=== PATIENT | male | born 1970 | race Caucasian/White ===

== ENCOUNTER 2019-08-15 16:26 | Inpatient (IN) | payer BC, SELFPAY ==
[2019-08-15] VITALS (22 sets, daily range): BP systolic 116–158; BP diastolic 74–114; PULSE 70–133; RESP 17–21; TEMP 36–36.6; O2SAT 89–99; BMI 38.9; BMI 39.2; BMI 38.1
--- NOTE | 2019-08-15 17:11 | EKG12_ITS ---
Test Reason : SOB Blood Pressure : / mmHG Vent. Rate : 108 BPM Atrial Rate : 108 BPM P-R Int : 148 ms QRS Dur : 086 ms QT Int : 338 ms P-R-T Axes : 062 251 069 degrees QTc Int : 452 ms Sinus tachycardia Confirmed by INDIRA CARMONA MD ([id number]), commissioning editor DORA NEFF ([id number] on 08/19/2019 11:43:16 AM Referred By: Zaida Harper Confirmed By:INDIRA CARMONA MD
--- NOTE | 2019-08-15 17:30 | RAD_ITS ---
STUDY: X-RAY CHEST REASON FOR EXAM: Male, 49 years old. Shortness of breath. TECHNIQUE: Frontal and lateral views of the chest. COMPARISON: None. FINDINGS: The lungs are hyperinflated. There is no focal consolidation. Normal size heart. Normal mediastinum and ирина. There is prominence of the pulmonary hilar arteries without peripheral pulmonary vascular congestion. Normal visualized aortic arch and descending thoracic aorta. Normal visualized thoracic spine. Normal visualized ribs, clavicles, and shoulders. There is no demonstrated abnormality of the visualized soft tissue structures of the upper abdomen. RAD/Chest PA and Lateral IMPRESSION: Hyperinflated lungs. Prominent pulmonary hilar arteries, may be secondary to pulmonary artery hypertension. Electronically Signed: Jenelle Rose MD at 18:40 EST Tel , Service support ,
[2019-08-15 17:32] LABS: Absolute Neutrophil Count 10.5 X10^3/uL (2.0-7.7); Basophil# 0.09 X10^3/uL; Basophil% 0.6 % (0-1); Eosinophil# 0.04 X10^3/uL; Eosinophils% 0.3 % (0-5); Hematocrit 49.1 % (40-54); Hemoglobin 16.7 g/dL (13.0-16.5); Lymphocyte % 18.2 % (19-41); Mean Corpuscular Hgb 29.4 pg (27.0-32.0); Mean Corpuscular Volume 86.4 fL (80-94); Monocyte# 1.01 X10^3/uL; Monocyte% 7.1 % (0-10); NRBC Flagged by Analyzer 0 % (0-5); Neutrophil # 10.46 X10^3/uL (2.7-7.7); Neutrophil % 73.2 % (47-70); Platelet Count 252 K/mm3 (150-450); RBC Distribution Width CV 12.6 % (11.6-14.6); RBC Distribution Width SD 39.7 fl (35.1-43.9); Red Blood Count 5.68 M/mm3 (4.6-6.2); White Blood Count 14.3 K/mm3 (4.4-11.0)
--- NOTE | 2019-08-15 17:35 | ED.DCSUM_ITS ---
History of Present Illness Chief Complaint: Shortness of Breath Detail of Chief Complaint: Dyspnea on exertion Informant: Patient Onset: Weeks Context: Onset with activity Timing: Continuous Quality: Shortness of breath and dyspnea on exertion Location: Not applicable Current Severity: Mild Maximum Severity: Severe Worsened by: Walking Relieved by: Nothing Associated Symptoms: Cough Narrative: Patient is a 49-year-old male who presents because of persistent shortness of breath and dyspnea on exertion for the past several days. He was seen earlier this week at an urgent care and prescribed albuterol MDI and a burst of steroids. He reports no improvement. He has no history of asthma. He denies fever, chills or night sweats. He denies rhinorrhea, congestion or postnasal drainage. He denies pleuritic pain. He denies nausea, vomiting diarrhea. He denies hematemesis, melena hematochezia. He denies leg pain, swelling discoloration. He has no symptoms of claudication. Prior similar symptoms: Yes Recent Illness/Hospitalization: Yes - Past Medical History (1) No significant past medical history Status: Acute Past Medical History - Allergies and Home Meds Allergies/Adverse Reactions: Allergies No Known Allergies Allergy (Verified 08/15/19 16:27) Primary Care Physician: Care Physician,No Primary [Primary Care Provider] - Past Medical History: None Surgical History: no surgical history Lives: Spouse/ Significant Other Smoking Status: Never smoker Alcohol: Rare Drugs: None Review of Systems General: Denies: Chills, Fever, Sweats Eyes: Denies: Visual changes - bilaterally, Diplopia ENT: Denies: Bilateral ear pain, Rhinorrhea, Sore throat Cardiovascular: Reports: Heart racing. Denies: Chest pain, Palpitations Respiratory: Reports: Dyspnea, Cough, Dyspnea on exertion. Denies: Sputum, Orthopnea, Paroxysmal nocturnal dyspnea Gastrointestinal: Denies: Abdominal pain, Nausea, Vomiting, Diarrhea, Melena, Hematochezia Genitourinary: Denies: Dysuria, Hematuria, Frequency Musculoskeletal: Denies: Myalgias, Arthralgias, Back pain, Swelling, Extremity Pain Skin: Denies: Rash, Wounds Neurological: Denies: Headache, Weakness, Numbness Allergy: Denies: Uticaria, Swelling of the mouth, Swelling of the tongue Physical Exam Vital Signs/Narrative: Vital Signs Temp Pulse Resp BP Pulse Ox 08/15/19 16:56 110 H 20 H 153/101 H 90 08/15/19 16:27 97.8 F 133 H 17 116/76 92 Inital Vital Signs reviewed: Yes General: Well nourished, Well developed, No Acute Distress Head: Normocephalic, Atraumatic Eyes: Perrl, EOMI ENT: Moist mucous membranes, No rhinorrhea Neck: Supple, Nontender Cardiovascular: Regular rhythm, No murmurs, Normal S1, Normal S2, Tachycardia Respiratory: CTA bilaterally, Chest nontender. Negative for: No distress Abdomen: Soft, Nontender, Nondistended, Normal bowel sounds Back: Nontender, Normal Inspection Extremities: Nontender, No edema, - - There is no asymmetry, swelling, discoloration, leg vein distention, palpable cords or tenderness along the distribution of the deep venous system. Skin: Normal color, No rash Neurological: Alert, Oriented x3, Cranial nerves II-XII grossly intact, Normal Strength, Normal Sensation Psychological: Normal affect, Normal Mood Diagnostic/Tx/Re-eval Chest X-Ray - ED: 2 View, Read by ED Physician, Normal, Heart, Lungs, Mediastinu m, Bony Structures, No Acute Disease, - - He was interpreted by me at 1803. 08/15/19 17:30 Chest PA and Lateral [RAD] Stat Laboratory Results 08/15/19 08/15/19 08/15/19 17:12 17:12 17:20 WBC 14.3 H RBC 5.68 Hgb 16.7 H Hct 49.1 MCV 86.4 MCH 29.4 MCHC 34.0 RDW Std Deviation 39.7 RDW Coeff of Yared 12.6 Plt Count 252 MPV 11.0 Immature Gran % (Auto) 0.600 Neut % (Auto) 73.2 H Lymph % (Auto) 18.2 L [place] % (Auto) 7.1 Eos % (Auto) 0.3 Baso % (Auto) 0.6 Absolute Neuts (auto) 10.5 H Absolute Lymphs (auto) 2.60 Nucleated RBC % 0 Sodium 134 L Potassium 4.3 Chloride 101 Carbon Dioxide 21.0 Anion Gap 12 BUN 23 H Creatinine 1.51 H Estim Creat Clear Calc 68.35 Est GFR (MDRD) Af Amer 64 Est GFR (MDRD) Non-Af 53 L BUN/Creatinine Ratio 15.2 Glucose 475 H* Lactic Acid 3.6 H Calcium 8.8 Total Bilirubin 0.70 AST 88 H ALT 223 H Alkaline Phosphatase 93 Troponin I 0.129 H Total Protein 6.7 Albumin 3.2 Globulin 3.5 Albumin/Globulin Ratio 0.9 - Rhythm Strip Rhythm Strip: Sinus Tach Rate: 117 Ectopy: None - EKG Initial EKG Interpretation: Sinus Tachycardia - Sinus tachycardia with a ventricular rate of 108. [place] interval 148 ms. QS duration 86 ms. QT duration 338 ms. [place] is normal. There is motion artifact. There are some a nonspecific ST-T wave changes noted. - Medical Decision Making Differential diagnosis includes bronchitis, pneumonia, pulmonary embolus, cardiomyopathy, cardiac ischemia. Will obtain EKG, chest x-ray appropriate blood work including d-dimer. Patient was placed on a monitor. Since he is hypoxic with a saturation 88% he was told he will require admission to the hospital. Number was markedly elevated. CTA of the chest was performed. Patient has submassive pulmonary embolus with high clot burden. Case was discussed with Dr. Donahue since he has a lactic acidosis and elevated troponin with right heart strain regarding from lytics. He recommended IV heparin and admission to ICU. - Critical Care Time Critical care time (excluding procedures): 30-74 minutes, Discussing w/Patient &/or Family/General Milling Superintendent, Discussing w/Consultants, Arranging Admission or Transfer - Critical care time 32 minutes ED Disposition - Plan for ED Patient: Disposition: Acute Care [facility] Diagnosis: Bilateral pulmonary embolism, Respiratory failure with hypoxia, Acute hyperglycemia, Lactic acidosis, Sinus tachycardia by electrocardiogram, Right heart strain Referrals: Care Physician,No Primary [Primary Care Provider] -
[2019-08-15 18:00] LABS: Lactic Acid 3.6 mmol/L (0.4-2.0)
--- NOTE | 2019-08-15 18:00 | ED.RN ---
glucose 475 lactic 3.6 called from the lab dr patel aware
[2019-08-15 18:01] LABS: ALB/GLOB Ratio 0.9 RATIO (0.9-2.4); AST(SGOT) 88 U/L (15-37); Alanine Aminotransfer ALT/SGPT 223 U/L (16-61); Albumin, Serum 3.2 g/dL (3.2-5.0); Alkaline Phosphatase 93 U/L (45-117); Anion Gap 12 (5-15); BUN 23 mg/dL (7-18); BUN/Creat Ratio 15.2 RATIO (10-20); Calcium,Total 8.8 mg/dL (8.5-10.1); Chloride 101 mmol/L (98-107); Creatinine, Serum 1.51 mg/dL (0.70-1.30); EST Glomerular Filtration Rate 53 mL/min (>60); Est Glom Filt Rate - Afr Amer 64 mL/min (>60); Estimated Creatinine Clearance 68.35 ml/min; Globulin 3.5 g/dL (2.2-4.2); Glucose 475 mg/dL (74-106); Potassium 4.3 mmol/L (3.5-5.1); Protein, Total 6.7 g/dL (6.4-8.2); Sodium Level 134 mmol/L (136-145)
[2019-08-15] MEDS: 0.9% Normal Saline 1,000 ML 1000 ML IV (18:12)
[2019-08-15 18:22] LABS: D-Dimer Quantitative (DVT/PE) 2.42 FEU/ug/m (0.27-0.49)
--- NOTE | 2019-08-15 18:27 | CT_ITS ---
STUDY: CTA CHEST REASON FOR EXAM: Male, 49 years old. Elevated d-dimer. RADIATION DOSAGE (If Supplied By Facility): CTDIvol = ( 32.93 ) mGy, DLP = ( 680.85 ) mGycm TECHNIQUE: The examination was performed with the intravenous administration of IV 100mL [id number] 100ML. Post-processing of the angiographic images was performed, with multiplanar reformation and 3D reconstruction. Individualized dose optimization techniques were used for this CT. COMPARISON: None. FINDINGS: There are filling defects within the pulmonary arteries consistent with underlying emboli. There are associated emboli extending into segmental and subsegmental pulmonary arteries throughout the lungs. Normal thoracic aorta and visualized great vessels. There is no demonstrated aortic dissection. Normal heart and pericardium. Normal mediastinum. Normal hilar regions. Normal visualized trachea and bronchi. There are few groundglass opacities within the left upper lobe and superior segment of the left lower lobe that likely reflect focal edema. Normal chest wall structures. There are degenerative changes of thoracic spine. The limited images of the upper abdomen demonstrate a diffusely low in attenuation liver consistent with fatty infiltration. CT/CTA Chest W/WO Contrast IMPRESSION: Bilateral pulmonary emboli. Fatty infiltration of the liver. N.B. : The above information has been verbally conveyed by Jenelle Rose MD to Dr. Deep Paniagua MD, on 08/15/2019 19:33:00 (ET). Electronically Signed: Jenelle Rose MD at 19:34 EST Tel , Service support ,
--- NOTE | 2019-08-15 18:27 | ED.RN ---
ddimer 2.42 called from the lab dr patel aware
[2019-08-15 19:07] LABS: Partial Thromboplast Time 25.4 Seconds (24.1-36.2)
--- NOTE | 2019-08-15 19:10 | ED.RN ---
PATIENT UP TO BATHROOM. WHEN PATIENT RETURNED TO BED BECAME VERY SHORT OF BREATH AND BECAME UNRESPONSIVE WITH SNORING RESPIRATIONS. PULSE PRESENT. PATIENT UNRESPONSIVE FOR APPROXIMATELY 30 SECONDS. PATIENT MAINTAINED AIRWAY. DR. PALOMINO AT BEDSIDE. NEW ORDERS PLACED.
[2019-08-15] MEDS: Insulin Lispro 100 UNIT/ML INSULN.PEN SC ×2 (19:46→21:30)
--- NOTE | 2019-08-15 19:54 | HP.PCM_ITS ---
Problem List (1) Bilateral pulmonary embolism Status: Acute (2) Respiratory failure with hypoxia Status: Acute Qualifiers: Chronicity: acute Qualified Code(s): J96.01 - Acute respiratory failure with hypoxia (3) ADEN (acute kidney injury) Status: Acute (4) Elevated liver enzymes Status: Acute (5) Acute hyperglycemia Status: Acute (6) Lactic acidosis Status: Acute (7) Cardiac enzymes elevated Status: Acute (8) Sinus tachycardia by electrocardiogram Status: Acute (9) Obesity (BMI 30-39.9) Status: Chronic History of Present Illness Date of Admission: 08/15/19 Chief Complaint: SOB, Cough The patient is a 49 y/o M w/ PMHx: Obesity otherwise with no other significant m edical history who presents to the [facility] ED on 08/15/19 with history of ongoing dyspnea, worse with exertion over the last 4 weeks, more severe with increased exertion with associated cough, worsening over the last several days with initial onset 1 to 2 days following [address] to [place] on July 28 and return on the , continued uninterrupted driving both ways with admitted left posterior calf discomfort and mild swelling which she only noticed this prior Friday. Patient initially stable appearing in the ED however he did go to stand up and became unresponsive, collapsed with no respirations or pulse, very flushed appearance, nurses began CPR and he slowly awoke with then repeated stable appearing vital signs however he was more hypoxic and more tachycardic requiring increased oxygen supplementation. Dr. Donahue the glass installer technician was contacted as initially discussed TPA and had been deferred but given this presentation now TPA has been ordered, Bell placed. Work-up in the ED included T 97.8, heart rate initially 133 with improvement 104 following intervention, BP 116/76, respiratory rate 20, 90% on room air, CBC with WC 14.3, heme globin 6.7, platelet 252 with left shift, d-dimer 2.42, CMP with sodium 134, BUN/creatinine 23/1.51, glucose of 475, lactic acid 3.6, AST/ALT 88/223, troponin 0.129, chest x-ray with hyperinflated lungs with prominent pulmonary hilar arteries possibly secondary to pulmonary artery hypertension, CTPA with BL submassive pulmonary embolism. In the ED patient administered normal saline, insulin 5 units subcu x1, heparin bolus and drip initiated but held with alteplase and ministration as noted and worsens status. Past Medical History Past Medical History (Chronic Problems): Chronic Problems Obesity (BMI 30-39.9) (Chronic) Allergies No Known Allergies Allergy (Verified 08/15/19 16:27) Surgical History: - - Tonsillectomy. Psychiatric History: No pertinent psych hx Lives: Spouse/ Significant Other - Patient lives with his girlfriend. Smoking Status: Never smoker Alcohol: Rare Drugs: None - *Family History Maternal History Items: Diabetes Paternal History Items: - - Patient denies any market paternal family history including heart disease, diabetes or cancer. Review of Systems Constitutional: Reports: Malaise, Weakness, Fatigue. Denies: Chills, Fever, Weight Change HEENT: Denies: Head Aches, Sinus Congestion, Sinus Drainage Cardiovascular: Reports: Light Headedness, Syncope. Denies: Chest Pain, Chest Pressure, Chest Tightness, Heaviness, Orthopnea, Palpitations Respiratory: Reports: Cough, Shortness of Breath, Shortness of breath at rest, Shortness of breath upon exertion. Denies: Sputum production, Wheezing Gastrointestinal: Denies: Abdominal Pain, Nausea, Vomiting Genitourinary: Denies: Dysuria Musculoskeletal: Reports: Leg Pain. Denies: Joint Pain, Joint Tenderness Skin: Denies: Rash, Wounds Neurological: Denies: Numbness, Tingling, Focal weakness Psychiatric: Denies: Anxiety, Depression, Homicidal Ideations, Suicidal Ideations Hematologic/ Lymphatic: Denies: Easy Bruising, Easy Bleeding VTE Information - Inpt Only VTE Present on Admission: No VTE Mechan Device Prophylaxis: SCD's VTE Pharm Prophylaxis ordered?: Yes Patient Problems: Active and Suspected Problems No significant past medical history (Acute) Bilateral pulmonary embolism (Acute) Respiratory failure with hypoxia (Acute) Acute hyperglycemia (Acute) Lactic acidosis (Acute) Sinus tachycardia by electrocardiogram (Acute) ADEN (acute kidney injury) (Acute) Elevated liver enzymes (Acute) Cardiac enzymes elevated (Acute) Subjective: Patient laying in the ED bed, recent concern for syncopal event with cardiopulmonary arrest, resume pulse and appropriate respiratory status, increased oxygenation needs however, flushed and diaphoretic, denies any chest pain. Objective: Physical Examination: General: awake, alert, oriented x 3 and cooperative, laying in the ED bed, flushed, diaphoretic, vital signs improved, recent syncopal event with possible cardiopulmonary arrest Skin: normal color, turgor, no icterus, cyanosis. HEENT: AT/NC, EOMI, PERRLA, dry MM, no carotid bruits or JVD noted; however thickened neck makes examination difficult. Lungs: Diminished breath sounds throughout, greater bases, moderate effort, no rales, ronchi or wheezing. Heart: Cardiac with regular rhythm; no gallop, rub audible. Abdomen: soft, obese, NTTP, ND, normal BS, no HSM. Extremities: no cyanosis, clubbing, or edema, some discomfort with palpation of the left posterior calf region, minimally swollen. Neurological: patient awake, alert, oriented x 3; cognitive function intact; pupils equally reactive to light and accomodation; cranial nerves II-XII grossly normal, moving all 4 extremities, no focal deficits, strength severely global decrease secondary to acute presentation. Psychiatric: affect appears fatigued, flushed, no acute evidence of depressive or anxiety feelings. - Physical Exam Vitals/I&O's: Vital Signs Temp Pulse Resp BP Pulse Ox 98 F 104 H 20 H 130/90 H 93 08/15/19 18:07 08/15/19 19:03 08/15/19 19:03 08/15/19 19:03 08/15/19 19:03 Oxygen Flow Rate (L/min) 2 Oxygen Delivery Method Nasal Cannula Weight: 294 lb 15.656 oz Body Mass Index (BMI) 38.9 Laboratory Results 08/15/19 17:12: WBC 14.3 H, RBC 5.68, Hgb 16.7 H, Hct 49.1, MCV 86.4, MCH 29.4, MCHC 34.0, RDW Std Deviation 39.7, RDW Coeff of Yared 12.6, Plt Count 252, MPV 11.0, Immature Gran % (Auto) 0.600, Neut % (Auto) 73.2 H, Lymph % (Auto) 18.2 L, [place] % (Auto) 7.1, Eos % (Auto) 0.3, Baso % (Auto) 0.6, Absolute Neuts (auto) 10.5 H, Absolute Lymphs (auto) 2.60, Nucleated RBC % 0 08/15/19 17:12: Sodium 134 L, Potassium 4.3, Chloride 101, Carbon Dioxide 21.0, Anion Gap 12, BUN 23 H, Creatinine 1.51 H, Estim Creat Clear Calc 68.35, Est GFR (MDRD) Af Amer 64, Est GFR (MDRD) Non-Af 53 L, BUN/Creatinine Ratio 15.2, Glucose 475 H*, Calcium 8.8, Total Bilirubin 0.70, AST 88 H, ALT 223 H, Alkaline Phosphatase 93, Troponin I 0.129 H, Total Protein 6.7, Albumin 3.2, Globulin 3.5, Albumin/Globulin Ratio 0.9 08/15/19 17:12: D-Dimer Quant (PE/DVT) 2.42 H* 08/15/19 17:17: APTT Pending 08/15/19 17:20: Lactic Acid 3.6 H Current Medications Heparin Sodium (Porcine) (Heparin Na) 0 unit IV UD PRN; Protocol Heparin Sodium/Dextrose () 25,000 units in 250 mls @ 17 mls/hr IV .[id number] [facility]; Protocol Assessment/Plan All Active Problems No significant past medical history (Acute) Bilateral pulmonary embolism (Acute) Respiratory failure with hypoxia (Acute) Acute hyperglycemia (Acute) Lactic acidosis (Acute) Sinus tachycardia by electrocardiogram (Acute) ADEN (acute kidney injury) (Acute) Elevated liver enzymes (Acute) Cardiac enzymes elevated (Acute) The patient is a 49 y/o M w/ PMHx: Obesity otherwise with no other significant medical history who presents to the [facility] ED on 08/15/19 with history of ongoing dyspnea, worse with exertion over the last 4 weeks, more severe with increased exertion with associated cough, worsening over the last several days with initial onset 1 to 2 days following [address] to [place] on July 28 and return on the , continued uninterrupted driving both ways with admitted left posterior calf discomfort and mild swelling which she only noticed this prior Friday. (1) Acute Hypoxic Respiratory Failure, Tachycardia, Indeterminate cardiac enzyme secondary to Acute BL Submassive Pulmonary Emboli w/ Syncopal Event, Possible Cardiopulmonary Arrest : EKG without acute findings w/ sinus tachycardia, CXR no acute process, D-dimer elevated, CTPA with BL submassive pulmonary embolism, trop x 0.129 likely secondary to strain. No family history of hypercoaguable state. Patient noted recent travel but following hypercoag panel being obtained. Will admit to ICU given severity of clot evident and strain, maintain on cardiac telemetry, will obtain ECHO, BNP for prognostic marker and BL LE DVT US. Hypercoaguable panel obtained in ED prior to administration anticoagulation w/ heparin bolus and drip although. Will continue therapeutic heparin drip regimen once PTT appropriate without bolus following ED initiated Alteplase administration with pending AM insurance oral regimen investigation. ICU physician consulted and will Cardiology consult per mandatory protocol per Alteplase order set. (2) New onset Diabetes mellitus type II: Will initiated low dose BID insulin regimen, obtained HgbA1c, allow ADA diet, accu checks w/ ISS, nutrition consulted for education and teaching, aggressive hydration given ADEN, LA. (3) Suspected Acute kidney injury: Secondary to acute presentation as noted #1, #2, #4. Admission BUN/Cr 23/1.51, unclear prior baseline but suspect acute, will hydrate, defer any nephrotoxic medications. If no improvement would plan FeNa renal ultrasound assessment. (4) Lactic acidosis: Lactic acid 3.6, likely secondary to acute presentation #1, #2, #3, continue to hydrate, trend lactic acid. (5) Indeterminate cardiac enzymes: Likely secondary to strain secondary to submassive bilateral pulmonary emboli. EKG in ED with sinus tachycardia with no acute evidence of ischemia, CXR w/ no acute cardiopulmonary findings but CTPA as noted with bilateral submassive pulmonary emboli, initial trop 0.129. Will place on a monitored bed to assure no acute myocardial infarction with serial cardiac enzymes and EKGs. ECHO requested. ASA, NG, morphine. (6) Elevated liver enzymes: Admission liver enzymes AST/ALT 88/2 2 3, unclear baseline, continue to hydrate, could be secondary to strain as noted with #1, hepatitis panel requested, urine drug screen requested. If remains elevated may need to have liver US obtained. (7) Obesity: Weight loss and lifestyle changes encouraged, nutrition consulted. (8) DVT prophylaxis: SCDs, Alteplase with transition back to heparin drip once PTT appropriate. (9) CODE status: Full Code. Critical Care Time: 46 minutes, time from 19:08-19:54, were spent addressing patients acute presentation including submassive pulmonary emboli, acute respiratory failure, syncopal event with possible cardiopulmonary arrest, new onset diabetes, suspect acute kidney injury, lactic acidosis, indeterminate cardiac enzymes, elevated liver enzymes, review of all data in collaboration with care team in addition to discussion with family. Code Visit Procedures: 28670 Critial Care 1st Hr
--- NOTE | 2019-08-15 20:38 | VDLE_ITS ---
Reason For Study: Pulmonary Embolism RIGHT LEFT GSV is normal. GSV is normal. CFV is compressible, spontaneous, phasic, CFV is compressible, spontaneous, phasic, competent and demonstrates normal competent, and demonstrates normal augmentation. augmentation. FV is compressible, spontaneous, phasic, FV is compressible, spontaneous, phasic, competent and demonstrates normal competent and demonstrates normal augmentation. augmentation. POP V is compressible, spontaneous, phasic, POP V is compressible, spontaneous, phasic, competent and demonstrates normal competent and demonstrates normal augmentation. augmentation. T/P Trunk is compressible. Lt T/P Trunk, Lt PTV, Lt PeroV, and Lt PTV is compressible. SoleusV are dilated and non compressible RT PerV is compressible. consistent with acute DVT. Procedure Exam performed portable in ICU/CCU. A preliminary report was called and/or faxed to Haritha STAPLETON. Interpretation Summary There is no evidence of right lower extremity deep vein thrombosis. Acute deep venous thrombosis left tibioperoneal trunk, left posterior tibial vein, left peroneal vein, and left soleus vein. Patent and compressible bilateral great saphenous veins Ordering Physician: Zaida Harper Referring Physician: Zaida Harper Performed By: Jesica Camarena RDCS, RVT
--- NOTE | 2019-08-15 20:38 | ECHOD_ITS ---
Reason For Study: EMBOLI Procedure This was a 2D Doppler, Color Flow transthoracic echocardiogram. Definity deferred due to increased PAP. The study was technically difficult. Exam performed portable in ICU/CCU. Left Ventricle Normal LV size. D shaped septum in systole and diastole. Left ventricular systolic function is lower limits of normal. The estimated ejection fraction is 50 %. Stage 1 diastolic dysfunction. No regional wall motion abnormalities noted. Right Ventricle Moderately dilated right ventricle. Moderately severe global right ventricular systolic dysfunction. Atria Normal left atrium. The right atrium is moderately enlarged. Mitral Valve Normal mitral valve. Tricuspid Valve Normal tricuspid valve. Moderate (2+) tricuspid valve insufficiency. Pulmonary artery systolic pressure is 55 mmHg. Moderate pulmonary hypertension. Aortic Valve Normal aortic valve. Trisinus/trileaflet aortic valve. Pulmonic Valve Normal pulmonic valve. Great Vessels Normal aortic root. The pulmonary artery is normal size. Normal inferior vena cava. Pericardium/Pleural No pericardial effusion. MMode/2D Measurements & Calculations LVIDd: 4.2 cm IVSd: 1.0 cm Ao root diam: 3.2 cm LVIDs: 2.9 cm LVPWd: 1.0 cm RVDd: 4.7 cm FS: 30.4 % LAV(MOD-bp): 38.7 ml LA A4 area: 15.5 cm2 LA dimension(2D): 3.6 cm LAV(MOD-bp) Indexed: 15.2 ml/m2 LAV(MOD-sp2): 36.2 ml LAV(MOD-sp4): 36.3 ml RA A4 area: 24.4 cm2 Time Measurements MV dec time: 0.20 sec Doppler Measurements & Calculations MV E max cade: 44.4 cm/sec Lat Peak E' Cade: 8.8 cm/sec Med Peak E' Cade: 6.5 cm/sec MV A max cade: 61.1 cm/sec E/E' lat: 5.0 E/E' med: 6.9 MV E/A: 0.73 Ao V2 max: 128.1 cm/sec LV V1 max: 79.8 cm/sec PA V2 max: 108.3 cm/sec Ao max P.6 mmHg LV V1 max P.6 mmHg TR max cade: 358.6 cm/sec TR max P.3 mmHg Interpretation Summary Normal LV size. Left ventricular systolic function is lower limits of normal. The estimated ejection fraction is 50 %. Stage 1 diastolic dysfunction. D shaped septum in systole and diastole. The right atrium is moderately enlarged. Pulmonary artery systolic pressure is 55 mmHg. Moderate pulmonary hypertension. Ordering Physician: Zaida Harper Referring Physician: Zaida Harper Performed By: Belle Saldana RDCS
[2019-08-15 21:18] LABS: International Normalized Ratio 1.3; Prothrombin Time (Protime)PT. 15.5 SECONDS (11.7-14.9)
[2019-08-15 21:20] LABS: Hemoglobin A1c 9.7 % (4.2-6.3)
[2019-08-15 21:24] LABS: Amphetamine Urine VISTA NEGATIVE (<1000 ng/mL); Barbiturate Urine VISTA NEGATIVE (< 200 ng/mL); Benzodiazepine Urine VISTA NEGATIVE (< 200 ng/mL); Cocaine Urine VISTA NEGATIVE (< 300 ng/mL); Ecstacy Urine VISTA NEGATIVE (< 500 ng/mL); Methadone Urine VISTA NEGATIVE (< 300 ng/mL); PCP Urine VISTA NEGATIVE (< 25 ng/mL); THC Urine VISTA NEGATIVE (< 50 ng/mL); Vista UDS pH Range 5
[2019-08-15] MEDS: 0.9% Normal Saline 1,000 ML 150 ML IV (21:27)
[2019-08-15 21:28] LABS: Reflex Lactate? Y
[2019-08-15] MEDS: Pantoprazole Sodium 20 MG Tablet PO (21:30)
[2019-08-15 22:15] LABS: Bedside Glucose 308 mg/dL (70-110)
[2019-08-15 22:24] LABS: BNP,B-Type NATRIURETIC PEPTIDE 517.8 pg/mL (0-100)
[2019-08-15 22:44] LABS: Lactic Acid 2.4 mmol/L (0.4-2.0)
[2019-08-16] VITALS (32 sets, daily range): BP systolic 118–154; BP diastolic 66–102; PULSE 55–92; RESP 14–22; TEMP 35.6–36.6; O2SAT 94–99
[2019-08-16 00:13] LABS: Absolute Lymphocyte Count 2.02 X10^3/uL (0.83-4.51); Absolute Neutrophil Count 11.3 X10^3/uL (2.0-7.7); Basophil# 0.07 X10^3/uL; Basophil% 0.5 % (0-1); Eosinophil# 0.01 X10^3/uL; Eosinophils% 0.1 % (0-5); Hematocrit 45.7 % (40-54); Hemoglobin 15.4 g/dL (13.0-16.5); Lymphocyte # 2.02 X10^3/ul (4.0); Lymphocyte % 13.8 % (19-41); Mean Corp Hgb Conc 33.7 g/dL (32-36); Mean Corpuscular Hgb 29.3 pg (27.0-32.0); Mean Corpuscular Volume 86.9 fL (80-94); Mean Platelet Vol. 10.9 fl (6.2-12.0); Monocyte# 1.11 X10^3/uL; Monocyte% 7.6 % (0-10); NRBC Flagged by Analyzer 0 % (0-5); Neutrophil # 11.32 X10^3/uL (2.7-7.7); Neutrophil % 77.5 % (47-70); Platelet Count 233 K/mm3 (150-450); RBC Distribution Width CV 12.6 % (11.6-14.6); RBC Distribution Width SD 39.8 fl (35.1-43.9); Red Blood Count 5.26 M/mm3 (4.6-6.2); White Blood Count 14.6 K/mm3 (4.4-11.0)
[2019-08-16 00:22] LABS: Partial Thromboplast Time 39.8 Seconds (24.1-36.2)
[2019-08-16] MEDS: HEPARIN/D5w 25,000 UNITS 25,000 UNITS/250 ML IV.SOLN. 16.2 UNITS IV ×2 (00:35→16:02)
--- NOTE | 2019-08-16 01:21 | NURSING ---
Noted EKG changes on telemetry. 12 lead ekg obtained and sent to Dr. Burciaga. pt not currently experiencing symptoms. No new orders.
[2019-08-16] MEDS: Acetaminophen 325 MG Tablet 650 MG PO (03:39)
[2019-08-16] MEDS: 0.9% Normal Saline 1,000 ML 150 ML IV (03:39)
--- NOTE | 2019-08-16 05:55 | RAD_ITS ---
STUDY: X-RAY CHEST REASON FOR EXAM: Male, 49 years old. Shortness of breath. TECHNIQUE: Frontal and lateral views of the chest. COMPARISON: August 15, 2019. FINDINGS: There is no new focal consolidation. The lungs remain hyperinflated. There is cardiomegaly. There is stable prominence of the pulmonary hilar arteries without peripheral pulmonary vascular congestion. Normal visualized aortic arch and descending thoracic aorta. Normal visualized thoracic spine. Normal visualized ribs, clavicles, and shoulders. There is no demonstrated abnormality of the visualized soft tissue structures of the upper abdomen. RAD/Chest PA and Lateral IMPRESSION: No new focal consolidation. Cardiomegaly. Stable prominent pulmonary hilar arteries. Stable hyperinflated lungs. Electronically Signed: Jenelle Rose MD at 17:16 EST Tel , Service support ,
--- NOTE | 2019-08-16 05:55 | EKG12_ITS ---
Test Reason : AM EKG Blood Pressure : / mmHG Vent. Rate : 059 BPM Atrial Rate : 059 BPM P-R Int : 136 ms QRS Dur : 098 ms QT Int : 494 ms P-R-T Axes : 014 -64 248 degrees QTc Int : 489 ms Sinus bradycardia Left anterior fascicular block ST & Marked T wave abnormality, consider anterolateral ischemia Abnormal ECG Confirmed by VICKIE FAGAN, YOLI ([id number]), editorial director MAXX GARCÍA ([id number]) on 08/25/2019 2:25:19 PM Referred By: Zaida Harper Confirmed By:YOLI JOHNSTON MD
[2019-08-16 06:18] LABS: Absolute Neutrophil Count 9.3 X10^3/uL (2.0-7.7); Basophil# 0.08 X10^3/uL; Basophil% 0.6 % (0-1); Eosinophil# 0.06 X10^3/uL; Eosinophils% 0.4 % (0-5); Hematocrit 45.3 % (40-54); Hemoglobin 15.4 g/dL (13.0-16.5); Lymphocyte % 22.5 % (19-41); Mean Corpuscular Hgb 29.6 pg (27.0-32.0); Mean Corpuscular Volume 87.1 fL (80-94); Mean Platelet Vol. 10.5 fl (6.2-12.0); Monocyte# 0.78 X10^3/uL; Monocyte% 5.8 % (0-10); NRBC Flagged by Analyzer 0 % (0-5); Neutrophil # 9.33 X10^3/uL (2.7-7.7); Platelet Count 229 K/mm3 (150-450); RBC Distribution Width CV 12.7 % (11.6-14.6); RBC Distribution Width SD 40.2 fl (35.1-43.9); White Blood Count 13.4 K/mm3 (4.4-11.0)
[2019-08-16 06:23] LABS: Partial Thromboplast Time 73.7 Seconds (24.1-36.2)
[2019-08-16 06:30] LABS: ALB/GLOB Ratio 0.9 RATIO (0.9-2.4); AST(SGOT) 46 U/L (15-37); Alanine Aminotransfer ALT/SGPT 178 U/L (16-61); Albumin, Serum 2.9 g/dL (3.2-5.0); Alkaline Phosphatase 86 U/L (45-117); Anion Gap 7 (5-15); BUN 22 mg/dL (7-18); BUN/Creat Ratio 22.7 RATIO (10-20); Calcium,Total 7.8 mg/dL (8.5-10.1); Chloride 106 mmol/L (98-107); Creatinine, Serum 0.97 mg/dL (0.70-1.30); EST Glomerular Filtration Rate 88 mL/min (>60); Est Glom Filt Rate - Afr Amer 106 mL/min (>60); Globulin 3.1 g/dL (2.2-4.2); Glucose 275 mg/dL (74-106); Potassium 4.4 mmol/L (3.5-5.1); Sodium Level 137 mmol/L (136-145)
--- NOTE | 2019-08-16 06:51 | PCM.CON.CC ---
Problem List (1) Bilateral pulmonary embolism Status: Acute (2) Respiratory failure with hypoxia Status: Acute Qualifiers: Chronicity: acute Qualified Code(s): J96.01 - Acute respiratory failure with hypoxia (3) Acute hyperglycemia Status: Acute (4) Sinus tachycardia by electrocardiogram Status: Acute (5) ADEN (acute kidney injury) Status: Acute (6) Elevated liver enzymes Status: Acute (7) Obesity (BMI 30-39.9) Status: Chronic Reason for Consult Date of Consultation: 08/16/19 Reason for Consultation: Acute PE History of Present Illness: The patient is a 49 year old M, with no significant past medical history reported, who presented to [facility] on 08/15/2019 secondary to shortness of breath for approximately 1 week. Patient reportedly had been progressive in nature and had been seen by an urgent care center previously in the week. Patient was placed on steroids and an MDI. Patient reportedly did not have any improvement, so came to the ER for evaluation. Patient had denied any rhinorrhea, chest pain, abdominal pain, nausea or vomiting. No fever or chills of been reported. Patient had not had any hematemesis, melena, hematochezia or epistaxis. Patient did report some discomfort in his left leg, but had attributed this to being in a combine for 8 hours. In the ER, patient was noted to be tachycardic and hypoxic at 88%. CTA of the chest did show a high clot burden. Dr. Donahue was contacted, but patient did reportedly receive lytics at 1943 secondary to reported right heart strain. Patient was placed on IV heparin and admitted to the intensive care unit. Patient has been on nasal cannula oxygen throughout. Overnight, patient has remained hemodynamically stable. Patient has been noted to have elevated glucose and inverted T waves on telemetry. Patient has been placed on 4 L nasal cannula and is receiving IV fluids. No fever or productive cough is been reported. Patient feels subjectively improved compared to previous. 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 Patient states that he drove to [place] about a week and a half ago. Patient recently had been in an a combine for over 8 hours for 2 days in a row. Patient denies any history of previous DVT or PE. Patient does not have any family history of blood clots. Patient does state that he has not established with a primary care physician, but diabetes does run in his family. Patient has noted some polyuria, but no dysuria is reported. Patient currently has a Bell catheter in place. Review of systems otherwise negative from a constitutional, HEENT, respiratory, cardiovascular, GI, genitourinary, musculoskeletal, skin, neurologic, psychiatric and hematologic system unless stated above. Past Medical History Past Medical History (Chronic Problems): Chronic Problems Obesity (BMI 30-39.9) (Chronic) Allergies No Known Allergies Allergy (Verified 08/15/19 16:27) Surgical History: - - Tonsillectomy. Psychiatric History: No pertinent psych hx Lives: Spouse/ Significant Other - Patient lives with his girlfriend. Smoking Status: Never smoker Alcohol: Rare Drugs: None - *Family History Maternal History Items: Diabetes Paternal History Items: - - Patient denies any market paternal family history including heart disease, diabetes or cancer. Review of Systems Comment: See HPI Patient Problems: Active and Suspected Problems No significant past medical history (Acute) Bilateral pulmonary embolism (Acute) Respiratory failure with hypoxia (Acute) Acute hyperglycemia (Acute) Lactic acidosis (Acute) Sinus tachycardia by electrocardiogram (Acute) ADEN (acute kidney injury) (Acute) Elevated liver enzymes (Acute) Cardiac enzymes elevated (Acute) Objective: All imaging was personally reviewed. CTA of the chest does show bilateral PE and a left lower lobe area of groundglass opacity. No significant emphysema is noted. Patient is never had an echocardiogram or pulmonary function test. - Physical Exam Vitals/I&O's: Vital Signs Temp Pulse Resp BP Pulse Ox 35.6 C L 56 L 14 150/89 H 96 08/16/19 04:00 08/16/19 06:00 08/16/19 06:00 08/16/19 06:00 08/16/19 06:44 Oxygen Flow Rate (L/min) 2 Oxygen Delivery Method Nasal Cannula Weight: 131.2 kg Body Mass Index (BMI) 38.1 Intake and Output for Last 24 Hours 08/14/19 08/15/19 08/16/19 23:59 23:59 23:59 Intake Total 1100 / 1700 2128.28 / 2128.28 Output Total 1450 / 1450 Balance 1100 / 750 678.28 / 678.28 General: Alert, Oriented x3, Cooperative, No apparent distress, Well developed, Well nourished, - - Obese. Speaking in full sentences. HEENT: Atraumatic, PERRLA, EOMI, Normocephalic, - - No scleral icterus or injection noted Oral: Moist Mucosa, No Gingival or Mucosal Lesions/ Ulcerations Neck: Supple, No JVD, No Nodes, Trachea Midline Lungs: No rhonchi, No wheeze, No rales, Diminished, - - Symmetric expansion. No dullness to percussion. Cardiovascular: Normal S1, Normal S2, No murmurs, Bradycardic, No rub noted, No Gallop Abdomen: Bowel Sounds Present, Soft, Non Tender, Non-Distended, Obese Extremities: No clubbing, No cyanosis, Edema - Left lower extremity Skin: No rashes, No breakdown Musculoskeletal: No Tenderness to Palpation of Joints or Extremities Lymphatic: No Cervical, Supraclavicular, or Inguinal Adenopathy Neurological: Cranial nerves II-XII grossly intact, Neuro grossly intact, Motor Exam 5/5 strength throughout Psych/Mental Status: Alert and oriented to time, place, person, mood and affect Laboratory Results 08/15/19 17:12: WBC 14.3 H, RBC 5.68, Hgb 16.7 H, Hct 49.1, MCV 86.4, MCH 29.4, MCHC 34.0, RDW Std Deviation 39.7, RDW Coeff of Yared 12.6, Plt Count 252, MPV 11.0, Immature Gran % (Auto) 0.600, Neut % (Auto) 73.2 H, Lymph % (Auto) 18.2 L, Orange % (Auto) 7.1, Eos % (Auto) 0.3, Baso % (Auto) 0.6, Absolute Neuts (auto) 10.5 H, Absolute Lymphs (auto) 2.60, Nucleated RBC % 0 08/15/19 17:12: Sodium 134 L, Potassium 4.3, Chloride 101, Carbon Dioxide 21.0, Anion Gap 12, BUN 23 H, Creatinine 1.51 H, Estim Creat Clear Calc 68.35, Est GFR (MDRD) Af Amer 64, Est GFR (MDRD) Non-Af 53 L, BUN/Creatinine Ratio 15.2, Glucose 475 H*, Calcium 8.8, Total Bilirubin 0.70, AST 88 H, ALT 223 H, Alkaline Phosphatase 93, Troponin I 0.129 H, Total Protein 6.7, Albumin 3.2, Globulin 3.5, Albumin/Globulin Ratio 0.9 08/15/19 17:12: D-Dimer Quant (PE/DVT) 2.42 H* 08/15/19 17:12: Magnesium 2.0 08/15/19 17:12: Hemoglobin A1c 9.7 H 08/15/19 17:12: B-Natriuretic Peptide 517.8 H 08/15/19 17:17: APTT 25.4 08/15/19 17:20: Lactic Acid 3.6 H 08/15/19 19:30: Urine Opiates Screen NEGATIVE, Urine Methadone Screen NEGATIVE, Ur Barbiturates Screen NEGATIVE, Ur Phencyclidine Scrn NEGATIVE, Ur Amphetamines Screen NEGATIVE, U Methamphetamin-MDMA NEGATIVE, U Benzodiazepines Scrn NEGATIVE, Urine Cocaine Screen NEGATIVE, U Cannabinoids Screen NEGATIVE, Ur Drug Screen Comment 08/15/19 19:30: Blood Type A POSITIVE, Antibody Screen NEGATIVE 08/15/19 19:33: Miscellaneous Test Cancelled 08/15/19 19:33: Protein C Antigen Pending, Functional Protein C Pending, Prot C Funct Activity Pending, Antithrombin III Ag Pending, Func Antithrombin III Pending, Factor V Leiden Mutat Pending, Beta-2-GPI IgG Ab Pending, Beta-2-GPI IgA Ab Pending, Beta-2-GPI IgM Ab Pending, Anti-Cardiolipin IgG Ab Pending, Anti-Cardiolipin IgM Ab Pending, Factor II DNA Analysis Pending 08/15/19 19:33: Miscellaneous Test Pending 08/15/19 20:45: PT 15.5 H, INR 1.3 08/15/19 21:16: POC Glucose 308 H 08/15/19 21:38: Hepatitis A IgM Ab Pending, Hepatitis A Ab Total Pending, Hep Bs Antigen Pending, Hep B Core Total Ab Pending, Hep B Core IgM Ab Pending 08/15/19 22:00: Lactic Acid 2.4 H 08/15/19 22:00: Troponin I 0.214 H 08/15/19 22:00: APTT 61.0 H 08/16/19 00:05: Troponin I 0.424 H 08/16/19 00:05: WBC 14.6 H, RBC 5.26, Hgb 15.4, Hct 45.7, MCV 86.9, MCH 29.3, MCHC 33.7, RDW Std Deviation 39.8, RDW Coeff of Yared 12.6, Plt Count 233, MPV 10.9, Immature Gran % (Auto) 0.500, Neut % (Auto) 77.5 H, Lymph % (Auto) 13.8 L, Orange % (Auto) 7.6, Eos % (Auto) 0.1, Baso % (Auto) 0.5, Absolute Neuts (auto) 11.3 H, Absolute Lymphs (auto) 2.02, Nucleated RBC % 0 08/16/19 00:05: APTT 39.8 H 08/16/19 03:30: Troponin I 0.543 H 08/16/19 06:05: WBC 13.4 H, RBC 5.20, Hgb 15.4, Hct 45.3, MCV 87.1, MCH 29.6, MCHC 34.0, RDW Std Deviation 40.2, RDW Coeff of Yared 12.7, Plt Count 229, MPV 10.5, Immature Gran % (Auto) 0.700, Neut % (Auto) 70.0, Lymph % (Auto) 22.5, Orange % (Auto) 5.8, Eos % (Auto) 0.4, Baso % (Auto) 0.6, Absolute Neuts (auto) 9.3 H, Absolute Lymphs (auto) 3.00, Nucleated RBC % 0 08/16/19 06:05: Sodium 137, Potassium 4.4, Chloride 106, Carbon Dioxide 24.0, Anion Gap 7, BUN 22 H, Creatinine 0.97, Estim Creat Clear Calc 106.40, Est GFR (MDRD) Af Amer 106, Est GFR (MDRD) Non-Af 88, BUN/Creatinine Ratio 22.7 H, Glucose 275 H, Calcium 7.8 L, Total Bilirubin 0.60, AST 46 H, ALT 178 H, Alkaline Phosphatase 86, Total Protein 6.0 L, Albumin 2.9 L, Globulin 3.1, Albumin/Globulin Ratio 0.9 08/16/19 06:05: APTT 73.7 H Clinical Impression(s) from Imaging Studies Chest X-Ray 08/15/19 17:30 IMPRESSION: Hyperinflated lungs. Prominent pulmonary hilar arteries, may be secondary to pulmonary artery hypertension. Electronically Signed: Jenelle Rose MD at 18:40 EST Tel , Service support , Chest CTA 08/15/19 18:27 IMPRESSION: Bilateral pulmonary emboli. Fatty infiltration of the liver. N.B. : The above information has been verbally conveyed by Jenelle Rose MD to Dr. Deep Paniagua MD, on 08/15/2019 19:33:00 (ET). Electronically Signed: Jenelle Rose MD at 19:34 EST Tel , Service support , ADDENDUM: 08/15/19 1941 IMPRESSION: Bilateral pulmonary emboli. Fatty infiltration of the liver. N.B. : The above information has been verbally conveyed by Jenelle Rose MD to Dr. Deep Paniagua MD, on 08/15/2019 19:33:00 (ET). Electronically Signed: Jenelle Rose MD at 19:34 EST Tel , Service support , Current Medications Acetaminophen (Tylenol) 650 mg PO Q6H PRN PRN PRN Reason: Non-cardiac pain (mod-severe) Last Admin: 08/16/19 03:39 Dose: 650 mg Documented by: Hydrocodone Bitart/Acetaminophen ([place] 5mg-325mg) 1 - 2 tablet PO Q4H PRN PRN PRN Reason: Pain Score 4-10/10 Al Hydroxide/Mg Hydroxide (Mylanta Ii) 15 - 30 ml PO Q4H PRN PRN PRN Reason: INDIGESTION Albuterol Sulfate (Ventolin Aerosols) 2.5 mg INHALATION Q2H PRN PRN PRN Reason: dyspnea, wheezing Dextrose (D50w Syringe) 0 gm IV X1 PRN; Protocol PRN Reason: Hypoglycemia Glucagon () 1 mg IM .X1 PRN PRN Reason: Hypoglycemia Heparin Sodium (Porcine) (Heparin Na) 0 unit IV UD PRN; Protocol Hydralazine HCl (Apresoline Iv) 10 mg IV Q4H PRN PRN PRN Reason: SBP > 160 Heparin Sodium/Dextrose () 25,000 units in 250 mls @ 16.212 mls/hr IV .[id number] [facility]; Protocol Last Titration: 08/16/19 06:39 Dose: 11.25 units/kg/hr, 15.2 mls/hr Documented by: Sodium Chloride () 250 mls @ 15 mls/hr IV .[id number] PRN PRN Reason: Saline Flush Influenza Virus Vaccine Quadrival (Flucelvax /Fluzone ) 0.5 ml IM .ONCE ONE Stop: 08/16/19 10:01 Insulin Glargine (Lantus ([facility])) 10 units SC BID [facility] Last Admin: 08/15/19 21:29 Dose: 10 units Documented by: Insulin Human Lispro (Humalog Kwikpen ([facility])) 0 unit SC [facility]; Protocol Last Admin: 08/15/19 21:30 Dose: 4 units Documented by: Magnesium Hydroxide (Milk Of Magnesia) 30 ml PO DAILY PRN PRN Reason: Constipation Melatonin (Melatonin) 3 mg PO QHS PRN PRN PRN Reason: INSOMNIA Morphine Sulfate () 1 - 2 mg IV Q4H PRN PRN PRN Reason: Pain Score 1-10/10 Nitroglycerin (Nitrostat) 0.4 mg SUBLINGUAL Q5M PRN PRN Reason: CARDIAC/CHEST PAIN Ondansetron HCl (Zofran) 4 mg IV Q8H PRN PRN PRN Reason: NAUSEA/VOMITING Pantoprazole Sodium (Protonix) 20 mg PO BID [facility] Last Admin: 08/15/19 21:30 Dose: 20 mg Documented by: Sodium Chloride () 10 - 40 ml IV UD PRN PRN Reason: SALINE FLUSH Assessment/Plan Active and Suspected Problems No significant past medical history (Acute) Bilateral pulmonary embolism (Acute) Respiratory failure with hypoxia (Acute) Acute hyperglycemia (Acute) Lactic acidosis (Acute) Sinus tachycardia by electrocardiogram (Acute) ADEN (acute kidney injury) (Acute) Elevated liver enzymes (Acute) Cardiac enzymes elevated (Acute) RECOMMENDATIONS: 1. Post TPA protocol 2. Discontinue IV fluids 3. Stop trending troponins 4. Wean oxygen as tolerated 5. Initiate metformin 6. Okay to leave the intensive care unit after TPA window IMPRESSIONS: 1. Acute hypoxic respiratory insufficiency secondary to saddle PE Patient did receive TPA yesterday with some improvement in oxygenation overnight. Patient continues to have supplemental oxygen requirements, but would expect this to resolve quickly given his TPA dose. We will continue to monitor closely. Patient should have a echocardiogram later today to evaluate for right heart strain. Multiple hypercoagulation studies are currently pending. Patient can likely leave the intensive care unit once TPA recovery is complete. 2. Acute cor pulmonale secondary to saddle PE Patient reportedly had significant issues while in the ER and received TPA. Patient's clot burden was significant on CTA of the chest. Patient has had some elevated troponins indicating probable supply versus demand mismatch. Continue to monitor telemetry. Patient may require a cardiac work-up as an outpatient given his hypertension, diabetes and obesity. Defer to hospitalist. 3. New diagnosis diabetes mellitus type 2 Patient does have an elevated hemoglobin A1c and significant blood sugars at this time. Patient was recently placed on steroids, so this could be leading to some of the hyperglycemia. Will initiate patient on metformin. Continue with insulin dosing. 4. Obesity/lack of primary care/hypertension Complicates care, management, recovery and prognosis. Patient reportedly does have a visit with Dr. Aguilar scheduled, but care is not been established. Code Visit Inpatient E&M: 00804 Init Hosp L3
[2019-08-16 07:02] LABS: Bedside Glucose 240 mg/dL (70-110)
[2019-08-16] MEDS: Insulin Lispro 100 UNIT/ML INSULN.PEN SC ×4 (08:10→21:29)
--- NOTE | 2019-08-16 08:14 | CON.PCM_ITS ---
Reason for Consult Date of Consultation: 08/16/19 Reason for Consultation: Shortness of breath History of Present Illness: The patient is a 49 year old M with no previous medical history who presented to the emergency room with a few days history of shortness of breath worse with exertion over the last 4 weeks. He had also had an associated cough. This started a few days after a 5 Hour Car Dr[place] to [place] on July 28. He had continued his drive uninterrupted with left posterior calf discomfort and mild swelling which he only noticed last week. He was seen in the urgent care and treated with nebulizers. He presented to the emergency room was initially evaluated was thought to be stable and when the patient got up in the emergency room he apparently collapsed with no respiration or pulse nurses began CPR he slowly awoke and became more tachycardic. He was hypoxic a CT scan was done which confirmed submassive pulmonary embolism and d-dimer was also noted to be elevated. He was treated after consultation with TPA for bilateral submassive pulmonary embolism. This was followed per protocol with intravenous heparin. This morning he is actually doing quite well denying any chest pain or shortness of breath. His initial EKG on presentation to the emergency room demonstrated sinus tachycardia with a rightward axis and a classic S1 Q3 [id number]. Past Medical History Allergies/Adverse Reactions: Allergies No Known Allergies Allergy (Verified 08/15/19 16:27) Past Medical History (Chronic Problems): Chronic Problems Obesity (BMI 30-39.9) (Chronic) Surgical History: - - Tonsillectomy. Psychiatric History: No pertinent psych hx - *Family History Maternal History Items: Diabetes Paternal History Items: - - Patient denies any market paternal family history including heart disease, diabetes or cancer. Lives: Spouse/ Significant Other - Patient lives with his girlfriend. Smoking Status: Never smoker Alcohol: Rare Drugs: None Review of Systems - Review of Systems General: Denies: Fever, Night Sweats, Fatigue HEENT: Denies: Vision Change Cardiovascular: Reports: Shortness of Breath, Shortness of Breath at Rest, Shortness of Breath with Exertion. Denies: Chest Discomfort, Orthopnea, PND, Peripheral Edema, Palpitations, Lightheadedness, Dizziness, Near Syncope, Syncope Respiratory: Denies: Cough, Sputum Production, Hemoptysis Gastrointestinal: Denies: Hematemesis, Hematochezia, Melena Genitourinary: Denies: Dysuria, Hematuria Muscoloskeletal: Reports: Leg Pain Skin: Denies: Rash Neurological: Denies: Dizziness Psychiatric: Denies: Anxiety Endocrine: Denies: Heat Intolerance Hematologic/ Lymphatic: Denies: Lymph Node Enlargement Subjectve: Pleasant gentleman in no distress Objective: Vital Signs Temp Pulse Resp BP Pulse Ox 96.0 F L 57 L 14 146/96 H 96 08/16/19 04:00 08/16/19 07:39 08/16/19 07:00 08/16/19 07:00 08/16/19 07:00 Oxygen Flow Rate (L/min) 2 Oxygen Delivery Method Nasal Cannula Weight: 289 lb 3.944 oz Body Mass Index (BMI) 38.1 Intake and Output for Last 24 Hours 08/14/19 08/15/19 08/16/19 23:59 23:59 23:59 Intake Total 1100 / 1700 2555.78 / 2555.78 Output Total 1450 / 1450 Balance 1100 / 750 1105.78 / 1105.78 General: Awake, Alert, Oriented x 3 HEENT: PERRL, EOMI, Sclera Non Icteric Neck: Supple, Good ROM, No Lymph Node Enlargement Lungs: Clear to auscultation Cardiovascular: Regular Rhythm, Normal S1, Normal S2, No Murmurs, No Rubs, No Gallops Vascular: No Carotid Bruits, Normal Femoral Pulses, Normal Radial Pulses, Normal Dorsalis Pedal Pulse, Normal Posterior Tibial Pulses Abdomen: Bowel Sounds Present, Soft, Non Tender, No HSM, No Organomegaly Extremities: No Cyanosis, No Clubbing, No edema Musculoskeletal: No Erythema Skin: No Rashes Lymphatic: No Lymph Node Enlargement Neurological: No Focal Motor or Sensory Deficit Psych/Mental Status: Appropriate 08/15/19 17:12: WBC 14.3 H, RBC 5.68, Hgb 16.7 H, Hct 49.1, MCV 86.4, MCH 29.4, MCHC 34.0, Plt Count 252, MPV 11.0, Immature Gran % (Auto) 0.600, Neut % (Auto) 73.2 H, Lymph % (Auto) 18.2 L, [place] % (Auto) 7.1, Eos % (Auto) 0.3, Baso % (Auto) 0.6, Absolute Neuts (auto) 10.5 H, Nucleated RBC % 0 08/15/19 17:12: Sodium 134 L, Potassium 4.3, Chloride 101, Carbon Dioxide 21.0, Anion Gap 12, BUN 23 H, Creatinine 1.51 H, Est GFR (MDRD) Af Amer 64, Est GFR (MDRD) Non-Af 53 L, BUN/Creatinine Ratio 15.2, Glucose 475 H*, Calcium 8.8, Total Bilirubin 0.70, Troponin I 0.129 H 08/15/19 17:12: D-Dimer Quant (PE/DVT) 2.42 H* 08/15/19 17:12: Magnesium 2.0 08/15/19 17:12: Hemoglobin A1c 9.7 H 08/15/19 17:12: B-Natriuretic Peptide 517.8 H 08/15/19 17:17: APTT 25.4 08/15/19 17:20: Lactic Acid 3.6 H 08/15/19 20:45: PT 15.5 H, INR 1.3 08/15/19 22:00: Lactic Acid 2.4 H 08/15/19 22:00: Troponin I 0.214 H 08/15/19 22:00: APTT 61.0 H 08/16/19 00:05: Troponin I 0.424 H 08/16/19 00:05: WBC 14.6 H, RBC 5.26, Hgb 15.4, Hct 45.7, MCV 86.9, MCH 29.3, MCHC 33.7, Plt Count 233, MPV 10.9, Immature Gran % (Auto) 0.500, Neut % (Auto) 77.5 H, Lymph % (Auto) 13.8 L, [place] % (Auto) 7.6, Eos % (Auto) 0.1, Baso % (Auto) 0.5, Absolute Neuts (auto) 11.3 H, Nucleated RBC % 0 08/16/19 00:05: APTT 39.8 H 08/16/19 03:30: Troponin I 0.543 H 08/16/19 06:05: WBC 13.4 H, RBC 5.20, Hgb 15.4, Hct 45.3, MCV 87.1, MCH 29.6, MCHC 34.0, Plt Count 229, MPV 10.5, Immature Gran % (Auto) 0.700, Neut % (Auto) 70.0, Lymph % (Auto) 22.5, [place] % (Auto) 5.8, Eos % (Auto) 0.4, Baso % (Auto) 0.6, Absolute Neuts (auto) 9.3 H, Nucleated RBC % 0 08/16/19 06:05: Sodium 137, Potassium 4.4, Chloride 106, Carbon Dioxide 24.0, Anion Gap 7, BUN 22 H, Creatinine 0.97, Est GFR (MDRD) Af Amer 106, Est GFR (MDRD) Non-Af 88, BUN/Creatinine Ratio 22.7 H, Glucose 275 H, Calcium 7.8 L, Total Bilirubin 0.60 08/16/19 06:05: APTT 73.7 H Rhythm: EKG: Initial EKG-demonstrates sinus tachycardia with rightward axis and deep S wave noted in lead I, Q wave in lead III and T wave inversions in lead III. Rate of 108 bpm. Follow-up EKG this morning demonstrates sinus bradycardia with T wave inversions noted in V1 through V4 with deep S waves ECHO: Pending Assessment/Plan 1. Acute submassive pulmonary embolism * Patient presented with submassive pulmonary embolism and had a syncopal episode. He received tissue plasminogen activator successfully. He appears to be doing quite well. * An echocardiogram performed this morning to assess his left ventricular function. * It appears the above was provoked with the long distance travel. * Further recommendations be made based on the results of the above. His EKG changes and troponin elevation is likely secondary to right ventricular strain. I do not think there is any acute cardiac issue at this particular time. * * Thank you for allowing me to participate in the care of your patient. Please don't hesitate to call if any issues arise
[2019-08-16] MEDS: metFORMIN HCl 1,000 MG Tablet 1000 MG PO (10:23)
[2019-08-16] MEDS: Pantoprazole Sodium 20 MG Tablet PO (10:25)
--- NOTE | 2019-08-16 10:45 | CASEMGMT ---
RN CM GATE CUTTER CM to room to meet with patient for initial transition planning/care coordination assessment. RN CM introduced self and role at [facility]. Pt voices understanding and consents to assessment at this time. Pt resting in bed in no distress at this time. Pt is A/O at this time and answers all questions appropriately. Care providers, pharmacy, and demographics verified/updated at this time. PCP: has an appt @ [facility] on 08/23 as new patient but does not remember name of MD. Call placed to [facility]. Pt has an appt with JOHNATHAN Nash 08/23/19 @ 0900 and will then be established with Dr Ashton. Information documented in DC Follow-up appt intervention, printed off, and given to pt. Pt voiced appreciation. Preferred [facility]acy: [facility] Insurance: [place] Prescription Benefit: Yes Living Will/HPOA: does not have LW or HCPOA . Interested in more information but states does not want to talk with SW at this time to complete paperwork. Provided information on advanced directives and given Social Service rac card with number to call if chooses in the future to utilize [facility] social work for advanced directive completion. LNOK: Mother, Kojo. Has daughter (under 18 yrs old) Living Arrangements: Lives with his GF, Catarino, Catarino's son, and pt's daughter. Pt is independent with all ADL's. Works full-time. Transportation: Pt states drives self and states no transportation concerns at this time. DME: Denies using any DME and denies needs. HHC/SNF: No history of either. Pt wishes to return home and states has no concerns with going home at time of discharge. CM to follow for any discharge planning/needs. Pt voices no further concerns/needs at this time. Advised pt to ask for CM if any further questions/concerns/needs arise. Voices understanding. Pt with new diagnosis of Diabetes. Made aware of Diabetic Clinic @[facility] and given Diabetic Clinic Rac Card PT Goal: Home PLAN: Home Mattie HERNANDES RN, CM
[2019-08-16 12:15] LABS: Bedside Glucose 253 mg/dL (70-110)
[2019-08-16 12:27] LABS: Partial Thromboplast Time 50.7 Seconds (24.1-36.2)
--- NOTE | 2019-08-16 16:33 | PN_ITS ---
Patient Problems: Active and Suspected Problems No significant past medical history (Acute) Bilateral pulmonary embolism (Acute) Respiratory failure with hypoxia (Acute) Acute hyperglycemia (Acute) Lactic acidosis (Acute) Sinus tachycardia by electrocardiogram (Acute) ADEN (acute kidney injury) (Acute) Elevated liver enzymes (Acute) Cardiac enzymes elevated (Acute) Subjective: Patient was seen and examined today in the ICU, he is currently on no oxygen and his pulse ox is 96%. Patient does not complain of any shortness of breath or chest discomfort. I talked at length with his family including his who were present at the time of my examination. I also talked with pulmonary medicine about his care, pulmonary medicine states that this evening patient can be moved to PCU status. - Physical Exam Vitals/I&O's: Vital Signs Temp Pulse Resp BP Pulse Ox 97.8 F 92 22 H 135/97 H 95 08/16/19 12:00 08/16/19 15:00 08/16/19 15:00 08/16/19 15:00 08/16/19 15:00 Oxygen Flow Rate (L/min) 2 Oxygen Delivery Method Room Air Weight: 131.2 kg Body Mass Index (BMI) 38.1 Intake and Output for Last 24 Hours 08/14/19 08/15/19 08/16/19 23:59 23:59 23:59 Intake Total 1100 / 1700 2701.88 / 2701.88 Output Total 2100 / 2100 Balance 1100 / 750 601.88 / 601.88 General: Alert, Oriented x3, Cooperative, No apparent distress, Well developed, Well nourished HEENT: Atraumatic, PERRLA, EOMI, Normocephalic Oral: Moist Mucosa Neck: Supple, Trachea Midline, Thyroid Normal Size and Texture Lungs: Clear to auscultation, Normal air movement, No rhonchi, No wheeze, No rales Cardiovascular: Regular rate, Regular Rhythm, Normal S1, Normal S2, No murmurs, PMI Normal, No rub noted, No Gallop Abdomen: Bowel Sounds Present, Soft, Non Tender, Non-Distended, No hernias noted Extremities: No clubbing, No cyanosis, No edema, Capillary Refill Less than 3 Seconds Skin: No rashes, No breakdown Musculoskeletal: No Tenderness to Palpation of Joints or Extremities Neurological: Cranial nerves II-XII grossly intact, Neuro grossly intact, Sensory exam intact to light touch and pain, Coordination normal Psych/Mental Status: Normal Affect, Appropriate, Alert and oriented to time, place, person, mood and affect Laboratory Results 08/15/19 17:12: WBC 14.3 H, RBC 5.68, Hgb 16.7 H, Hct 49.1, MCV 86.4, MCH 29.4, MCHC 34.0, RDW Std Deviation 39.7, RDW Coeff of Yared 12.6, Plt Count 252, MPV 11.0, Immature Gran % (Auto) 0.600, Neut % (Auto) 73.2 H, Lymph % (Auto) 18.2 L, Nuckolls % (Auto) 7.1, Eos % (Auto) 0.3, Baso % (Auto) 0.6, Absolute Neuts (auto) 10.5 H, Absolute Lymphs (auto) 2.60, Nucleated RBC % 0 08/15/19 17:12: Sodium 134 L, Potassium 4.3, Chloride 101, Carbon Dioxide 21.0, Anion Gap 12, BUN 23 H, Creatinine 1.51 H, Estim Creat Clear Calc 68.35, Est GFR (MDRD) Af Amer 64, Est GFR (MDRD) Non-Af 53 L, BUN/Creatinine Ratio 15.2, Glucose 475 H*, Calcium 8.8, Total Bilirubin 0.70, AST 88 H, ALT 223 H, Alkaline Phosphatase 93, Troponin I 0.129 H, Total Protein 6.7, Albumin 3.2, Globulin 3.5, Albumin/Globulin Ratio 0.9 08/15/19 17:12: D-Dimer Quant (PE/DVT) 2.42 H* 08/15/19 17:12: Magnesium 2.0 08/15/19 17:12: Hemoglobin A1c 9.7 H 08/15/19 17:12: B-Natriuretic Peptide 517.8 H 08/15/19 17:17: APTT 25.4 08/15/19 17:20: Lactic Acid 3.6 H 08/15/19 19:30: Urine Opiates Screen NEGATIVE, Urine Methadone Screen NEGATIVE, Ur Barbiturates Screen NEGATIVE, Ur Phencyclidine Scrn NEGATIVE, Ur Amphetamines Screen NEGATIVE, U Methamphetamin-MDMA NEGATIVE, U Benzodiazepines Scrn NEGATIVE, Urine Cocaine Screen NEGATIVE, U Cannabinoids Screen NEGATIVE, Ur Drug Screen Comment 08/15/19 19:30: Blood Type A POSITIVE, Antibody Screen NEGATIVE 08/15/19 19:33: Miscellaneous Test Cancelled 08/15/19 19:33: Protein C Antigen Pending, Functional Protein C Pending, Prot C Funct Activity Pending, Antithrombin III Ag Pending, Func Antithrombin III Pending, Factor V Leiden Mutat Pending, Beta-2-GPI IgG Ab Pending, Beta-2-GPI IgA Ab Pending, Beta-2-GPI IgM Ab Pending, Anti-Cardiolipin IgG Ab Pending, Anti-Cardiolipin IgM Ab Pending, Factor II DNA Analysis Pending 08/15/19 19:33: Miscellaneous Test Pending 08/15/19 20:45: PT 15.5 H, INR 1.3 08/15/19 21:16: POC Glucose 308 H 08/15/19 21:38: Hepatitis A IgM Ab Pending, Hepatitis A Ab Total Pending, Hep Bs Antigen Pending, Hep B Core Total Ab Pending, Hep B Core IgM Ab Pending 08/15/19 22:00: Lactic Acid 2.4 H 08/15/19 22:00: Troponin I 0.214 H 08/15/19 22:00: APTT 61.0 H 08/16/19 00:05: Troponin I 0.424 H 08/16/19 00:05: WBC 14.6 H, RBC 5.26, Hgb 15.4, Hct 45.7, MCV 86.9, MCH 29.3, MCHC 33.7, RDW Std Deviation 39.8, RDW Coeff of Yared 12.6, Plt Count 233, MPV 10.9, Immature Gran % (Auto) 0.500, Neut % (Auto) 77.5 H, Lymph % (Auto) 13.8 L, Nuckolls % (Auto) 7.6, Eos % (Auto) 0.1, Baso % (Auto) 0.5, Absolute Neuts (auto) 11.3 H, Absolute Lymphs (auto) 2.02, Nucleated RBC % 0 08/16/19 00:05: APTT 39.8 H 08/16/19 03:30: Troponin I 0.543 H 08/16/19 06:05: WBC 13.4 H, RBC 5.20, Hgb 15.4, Hct 45.3, MCV 87.1, MCH 29.6, MCHC 34.0, RDW Std Deviation 40.2, RDW Coeff of Yared 12.7, Plt Count 229, MPV 10.5, Immature Gran % (Auto) 0.700, Neut % (Auto) 70.0, Lymph % (Auto) 22.5, Nuckolls % (Auto) 5.8, Eos % (Auto) 0.4, Baso % (Auto) 0.6, Absolute Neuts (auto) 9.3 H, Absolute Lymphs (auto) 3.00, Nucleated RBC % 0 08/16/19 06:05: Sodium 137, Potassium 4.4, Chloride 106, Carbon Dioxide 24.0, Anion Gap 7, BUN 22 H, Creatinine 0.97, Estim Creat Clear Calc 106.40, Est GFR (MDRD) Af Amer 106, Est GFR (MDRD) Non-Af 88, BUN/Creatinine Ratio 22.7 H, Glucose 275 H, Calcium 7.8 L, Total Bilirubin 0.60, AST 46 H, ALT 178 H, Alkaline Phosphatase 86, Total Protein 6.0 L, Albumin 2.9 L, Globulin 3.1, Albumin/Globulin Ratio 0.9 08/16/19 06:05: APTT 73.7 H 08/16/19 06:58: POC Glucose 240 H 08/16/19 12:00: APTT 50.7 H 08/16/19 12:06: POC Glucose 253 H Current Medications Acetaminophen (Tylenol) 650 mg PO Q6H PRN PRN PRN Reason: Non-cardiac pain (mod-severe) Last Admin: 08/16/19 03:39 Dose: 650 mg Documented by: Hydrocodone Bitart/Acetaminophen ([place] 5mg-325mg) 1 - 2 tablet PO Q4H PRN PRN PRN Reason: Pain Score 4-10/10 Al Hydroxide/Mg Hydroxide (Mylanta Ii) 15 - 30 ml PO Q4H PRN PRN PRN Reason: INDIGESTION Albuterol Sulfate (Ventolin Aerosols) 2.5 mg INHALATION Q2H PRN PRN PRN Reason: dyspnea, wheezing Dextrose (D50w Syringe) 0 gm IV X1 PRN; Protocol PRN Reason: Hypoglycemia Glucagon () 1 mg IM .X1 PRN PRN Reason: Hypoglycemia Heparin Sodium (Porcine) (Heparin Na) 0 unit IV UD PRN; Protocol Hydralazine HCl (Apresoline Iv) 10 mg IV Q4H PRN PRN PRN Reason: SBP > 160 Heparin Sodium/Dextrose () 25,000 units in 250 mls @ 16.212 mls/hr IV .[id number] [facility]; Protocol Last Admin: 08/16/19 16:02 Dose: 11.99 units/kg/hr, 16.2 mls/hr Documented by: Sodium Chloride () 250 mls @ 15 mls/hr IV .[id number] PRN PRN Reason: Saline Flush Insulin Glargine (Lantus (Bkc)) 10 units SC BID [facility] Last Admin: 08/16/19 10:24 Dose: 10 units Documented by: Insulin Human Lispro (Humalog Kwikpen (Bkc)) 0 unit SC ACHS [facility]; Protocol Last Admin: 08/16/19 12:08 Dose: 3 units Documented by: Magnesium Hydroxide (Milk Of Magnesia) 30 ml PO DAILY PRN PRN Reason: Constipation Melatonin (Melatonin) 3 mg PO QHS PRN PRN PRN Reason: INSOMNIA Metformin HCl (Glucophage) 1,000 mg PO DAILY@0800 [facility] Last Admin: 08/16/19 10:23 Dose: 1,000 mg Documented by: Morphine Sulfate () 1 - 2 mg IV Q4H PRN PRN PRN Reason: Pain Score 1-10/10 Nitroglycerin (Nitrostat) 0.4 mg SUBLINGUAL Q5M PRN PRN Reason: CARDIAC/CHEST PAIN Ondansetron HCl (Zofran) 4 mg IV Q8H PRN PRN PRN Reason: NAUSEA/VOMITING Pantoprazole Sodium (Protonix) 20 mg PO BID [facility] Last Admin: 08/16/19 10:25 Dose: 20 mg Documented by: Sodium Chloride () 10 - 40 ml IV UD PRN PRN Reason: SALINE FLUSH Medical Necessity - Tobacco Use Smoking Status: Never smoker Assessment/Plan All Active Problems No significant past medical history (Acute) Bilateral pulmonary embolism (Acute) Respiratory failure with hypoxia (Acute) Acute hyperglycemia (Acute) Lactic acidosis (Acute) Sinus tachycardia by electrocardiogram (Acute) ADEN (acute kidney injury) (Acute) Elevated liver enzymes (Acute) Cardiac enzymes elevated (Acute) #1 bilateral pulmonary emboli-patient is currently on a heparin drip after receiving thrombolytic therapy, tomorrow he will be transitioned to oral anticoagulation. Patient's status will be changed to PCU starting at 7 PM tonight. #2 new onset type 2 diabetes-continue present treatment, I will place the patient on low-dose lisinopril due to his type 2 diabetes, I will order a lipid profile for tomorrow morning-he will probably need discharged on a statin #3 obesity #4 elevated troponin secondary to bilateral pulmonary emboli-it does not appear this patient has had a non-STEMI #5 elevated lactic acid secondary to pulmonary emboli #6 elevated creatinine-resolved at this time #7 hypoxia secondary to bilateral pulmonary emboli-patient is now on room air Code Visit Inpatient E&M: 00326 Subs Hosp L2
--- NOTE | 2019-08-16 16:39 | CHAPLAIN ---
Type of Pastoral Visit _x__ Initial Visit ___ Follow-up Visit ___ On-call Visit ___ General Patient Visit ___ Spiritual Assessment ___ Family Conference ___ Bereavement ___ Rapid Response ___ Code Blue ___ Other (describe below) Pastoral Care Referral From _x__ Patient ___ Family ___ Nurse ___ Physician ___ Collection Clerk ___ Shower Enclosure Installer ___ Other (describe below) Sacrament/Intervention _x__ Active listening ___ Anointing ___ Orthodoxy ___ Bereavement ___ Communion ___ Katie exploration ___ ___ Life review ___ Prayer ___ Reconciliation ___ Sacrament of Sick _x__ Supportive presence ___ Wedding ___ Other (describe below) Pastoral Comments
[2019-08-16 16:56] LABS: Bedside Glucose 225 mg/dL (70-110)
[2019-08-16 18:21] LABS: Partial Thromboplast Time 51.2 Seconds (24.1-36.2)
[2019-08-16 21:41] LABS: Bedside Glucose 240 mg/dL (70-110)
[2019-08-17] VITALS (9 sets, daily range): BP systolic 131–141; BP diastolic 84–93; PULSE 50–70; RESP 14–19; TEMP 36.3–36.6; O2SAT 93–95
[2019-08-17 00:26] LABS: Partial Thromboplast Time 76.9 Seconds (24.1-36.2)
[2019-08-17] MEDS: HEPARIN/D5w 25,000 UNITS 25,000 UNITS/250 ML IV.SOLN. 16.2 UNITS IV (05:34)
[2019-08-17] MEDS: 0.9% Saline Lock 10 ML Syringe IV (05:35)
[2019-08-17 05:51] LABS: Partial Thromboplast Time 26.6 Seconds (24.1-36.2)
[2019-08-17 06:37] LABS: Cholesterol 203 mg/dL (200); High Density Lipoprotein 34 mg/dL; Triglycerides 369 mg/dL; Very Low Density Lipoprotein 74 mg/dL (5-40)
--- NOTE | 2019-08-17 07:30 | PCM.PN.HOSP ---
Patient Problems: Active and Suspected Problems No significant past medical history (Acute) Bilateral pulmonary embolism (Acute) Respiratory failure with hypoxia (Acute) Acute hyperglycemia (Acute) Lactic acidosis (Acute) Sinus tachycardia by electrocardiogram (Acute) ADEN (acute kidney injury) (Acute) Elevated liver enzymes (Acute) Cardiac enzymes elevated (Acute) Vitals/I&O's: Vital Signs Temp Pulse Resp BP Pulse Ox 98 F 50 L 14 131/84 H 94 08/17/19 03:00 08/17/19 04:05 08/17/19 03:00 08/17/19 03:00 08/17/19 03:00 Oxygen Flow Rate (L/min) 2 Oxygen Delivery Method Room Air Weight: 131.2 kg Body Mass Index (BMI) 38.1 Intake and Output for Last 24 Hours 08/15/19 08/16/19 08/17/19 23:59 23:59 23:59 Intake Total 1100 / 1700 2827.84 / 2827.84 99.70 / 99.70 Output Total 2100 / 2400 1350 / 1350 Balance 1100 / 750 727.84 / 427.84 -1250.30 / -1250.30 Laboratory Results 08/16/19 12:00: APTT 50.7 H 08/16/19 12:06: POC Glucose 253 H 08/16/19 16:44: POC Glucose 225 H 08/16/19 18:00: APTT 51.2 H 08/16/19 21:24: POC Glucose 240 H 08/16/19 23:58: APTT 76.9 H 08/17/19 05:30: Triglycerides 369 H, Cholesterol 203 H, LDL Cholesterol 95, VLDL Cholesterol 74 H, HDL Cholesterol 34 L 08/17/19 05:30: APTT 26.6 Current Medications Acetaminophen (Tylenol) 650 mg PO Q6H PRN PRN PRN Reason: Non-cardiac pain (mod-severe) Last Admin: 08/16/19 03:39 Dose: 650 mg Documented by: Hydrocodone Bitart/Acetaminophen ([place] 5mg-325mg) 1 - 2 tablet PO Q4H PRN PRN PRN Reason: Pain Score 4-10/10 Al Hydroxide/Mg Hydroxide (Mylanta Ii) 15 - 30 ml PO Q4H PRN PRN PRN Reason: INDIGESTION Atorvastatin Calcium (Lipitor) 80 mg PO QHS VIVI Dextrose (D50w Syringe) 0 gm IV X1 PRN; Protocol PRN Reason: Hypoglycemia Glucagon () 1 mg IM .X1 PRN PRN Reason: Hypoglycemia Heparin Sodium (Porcine) (Heparin Na) 0 unit IV UD PRN; Protocol Heparin Sodium/Dextrose () 25,000 units in 250 mls @ 16.212 mls/hr IV .[id number] [facility]; Protocol Last Admin: 08/17/19 05:34 Dose: 11.99 units/kg/hr, 16.2 mls/hr Documented by: Sodium Chloride () 250 mls @ 15 mls/hr IV .[id number] PRN PRN Reason: Saline Flush Insulin Glargine (Lantus (Bkc)) 10 units SC BID [facility] Last Admin: 08/16/19 21:30 Dose: 10 units Documented by: Insulin Human Lispro (Humalog Kwikpen (Bkc)) 0 unit SC ACHS [facility]; Protocol Last Admin: 08/16/19 21:29 Dose: 3 units Documented by: Lisinopril (Zestril) 10 mg PO DAILY [facility] Magnesium Hydroxide (Milk Of Magnesia) 30 ml PO DAILY PRN PRN Reason: Constipation Melatonin (Melatonin) 3 mg PO QHS PRN PRN PRN Reason: INSOMNIA Metformin HCl (Glucophage) 1,000 mg PO DAILY@0800 [facility] Last Admin: 08/16/19 10:23 Dose: 1,000 mg Documented by: Morphine Sulfate () 1 - 2 mg IV Q4H PRN PRN PRN Reason: Pain Score 1-10/10 Ondansetron HCl (Zofran) 4 mg IV Q8H PRN PRN PRN Reason: NAUSEA/VOMITING Sodium Chloride () 10 - 40 ml IV UD PRN PRN Reason: SALINE FLUSH Last Admin: 08/17/19 05:35 Dose: 30 ml Documented by: STROKE Vital Signs/Narrative: Vital Signs Pulse 08/17/19 04:05 50 L Medical Necessity - Tobacco Use Smoking Status: Never smoker Assessment/Plan All Active Problems No significant past medical history (Acute) Bilateral pulmonary embolism (Acute) Respiratory failure with hypoxia (Acute) Acute hyperglycemia (Acute) Lactic acidosis (Acute) Sinus tachycardia by electrocardiogram (Acute) ADEN (acute kidney injury) (Acute) Elevated liver enzymes (Acute) Cardiac enzymes elevated (Acute)
--- NOTE | 2019-08-17 07:34 | PN_ITS ---
Subjective: Patient did well overnight. No bleeding complications were reported. Patient has been able to get up and walk to the bathroom with limited difficulties. Patient did have an issue where his heparin became unhooked overnight. Unclear how long patient was not receiving heparin, but patient did have a normal PTT. Heparin was reinitiated. Patient has been reporting some left calf pain with ambulation. General: Alert, Oriented x3, Cooperative, No apparent distress, Well developed, Well nourished, - - Speaking in full sentences. HEENT: Atraumatic, PERRLA, EOMI, Normocephalic, - - No scleral icterus or injection noted Oral: Moist Mucosa, No Gingival or Mucosal Lesions/ Ulcerations Neck: Supple, No JVD, No Nodes, Trachea Midline Lungs: Clear to auscultation, Normal air movement, No rhonchi, No wheeze, No rales Cardiovascular: Regular Rhythm, Normal S1, Normal S2, No murmurs, Bradycardic, No rub noted, No Gallop Abdomen: Bowel Sounds Present, Soft, Non Tender, Non-Distended, Obese Extremities: No clubbing, No cyanosis, Edema - Left lower extremity Skin: No rashes, No breakdown Musculoskeletal: Tenderness - Palpation of left calf Lymphatic: No Cervical, Supraclavicular, or Inguinal Adenopathy Neurological: Cranial nerves II-XII grossly intact, Neuro grossly intact, Motor Exam 5/5 strength throughout Psych/Mental Status: Alert and oriented to time, place, person, mood and affect Vital Signs Temp Pulse Resp BP Pulse Ox 36.6 C 50 L 14 131/84 H 94 08/17/19 03:00 08/17/19 04:05 08/17/19 03:00 08/17/19 03:00 08/17/19 03:00 Oxygen Flow Rate (L/min) 2 Oxygen Delivery Method Room Air Weight: 131.2 kg Body Mass Index (BMI) 38.1 Intake and Output for Last 24 Hours 08/15/19 08/16/19 08/17/19 23:59 23:59 23:59 Intake Total 1100 / 1700 2827.84 / 2827.84 99.70 / 99.70 Output Total 2100 / 2400 1350 / 1350 Balance 1100 / 750 727.84 / 427.84 -1250.30 / -1250.30 Labs (Last 48 Hours) 08/15/19 08/15/19 08/15/19 17:12 17:12 17:12 WBC 14.3 H RBC 5.68 Hgb 16.7 H Hct 49.1 MCV 86.4 MCH 29.4 MCHC 34.0 RDW Std Deviation 39.7 RDW Coeff of Yared 12.6 Plt Count 252 MPV 11.0 Immature Gran % (Auto) 0.600 Neut % (Auto) 73.2 H Lymph % (Auto) 18.2 L [place] % (Auto) 7.1 Eos % (Auto) 0.3 Baso % (Auto) 0.6 Absolute Neuts (auto) 10.5 H Absolute Lymphs (auto) 2.60 Nucleated RBC % 0 PT INR APTT D-Dimer Quant (PE/DVT) 2.42 H* Protein C Antigen Functional Protein C Prot C Funct Activity Antithrombin III Ag Func Antithrombin III Factor V Leiden Mutat Sodium 134 L Potassium 4.3 Chloride 101 Carbon Dioxide 21.0 Anion Gap 12 BUN 23 H Creatinine 1.51 H Estim Creat Clear Calc 68.35 Est GFR (MDRD) Af Amer 64 Est GFR (MDRD) Non-Af 53 L BUN/Creatinine Ratio 15.2 Glucose 475 H* Hemoglobin A1c Lactic Acid Calcium 8.8 Magnesium Total Bilirubin 0.70 AST 88 H ALT 223 H Alkaline Phosphatase 93 Troponin I 0.129 H B-Natriuretic Peptide Total Protein 6.7 Albumin 3.2 Globulin 3.5 Albumin/Globulin Ratio 0.9 Triglycerides Cholesterol LDL Cholesterol VLDL Cholesterol HDL Cholesterol Urine Opiates Screen Urine Methadone Screen Ur Barbiturates Screen Ur Phencyclidine Scrn Ur Amphetamines Screen U Methamphetamin-MDMA U Benzodiazepines Scrn Urine Cocaine Screen U Cannabinoids Screen Ur Drug Screen Comment Beta-2-GPI IgG Ab Beta-2-GPI IgA Ab Beta-2-GPI IgM Ab Anti-Cardiolipin IgG Ab Anti-Cardiolipin IgM Ab Hepatitis A IgM Ab Hepatitis A Ab Total Hep Bs Antigen Hep B Core Total Ab Hep B Core IgM Ab Factor II DNA Analysis Miscellaneous Test POC Glucose Blood Type Antibody Screen 08/15/19 08/15/19 08/15/19 17:12 17:12 17:12 WBC RBC Hgb Hct MCV MCH MCHC RDW Std Deviation RDW Coeff of Yared Plt Count MPV Immature Gran % (Auto) Neut % (Auto) Lymph % (Auto) [place] % (Auto) Eos % (Auto) Baso % (Auto) Absolute Neuts (auto) Absolute Lymphs (auto) Nucleated RBC % PT INR APTT D-Dimer Quant (PE/DVT) Protein C Antigen Functional Protein C Prot C Funct Activity Antithrombin III Ag Func Antithrombin III Factor V Leiden Mutat Sodium Potassium Chloride Carbon Dioxide Anion Gap BUN Creatinine Estim Creat Clear Calc Est GFR (MDRD) Af Amer Est GFR (MDRD) Non-Af BUN/Creatinine Ratio Glucose Hemoglobin A1c 9.7 H Lactic Acid Calcium Magnesium 2.0 Total Bilirubin AST ALT Alkaline Phosphatase Troponin I B-Natriuretic Peptide 517.8 H Total Protein Albumin Globulin Albumin/Globulin Ratio Triglycerides Cholesterol LDL Cholesterol VLDL Cholesterol HDL Cholesterol Urine Opiates Screen Urine Methadone Screen Ur Barbiturates Screen Ur Phencyclidine Scrn Ur Amphetamines Screen U Methamphetamin-MDMA U Benzodiazepines Scrn Urine Cocaine Screen U Cannabinoids Screen Ur Drug Screen Comment Beta-2-GPI IgG Ab Beta-2-GPI IgA Ab Beta-2-GPI IgM Ab Anti-Cardiolipin IgG Ab Anti-Cardiolipin IgM Ab Hepatitis A IgM Ab Hepatitis A Ab Total Hep Bs Antigen Hep B Core Total Ab Hep B Core IgM Ab Factor II DNA Analysis Miscellaneous Test POC Glucose Blood Type Antibody Screen 08/15/19 08/15/19 08/15/19 17:17 17:20 19:30 WBC RBC Hgb Hct MCV MCH MCHC RDW Std Deviation RDW Coeff of Yared Plt Count MPV Immature Gran % (Auto) Neut % (Auto) Lymph % (Auto) [place] % (Auto) Eos % (Auto) Baso % (Auto) Absolute Neuts (auto) Absolute Lymphs (auto) Nucleated RBC % PT INR APTT 25.4 D-Dimer Quant (PE/DVT) Protein C Antigen Functional Protein C Prot C Funct Activity Antithrombin III Ag Func Antithrombin III Factor V Leiden Mutat Sodium Potassium Chloride Carbon Dioxide Anion Gap BUN Creatinine Estim Creat Clear Calc Est GFR (MDRD) Af Amer Est GFR (MDRD) Non-Af BUN/Creatinine Ratio Glucose Hemoglobin A1c Lactic Acid 3.6 H Calcium Magnesium Total Bilirubin AST ALT Alkaline Phosphatase Troponin I B-Natriuretic Peptide Total Protein Albumin Globulin Albumin/Globulin Ratio Triglycerides Cholesterol LDL Cholesterol VLDL Cholesterol HDL Cholesterol Urine Opiates Screen NEGATIVE Urine Methadone Screen NEGATIVE Ur Barbiturates Screen NEGATIVE Ur Phencyclidine Scrn NEGATIVE Ur Amphetamines Screen NEGATIVE U Methamphetamin-MDMA NEGATIVE U Benzodiazepines Scrn NEGATIVE Urine Cocaine Screen NEGATIVE U Cannabinoids Screen NEGATIVE Ur Drug Screen Comment Beta-2-GPI IgG Ab Beta-2-GPI IgA Ab Beta-2-GPI IgM Ab Anti-Cardiolipin IgG Ab Anti-Cardiolipin IgM Ab Hepatitis A IgM Ab Hepatitis A Ab Total Hep Bs Antigen Hep B Core Total Ab Hep B Core IgM Ab Factor II DNA Analysis Miscellaneous Test POC Glucose Blood Type Antibody Screen 08/15/19 08/15/19 08/15/19 19:30 19:33 19:33 WBC RBC Hgb Hct MCV MCH MCHC RDW Std Deviation RDW Coeff of Yared Plt Count MPV Immature Gran % (Auto) Neut % (Auto) Lymph % (Auto) [place] % (Auto) Eos % (Auto) Baso % (Auto) Absolute Neuts (auto) Absolute Lymphs (auto) Nucleated RBC % PT INR APTT D-Dimer Quant (PE/DVT) Protein C Antigen Pending Functional Protein C Pending Prot C Funct Activity Pending Antithrombin III Ag Pending Func Antithrombin III Pending Factor V Leiden Mutat Pending Sodium Potassium Chloride Carbon Dioxide Anion Gap BUN Creatinine Estim Creat Clear Calc Est GFR (MDRD) Af Amer Est GFR (MDRD) Non-Af BUN/Creatinine Ratio Glucose Hemoglobin A1c Lactic Acid Calcium Magnesium Total Bilirubin AST ALT Alkaline Phosphatase Troponin I B-Natriuretic Peptide Total Protein Albumin Globulin Albumin/Globulin Ratio Triglycerides Cholesterol LDL Cholesterol VLDL Cholesterol HDL Cholesterol Urine Opiates Screen Urine Methadone Screen Ur Barbiturates Screen Ur Phencyclidine Scrn Ur Amphetamines Screen U Methamphetamin-MDMA U Benzodiazepines Scrn Urine Cocaine Screen U Cannabinoids Screen Ur Drug Screen Comment Beta-2-GPI IgG Ab Pending Beta-2-GPI IgA Ab Pending Beta-2-GPI IgM Ab Pending Anti-Cardiolipin IgG Ab Pending Anti-Cardiolipin IgM Ab Pending Hepatitis A IgM Ab Hepatitis A Ab Total Hep Bs Antigen Hep B Core Total Ab Hep B Core IgM Ab Factor II DNA Analysis Pending Miscellaneous Test Cancelled POC Glucose Blood Type A POSITIVE Antibody Screen NEGATIVE 08/15/19 08/15/19 08/15/19 19:33 20:45 21:16 WBC RBC Hgb Hct MCV MCH MCHC RDW Std Deviation RDW Coeff of Yared Plt Count MPV Immature Gran % (Auto) Neut % (Auto) Lymph % (Auto) [place] % (Auto) Eos % (Auto) Baso % (Auto) Absolute Neuts (auto) Absolute Lymphs (auto) Nucleated RBC % PT 15.5 H INR 1.3 APTT D-Dimer Quant (PE/DVT) Protein C Antigen Functional Protein C Prot C Funct Activity Antithrombin III Ag Func Antithrombin III Factor V Leiden Mutat Sodium Potassium Chloride Carbon Dioxide Anion Gap BUN Creatinine Estim Creat Clear Calc Est GFR (MDRD) Af Amer Est GFR (MDRD) Non-Af BUN/Creatinine Ratio Glucose Hemoglobin A1c Lactic Acid Calcium Magnesium Total Bilirubin AST ALT Alkaline Phosphatase Troponin I B-Natriuretic Peptide Total Protein Albumin Globulin Albumin/Globulin Ratio Triglycerides Cholesterol LDL Cholesterol VLDL Cholesterol HDL Cholesterol Urine Opiates Screen Urine Methadone Screen Ur Barbiturates Screen Ur Phencyclidine Scrn Ur Amphetamines Screen U Methamphetamin-MDMA U Benzodiazepines Scrn Urine Cocaine Screen U Cannabinoids Screen Ur Drug Screen Comment Beta-2-GPI IgG Ab Beta-2-GPI IgA Ab Beta-2-GPI IgM Ab Anti-Cardiolipin IgG Ab Anti-Cardiolipin IgM Ab Hepatitis A IgM Ab Hepatitis A Ab Total Hep Bs Antigen Hep B Core Total Ab Hep B Core IgM Ab Factor II DNA Analysis Miscellaneous Test Pending POC Glucose 308 H Blood Type Antibody Screen 08/15/19 08/15/19 08/15/19 21:38 22:00 22:00 WBC RBC Hgb Hct MCV MCH MCHC RDW Std Deviation RDW Coeff of Yared Plt Count MPV Immature Gran % (Auto) Neut % (Auto) Lymph % (Auto) [place] % (Auto) Eos % (Auto) Baso % (Auto) Absolute Neuts (auto) Absolute Lymphs (auto) Nucleated RBC % PT INR APTT D-Dimer Quant (PE/DVT) Protein C Antigen Functional Protein C Prot C Funct Activity Antithrombin III Ag Func Antithrombin III Factor V Leiden Mutat Sodium Potassium Chloride Carbon Dioxide Anion Gap BUN Creatinine Estim Creat Clear Calc Est GFR (MDRD) Af Amer Est GFR (MDRD) Non-Af BUN/Creatinine Ratio Glucose Hemoglobin A1c Lactic Acid 2.4 H Calcium Magnesium Total Bilirubin AST ALT Alkaline Phosphatase Troponin I 0.214 H B-Natriuretic Peptide Total Protein Albumin Globulin Albumin/Globulin Ratio Triglycerides Cholesterol LDL Cholesterol VLDL Cholesterol HDL Cholesterol Urine Opiates Screen Urine Methadone Screen Ur Barbiturates Screen Ur Phencyclidine Scrn Ur Amphetamines Screen U Methamphetamin-MDMA U Benzodiazepines Scrn Urine Cocaine Screen U Cannabinoids Screen Ur Drug Screen Comment Beta-2-GPI IgG Ab Beta-2-GPI IgA Ab Beta-2-GPI IgM Ab Anti-Cardiolipin IgG Ab Anti-Cardiolipin IgM Ab Hepatitis A IgM Ab Pending Hepatitis A Ab Total Pending Hep Bs Antigen Pending Hep B Core Total Ab Pending Hep B Core IgM Ab Pending Factor II DNA Analysis Miscellaneous Test POC Glucose Blood Type Antibody Screen 08/15/19 08/16/19 08/16/19 22:00 00:05 00:05 WBC 14.6 H RBC 5.26 Hgb 15.4 Hct 45.7 MCV 86.9 MCH 29.3 MCHC 33.7 RDW Std Deviation 39.8 RDW Coeff of Yared 12.6 Plt Count 233 MPV 10.9 Immature Gran % (Auto) 0.500 Neut % (Auto) 77.5 H Lymph % (Auto) 13.8 L [place] % (Auto) 7.6 Eos % (Auto) 0.1 Baso % (Auto) 0.5 Absolute Neuts (auto) 11.3 H Absolute Lymphs (auto) 2.02 Nucleated RBC % 0 PT INR APTT 61.0 H D-Dimer Quant (PE/DVT) Protein C Antigen Functional Protein C Prot C Funct Activity Antithrombin III Ag Func Antithrombin III Factor V Leiden Mutat Sodium Potassium Chloride Carbon Dioxide Anion Gap BUN Creatinine Estim Creat Clear Calc Est GFR (MDRD) Af Amer Est GFR (MDRD) Non-Af BUN/Creatinine Ratio Glucose Hemoglobin A1c Lactic Acid Calcium Magnesium Total Bilirubin AST ALT Alkaline Phosphatase Troponin I 0.424 H B-Natriuretic Peptide Total Protein Albumin Globulin Albumin/Globulin Ratio Triglycerides Cholesterol LDL Cholesterol VLDL Cholesterol HDL Cholesterol Urine Opiates Screen Urine Methadone Screen Ur Barbiturates Screen Ur Phencyclidine Scrn Ur Amphetamines Screen U Methamphetamin-MDMA U Benzodiazepines Scrn Urine Cocaine Screen U Cannabinoids Screen Ur Drug Screen Comment Beta-2-GPI IgG Ab Beta-2-GPI IgA Ab Beta-2-GPI IgM Ab Anti-Cardiolipin IgG Ab Anti-Cardiolipin IgM Ab Hepatitis A IgM Ab Hepatitis A Ab Total Hep Bs Antigen Hep B Core Total Ab Hep B Core IgM Ab Factor II DNA Analysis Miscellaneous Test POC Glucose Blood Type Antibody Screen 08/16/19 08/16/19 08/16/19 00:05 03:30 06:05 WBC 13.4 H RBC 5.20 Hgb 15.4 Hct 45.3 MCV 87.1 MCH 29.6 MCHC 34.0 RDW Std Deviation 40.2 RDW Coeff of Yared 12.7 Plt Count 229 MPV 10.5 Immature Gran % (Auto) 0.700 Neut % (Auto) 70.0 Lymph % (Auto) 22.5 [place] % (Auto) 5.8 Eos % (Auto) 0.4 Baso % (Auto) 0.6 Absolute Neuts (auto) 9.3 H Absolute Lymphs (auto) 3.00 Nucleated RBC % 0 PT INR APTT 39.8 H D-Dimer Quant (PE/DVT) Protein C Antigen Functional Protein C Prot C Funct Activity Antithrombin III Ag Func Antithrombin III Factor V Leiden Mutat Sodium Potassium Chloride Carbon Dioxide Anion Gap BUN Creatinine Estim Creat Clear Calc Est GFR (MDRD) Af Amer Est GFR (MDRD) Non-Af BUN/Creatinine Ratio Glucose Hemoglobin A1c Lactic Acid Calcium Magnesium Total Bilirubin AST ALT Alkaline Phosphatase Troponin I 0.543 H B-Natriuretic Peptide Total Protein Albumin Globulin Albumin/Globulin Ratio Triglycerides Cholesterol LDL Cholesterol VLDL Cholesterol HDL Cholesterol Urine Opiates Screen Urine Methadone Screen Ur Barbiturates Screen Ur Phencyclidine Scrn Ur Amphetamines Screen U Methamphetamin-MDMA U Benzodiazepines Scrn Urine Cocaine Screen U Cannabinoids Screen Ur Drug Screen Comment Beta-2-GPI IgG Ab Beta-2-GPI IgA Ab Beta-2-GPI IgM Ab Anti-Cardiolipin IgG Ab Anti-Cardiolipin IgM Ab Hepatitis A IgM Ab Hepatitis A Ab Total Hep Bs Antigen Hep B Core Total Ab Hep B Core IgM Ab Factor II DNA Analysis Miscellaneous Test POC Glucose Blood Type Antibody Screen 08/16/19 08/16/19 08/16/19 06:05 06:05 06:58 WBC RBC Hgb Hct MCV MCH MCHC RDW Std Deviation RDW Coeff of Yared Plt Count MPV Immature Gran % (Auto) Neut % (Auto) Lymph % (Auto) [place] % (Auto) Eos % (Auto) Baso % (Auto) Absolute Neuts (auto) Absolute Lymphs (auto) Nucleated RBC % PT INR APTT 73.7 H D-Dimer Quant (PE/DVT) Protein C Antigen Functional Protein C Prot C Funct Activity Antithrombin III Ag Func Antithrombin III Factor V Leiden Mutat Sodium 137 Potassium 4.4 Chloride 106 Carbon Dioxide 24.0 Anion Gap 7 BUN 22 H Creatinine 0.97 Estim Creat Clear Calc 106.40 Est GFR (MDRD) Af Amer 106 Est GFR (MDRD) Non-Af 88 BUN/Creatinine Ratio 22.7 H Glucose 275 H Hemoglobin A1c Lactic Acid Calcium 7.8 L Magnesium Total Bilirubin 0.60 AST 46 H ALT 178 H Alkaline Phosphatase 86 Troponin I B-Natriuretic Peptide Total Protein 6.0 L Albumin 2.9 L Globulin 3.1 Albumin/Globulin Ratio 0.9 Triglycerides Cholesterol LDL Cholesterol VLDL Cholesterol HDL Cholesterol Urine Opiates Screen Urine Methadone Screen Ur Barbiturates Screen Ur Phencyclidine Scrn Ur Amphetamines Screen U Methamphetamin-MDMA U Benzodiazepines Scrn Urine Cocaine Screen U Cannabinoids Screen Ur Drug Screen Comment Beta-2-GPI IgG Ab Beta-2-GPI IgA Ab Beta-2-GPI IgM Ab Anti-Cardiolipin IgG Ab Anti-Cardiolipin IgM Ab Hepatitis A IgM Ab Hepatitis A Ab Total Hep Bs Antigen Hep B Core Total Ab Hep B Core IgM Ab Factor II DNA Analysis Miscellaneous Test POC Glucose 240 H Blood Type Antibody Screen 08/16/19 08/16/19 08/16/19 12:00 12:06 16:44 WBC RBC Hgb Hct MCV MCH MCHC RDW Std Deviation RDW Coeff of Yared Plt Count MPV Immature Gran % (Auto) Neut % (Auto) Lymph % (Auto) [place] % (Auto) Eos % (Auto) Baso % (Auto) Absolute Neuts (auto) Absolute Lymphs (auto) Nucleated RBC % PT INR APTT 50.7 H D-Dimer Quant (PE/DVT) Protein C Antigen Functional Protein C Prot C Funct Activity Antithrombin III Ag Func Antithrombin III Factor V Leiden Mutat Sodium Potassium Chloride Carbon Dioxide Anion Gap BUN Creatinine Estim Creat Clear Calc Est GFR (MDRD) Af Amer Est GFR (MDRD) Non-Af BUN/Creatinine Ratio Glucose Hemoglobin A1c Lactic Acid Calcium Magnesium Total Bilirubin AST ALT Alkaline Phosphatase Troponin I B-Natriuretic Peptide Total Protein Albumin Globulin Albumin/Globulin Ratio Triglycerides Cholesterol LDL Cholesterol VLDL Cholesterol HDL Cholesterol Urine Opiates Screen Urine Methadone Screen Ur Barbiturates Screen Ur Phencyclidine Scrn Ur Amphetamines Screen U Methamphetamin-MDMA U Benzodiazepines Scrn Urine Cocaine Screen U Cannabinoids Screen Ur Drug Screen Comment Beta-2-GPI IgG Ab Beta-2-GPI IgA Ab Beta-2-GPI IgM Ab Anti-Cardiolipin IgG Ab Anti-Cardiolipin IgM Ab Hepatitis A IgM Ab Hepatitis A Ab Total Hep Bs Antigen Hep B Core Total Ab Hep B Core IgM Ab Factor II DNA Analysis Miscellaneous Test POC Glucose 253 H 225 H Blood Type Antibody Screen 08/16/19 08/16/19 08/16/19 18:00 21:24 23:58 WBC RBC Hgb Hct MCV MCH MCHC RDW Std Deviation RDW Coeff of Yared Plt Count MPV Immature Gran % (Auto) Neut % (Auto) Lymph % (Auto) [place] % (Auto) Eos % (Auto) Baso % (Auto) Absolute Neuts (auto) Absolute Lymphs (auto) Nucleated RBC % PT INR APTT 51.2 H 76.9 H D-Dimer Quant (PE/DVT) Protein C Antigen Functional Protein C Prot C Funct Activity Antithrombin III Ag Func Antithrombin III Factor V Leiden Mutat Sodium Potassium Chloride Carbon Dioxide Anion Gap BUN Creatinine Estim Creat Clear Calc Est GFR (MDRD) Af Amer Est GFR (MDRD) Non-Af BUN/Creatinine Ratio Glucose Hemoglobin A1c Lactic Acid Calcium Magnesium Total Bilirubin AST ALT Alkaline Phosphatase Troponin I B-Natriuretic Peptide Total Protein Albumin Globulin Albumin/Globulin Ratio Triglycerides Cholesterol LDL Cholesterol VLDL Cholesterol HDL Cholesterol Urine Opiates Screen Urine Methadone Screen Ur Barbiturates Screen Ur Phencyclidine Scrn Ur Amphetamines Screen U Methamphetamin-MDMA U Benzodiazepines Scrn Urine Cocaine Screen U Cannabinoids Screen Ur Drug Screen Comment Beta-2-GPI IgG Ab Beta-2-GPI IgA Ab Beta-2-GPI IgM Ab Anti-Cardiolipin IgG Ab Anti-Cardiolipin IgM Ab Hepatitis A IgM Ab Hepatitis A Ab Total Hep Bs Antigen Hep B Core Total Ab Hep B Core IgM Ab Factor II DNA Analysis Miscellaneous Test POC Glucose 240 H Blood Type Antibody Screen 08/17/19 08/17/19 05:30 05:30 WBC RBC Hgb Hct MCV MCH MCHC RDW Std Deviation RDW Coeff of Yared Plt Count MPV Immature Gran % (Auto) Neut % (Auto) Lymph % (Auto) [place] % (Auto) Eos % (Auto) Baso % (Auto) Absolute Neuts (auto) Absolute Lymphs (auto) Nucleated RBC % PT INR APTT 26.6 D-Dimer Quant (PE/DVT) Protein C Antigen Functional Protein C Prot C Funct Activity Antithrombin III Ag Func Antithrombin III Factor V Leiden Mutat Sodium Potassium Chloride Carbon Dioxide Anion Gap BUN Creatinine Estim Creat Clear Calc Est GFR (MDRD) Af Amer Est GFR (MDRD) Non-Af BUN/Creatinine Ratio Glucose Hemoglobin A1c Lactic Acid Calcium Magnesium Total Bilirubin AST ALT Alkaline Phosphatase Troponin I B-Natriuretic Peptide Total Protein Albumin Globulin Albumin/Globulin Ratio Triglycerides 369 H Cholesterol 203 H LDL Cholesterol 95 VLDL Cholesterol 74 H HDL Cholesterol 34 L Urine Opiates Screen Urine Methadone Screen Ur Barbiturates Screen Ur Phencyclidine Scrn Ur Amphetamines Screen U Methamphetamin-MDMA U Benzodiazepines Scrn Urine Cocaine Screen U Cannabinoids Screen Ur Drug Screen Comment Beta-2-GPI IgG Ab Beta-2-GPI IgA Ab Beta-2-GPI IgM Ab Anti-Cardiolipin IgG Ab Anti-Cardiolipin IgM Ab Hepatitis A IgM Ab Hepatitis A Ab Total Hep Bs Antigen Hep B Core Total Ab Hep B Core IgM Ab Factor II DNA Analysis Miscellaneous Test POC Glucose Blood Type Antibody Screen Clinical Impression(s) from Imaging Studies Chest X-Ray 08/16/19 05:55 IMPRESSION: No new focal consolidation. Cardiomegaly. Stable prominent pulmonary hilar arteries. Stable hyperinflated lungs. Electronically Signed: Jenelle Rose MD at 17:16 EST Tel , Service support , Medical Necessity - Tobacco Use Smoking Status: Never smoker Assessment/Plan All Active Problems No significant past medical history (Acute) Bilateral pulmonary embolism (Acute) Respiratory failure with hypoxia (Acute) Acute hyperglycemia (Acute) Lactic acidosis (Acute) Sinus tachycardia by electrocardiogram (Acute) ADEN (acute kidney injury) (Acute) Elevated liver enzymes (Acute) Cardiac enzymes elevated (Acute) RECOMMENDATIONS: 1. Walking oximetry on room air 2. Outpatient follow-up with endocrinology 3. Initiate Eliquis or Xarelto per patient's insurance 4. Repeat echocardiogram in 2 to 3 months 5. Possibly okay to discharge if able to ambulate on room air without significant desaturation 6. Okay to leave the intensive care unit regardless of walking oximetry IMPRESSIONS: 1. Acute hypoxic respiratory insufficiency secondary to saddle PE Patient with rapid response to TPA and is currently doing well on room air. Will check a walking oximetry. Patient did have significant right ventricular dysfunction noted on echocardiogram 12 hours after TPA. Patient can be initiated on Eliquis or Xarelto. Can check with case management for coverage issues. If able to tolerate ambulation on room air, potential discharge later today 2. Acute cor pulmonale secondary to saddle PE Patient reportedly had significant issues while in the ER and received TPA. Patient's clot burden was significant on CTA of the chest and echocardiogram showed significant RV dysfunction with depressed EF. Patient has been seen by cardiology. Dr. Delaney states patient can be discharged from his perspective with outpatient follow-up and repeat echocardiogram. 3. New diagnosis diabetes mellitus type 2 Patient does have an elevated hemoglobin A1c and significant blood sugars at this time. Patient was recently placed on steroids, so this could be leading to some of the hyperglycemia. Patient is tolerating metformin. Patient would likely benefit from outpatient endocrinology follow-up 4. Obesity/lack of primary care/hypertension Complicates care, management, recovery and prognosis. Patient reportedly does have a visit with Dr. Aguilar scheduled, but care is not been established. Code Visit Inpatient E&M: 17145 Subs Hosp L2
--- NOTE | 2019-08-17 07:39 | PN.CARD_ITS ---
Subjectve: Patient seen and evaluated. Appears to be doing quite well. Objective: Vital Signs Temp Pulse Resp BP Pulse Ox 98 F 50 L 14 131/84 H 94 08/17/19 03:00 08/17/19 04:05 08/17/19 03:00 08/17/19 03:00 08/17/19 03:00 Oxygen Flow Rate (L/min) 2 Oxygen Delivery Method Room Air Weight: 289 lb 3.944 oz Body Mass Index (BMI) 38.1 Intake and Output for Last 24 Hours 08/15/19 08/16/19 08/17/19 23:59 23:59 23:59 Intake Total 1100 / 1700 2827.84 / 2827.84 99.70 / 99.70 Output Total 2100 / 2400 1350 / 1350 Balance 1100 / 750 727.84 / 427.84 -1250.30 / -1250.30 General: Awake, Alert, Oriented x 3 HEENT: PERRL, EOMI, Sclera Non Icteric Neck: Supple, Good ROM, No Lymph Node Enlargement Lungs: Clear to auscultation Cardiovascular: Regular Rhythm, Normal S1, Normal S2, No Murmurs, No Rubs, No Gallops Vascular: No Carotid Bruits, Normal Femoral Pulses, Normal Radial Pulses, Normal Dorsalis Pedal Pulse, Normal Posterior Tibial Pulses Abdomen: Bowel Sounds Present, Soft, Non Tender, No HSM, No Organomegaly Extremities: No Cyanosis, No Clubbing, No edema Musculoskeletal: No Erythema Skin: No Rashes Lymphatic: No Lymph Node Enlargement Neurological: No Focal Motor or Sensory Deficit Psych/Mental Status: Appropriate 08/16/19 12:00: APTT 50.7 H 08/16/19 18:00: APTT 51.2 H 08/16/19 23:58: APTT 76.9 H 08/17/19 05:30: Triglycerides 369 H, Cholesterol 203 H, LDL Cholesterol 95, VLDL Cholesterol 74 H, HDL Cholesterol 34 L 08/17/19 05:30: APTT 26.6 Rhythm: EKG: ECHO: Stress Test: Cardiac Cath: PCI: CT Surgery: Holter monitor: EPS: PPM: CXR: Chest CT Scan: Medical Necessity - Tobacco Use Smoking Status: Never smoker Assessment/Plan 1. Acute submassive pulmonary embolism * Patient presented with submassive pulmonary embolism and had a syncopal episode. He received tissue plasminogen activator successfully. He appears to be doing quite well. * An echocardiogram performed demonstrated preserved left ventricular systolic function with hypokinetic right ventricle. From the artery systolic pressures estimated to be in the low 50s. Will recommend repeat echo in approximately 3 months * From a cardiac standpoint if his oxygen saturation is stable he will be discharged on oral anticoagulation. * Will arrange follow-up in my office * Thank you for allowing me to participate in the care of your patient. Please don't hesitate to call if any issues arise
[2019-08-17] MEDS: Insulin Lispro 100 UNIT/ML INSULN.PEN SC ×2 (07:49→11:32)
[2019-08-17] MEDS: metFORMIN HCl 1,000 MG Tablet 1000 MG PO (07:49)
[2019-08-17 08:06] LABS: Bedside Glucose 237 mg/dL (70-110)
--- NOTE | 2019-08-17 08:41 | PCM.DC ---
- Discharge Diagnoses Current Active Problems: Current Active and Chronic Problems No significant past medical history (Acute) Bilateral pulmonary embolism (Acute) Respiratory failure with hypoxia (Acute) Acute hyperglycemia (Acute) Lactic acidosis (Acute) Sinus tachycardia by electrocardiogram (Acute) ADEN (acute kidney injury) (Acute) Elevated liver enzymes (Acute) Obesity (BMI 30-39.9) (Chronic) Cardiac enzymes elevated (Acute) Reason(s) for Visit for Discharge Instructions: Shortness of breath, pulmonary embolism You will use the following diet at home:: Calorie/Carbohydrate Controlled (specify 1200, 1400, etc) - 1800, Cardiac Your food should be the consistency of: Regular Your liquids should be the consistency of: Regular/Thin Discharge Activity: Return to Normal Activity Additional Instructions: Follow a low salt, low fat, 1800 calorie diet. Continue to take all your medications as prescribed. Continue to check your blod glucose three(3) times a day. Follow-up with Dr. Kunz, the steamboat pilot within 1-2 weeks. Folw-up with Ayaka Abdullahi and Dr Delaney as scheduled Allergies/Adverse Reactions: Allergies No Known Allergies Allergy (Verified 08/15/19 16:27) Medications to take at Discharge Apixaban [Eliquis] 5 mg PO BID #60 tab 08/17/19 Apixaban [Eliquis] 10 mg PO BID #14 tab 08/17/19 Atorvastatin Calcium [Lipitor] 80 mg PO QHS #30 tab 08/17/19 Insulin Glargine [Lantus SoloStar Pen] 10 units SUBCUT BID #1 pen 08/17/19 Insulin Lispro [Humalog KwikPen] See Protocol SUBCUT ACHS #1 insuln.pen 08/17/19 Lisinopril [Zestril] 10 mg PO DAILY #30 tab 08/17/19 metFORMIN HCl [Glucophage] 1,000 mg PO DAILY@0800 #30 tab 08/17/19 The following prescriptions were given: Apixaban [Eliquis] 10 mg PO BID #14 tab Transmission Status: Pending to [facility] Apixaban [Eliquis] 5 mg PO BID #60 tab Transmission Status: Pending to [facility]24 metFORMIN HCl [Glucophage] 1,000 mg PO DAILY@0800 #30 tab Transmission Status: Received by [facility] Insulin Lispro [Humalog KwikPen] See Protocol SUBCUT ACHS #1 insuln.pen Transmission Status: Received by [facility] Insulin Glargine [Lantus SoloStar Pen] 10 units SUBCUT BID #1 pen Transmission Status: Received by [facility] Atorvastatin Calcium [Lipitor] 80 mg PO QHS #30 tab Transmission Status: Received by [facility] Lisinopril [Zestril] 10 mg PO DAILY #30 tab Transmission Status: [facility] Orders to be completed after discharge: Glucometer Location: None Selected Primary Care Physician: Care Physician,No Primary [NON-STAFF] - Please follow up with your Primary Care Physician in: within 1-2 weeks Test Results: Test results from this visit will be discussed in further detail at your follow-up appointment, if applicable. Please Follow Up With: Laura Nash PA Please Follow Up With: Benja Delaney MD When: in 2-3 months with repeat ECHO Please Follow Up With: Reena Abdullahi, JEFF-C When: in 4 weeks Please Follow Up With: Marco A Kunz MD When: within 1-2 weeks Proposed Discharge Date: 08/17/19
[2019-08-17 09:07] LABS: HEPATITIS B SURFACE AG Negative (Negative); Hepatitis A AB, Total Negative (Negative); Hepatitis A IgM Antibody Negative (Negative); Hepatitis B Core AB IgM Negative (Negative); Hepatitis B Core Ab Total Negative (Negative); Hepatitis C Ab <0.1 s/co ratio (0.0-0.9)
--- NOTE | 2019-08-17 09:54 | DS.PCM_ITS ---
Discharge Date and Diagnosis Date of Admission: 08/15/19 Date of Discharge: 08/17/19 - Primary Discharge Diagnosis Active and Suspected Problems Acute hypoxic respiratory failure Acute submassive pulmonary embolism New onset type II DM Acute kidney injury Lactic acidosis Obesity Elevated troponins - Secondary Discharge Diagnosis Chronic Problems Obesity (BMI 30-39.9) (Chronic) Hospital Course and Treatment Imaging Results: Clinical Impression(s) from Imaging Studies Chest X-Ray 08/15/19 17:30 IMPRESSION: Hyperinflated lungs. Prominent pulmonary hilar arteries, may be secondary to pulmonary artery hypertension. Electronically Signed: Jenelle Rose MD at 18:40 EST Tel , Service support , Chest CTA 08/15/19 18:27 IMPRESSION: Bilateral pulmonary emboli. Fatty infiltration of the liver. N.B. : The above information has been verbally conveyed by Jenelle Rose MD to Dr. Deep Paniagua MD, on 08/15/2019 19:33:00 (ET). Electronically Signed: Jenelle Rose MD at 19:34 EST Tel , Service support , ADDENDUM: 08/15/19 194 IMPRESSION: Bilateral pulmonary emboli. Fatty infiltration of the liver. N.B. : The above information has been verbally conveyed by Jenelle Rose MD to Dr. Deep Paniagua MD, on 08/15/2019 19:33:00 (ET). Electronically Signed: Jenelle Rose MD at 19:34 EST Tel , Service support , Chest X-Ray 08/16/19 05:55 IMPRESSION: No new focal consolidation. Cardiomegaly. Stable prominent pulmonary hilar arteries. Stable hyperinflated lungs. Electronically Signed: Jenelle Rose MD at 17:16 EST Tel , Service support , Cardiology Critical care Operations: None Procedures: 2-D Echocardiogram Summary of Care Provided: The patient is a 49 year old M no significant past medical history who presented with progressive shortness of breath going for 4 weeks. This was associated with cough. He denied any fever or chills. Patient had had multiple cauterized. He had a recent 5-hour car ride to [place] [address] but oriented and returned on July 31, driving on [address]. He had admitted to posterior cuff discomforts and swelling a few days prior to admission. Patient on presented to the ED was initially stable and vitals but when he tried to stand up, he collapsed and was unresponsive with no respiration or pulse. CPR was started and patient awoke with stable vitals. He however remained hypoxic and tachycardic. His initial CT of the chest that showed bilateral submassive pulmonary embolism. Patient received TPA in the emergency department. Subsequently managed in the intensive care unit without any issues. The heart care and cardiology were consulted. 2D echo showed left ventricular systolic function with hypokinetic right ventricle.Patient continued to improve and was eventually off oxygen. He was on IV heparin after being given TPA. He was transitioned to Eliquis on the day of discharge. Patient was also found to be a newly diagnosed diabetic with HbA1c of 9.7. He was managed on insulin and metformin. He will follow-up with his primary care doctor within 1 to 2 weeks. He will follow-up with the material requirements worker within 1 to 2 weeks. He will follow-up with cardiology in 2 to 3 months. He will fol low-up with pulmonology in 4 weeks for repeat 2D echo. Subjective: See progress note Objective: See progress note of the day - Physical Exam Vitals/I&O's: Vital Signs Temp Pulse Resp BP Pulse Ox 97.4 F L 61 15 131/93 H 94 08/17/19 07:54 08/17/19 07:54 08/17/19 07:54 08/17/19 07:54 08/17/19 07:54 Oxygen Flow Rate (L/min) 2 Oxygen Delivery Method Room Air Weight: 131.2 kg Body Mass Index (BMI) 38.1 Intake and Output for Last 24 Hours 08/15/19 08/16/19 08/17/19 23:59 23:59 23:59 Intake Total 1100 / 1700 2827.84 / 2827.84 99.70 / 99.70 Output Total 2100 / 2400 1350 / 1350 Balance 1100 / 750 727.84 / 427.84 -1250.30 / -1250.30 Laboratory Results 08/16/19 12:00: APTT 50.7 H 08/16/19 12:06: POC Glucose 253 H 08/16/19 16:44: POC Glucose 225 H 08/16/19 18:00: APTT 51.2 H 08/16/19 21:24: POC Glucose 240 H 08/16/19 23:58: APTT 76.9 H 08/17/19 05:30: Triglycerides 369 H, Cholesterol 203 H, LDL Cholesterol 95, VLDL Cholesterol 74 H, HDL Cholesterol 34 L 08/17/19 05:30: APTT 26.6 08/17/19 07:46: POC Glucose 237 H Current Medications Acetaminophen (Tylenol) 650 mg PO Q6H PRN PRN PRN Reason: Non-cardiac pain (mod-severe) Last Admin: 08/16/19 03:39 Dose: 650 mg Documented by: Hydrocodone Bitart/Acetaminophen ([place] 5mg-325mg) 1 - 2 tablet PO Q4H PRN PRN PRN Reason: Pain Score 4-10/10 Al Hydroxide/Mg Hydroxide (Mylanta Ii) 15 - 30 ml PO Q4H PRN PRN PRN Reason: INDIGESTION Apixaban (Eliquis) 10 mg PO BID [facility] Stop: 08/23/19 22:01 Apixaban (Eliquis) 5 mg PO BID [facility] Atorvastatin Calcium (Lipitor) 80 mg PO QHS [facility] Dextrose (D50w Syringe) 0 gm IV X1 PRN; Protocol PRN Reason: Hypoglycemia Glucagon () 1 mg IM .X1 PRN PRN Reason: Hypoglycemia Sodium Chloride () 250 mls @ 15 mls/hr IV .[id number] PRN PRN Reason: Saline Flush Insulin Glargine (Lantus (Bk)) 10 units SC BID [facility] Last Admin: 08/16/19 21:30 Dose: 10 units Documented by: Insulin Human Lispro (Humalog Kwikpen ([facility])) 0 unit SC ACHS [facility]; Protocol Last Admin: 08/17/19 07:49 Dose: 3 units Documented by: Lisinopril (Zestril) 10 mg PO DAILY [facility] Magnesium Hydroxide (Milk Of Magnesia) 30 ml PO DAILY PRN PRN Reason: Constipation Melatonin (Melatonin) 3 mg PO QHS PRN PRN PRN Reason: INSOMNIA Metformin HCl (Glucophage) 1,000 mg PO DAILY@0800 [facility] Last Admin: 08/17/19 07:49 Dose: 1,000 mg Documented by: Morphine Sulfate () 1 - 2 mg IV Q4H PRN PRN PRN Reason: Pain Score 1-10/10 Ondansetron HCl (Zofran) 4 mg IV Q8H PRN PRN PRN Reason: NAUSEA/VOMITING Sodium Chloride () 10 - 40 ml IV UD PRN PRN Reason: SALINE FLUSH Last Admin: 08/17/19 05:35 Dose: 30 ml Documented by: Discharge Diet: Low fat/ Low Cholesterol, 1800 Calorie Control Diet, 2000 mg Sodium Diet Discharge Activity: Return to Normal Activity Home Medications: Medications to take at Discharge Apixaban [Eliquis] 5 mg PO BID #60 tab 08/17/19 Apixaban [Eliquis] 10 mg PO BID #14 tab 08/17/19 Atorvastatin Calcium [Lipitor] 80 mg PO QHS #30 tab 08/17/19 Insulin Glargine [Lantus SoloStar Pen] 10 units SUBCUT BID #1 pen 08/17/19 Insulin Lispro [Humalog KwikPen] See Protocol SUBCUT ACHS #1 insuln.pen 08/17/19 Lisinopril [Zestril] 10 mg PO DAILY #30 tab 08/17/19 metFORMIN HCl [Glucophage] 1,000 mg PO DAILY@0800 #30 tab 08/17/19 Following Prescrptions Were Given to Patient: Apixaban [Eliquis] 10 mg PO BID #14 tab Transmission Status: Received by [facility] Apixaban [Eliquis] 5 mg PO BID #60 tab Transmission Status: Received by [facility]24 metFORMIN HCl [Glucophage] 1,000 mg PO DAILY@0800 #30 tab Transmission Status: Received by [facility]24 Insulin Lispro [Humalog KwikPen] See Protocol SUBCUT ACHS #1 insuln.pen Transmission Status: Received by [facility]24 Insulin Glargine [Lantus SoloStar Pen] 10 units SUBCUT BID #1 pen Transmission Status: Received by [facility] Atorvastatin Calcium [Lipitor] 80 mg PO QHS #30 tab Transmission Status: Received by [facility]24 Lisinopril [Zestril] 10 mg PO DAILY #30 tab Transmission Status: Received by [facility] Other Amb Orders: Glucometer Location: None Selected Primary Care Physician: Care Physician,No Primary [NON-STAFF] - Please follow up with your Primary Care Physician in: within 1-2 weeks Please Follow Up With: Laura Nash PA Please Follow Up With: Benja Delaney MD When: in 2-3 months with repeat ECHO Please Follow Up With: Reena Abdullahi NP-C When: in 4 weeks Please Follow Up With: Marco A Kunz MD When: within 1-2 weeks Disposition: Home Minutes spent on discharge:: 40 Patient Condition:: Stable Medical Necessity - Tobacco Use Smoking Status: Never smoker Tobacco Use: Non-smoker Meaningful Use Info Meaningful Use Diagnoses (Choose all that apply): VTE - VTE Anticoag overlap given w/in hospital stay or rx'd at hi?: Yes Pt receive overlap for 5 days?: No Reason overlap not ordered, prescribed, or given for 5 days: Treatment Not Indicated Code Visit Inpatient E&M: 54540 Disch Hosp
[2019-08-17] MEDS: Lisinopril 10 MG Tablet PO (10:11)
--- NOTE | 2019-08-17 10:16 | NURSING ---
EXTENSIVE DIABETES AND ELIQUIS EDUCATION PROVIDED. PT PROPERLY DEMONSTRATES HOW TO OBTAIN BLOOD SUGAR USING PROPER TECHNIQUE AND DEMONSTRATES HOW TO GIVE INSULIN USING PROPER TECHNIQUE.
[2019-08-17] MEDS: APIXABAN 5 MG TABLET 10 MG PO (10:27)
[2019-08-17 11:41] LABS: Bedside Glucose 310 mg/dL (70-110)
[2019-08-18 12:23] LABS: Hep B Surface Antibodies Non Reactive (.)
[2019-08-23 16:07] LABS: Protein C Antigen 102 % (60-150); Protein C, Functional 113 % (73-180)
[2019-08-23 20:14] LABS: Anti-Cardiolipin Ab, IgG, Qn < 9 GPL U/mL (0-14); Anti-Cardiolipin Ab, IgM, Qn < 9 MPL U/mL (0-12); Anti-Thrombin 3 AG, Immunol 87 % (72-124); Antithrombin 3 Function 105 % (75-135); Beta-2-Glycoprotein I IgA <9 (0-25); Beta-2-Glycoprotein I IgG <9 (0-20); Beta-2-Glycoprotein I IgM <9 (0-32)
== END 2019-08-17 14:45 | disposition home or self-care (01) | DRG 175 ==
LOC: ED 19:04 → ICU 19:47
PROVIDERS: Internal Medicine; Internal Medicine Critical Care Medicine; Admitting Provider Family Medicine; Emergency Provider Emergency Medicine; Family Provider Family Medicine; PCP Family Medicine; Referring Provider Family Medicine; Visit Provider Internal Medicine
DX: I26.92 Saddle embolus of pulmonary artery without acute cor pulmonale (principal); J96.01 Acute respiratory failure with hypoxia; N17.9 Acute kidney failure, unspecified; E87.2 Acidosis; E11.9 Type 2 diabetes mellitus without complications; E66.9 Obesity, unspecified; R79.89 Other specified abnormal findings of blood chemistry; Z68.38 Body mass index [BMI] 38.0-38.9, adult
CPT/HCPCS: 71046; 71275; 80053; 80061; 80307; 81240; 81241; 82962; 83036; 83605; 83735; 83880; 84484; 85025; 85300; 85301; 85302; 85303; 85379; 85610; 85730; 86146; 86147; 86704; 86705; 86706; 86708; 86709; 86803; 86850; 86900; 86901; 87340; 93005; 93306; 93970; 97802; 97803; 99285; J2997; J7030; Q9957; Q9967; 90686; A4216

== ENCOUNTER → 2020-02-02 13:56 | Outpatient (CLI) | payer BC, SELFPAY ==
[2020-02-01 09:08] VITALS: BMI 38.2
--- NOTE | 2020-02-02 13:58 | ECHOCS_ITS ---
Reason For Study: DYSPNEA./SOB Procedure This was a 2D Doppler, Color Flow transthoracic echocardiogram. The study was technically difficult. Due to body habitus. Contrast injection was performed. Exam performed in department. Left Ventricle Normal LV size. The estimated ejection fraction is 47 %. Septal motion consistent with IVCD. Stage 1 diastolic dysfunction. There is borderline global hypokinesis of the left ventricle. Right Ventricle Normal RV size. Normal systolic function. Atria The left atrium is mildly enlarged. The right atrium is not well visualized. Mitral Valve Mitral valve not well visualized. Tricuspid Valve The tricuspid valve is not well visualized. Unable to estimate RV systolic pressure due to insufficient tricuspid regurgitant envelope. Unable to estimate RV systolic pressure/pulmonary artery pressure due to technically difficult study. Aortic Valve The aortic valve is not well visualized. Pulmonic Valve The pulmonic valve is not well visualized. Great Vessels Normal aortic root. Pericardium/Pleural No pericardial effusion. Medication 22 gauge I.V. with prn adaptor inserted into left arm. Diluted definity 3.0ml given slow IV push to enhance endocardial definition. MMode/2D Measurements & Calculations LVIDd: 5.2 cm IVSd: 1.0 cm Ao root diam: 2.9 cm LVIDs: 3.1 cm LVPWd: 1.1 cm FS: 40.2 % LAV(MOD-bp): 65.5 ml LA A4 area: 21.3 cm2 LA dimension(2D): 3.9 cm LAV(MOD-bp) Indexed: 26.1 ml/m2 LAV(MOD-sp2): 62.7 ml LAV(MOD-sp4): 65.3 ml Time Measurements MV dec time: 0.22 sec Doppler Measurements & Calculations MV E max cade: 63.8 cm/sec Lat Peak E' Cade: 12.7 cm/sec Med Peak E' Cade: 9.8 cm/sec MV A max cade: 70.4 cm/sec E/E' lat: 5.0 E/E' med: 6.5 MV E/A: 0.91 Ao V2 max: 137.7 cm/sec LV V1 max: 83.4 cm/sec PA V2 max: 143.3 cm/sec Ao max P.6 mmHg LV V1 max P.8 mmHg Interpretation Summary Normal LV size. The estimated ejection fraction is 47 %. Septal motion consistent with IVCD. Stage 1 diastolic dysfunction. The left atrium is mildly enlarged. Contrast injection was performed. Compared to prior study, there is no significant change. Ordering Physician: Benja Delaney Referring Physician: ELIZABETH PCP Performed By: Rachel Taylor, JUIL, RVT
== END ==
PROVIDERS: Visit Provider Internal Medicine Cardiovascular Disease
DX: R06.00 Dyspnea, unspecified (principal); I11.9 Hypertensive heart disease without heart failure; I27.21 Secondary pulmonary arterial hypertension; I26.99 Other pulmonary embolism without acute cor pulmonale; I25.2 Old myocardial infarction
CPT/HCPCS: 93306; Q9957; A4216; C8929

== ENCOUNTER 2025-03-10 10:45 | Inpatient (IN) | payer OTHER, SELFPAY ==
[2025-03-10] VITALS (13 sets, daily range): BP systolic 102–129; BP diastolic 73–85; PULSE 84–101; RESP 10–23; TEMP 36.2–37.2; O2SAT 90–95; BMI 34.4; BMI 34.6
--- NOTE | 2025-03-10 11:03 | EKG12_ITS ---
Test Reason : SOB Blood Pressure : */* mmHG Vent. Rate : 89 BPM Atrial Rate : 89 BPM P-R Int : 162 ms QRS Dur : 92 ms QT Int : 426 ms P-R-T Axes : 74 217 66 degrees QTcB Int : 518 ms Normal sinus rhythm Right atrial enlargement Right superior axis deviation Pulmonary disease pattern Incomplete right bundle branch block Right ventricular hypertrophy Nonspecific ST abnormality Prolonged QT Abnormal ECG Confirmed by BNIG FAGAN, WOLFGANG ([id number]), international editorial producer KASI BUSBY ([id number]) on 03/14/2025 6:26:03 AM Referred By: Confirmed By: WOLFGANG SMART MD
--- NOTE | 2025-03-10 11:03 | CT_ITS ---
EXAM: CT Angiography Chest Without and With Intravenous Contrast CLINICAL INDICATION: DYSPNEA, RULE OUT PE TECHNIQUE: Axial computed tomographic angiography images of the chest without and with intravenous contrast. This CT exam was performed using one or more of the following dose reduction techniques: automated exposure control, adjustment of the mA and/or kV according to patient size, and/or use of iterative reconstruction technique. MIP reconstructed images were created and reviewed. COMPARISON: No relevant prior studies available. FINDINGS: PULMONARY ARTERIES: Multiple bilateral pulmonary emboli. AORTA: No acute findings. No thoracic aortic aneurysm. LUNGS AND PLEURAL SPACES: Scattered areas of ground-glass attenuation and partial consolidation of the right upper lobe. Superimposed pneumonia can not be excluded. No significant effusion. HEART: Unremarkable. No cardiomegaly. No significant pericardial effusion. No evidence of RV dysfunction. BONES/JOINTS: No acute fracture. No dislocation. SOFT TISSUES: Unremarkable. LYMPH NODES: Unremarkable. No enlarged lymph nodes. CT/CTA Chest W/WO Contrast IMPRESSION: 1. Multiple bilateral pulmonary emboli. 2. Scattered areas of ground-glass attenuation and partial consolidation of th e right upper lobe. Superimposed pneumonia can not be excluded. Red Alert: Multiple bilateral pulmonary emboli The critical information above was relayed directly by me by telephone to Jamia Lira on 03/10/2025 at 1:22 pm with readback verification. Reading Location: REPLACED BY [facility]
--- NOTE | 2025-03-10 11:04 | ED.VIS.DYS ---
HPI <JOHNATHAN Akhtar - Last Filed: 03/10/25 15:44> History of Present Illness Chief Complaint: Shortness of Breath Narrative Narrative: 55-year-old male with PMH of HTN, HLD, DM2, PE presents with 8 days of cough and progressive shortness of breath on exertion. He states his cough is actually getting better but he still feels winded with walking around or doing activity. No shortness of breath at rest. No chest pain. No fever or chills. No nausea vomiting abdominal pain or diarrhea. No leg pain or swelling. He states he had an unprovoked pulmonary embolism about 6 years ago and was on Eliquis for the prescribed duration. PFSH <JOHNATHAN Akhtar - Last Filed: 03/10/25 15:44> [facility]LY [facility] Medical History Essential (primary) hypertension Right ventricular systolic dysfunction Secondary pulmonary arterial hypertension Type 2 diabetes mellitus Deep vein thrombosis, lower left extremity (08/15/19) History of non-ST elevation myocardial infarction (NSTEMI) (08/15/19) Hyperlipidemia Cardiac enzymes elevated Obesity (BMI 30-39.9) Elevated liver enzymes ADEN (acute kidney injury) Lactic acidosis Respiratory failure with hypoxia Bilateral pulmonary embolism (08/15/19) Home Medications ?Medication ?Instructions ?Recorded ?Last Taken ?Type atorvastatin 80 mg tablet 80 mg PO QHS #30 tabs 08/17/19 Unknown Rx hydrochlorothiazide 25 mg tablet 25 mg PO DAILY #90 tabs 07/17/21 Unknown Rx metformin 1,000 mg tablet 1,000 mg PO BID 07/17/21 Unknown History losartan 100 mg tablet 100 mg PO DAILY #90 tabs 12/25/23 Unknown Rx empagliflozin 25 mg tablet 25 mg PO QDAY 09/23/24 Unknown History (Jardiance) semaglutide 0.25 mg or 0.5 mg (2 1 mg subcut QWEEK 09/23/24 Unknown History mg/3 mL) subcutaneous pen injector (Ozempic) Allergy/AdvReac Type Severity Reaction Status Date / Time lisinopril AdvReac cough Verified 03/10/25 10:45 Family History Mother Diabetes Surgical History History of tonsillectomy Social History Smoking Status: Never smoker alcohol intake: current alcohol intake frequency: holidays/special occasions only substance use type: does not use caffeine: Yes Type: carbonated beverages Number of servings: 2 ROS <JOHNATHAN Akhtar - Last Filed: 03/10/25 15:44> ROS ED ROS Narrative Constitutional: Negative for fever, chills, malaise. CVS: Negative for palpitations, chest pain, syncope. Respiratory: Positive for shortness of breath, cough. GI: Negative for abdominal pain, nausea, vomiting. EXAM <JOHNATHAN Akhtar Last Filed: 03/10/25 15:44> Physical Exam Narrative Exam Narrative: CONST: Patient sitting in no acute distress. EYES: Normal inspection. NECK: Normal inspection. RESP: No respiratory distress, CTAB. CVS: Regular rate and rhythm, no murmur, no gallop. SKIN: Color normal, no rash, warm, dry, intact. EXTREMITIES: Normal appearance, no pedal edema. No calf tenderness. NEURO: Alert and answering questions appropriately. PSYCH: Normal affect. Const Vital Signs: 03/10/25 10:45 03/10/25 10:58 03/10/25 11:49 Temperature 97.1 F L Temperature Source Temporal Pulse Rate 95 87 Respiratory Rate 20 H 20 H Respiratory Effort Short of Breath Respiratory Depth Normal Respiratory Pattern Normal Blood Pressure 129/85 H 111/73 Blood Pressure Mean 99 85 Pulse Ox 91 90 Oxygen Delivery Method Room Air Room Air Oxygen Flow Rate (L/min) 03/10/25 11:52 03/10/25 12:33 03/10/25 13:02 Temperature Temperature Source Pulse Rate 84 87 Respiratory Rate 16 10 L Respiratory Effort Respiratory Depth Respiratory Pattern Blood Pressure 114/81 H 120/80 Blood Pressure Mean 92 93 Pulse Ox 93 95 92 Oxygen Delivery Method Nasal Cannula Room Air Room Air Oxygen Flow Rate (L/min) 2 <Dr. Cesar Brower DO - Last Filed: 03/10/25 16:12> Physical Exam Const Vital Signs: 03/10/25 10:45 03/10/25 10:58 03/10/25 11:49 Temperature 97.1 F L Temperature Source Temporal Pulse Rate 95 87 Respiratory Rate 20 H 20 H Respiratory Effort Short of Breath Respiratory Depth Normal Respiratory Pattern Normal Blood Pressure 129/85 H 111/73 Blood Pressure Mean 99 85 Pulse Ox 91 90 Oxygen Delivery Method Room Air Room Air Oxygen Flow Rate (L/min) 03/10/25 11:52 03/10/25 12:33 03/10/25 13:02 Temperature Temperature Source Pulse Rate 84 87 Respiratory Rate 16 10 L Respiratory Effort Respiratory Depth Respiratory Pattern Blood Pressure 114/81 H 120/80 Blood Pressure Mean 92 93 Pulse Ox 93 95 92 Oxygen Delivery Method Nasal Cannula Room Air Room Air Oxygen Flow Rate (L/min) 2 MDM <JOHNATHAN Akhtar - Last Filed: 03/10/25 15:44> [facility] MDM Narrative Medical decision making narrative: History gathered from: Patient's spouse Differential includes but not limited to URI, pneumonia, ACS, pulmonary embolism 55-year-old male presents with 1 week of cough and dyspnea on exertion. Upper respiratory symptoms are improving but the dyspnea remains. He has a remote history of pulmonary embolism and is no longer on blood thinners. He appears well and nontoxic. Vital stable. He is 91% on room air and speaking full sentences without distress. Heart regular without murmur. Lungs clear. No lower extremity edema or calf tenderness present. Neurovascularly intact. CBC shows white count of 13.0, otherwise normal. EKG is normal sinus rhythm without acute ischemic changes. He has nonspecific ST changes. There is a prolonged QTc at 518 ms which has been present in the past will need outpatient follow-up. BMP shows glucose of 128, CO2 19.7, gap of 17; follow-up ketones are elevated which I suspect is from dehydration and his VBG shows normal pH of 7.417 so he is not in DKA. BUN is 20, creatinine 1.32 which looks consistent with prior levels. BNP is elevated at 5176. Troponin 30, delta pending. CTA shows multiple bilateral PEs and scattered areas of groundglass and partial consolidation in the right upper lobe. This could be a superimposed pneumonia or pulmonary infarct. Since he has had a cough and has a leukocytosis I will cover for pneumonia with IV Rocephin and Zithromax. He was 90% on room air so nursing staff placed him on 2 L. He did not drop below this, however, since he has a significantly elevated BNP I am concerned for right heart strain from pulmonary emboli and started him on IV heparin. I will discuss the case with the hospitalist for admission. The hospitalist Dr. Belinda Parker spoke with on-call vascular surgeon, Dr. Mendez. Since he is not available for the next few days he recommended having the [facility] team review his case and imaging to see if he would be a candidate for thrombectomy or not. I spoke with the nurse practitioner Brittanie on the on-call PE team who had the team review his imaging and lab work. She said he is not a candidate for thrombectomy since he is minimally symptomatic and hemodynamically stable and his heart enzymes are not extremely elevated. She said if any symptoms worsen our hospitalist can feel free to consult them again but at this time the plan will be for admission to [facility]. Lab Data Attestation: I reviewed the patient's lab results. Labs: Laboratory Results - last 24 hr 03/10/25 03/10/25 03/10/25 11:10 13:20 13:45 WBC 13.0 H RBC 5.96 Hgb 17.4 H Hct 50.5 MCV 84.7 MCH 29.2 MCHC 34.5 RDW Std Deviation 42.5 RDW Coeff of Ayred 14.1 Plt Count 304 MPV 9.9 Immature Gran % (Auto) 0.500 Neut % (Auto) 83.3 H Lymph % (Auto) 8.2 L [place] % (Auto) 7.4 Eos % (Auto) 0.1 Baso % (Auto) 0.5 Absolute Neuts (auto) 10.8 H Absolute Lymphs (auto) 1.07 Nucleated RBC % 0 PT 15.4 H INR 1.2 APTT 28.2 Sodium 134 Potassium 3.6 Chloride 96 L Carbon Dioxide 19.7 L Anion Gap 19 H BUN 20 H Creatinine 1.32 H Estim Creat Clear Calc 87.31 Est GFR (MDRD) Non-Af 64 BUN/Creatinine Ratio 15.0 Glucose 120 H Calcium 8.7 Troponin T High Sens 30 H 31 H NT pro BNP II 5176 H b-Hydroxybutyric mmol/L 1.7 H Urine Color Yellow Urine Clarity Clear Urine pH 5.0 Ur Specific [place] 1.020 Urine Protein 30 H Urine Glucose (UA) 1000 H Urine Ketones 15 H Urine Occult Blood 10 H Urine Nitrite Negative Urine Bilirubin Negative Urine Urobilinogen Normal Ur Leukocyte Esterase Negative Urine RBC 0 SEEN Urine WBC 0 SEEN Ur Squamous Epith Cells 0 SEEN Urine Bacteria 0 SEEN Hyaline Casts 0-5 SEEN WBC Casts 0-5 SEEN Urine Mucus 0 SEEN ABG Data ABG results: ABG 03/10/25 13:02 Specimen Type ANDREW Sample Site Not entered VBG pH 7.42 VBG pO2 40 VBG HCO3 24 VBG Total CO2 25 VBG O2 Sat (Calc) 76 H VBG Base Excess -1 POC Mix VBG pCO2 Pt Tmp 36.8 L O2 Delivery Device Not entered Radiography Diagnostic Testing: Clinical Impression(s) from Imaging Studies Chest CTA 03/10/25 11:03 IMPRESSION: 1. Multiple bilateral pulmonary emboli. 2. Scattered areas of ground-glass attenuation and partial consolidation of the right upper lobe. Superimposed pneumonia can not be excluded. Red Alert: Multiple bilateral pulmonary emboli The critical information above was relayed directly by me by telephone to Jamia Veronica on 03/10/2025 at 1:22 pm with readback verification. Reading Location: [facility] <Dr. Cesar Brower, DO - Last Filed: 03/10/25 16:12> MDM MDM Narrative Medical decision making narrative: History gathered from: Patient's spouse Differential includes but not limited to URI, pneumonia, ACS, pulmonary embolism 55-year-old male presents with 1 week of cough and dyspnea on exertion. Upper respiratory symptoms are improving but the dyspnea remains. He has a remote history of pulmonary embolism and is no longer on blood thinners. He appears well and nontoxic. Vital stable. He is 91% on room air and speaking full sentences without distress. Heart regular without murmur. Lungs clear. No lower extremity edema or calf tenderness present. Neurovascularly intact. CBC shows white count of 13.0, otherwise normal. EKG is normal sinus rhythm without acute ischemic changes. He has nonspecific ST changes. There is a prolonged QTc at 518 ms which has been present in the past will need outpatient follow-up. BMP shows glucose of 128, CO2 19.7, gap of 17; follow-up ketones are elevated which I suspect is from dehydration and his VBG shows normal pH of 7.417 so he is not in DKA. BUN is 20, creatinine 1.32 which looks consistent with prior levels. BNP is elevated at 5176. Troponin 30, delta pending. CTA shows multiple bilateral PEs and scattered areas of groundglass and partial consolidation in the right upper lobe. This could be a superimposed pneumonia or pulmonary infarct. Since he has had a cough and has a leukocytosis I will cover for pneumonia with IV Rocephin and Zithromax. He was 90% on room air so nursing staff placed him on 2 L. He did not drop below this, however, since he has a significantly elevated BNP I am concerned for right heart strain from pulmonary emboli and started him on IV heparin. I will discuss the case with the hospitalist for admission. The hospitalist Dr. Belinda Parker spoke with on-call vascular surgeon, Dr. Mendez. Since he is not available for the next few days he recommended having the [facility] team review his case and imaging to see if he would be a candidate for thrombectomy or not. I spoke with the nurse practitioner Brittanie on the on-call PE team who had the team review his imaging and lab work. She said he is not a candidate for thrombectomy since he is minimally symptomatic and hemodynamically stable and his heart enzymes are not extremely elevated. She said if any symptoms worsen our hospitalist can feel free to consult them again but at this time the plan will be for admission to [facility]. Supervisory Physician Note Patient was seen and examined with the Advanced Practice Provider. Nursing notes and vital signs have been reviewed. Pertinent old records have been reviewed. I agree with the essential elements of the HARIS's history, physical exam, assessment, and plan. The differential diagnosis and management options were discussed with the HARIS. I participated in determining and agree with the management, procedures, final impression and disposition as documented. See changes noted by me. Please see addendum or separate note for any additional details. 55-year-old male with past medical history of DM2, HLD, HTN, PE not on anticoagulation presents for evaluation of shortness of breath on exertion and cough. Patient has a remote history of an unprovoked PE in which she used to be on a blood thinner. States that he was taken off. Denies any fever, chills, abdominal pain, nausea, vomiting. Denies any bilateral lower extremity swelling or pain. Gen: A&O x3, NAD Head: Normocephalic, atraumatic Eyes: No sclera icterus, conjunctiva clear ENT: Moist mucous membranes Neck: Trachea midline, No JVD CV: RRR, no murmurs, no peripheral edema Resp: Lungs CTA BL, no w/r/c GI: Abd soft, non-distended, non-tender, no r/r/g Musc: Full ROM, no deformity Skin: Warm, dry Neuro: Alert, oriented, grossly intact, sensation intact Psych: Cooperative, appropriate mood and affect Differential diagnosis includes but is not limited to PE, pneumonia, URI, ACS, CHF. Respiratory/cardiac workup ordered including CTA chest given his history of PE. EKG was personally reviewed and interpreted by me, ED physician. Patient has normal sinus rhythm. Patient has a prolonged QTc 518. Patient has a history of prolonged QTc previously 489. CBC with leukocytosis of 13 and hemoconcentration with a hemoglobin of 17.4. You can see this in dehydration. Coagulation panel unremarkable. BMP is consistent with dehydration although given his known diabetes with a hyperglycemia of 120, cannot rule out DKA. Patient has an anion gap of 19 with renal insufficiency at 1.32. Patient receiving fluids. Will add on UA and VBG. VBG without acidosis. Patient not in DKA. UA is negative for UTI but is positive for ketones, suspect secondary to dehydration. Troponin elevated at 30. Patient not complaining of chest pain. 2-hour troponin ordered. BNP elevated at 5176. Patient does not appear overtly fluid overloaded on physical exam. No history of CHF. CTA positive for multiple bilateral pulmonary emboli. I did personally speak to radiology about the findings. Scattered areas of groundglass attenuation and partial consolidation of the right upper lobe. Superimposed pneumonia cannot be excluded. Given patient's leukocytosis with cough, will treat for community-acquired pneumonia with Rocephin and azithromycin however this may be contributory to the patient's PE. Patient started on IV heparin. Will warrant admission. We spoke to the hospitalist who spoke to Dr. Mendez about findings. Recommended [facility] team contacted for possible thrombectomy. Jamia spoke to the team and patient is not a candidate. Patient will be admitted to our hospital. Patient updated all results and confirmed understand the plan. Impression: 1. Submassive multiple bilateral PE with history of PE not on anticoagulation 2. Elevated BNP secondary to #1, concerning for right heart strain 3. Elevated troponin secondary to #1 4. Dehydration with renal insufficiency Lab Data Labs: Laboratory Results - last 24 hr 03/10/25 03/10/25 03/10/25 11:10 13:20 13:45 WBC 13.0 H RBC 5.96 Hgb 17.4 H Hct 50.5 MCV 84.7 MCH 29.2 MCHC 34.5 RDW Std Deviation 42.5 RDW Coeff of Y[place] 14.1 Plt Count 304 MPV 9.9 Immature Gran % (Auto) 0.500 Neut % (Auto) 83.3 H Lymph % (Auto) 8.2 L [place] % (Auto) 7.4 Eos % (Auto) 0.1 Baso % (Auto) 0.5 Absolute Neuts (auto) 10.8 H Absolute Lymphs (auto) 1.07 Nucleated RBC % 0 PT 15.4 H INR 1.2 APTT 28.2 Sodium 134 Potassium 3.6 Chloride 96 L Carbon Dioxide 19.7 L Anion Gap 19 H BUN 20 H Creatinine 1.32 H Estim Creat Clear Calc 87.31 Est GFR (MDRD) Non-Af 64 BUN/Creatinine Ratio 15.0 Glucose 120 H Calcium 8.7 Troponin T High Sens 30 H 31 H NT pro BNP II 5176 H b-Hydroxybutyric mmol/L 1.7 H Urine Color Yellow Urine Clarity Clear Urine pH 5.0 Ur Specific [place] 1.020 Urine Protein 30 H Urine Glucose (UA) 1000 H Urine Ketones 15 H Urine Occult Blood 10 H Urine Nitrite Negative Urine Bilirubin Negative Urine Urobilinogen Normal Ur Leukocyte Esterase Negative Urine RBC 0 SEEN Urine WBC 0 SEEN Ur Squamous Epith Cells 0 SEEN Urine Bacteria 0 SEEN Hyaline Casts 0-5 SEEN WBC Casts 0-5 SEEN Urine Mucus 0 SEEN ABG Data ABG results: ABG 03/10/25 13:02 Specimen Type ANDREW Sample Site Not entered VBG pH 7.42 VBG pO2 40 VBG HCO3 24 VBG Total CO2 25 VBG O2 Sat (Calc) 76 H VBG Base Excess -1 POC Mix VBG pCO2 Pt Tmp 36.8 L O2 Delivery Device Not entered Radiography Diagnostic Testing: Clinical Impression(s) from Imaging Studies Chest CTA 03/10/25 11:03 IMPRESSION: 1. Multiple bilateral pulmonary emboli. 2. Scattered areas of ground-glass attenuation and partial consolidation of the right upper lobe. Superimposed pneumonia can not be excluded. Red Alert: Multiple bilateral pulmonary emboli The critical information above was relayed directly by me by telephone to Jamia Veronica on 03/10/2025 at 1:22 pm with readback verification. Reading Location: [facility] Discharge Plan Triage Chief Complaint: Shortness of Breath ED Midlevel Provider: Jamia Veronica ED Provider: Cesar Brower Dx/Rx/DC Orders Clinical Impression: Bilateral pulmonary embolism, Dyspnea Primary Care Provider: Palmer Ashton
[2025-03-10] MEDS: 0.9% Normal Saline (1000mL) 1,000 ML 999 ML IV (11:13)
[2025-03-10 11:24] LABS: Absolute Lymphocyte Count 1.07 X10^3/uL (0.83-4.51); Absolute Neutrophil Count 10.8 X10^3/uL (2.0-7.7); Basophil# 0.06 X10^3/uL; Basophil% 0.5 % (0-1); Eosinophil# 0.01 X10^3/uL; Eosinophils% 0.1 % (0-5); Hematocrit 50.5 % (40-54); Hemoglobin 17.4 g/dL (13.0-16.5); Lymphocyte # 1.07 X10^3/ul (0.83-4.51); Lymphocyte % 8.2 % (19-41); Mean Corp Hgb Conc 34.5 g/dL (32-36); Mean Corpuscular Hgb 29.2 pg (27.0-32.0); Mean Corpuscular Volume 84.7 fL (80-94); Mean Platelet Vol. 9.9 fl (6.2-12.0); Monocyte# 0.96 X10^3/uL; Monocyte% 7.4 % (0-10); NRBC Flagged by Analyzer 0 % (0-5); Neutrophil % 83.3 % (47-70); Platelet Count 304 K/mm3 (150-450); RBC Distribution Width CV 14.1 % (11.6-14.6); RBC Distribution Width SD 42.5 fl (35.1-43.9); Red Blood Count 5.96 M/mm3 (4.6-6.2)
[2025-03-10 12:19] LABS: Anion Gap 19 (5-15); BUN 20 mg/dL (4-19); Calcium,Total 8.7 mg/dL (7.6-11.0); Carbon Dioxide 19.7 mmol/L (21.0-32.0); Chloride 96 mmol/L (98-108); Creatinine, Serum 1.32 mg/dL (0.70-1.20); EST Glomerular Filtration Rate 64 (>60); Estimated Creatinine Clearance 87.31 ml/min (50-250); Glucose 120 mg/dL (70-99); Potassium 3.6 mmol/L (3.3-5.1); Sodium Level 134 mmol/L (133-145); Troponin T High Sensitivity 30 ng/L (<=22)
[2025-03-10 12:52] LABS: Pro- Brain NATRIURETIC PEPTIDE 5176 pg/mL (<=900)
[2025-03-10 13:06] LABS: Blood Gas Specimen Type VEN; O2 Delivery Device Not entered; SITE Not entered; VBG BASE EXCESS -1 mmol/L (-1.0-3.5); VBG Bicarbonate 24 mmol/L (22-26); VBG PO2 40 mmHg (25-40); VBG SO2 76 % (50-70); VBG TCO2 25 mmol/L (23-33); VBG pCO2 36.8 mmHg (41-51); VBG pH 7.42 (7.32-7.42)
[2025-03-10 13:38] LABS: BETA-HYDROXYBUTYRATE 1.7 mmol/L (0.0-0.3)
[2025-03-10 13:56] LABS: Bacteria 0 SEEN /hpf (None Seen); Mucous, Urine 0 SEEN /hpf (<or=2+); Red Blood Cells-Urine 0 SEEN /hpf (0-5); Squamous Epithelial Cells - UA 0 SEEN /hpf (0-5); White Blood Cells 0 SEEN /hpf (0-5)
[2025-03-10] MEDS: Heparin Injection (Vial) 5,000 UNIT/ML VIAL 4000 UNIT IV (14:02)
[2025-03-10 14:04] LABS: Color, Urine Yellow (Yellow); Glucose, Dipstick 1000 mg/dl (Normal); Ketone-Dipstick 15 mg/dl (Negative); Leukocyte Esterase-Dipstick Negative /ul (Negative); Nitrite-Dipstick Negative (Negative); Occult Blood-Urine 10 /ul (Negative); Protein-Dipstick 30 mg/dl (Negative); Urine Bilirubin Dipstick Negative (Negative); Urine Clarity Clear (Clear); Urine Urobilinogen Normal (Normal)
[2025-03-10] MEDS: HEPARIN/D5w 25,000 UNITS 25,000 UNITS/250 ML IV.SOLN. 10 UNITS CONT INF (14:05)
[2025-03-10 14:13] LABS: Hyaline Cast 0-5 SEEN /lpf (0-5); White Cell Cast 0-5 SEEN /lpf (None Seen)
[2025-03-10 14:17] LABS: Troponin T High Sensitivity 31 ng/L (<=22)
[2025-03-10 14:21] LABS: International Normalized Ratio 1.2; Partial Thromboplast Time 28.2 Seconds (24.1-36.2); Prothrombin Time (Protime)PT. 15.4 SECONDS (11.7-14.9)
[2025-03-10] MEDS: 0.9% Normal Saline (250mL Bag) 250 ML 15 ML IV (14:28)
[2025-03-10] MEDS: Ceftriaxone 1 GM/50 ML BAG IV (14:28)
--- NOTE | 2025-03-10 14:48 | CASEMGMT ---
Care Management Face to Face with patient for initial transition planning/care coordination assessment in the ED.? This expert medical writer introduced self and role at [facility]. Patient alert and oriented. Patient willing to participate in assessment and is able to answer all questions appropriately.? Care providers, pharmacy, and demographics verified. Admitting Diagnosis: ?Shortness of breath Other diagnosis history: ?Type 2 diabetes, PMH, HTN, HLD, PE PCP: ?[facility] Specialists: ?[facility] 1 x per year Preferred Pharmacy: [facility] Insurance: ?[facility] Prescription Benefit: ?Yes Living Will/HPOA: ?does not have LW or HPOA , may want to complete while here LNOK: ?daughter Living Arrangements: Patient lives in a two story home, independent with all ADLS and IADLs Transportation: patient drives DME: ?none HHC: ?none SNF/Rehab: ?none Community Resources: ?none Behavioral Health History: none Patient goals: Patient wishes to discharge home, denies need for home health care at this time. Patient denies any further needs or concerns at this time. Disposition Plan: admission to acute; RN CM/SW to follow for discharge planning needs that may arise. Nataliya Patterson, CUSTOMER PRICING MANAGER, FLOATMAN
[2025-03-10] MEDS: Azithromycin 500 MG in 0.9% Normal Saline (250mL Bag) 250 ML 255 MG IV (15:30)
--- NOTE | 2025-03-10 16:00 | HP.PCM.HOS_ITS ---
HPI - General General Date of Admission: 03/10/25 Date of Service: 03/10/25 Chief Complaint: Shortness of breath HPI Narrative POPPY NEFF, is a 55 M who presented to the emergency department at [facility] on 03/10/2025 with chief complaint of shortness of breath. Per discussion with the patient and family this has been ongoing for a week or so. He has had considerable fatigue especially with exertion and considerable exertional dyspnea. He has a known history of pulmonary embolism which was diagnosed in 2019. He was on anticoagulation for what he thinks was a year to 18 months and then it was discontinued. He did follow-up with hematology and they were unable to identify any reason for him to develop a PE. He has had no lower extremity swelling. He has been active without any recent travel or surgery. 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 He states he tolerated Eliquis well previously when he had PE identified in 2019. He has had a mild cough with some postnasal drip but denies any fever or chills and states his cough has been nonproductive. He also indicated his cough seems to be improving. Vital signs on presentation showed a temperature of 97.1, heart rate 95, respiratory rate was 20, blood pressure was 129/85 and pulse ox was initially 91% on room air however he did desat into the upper 80s and was placed on 2 L nasal cannula. CBC shows a mild leukocytosis with a white count of 13 with an 83.3% neutrophilia. Coags were unremarkable. A venous blood gas was obtained and showed a pH of 7.42. This was done due to an elevated anion gap and slightly low serum bicarb with an elevated beta hydroxybutyrate. This chemistry panel showed normal electrolytes other than his serum bicarb and chloride which was mildly low as well. BUN was 20 and serum creatinine is 1.32. Baseline is unknown but this seems to be slightly elevated from previous. His initial troponin was 30 with a delta of 31. His BNP was 5176. UA was unremarkable. CTA of the chest shows multiple bilateral pulmonary emboli with scattered areas of granulomatous attenuation and partial consolidation in the right upper lobe. Given elevated troponin and BNP, the case was discussed with Dr. Mendez. He indicated he was out of town but did note that there is RV strain which was not called initially by radiology on the CTA of his chest. He recommended that we discussed the case with [facility]. The emergency department did consult with [facility] and the images were pushed. This was reviewed and felt that he was stable for admission here with anticoagulation but if he decompensated at all to please call back and they would get him transferred. [facility] Medical History Essential (primary) hypertension Right ventricular systolic dysfunction Secondary pulmonary arterial hypertension Type 2 diabetes mellitus Deep vein thrombosis, lower left extremity (08/15/19) History of non-ST elevation myocardial infarction (NSTEMI) (08/15/19) Hyperlipidemia Cardiac enzymes elevated Obesity (BMI 30-39.9) Elevated liver enzymes ADEN (acute kidney injury) Lactic acidosis Respiratory failure with hypoxia Bilateral pulmonary embolism (08/15/19) Home Medications ?Medication ?Instructions ?Recorded ?Last Taken ?Type atorvastatin 80 mg tablet 80 mg PO QHS #30 tabs Unknown Rx hydrochlorothiazide 25 mg tablet 25 mg PO DAILY #90 ta bs 07/17/21 Unknown Rx metformin 1,000 mg tablet 1,000 mg PO BID 07/17/21 Unk nown History losartan 100 mg tablet 100 mg PO DAILY #90 tabs Unknown Rx empagliflozin 25 mg tablet 25 mg PO QDAY 09/23/24 Unkn own History (Jardiance) semaglutide 0.25 mg or 0.5 mg (2 1 mg subcut QWEEK Unknown History mg/3 mL) subcutaneous pen injector (Ozempic) Allergy/AdvReac Type Severity Reaction Status Date / Time lisinopril AdvReac cough Verified 03/10/25 10:45 Family History Mother Diabetes Surgical History History of tonsillectomy Social History Smoking Status: Never smoker alcohol intake: current alcohol intake frequency: holidays/special occasions only substance use type: does not use caffeine: Yes Type: carbonated beverages Number of servings: 2 ROS Constitutional Constitutional: Reports fatigue; Denies anorexia, change in weight, chills, fever(s), malaise, night sweats, weakness or other Eyes Eyes: Denies blurry vision, change in eye color, change in vision, discharge from eye(s), double vision, erythema, eye pain, loss of vision or other ENT HEENT: Denies abnormal hearing, dysphagia, ear pain, epistaxis, headache(s), hearing loss, nasal congestion, nasal discharge, post nasal drip, sinus pressure, sore throat or other Cardiovascular Cardiovascular: Reports dyspnea on exertion; Denies chest pain, claudication, edema, lightheadedness, orthopnea, palpitations, paroxysmal nocturnal dyspnea, rapid heart rate, syncope or other Respiratory/Chest Respiratory/Chest: Reports cough, dyspnea and shortness of breath with exertion; Denies excessive phlegm production, hemoptysis, productive cough, shortness of breath at rest, wheezing or other Gastrointestinal Gastrointestinal: Denies abdominal pain, coffee ground emesis, constipation, diarrhea, dyspepsia, hematemesis, hematochezia, loose stools, melena, nausea, vomiting or other Genitourinary Genitourinary: Denies burning urination, difficulty urinating, dysuria, hematuria, nocturia, urinary frequency, urinary hesitancy, urinary incontinence, urinary urgency or other Musculoskeletal Musculoskeletal: Denies arthralgias, back pain, joint pain, joint stiffness, joint swelling, myalgias, neck pain or other Neurologic Neurologic: Denies abnormal gait, abnormal speech, confusion, disequilibrium, dizziness, focal weakness, headache(s), numbness, paresthesias, seizure-like activity, seizures, syncope, tingling, tremor(s) or other Psychiatric Psychiatric: Denies anxiety, depression, homicidal ideation, suicidal ideation or other Endocrine Endocrinology: Denies change in body appearance, cold intolerance, excessive sweating, heat intolerance, polydipsia, polyuria or other Hematologic/Lymphatic Hematologic/Lymphatic: Denies anemia, easy bleeding, easy bruising, lymphadenopathy or other Allergic/Immunologic Allergic/Immunologic: Denies rhinitis, hives, eczemia, asthma or other Vital Signs Vital Signs Vital Signs: 03/10/25 10:45 03/10/25 10:58 03/10/25 11:49 Temperature 97.1 F L Temperature Source Temporal Pulse Rate 95 87 Respiratory Rate 20 H 20 H Respiratory Effort Short of Breath Respiratory Depth Normal Respiratory Pattern Normal Blood Pressure 129/85 H 111/73 Blood Pressure Mean 99 85 Pulse Ox 91 90 Oxygen Delivery Method Room Air Room Air Oxygen Flow Rate (L/min) 03/10/25 11:52 03/10/25 12:33 03/10/25 13:02 Temperature Temperature Source Pulse Rate 84 87 Respiratory Rate 16 10 L Respiratory Effort Respiratory Depth Respiratory Pattern Blood Pressure 114/81 H 120/80 Blood Pressure Mean 92 93 Pulse Ox 93 95 92 Oxygen Delivery Method Nasal Cannula Room Air Room Air Oxygen Flow Rate (L/min) 2 03/10/25 14:30 03/10/25 14:31 03/10/25 15:00 Temperature 97.7 F L 97.7 F L Temperature Source Oral Pulse Rate 87 87 88 Respiratory Rate 20 H 23 H Respiratory Effort Respiratory Depth Respiratory Pattern Blood Pressure 119/84 H 119/84 H 112/84 H Blood Pressure Mean 95 95 93 Pulse Ox 95 94 Oxygen Delivery Method Room Air Oxygen Flow Rate (L/min) Weight Weight: 118.6 kg Body Mass Index (BMI) 34.4 Physical Exam Const alert, oriented x3, no apparent distress and well nourished; Negative for average body habitus Constitutional Narrative: Obese, middle-aged, white male, sitting up in bed, significant other at bedside, appears comfortable, slightly tachypneic but stable on 2 L nasal cannula, appears nontoxic General Appearance: cooperative HEENT normocephalic, head/scalp atraumatic, hearing grossly normal bilaterally and moist oral mucous membranes HEENT Narrative: Mallampati 3, dentition is good, no thrush Eyes EOMs intact bilaterally and conjunctivae normal Eyes Narrative: No scleral icterus Neck supple Neck Narrative: Trachea midline, neck is short and thick Resp normal respiratory effort, no retractions, no use of accessory muscles and clear to auscultation bilaterally Auscultation: Negative for rales, rhonchi or wheezes Cardio regular rate, regular rhythm, S1 normal heart sound, S2 normal heart sound, no murmurs, no rub, no gallops and no clicks GI normal to inspection, nondistended, normoactive bowel sounds, soft to palpation and non-tender Extremity no clubbing, cyanosis or edema Extremity Narrative: No calf pain with a negative Homans' sign and no lower extremity edema Skin no jaundice, no petechiae and no mottling Neuro oriented x3 and moves all extremities Speech: speech normal Psych affect normal Psych Narrative: Extremely pleasant, eye contact is good and patient interacts appropriately Results Lab / Micro Data 03/10/25 11:10 03/10/25 11:10 Labs: Laboratory Results - last 24 hr 03/10/25 11:10: WBC 13.0 H, RBC 5.96, Hgb 17.4 H, Hct 50.5, MCV 84.7, MCH 29.2, MCHC 34.5, RDW Std Deviation 42.5, RDW Coeff of Yared 14.1, Plt Count 304, MPV 9.9, Immature Gran % (Auto) 0.500, Neut % (Auto) 83.3 H, Lymph % (Auto) 8.2 L, [place] % (Auto) 7.4, Eos % (Auto) 0.1, Baso % (Auto) 0.5, Absolute Neuts (auto) 10.8 H, Absolute Lymphs (auto) 1.07, Nucleated RBC % 0, PT 15.4 H, INR 1.2, APTT 28.2, Sodium 134, Potassium 3.6, Chloride 96 L, Carbon Dioxide 19.7 L, Anion Gap 19 H, BUN 20 H, Creatinine 1.32 H, Estim Creat Clear Calc 87.31, Est GFR (MDRD) Non-Af 64, BUN/Creatinine Ratio 15.0, Glucose 120 H, Calcium 8.7, Troponin T High Sens 30 H, NT pro BNP II 5176 H, b-Hydroxybutyric mmol/L 1.7 H 03/10/25 13:20: Troponin T High Sens 31 H 03/10/25 13:45: Urine Color Yellow, Urine Clarity Clear, Urine pH 5.0, Ur Specific [place] 1.020, Urine Protein 30 H, Urine Glucose (UA) 1000 H, Urine Ketones 15 H, Urine Occult Blood 10 H, Urine Nitrite Negative, Urine Bilirubin Negative, Urine Urobilinogen Normal, Ur Leukocyte Esterase Negative, Urine RBC 0 SEEN, Urine WBC 0 SEEN, Ur Squamous Epith Cells 0 SEEN, Urine Bacteria 0 SEEN, Hyaline Casts 0-5 SEEN, WBC Casts 0-5 SEEN, Urine Mucus 0 SEEN ABG Data ABG results: ABG 03/10/25 13:02 Specimen Type ANDREW Sample Site Not entered VBG pH 7.42 VBG pO2 40 VBG HCO3 24 VBG Total CO2 25 VBG O2 Sat (Calc) 76 H VBG Base Excess -1 POC Mix VBG pCO2 Pt Tmp 36.8 L O2 Delivery Device Not entered Imaging Radiology Impression Chest CTA 03/10/25 11:03 IMPRESSION: 1. Multiple bilateral pulmonary emboli. 2. Scattered areas of ground-glass attenuation and partial consolidation of the right upper lobe. Superimposed pneumonia can not be excluded. Red Alert: Multiple bilateral pulmonary emboli The critical information above was relayed directly by me by telephone to Jamia Veronica on 03/10/2025 at 1:22 pm with readback verification. Reading Location: [facility] Assessment & Plan Assessment/Plan (1) Bilateral pulmonary embolism: (2) Dyspnea: (3) Elevated troponin: (4) Elevated serum creatinine: (5) Elevated beta-hydroxybutyrate: (6) Elevated brain natriuretic peptide (BNP) level: PLAN: Plan Bilateral unprovoked pulmonary emboli - Patient with elevated troponin and BNP with some RV strain noted per discussion with Dr. Mendez -Patient was evaluated by Yudy for thrombectomy from the emergency department and at this time they feel he is stable for heparinization with transition to oral anticoagulation but if he decompensates we are to call back - currently requiring 2 L nasal cannula - Continue heparin drip - Anticipate transition to Eliquis in the next 24 to 48 hours - Given that this is a second occurrence would recommend outpatient referral to hematology--> he did see them last time without any explainable finding however given this is recurrent he may benefit from evaluation--> saw [facility] hematology last time (Dr. Patten) - Check echocardiogram with BNP and troponin elevation - Dr. Mendez is out of town over the weekend starting tomorrow so any decompensation would require transfer Hypoxia/dyspnea with exertion - Secondary to the above - Currently needing 2 L nasal cannula - Wean oxygen as able - Will need ambulatory pulse ox prior to discharge Leukocytosis - Mild and suspect reactive - CT does show possible infiltrate however this seems more consistent with pulmonary infarct next-patient with no significant infectious signs however low threshold to start antibiotics if he develops any symptoms consistent with a pneumonia - Repeat CBC in a.m. Elevated BNP/troponin - Suspect related to pulmonary emboli - Echocardiogram is pending - Trend troponin per protocol - Will give Lasix 40 mg IV push twice daily for now with elevated BNP as I do suspect he has RV strain Anion gap metabolic acidosis - Patient with mildly elevated beta hydroxybutyrate and he is on Jardiance - Will check ABG however patient does not appear to be in DKA but cannot rule out euglycemic DKA with SLGT 2 inhibitor - Hold Jardiance and metformin Nonischemic cardiomyopathy - Last echo showed EF of 47% - Repeat echocardiogram - Hold Jardiance due to elevated beta hydroxybutyrate - Continue losartan Essential hypertension/hyperlipidemia - continue home atorvastatin - Continue home HCTZ - Continue home losartan - Patient will receive some Lasix initially with his elevated BNP and likely RV dysfunction related to his PE DM-2 - Hold metformin and Jardiance - SSI as ordered - Patient is on Ozempic as well as an outpatient Obesity - BMI 34.5 - recommend wgt loss - complicates treatment, prognosis, outcomes DVT prophylaxis - Patient is fully anticoagulated with a heparin drip CODE STATUS - Full code is verified on admission Charges/Coding Visit Charges Inpatient E&M: 74169 Init Hosp L3
[2025-03-10 17:45] LABS: Allen Test Positive; Base Excess -2 mmol/L (-2 to +2); Bicarbonate 20.9 mmol/L (22-26); Blood Gas Specimen Type ART; Mode Not entered; O2 Delivery Device Cannula; PO2 65 mmHG (75-100); SITE L Radial; SO2 94 % (95-99); Total Carbon Dioxide 22 mmol/L; pCO2 27.1 mmHg (35-45)
[2025-03-10] MEDS: Furosemide 40 MG/4 ML Vial IV (18:23)
[2025-03-10] MEDS: 0.9% Saline Lock 10 ML Syringe IV (18:23)
--- OUTSIDE RECORDS SUMMARY | 2025-03-10 20:55 | XMS RPT_ITS | CCD ---
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 Creosoting Engineer Name Role Phone DEBORAH ZURITA Attending Unavailable DEBORAH ZURITA Referring Unavailable Palmer Casillas MD Primary Care Provider [facility], [place] Unavailable Palmer Casillas MD Primary Care Provider [facility], [place] Unavailable JG VELA DO Admitting Unavailable ALTON WATERS DO Referring Unavailable ALTON WATERS DO Consulting Unavailable JG VELA DO Attending Unavailable JG VELA DO Primary Care Unavailable PROVIDER, UNKNOWN Consulting Unavailable Palmer Casillas MD Primary Care Provider Palmer Casillas MD Primary Care Provider [phone] Vilma Nguyen APRN.CNP Unavailable Laura Nash PA-C Unavailable Palmer Casillas Primary Care Unavailable Karen Casillas NP Attending Unavailable Palmer Casillas Referring Unavailable Palmer Casillas Primary Care Unavailable Clint Camarena NP Attending Unavailable Palmer Casillas Referring Unavailable Palmer Casillas Primary Care Unavailable Karen Casillas NP Attending Unavailable Palmer Casillas Referring Unavailable LAURA NASH Attending Unavailable PALMER CASILLAS Primary Care Unavailable PALMER CASILLAS A Primary Care Unavailable TAMMY PAZ Attending Unavailable LAURA NASH Referring Unavailable PALMER CASILLAS Primary Care Unavailable LAURA NASH Attending Unavailable PALMER CASILLAS A Primary Care Unavailable MEDINA TSANG Attending Unavailable LAURA NASH Referring Unavailable PALMER CASILLAS A Primary Care Unavailable Allergies Allergy Classification Reported Allergen(s) Allergy Type Date of Onset Reaction(s) Facility (2 sources) Angiotensin-conv erting enzyme inhibitor agent; Translations: [LINDY INHIBITORS] Drug Intolerance [address] [facility] Work Phone: (20 sources) Angiotensin-conv erting enzyme inhibitor agent Drug Intolerance [address] [facility] Work Phone: (1 source) Lisinopril Drug Allergy 4 [facility] Medications Current Medications Medication Drug Class(es) Dates Sig (Normalized) Sig (Original) atorvastatin 80 mg oral tablet (20 sources) HMG-CoA Reductase Inhibitor Start: 02-25-2025 take 1 tablet by mouth once daily atorvastatin (LIPITOR) 80 mg tablet Indications: Hyperlipidemia, mixed Take 1 tablet by mouth once daily. 30 tablet 5 02/25/2025 Active Start: 08-23-2022 End: 07-30-2024 take 1 tablet by mouth once daily atorvastatin (LIPITOR) 80 mg tablet Indications: Hyperlipidemia, mixed Take 1 tablet by mouth once daily. 30 tablet 5 07/30/2024 Active Start: 12-24-2021 take 1 tablet by meir th once daily atorvastatin (LIPITOR) 80 mg tablet Take 1 tablet by mouth once daily. 90 tablet 1 12/24/2021 Active Comment on above: Take 1 tablet by meir th once daily. benoxinate hydrochloride 4 mg/ml / fluorescein sodium 3 mg/ml ophthalmic solution (1 source) Diagnostic Dye Start: 01-23-20 End: 01-23-20 fluorescein-benoxina te 0.3-0.4 % 1 Drop (FLURESS) benzonatate 100 mg oral capsule (1 source) Non-narcotic Antitussive Start: 03-03-20 End: 03-13-20 take 2 capsules by mouth three times daily as needed benzonatate (TESSALON PERLE) 100 mg capsule Indications: Viral URI with cough Take 2 capsules by mouth three times a day as needed for up to 10 days. 60 capsule 03/03/2025 03/13/2025 Active empagliflozin 25 mg oral tablet (9 sources) Sodium-Glucose Cotransporter 2 Inhibitor Start: 02-26-20 take 1 tablet by mouth once daily, then take 1 tablet by mouth once daily in the morning empagliflozin (JARDIANCE) 25 mg tablet Take 1 tablet by mouth once daily. Take 1 tablet once daily in the morning 90 tablet 1 02/25/2025 Active Start: 07-22-2024 take 1 tablet by meir th once daily, then take 1 tablet by mouth once daily in the morning empagliflozin (JARDIANCE) 25 mg tablet Take 1 tablet by mouth once daily. Take 1 tablet once daily in the morning 90 tablet 1 07/22/2024 Active 12 hr guaiFENesin 600 mg extended release oral tablet (2 sources) Start: 03-03-2025 End: 03-13-2025 take 2 tablets by mouth twice daily as needed guaiFENesin (MUCINEX) 600 mg 12 hr tablet Indications: Viral URI with cough , Post-nasal drainage Take 2 tablets by mouth two times a day as needed for cold/allergy symptoms for up to 10 days. 40 tablet 03/03/2025 03/13/2025 Active hydroCHLOROthiazide 25 mg oral tablet (20 sources) Thiazide Diuretic Start: 02-25-2025 take 1 tablet by mouth once daily hydroCHLOROthiazide 25 mg tablet Indications: Hypertension, essential Take 1 tablet by mouth once daily. 30 tablet 5 02/25/2025 Active Start: 08-23-2022 End: 07-30-2024 take 1 tablet by mouth once daily hydroCHLOROthiazide 25 mg tablet Indications: Hypertension, essential Take 1 tablet by mouth once daily. 30 tablet 5 07/30/2024 Active Start: 07-17-2021 take 1 tablet by mouth once hy droCHLOROthiazide (HYDRODIURIL, ESIDRIX) 25 mg tablet Take 1 tablet by mouth once daily. Per cardioDr. Delaney 0 07/17/2021 Active Comment on above: Take 1 tablet by meir once daily. Per cardioDr. Delaney Take 1 tablet by meir once daily. losartan potassium 100 mg oral tablet (20 sources) Angiotensin 2 Receptor Fernandez Start: 02-25-2025 take 1 tablet by mouth once daily losartan (COZAAR) 100 mg tablet Indications: Hypertension, essential Take 1 tablet by mouth once daily. 30 tablet 5 02/25/2025 Active Start: 08-23-2022 End: 07-30-2024 take 1 tablet by mouth once daily losartan (COZAAR) 100 mg tablet Indications: Hypertension, essential Take 1 tablet by mouth once daily. 30 tablet 5 07/30/2024 Active Start: 12-24-2021 take 1 tablet by meir th once daily losartan (COZAAR) 100 mg tablet Take 1 tablet by mouth once daily. 90 tablet 1 12/24/2021 Active Comment on above: Take 1 tablet by meir th once daily. metFORMIN hydrochloride 1000 mg oral tablet (20 sources) Biguanide Start: take 1 tablet by mouth twice daily at mealtime metFORMIN (GLUCOPHAGE) 1,000 mg tablet Indications: Type 2 diabetes mellitus without complication, unspecified whether retirement insulin use (HCC) Take 1 tablet by mouth two times a day with meals. 60 tablet 5 02/25/2025 Active Start: 08-23-2022 End: 07-30-2024 take 1 tablet by mouth twice daily at mealtime metFORMIN (GLUCOPHAGE) 1,000 mg tablet Indications: Type 2 diabetes mellitus without complication, unspecified whether long term care social worker insulin use (HCC) Take 1 tablet by mouth two times a day with meals. 60 tablet 5 07/30/2024 Active Start: 12-24-2021 take 1 tablet by meir twice daily at mealtime metFORMIN (GLUCOPHAGE) 1,000 mg tablet Take 1 tablet by mouth twice daily with meals. 180 tablet 1 12/24/2021 Active Comment on above: Take 1 tablet by meir twice daily with meals. Take 1 tablet by meir two times a day with meals. phenylephrine hydrochloride 25 mg/ml ophthalmic solution (1 source) alpha-1 Adrenergic Agonist Start: 01-23-2024 End: 01-23-2024 PHENYLephrine 2.5 % 1 Drop (AK-DILATE, IRIS-SYNEPHRINE) polyethylene glycol 3350 524675 mg / potassium chloride 2970 mg / sodium bicarbonate 6740 mg / sodium chloride 5860 mg / sodium sulfate 28710 mg powder for oral solution (2 sources) Osmotic Laxative Start: 10-18-2024 End: 10-18-2024 peg 3350-Electrolytes (GOLYTELY) 236-22.74-6.74 -5.86 gram suspension Indications: Screening for colon cancer Take 4,000 mL by mouth one time only for 1 dose. Refer to printed prep instructions from your provider. 4000 mL 10/18/2024 10/18/2024 Active Start: 11-06-2022 End: 11-06-2022 peg 3350-Electrolytes (GOLYT JOHN) 236-22.74-6.74 -5.86 gram suspension Take 4,000 mL by mouth one time only for 1 dose. 1 Each 0 11/06/2022 11/06/2022 Comment on above: Take 4,000 mL by meir th one time only for 1 dose. proparacaine hydrochloride 5 mg/ml ophthalmic solution (1 source) Local Anesthetic Start: 2023 End: 2023 proparacaine 0.5 % 1 Drop (ALCAINE) semaglutide (OZEMPIC) 0.25 mg or 0.5 mg (2 mg/3 mL) pen (7 sources) Start: 2023 inject 0.5 mg by subcutaneous injection every week semaglutide (OZEMPIC) 0.25 mg or 0.5 mg (2 mg/3 mL) pen Inject 0.5 mg subcutaneously one time a week. 1 Each 5 07/22/2024 Active semaglutide (OZEMPIC) 1 mg/dose (4 mg/3 mL) pen (2 sources) Start: 2024 inject 1 mg by subcutaneous injection every week semaglutide (OZEMPIC) 1 mg/dose (4 mg/3 mL) pen Indications: Type 2 diabetes mellitus without complication, unspecified whether long term care social worker insulin use (HCC) Inject 1 mg subcutaneously one time a week. 9 mL 1 02/25/2025 Active tropicamide 10 mg/ml ophthalmic solution (1 source) Anticholinergic Start: 2023 End: 2023 tropicamide 1 % 1 Drop (MYDRIACYL) Completed/Discontinued Medications Medication Drug Class(es) Dates Sig (Normalized) Sig (Original) apixaban 5 mg oral tablet (2 sources) Factor Xa Inhibitor Start: 12-24-2021 End: 09-23-2022 take 1 tablet by mouth twice daily apixaban (ELIQUIS) 5 mg tab(s) Take 1 tablet by mouth twice daily. 180 tablet 1 12/24/2021 09/23/2022 Discontinued (Discontinued by another Health Care Provider) Comment on above: Take 1 tablet by meir th twice daily. dapagliflozin 10 mg oral tablet (19 sources) Sodium-Glucose Cotransporter 2 Inhibitor Start: 10-14-2023 End: 07-22-2024 take 1 tablet by mouth once daily, then take 1 tablet by mouth once daily in the morning dapagliflozin propanediol (FARXIGA) 10 mg tablet Take 1 tablet by mouth once daily. Take one daily in the morning 90 tablet 1 07/16/2024 07/22/2024 Discontinued (Changing Therapy/Dosage Form) Start: 08-23-2022 End: 09-23-2022 take 1 tablet by mouth once daily, then take 1 tablet by mouth once daily in the morning dapagliflozin (FARXIGA) 10 mg tablet Take 1 tablet by mouth once daily. Take one daily in the morning 90 tablet 1 09/23/2022 Active Start: 12-24-2021 take 1 tablet by meir th once daily, then take 1 tablet by mouth once daily in the morning dapagliflozin (FARXIGA) 10 mg tablet Take 1 tablet by mouth once daily. Take one daily in the morning 90 tablet 1 12/24/2021 Active Comment on above: Take 1 tablet by meir th once daily. Take one daily in the morning doxycycline hyclate 100 mg oral capsule (6 sources) Tetracycline-cla ss Drug Start: 03-23-20 End: 01-16-20 take 1 capsule by mouth twice daily doxycycline hyclate (VIBRAMYCIN) 100 mg capsule Take 100 mg by mouth twice daily. 0 03/23/2023 01/16/2024 Discontinued Comment on above: Take 100 mg by mouth twice daily. 3 ml liraglutide 6 mg/ml pen injector (18 sources) GLP-1 Receptor Agonist Start: 01-19-20 End: 07-22-20 inject 1.8 mg by subcutaneous injection once daily liraglutide (VICTOZA) 0.6 mg/ 0.1 ml subcutaneous pen injector Indications: type 2 diabetes mellitus Inject 1.8 mg subcutaneously once daily. 3 Each 5 01/19/2024 07/22/2024 Discontinued (Changing Therapy/Dosage Form) Start: 09-24-2022 End: 01-19-2024 liraglutide (VICTOZA) 0.6 mg / 0.1 ml subcutaneous pen injector Indications: type 2 diabetes mellitus Inject 0.6 mg daily via pen once a day for a week then go to 1.2 mg a day. 2 Each 5 01/16/2024 01/19/2024 Discontinued Comment on above: Inject 0.6 mg daily via pen once a day for a week then go to 1.2 mg a day. Inject 1.8 mg subcut aneously once daily. Problems Active Problems Problem Classification Problem Date Documented Da te Episodic/Chronic Coronary atherosclerosis and other heart disease (20 sources) History of non-ST segment elevation myocardial infarction; Translations: [Old myocardial infarction] Onset: 08-15-2019 12-12-2021 Chronic Crushing injury or internal injury (1 source) Injury of kidney; Translations: [Unspecified injury of unspecified kidney, initial encounter] Onset: 12-12-2021 12-12-2021 Episodic Diabetes mellitus without complication (20 sources) Type 2 diabetes mellitus without complication; Translations: [Type 2 diabetes mellitus without complications] Onset: 08-23-2019 08-23-2019 Chronic Diabetes mellitus without complication (1 source) Acute hyperglycemia; Translations: [Hyperglycemia, unspecified] Onset: 12-12-2021 12-12-2021 Episodic Disorders of lipid metabolism (20 sources) Mixed hyperlipidemia; Translations: [Mixed hyperlipidemia] Onset: 01-11-2021 01-11-2021 Chronic Essential hypertension (20 sources) Essential hypertension; Translations: [Essential (primary) hypertension] Onset: 01-13-2020 01-13-2020 Chronic Fluid and electrolyte disorders (1 source) Lactic acidosis; Translations: [Acidosis] Onset: 12-12-2021 12-12-2021 Episodic Genitourinary symptoms and ill-defined conditions (3 sources) Microalbuminuria; Translations: [Proteinuria, unspecified] Onset: 03-01-2025 03-01-2025 Episodic Immunizations and screening for infectious disease (2 sources) Vaccination needed; Translations: [Encounter for immunization] Episodic Other aftercare (1 source) Long-term current use of anticoagulant; Translations: [skilled nursing (current) use of anticoagulants] Episodic Other and ill-defined heart disease (20 sources) Right ventricular systolic dysfunction; Translations: [Other ill-defined heart diseases] Onset: 12-12-2021 12-12-2021 Chronic Other hematologic conditions (1 source) Erythrocytosis; Translations: [Secondary polycythemia] 03-01-2025 Episodic Other infections; including parasitic (1 source) Lyme disease; Translations: [Lyme disease, unspecified] Episodic Other lower respiratory disease (1 source) Dyspnea on exertion; Translations: [Other forms of dyspnea] Episodic Other non-traumatic joint disorders (1 source) Joint pain; Translations: [Pain in unspecified joint] Episodic Other nutritional; endocrine; and metabolic disorders (1 source) Body mass index 30+ - obesity; Translations: [Obesity, unspecified] Onset: 12-12-2021 12-12-2021 Chronic Other nutritional; endocrine; and metabolic disorders (20 sources) Body mass index 40+ - severely obese; Translations: [Morbid (severe) obesity due to excess calories] Onset: 12-12-2021 09-23-2022 Chronic Other nutritional; endocrine; and metabolic disorders (2 sources) Obesity; Translations: [Class 2 obesity with body mass index (BMI) of 36.0 to 36.9 in adult] Onset: 12-12-2021 02-25-2025 Chronic Other skin disorders (1 source) Eruption; Translations: [Rash and other nonspecific skin eruption] Episodic Other upper respiratory infections (4 sources) Acute upper respiratory infection, unspecified; Translations: [Postnasal drip] Onset: 03-03-2025 03-03-2025 Episodic Lesli-; endo-; and myocarditis; cardiomyopathy (except that caused by tuberculosis or sexually transmitted disease) (18 sources) Cardiomyopathy; Translations: [Cardiomyopathy, unspecified] Onset: 12-25-2023 01-16-2024 Chronic Respiratory failure; insufficiency; arrest (adult) (1 source) Hypoxemic respiratory failure; Translations: [Respiratory failure, unspecified with hypoxia] Onset: 12-12-2021 12-12-2021 Episodic Screening and history of mental health and substance abuse codes (2 sources) Encounter for screening for depression; Translations: [Encounter for screening examination for other mental health and behavioral disorders] Onset: 02-25-2025 Episodic Past or Other Problems Problem Classification Problem Date Documented Da te Episodic/Chronic Cardiac dysrhythmias (20 sources) ECG: sinus tachycardia; Translations: [Tachycardia, unspecified] Onset: 12-12-2021 12-12-2021 Episodic Other and ill-defined heart disease (11 sources) Disorder of right cardiac ventricle ; Translations: [Cardiomegaly] Onset: 08-23-2019 Resolved: 08-29-2020 08-29-2020 Chronic Other eye disorders (20 sources) Tear film insufficiency; Translations: [Dry eye syndrome of unspecified lacrimal gland] Onset: 12-12-2021 12-12-2021 Episodic Other liver diseases (20 sources) Elevated liver enzymes level; Translations: [Abnormal levels of other serum enzymes] Onset: 12-12-2021 12-12-2021 Episodic Other screening for suspected conditions (not mental disorders or infectious disease) (20 sources) Patient encounter status; Translations: [Encounter for screening for malignant neoplasm of colon] Onset: 09-23-2022 Episodic Pulmonary heart disease (20 sources) Acute pulmonary embolism; Translations: [Other pulmonary embolism with acute cor pulmonale] Onset: 08-15-2019 Resolved: 09-23-2022 Chronic Pulmonary heart disease (20 sources) Pulmonary embolism; Translations: [Other pulmonary embolism without acute cor pulmonale] Onset: 08-23-2019 Resolved: 01-16-2024 01-11-2021 Episodic Results Test Name Value Interpretation Reference Range Facility [facility] 03-03-2025 CNOV Office Visit ([facility] ) POPPY NEFF ([id number]) 1970 M Date Time Provider Department 03/03/25 10:00 AM TAMMY PAZ [facility] During your visit today, we recorded the following information about you: Temperature Pulse Respiration Blood pressure 97 degrees 97/minute 20/minute 106/75 Weight 121 kg Tammy Paz APRN.[facility] 03/03/2025 10:38 AM Signed [facility] Subjective Poppy Neff is a 55 year old male. Patient presents with: Cough: Chest congestion, runny nose, headache, sinus pressure and pain, SOB, x 2 days Cough URI Symptoms: - Onset yesterday morning. - Persistent cough, non-productive, causing difficulty sleeping. - Rhinorrhea with clear discharge. - Congestion and headache. - Mild dyspnea associated with severe coughing episodes. - Nocturnal symptoms worse when sitting or lying down; slight improvement when standing. - Denies fever, chills, chest pain, or back pain. - Took two Benadryl and cough medicine last night with minimal relief. Review of Systems Respiratory: Positive for cough. Constitutional: (-) fever, (-) chills Head: (+) headache Ears/Nose/Mouth/Throat: (+) runny nose, (+) congestion, (+) post nasal drip Cardiovascular: (-) chest pain Respiratory: (+) cough, (+) shortness of breath, (-) phlegm Objective BP 106/75 Pulse 97 Temp 36.1 ?C (97 ?F) Resp 20 Wt 121 kg (266 lb 12.1 oz) SpO2 97% BMI 36.13 kg/m? PAST MEDICAL HISTORY Diagnosis Date Dry eye syndrome 12/12/2021 History of non-ST elevation myocardial infarction (NSTEMI) 08/15/2019 History of pulmonary embolism 08/29/2020 Saw Hematology- was taken off Eliquis. Hyperlipidemia, mixed 01/11/2021 Hypertension, essential 01/13/2020 Obesity, Class III, BMI 40-49.9 (morbid obesity) 12/12/2021 Pulmonary arterial hypertension (HCC) 08/15/2019 Pulmonary embolus (HCC) 08/23/2019 Right ventricular enlargement 08/23/2019 Right ventricular systolic dysfunction 12/12/2021 Sinus tachycardia by electrocardiography 12/12/2021 Type 2 diabetes mellitus without complication (HCC) 08/23/2019 Well adult exam 09/23/2019 Last done 09/23/19 Wrist fracture 2014 left PAST SURGICAL HISTORY Procedure Laterality Date TONSILLECTOMY HX 1980 ALLERGIES Lindy Inhibitors MEDICATIONS atorvastatin (LIPITOR) 80 mg tablet Take 1 tablet by mouth once daily. empagliflozin (JARDIANCE) 25 mg tablet Take 1 tablet by mouth once daily. Take 1 tablet once daily in the morning hydroCHLOROthiazide 25 mg tablet Take 1 tablet by mouth once daily. losartan (COZAAR) 100 mg tablet Take 1 tablet by mouth once daily. metFORMIN (GLUCOPHAGE) 1,000 mg tablet Take 1 tablet by mouth two times a day with meals. semaglutide (OZEMPIC) 1 mg/dose (4 mg/3 mL) pen Inject 1 mg subcutaneously one time a week. benzonatate (TESSALON PERLE) 100 mg capsule Take 2 capsules by mouth three times a day as needed for up to 10 days. guaiFENesin (MUCINEX) 600 mg 12 hr tablet Take 2 tablets by mouth two times a day as needed for cold/allergy symptoms for up to 10 days. FAMILY HISTORY Problem Relation Age of Onset Diabetes Mother Hypertension Mother Diabetes Father Hypertension Father Diabetes Maternal Grandmother Diabetes Maternal Grandfather Diabetes Paternal Grandfather Social History Tobacco Use Smoking status: Never Smokeless tobacco: Never Vaping Use Vaping status: Never Used Substance Use Topics Alcohol use: Yes Comment: rare Drug use: Never Physical Exam Vitals and nursing note reviewed. Constitutional: General: He is not in acute distress. Appearance: Normal appearance. He is not ill-appearing. HENT: Right Ear: Tympanic membrane, ear canal and external ear normal. Left Ear: Tympanic membrane, ear canal and external ear normal. Nose: Nose normal. Mouth/Throat: Mouth: Mucous membranes are moist. Pharynx: Oropharynx is clear. Postnasal drip present. No posterior oropharyngeal erythema. Cardiovascular: Rate and Rhythm: Normal rate and regular rhythm. Heart sounds: Normal heart sounds. Pulmonary: Effort: Pulmonary effort is normal. No respiratory distress. Breath sounds: Normal breath sounds. No wheezing or rales. Skin: General: Skin is warm and dry. Findings: No erythema or rash. Neurological: Mental Status: He is alert. General: No acute distress. HEENT: Post-nasal drainage; tympanic membranes clear bilaterally, no signs of otitis media. Resp: Lungs clear to auscultation bilaterally. {1. Viral URI with cough (J06.9) 2. Post-nasal drainage (R09.82) - Symptoms include cough, congestion, rhinorrhea, cephalalgia, and mild dyspnea. - Vital signs are stable; blood pressure and oxygen saturation are within normal limits. - Pulmonary auscultation reveals clear breath sounds; oropharyngeal examination shows post-nasal drainage; tympanic membranes are clear wi (more content not included)... Normal [facility] ALBUMIN/CREATININE RATIO, UR INEon 02-25-2025 Albumin DL <= 20 mg/L (U) [Mass/Vol] 47.2 mg/L Normal [facility] Comment on above: Order Comment: Speci men Type: URINE SPECIMENOrdering Facility: [facility] Address: [address] [place] [address] Performed By: #### U ACR ####[facility] LABCLIA [id number] [place] [id number] [place] Albumin/Creatinin e (U) [Mass ratio] 41 mg/g High <30 [facility] Comment on above: Order Comment: Speci men Type: URINE SPECIMENOrdering Facility: [facility] Address: [address] [place] [address] Result Comment: Adul t Male and Female Nephrotic Criteria: <30 mg/g is considered normal to mildly increased 30-300 mg/g is considered moderately increased >300 mg/g is considered severely increased KDIGO. (2013). KDIGO 2012 Clinical Practice Guideline for the Evaluation and Management of Chronic Kidney Disease. Official Journal of the International Society of Nephrology, 3(1), 1-150. Performed By: #### U ACR ####[facility] LABIA [id number] [place] [address] [place] Creatinine (U) [Mass/Vol] 115.9 mg/dL Normal 20.0-300.0 [facility] Comment on above: Order Comment: Speci men Type: URINE SPECIMENOrdering Facility: [facility] Address: [address] [place] [address] Performed By: #### U ACR ####[facility] LABIA [id number] [place] [address] [place] CBC W Auto Differential pane l (Bld)on 02-25-2025 Basophils (Bld) [#/Vol] 0.06 10*3/uL Normal <0.11 [facility] Comment on above: Order Comment: Speci men Type: BLOOD SPECIMENOrdering Facility: [facility] Address: [address] [place] [address] Performed By: #### 5 7021-8 ####[facility] LABIA [id number] [place] [address] [place] Basophils/100 WBC (Bld) 0.6 % Normal [facility] Comment on above: Order Comment: Speci men Type: BLOOD SPECIMENOrdering Facility: [facility] Address: [address] [place] [address] Performed By: #### 5 7021-8 ####[facility] LABCLIA [id number] [place] [address] [place] Differential cell count method Nom (Bld) Auto Normal [facility] Comment on above: Order Comment: Speci men Type: BLOOD SPECIMENOrdering Facility: [facility] Address: [address] [place] [address] Performed By: #### 5 7021-8 ####[facility] LABCLIA [id number] [place] [address] [place] Eosinophils (Bld) [#/Vol] 0.10 10*3/uL Normal <0.46 [facility] Comment on above: Order Comment: Speci men Type: BLOOD SPECIMENOrdering Facility: [facility] Address: [address] [place] [address] Performed By: #### 5 7021-8 ####[facility] LABCLIA [id number] [place] [address] [place] Eosinophils/100 WBC (Bld) 0.9 % Normal [facility] Comment on above: Order Comment: Speci men Type: BLOOD SPECIMENOrdering Facility: [facility] Address: [address] [place] [address] Performed By: #### 5 7021-8 ####[facility] LABCLIA [id number] [place] [address] [place] Erythrocyte distribution width (RBC) [Ratio] 14.0 % Normal 11.5-15.0 [facility] Comment on above: Order Comment: Speci men Type: BLOOD SPECIMENOrdering Facility: [facility] Address: [address] [place] [address] Performed By: #### 5 7021-8 ####[facility] LABCLIA [id number] [place] [address] [place] Hematocrit (Bld) [Volume fraction] 52.7 % High 39.0-51.0 [facility] Comment on above: Order Comment: Speci men Type: BLOOD SPECIMENOrdering Facility: [facility] Address: [address] [place] [address] Performed By: #### 5 7021-8 ####[facility] LABCLIA [id number] [place] [address] [place] Hemoglobin (Bld) [Mass/Vol] 17.8 g/dL High 13.0-17.0 [facility] Comment on above: Order Comment: Speci men Type: BLOOD SPECIMENOrdering Facility: [facility] Address: [address] [place] [address] Performed By: #### 5 7021-8 ####[facility] LABCLIA [id number] [place] [address] [place] Immature granulocytes (Bld) [#/Vol] 0.04 10*3/uL Normal <0.10 [facility] Comment on above: Order Comment: Speci men Type: BLOOD SPECIMENOrdering Facility: [facility] Address: [address] [place] [address] Performed By: #### 5 7021-8 ####[facility] LABCLIA [id number] [place] [address] [place] Immature granulocytes/100 WBC (Bld) 0.4 % Normal [facility] Comment on above: Order Comment: Speci men Type: BLOOD SPECIMENOrdering Facility: [facility] Address: [address] [place] [address] Performed By: #### 5 7021-8 ####[facility] LABCLIA [id number] [place] [address] [place] Lymphocytes (Bld) [#/Vol] 1.75 10*3/uL Normal 1.00-4.00 [facility] Comment on above: Order Comment: Speci men Type: BLOOD SPECIMENOrdering Facility: [facility] Address: [address] [place] [address] Performed By: #### 5 7021-8 ####[facility] LABIA [id number] [place] [address] [place] Lymphocytes/100 WBC (Bld) 16.1 % Normal [facility] Comment on above: Order Comment: Speci men Type: BLOOD SPECIMENOrdering Facility: [facility] Address: [address] [place] [address] Performed By: #### 5 7021-8 ####[facility] LABIA [id number] [place] [address] [place] MCH (RBC) [Entitic mass] 29.0 pg Normal 26.0-34.0 [facility] Comment on above: Order Comment: Speci men Type: BLOOD SPECIMENOrdering Facility: [facility] Address: [address] [place] [address] Performed By: #### 5 7021-8 ####[facility] [id number] [place] [address] [place] MCHC (RBC) [Mass/Vol] 33.8 g/dL Normal 30.5-36.0 [facility] Comment on above: Order Comment: Speci men Type: BLOOD SPECIMENOrdering Facility: [facility] Address: [address] [place] [address] Performed By: #### 5 7021-8 ####[facility] LABIA [id number] [place] [address] [place] MCV (RBC) [Entitic vol] 86.0 fL Normal 80.0-100.0 [facility] Comment on above: Order Comment: Speci men Type: BLOOD SPECIMENOrdering Facility: [facility] Address: [address] [place] [address] Performed By: #### 5 7021-8 ####[facility] LABIA [id number] [place] [address] [place] Monocytes (Bld) [#/Vol] 0.77 10*3/uL Normal <0.87 [facility] Comment on above: Order Comment: Speci men Type: BLOOD SPECIMENOrdering Facility: [facility] Address: [address] [place] [address] Performed By: #### 5 7021-8 ####[facility] LABCLIA [id number] [facility] [place] [address] [place] Monocytes/100 WBC (Bld) 7.1 % Normal [facility] Comment on above: Order Comment: Speci men Type: BLOOD SPECIMENOrdering Facility: [facility] Address: [address] [place] [address] Performed By: #### 5 7021-8 ####[facility] LABCLIA [id number] [place] [address] [place] Neutrophils (Bld) [#/Vol] 8.12 10*3/uL High 1.45-7.50 [facility] Comment on above: Order Comment: Speci men Type: BLOOD SPECIMENOrdering Facility: [facility] Address: [address] [place] [address] Performed By: #### 5 7021-8 ####[facility] LABCLIA [id number] [place] [address] [place] Neutrophils/100 WBC (Bld) 74.9 % Normal [facility] Comment on above: Order Comment: Speci men Type: BLOOD SPECIMENOrdering Facility: [facility] Address: [address] [place] [address] Performed By: #### 5 7021-8 ####[facility] LABCLIA [id number] [place] [id number] [place] Nucleated RBC (Bld) [#/Vol] 10*3/uL Normal <0.01 [facility] Comment on above: Order Comment: Speci men Type: BLOOD SPECIMENOrdering Facility: [facility] Address: [address] [place] [address] Performed By: #### 5 7021-8 ####[facility] LABCLIA [id number] [place] [address] [place] Nucleated RBC/100 WBC (Bld) [Ratio] 0.0 /100 WBC Normal [facility] Comment on above: Order Comment: Speci men Type: BLOOD SPECIMENOrdering Facility: [facility] Address: [address] [place] [address] Performed By: #### 5 7021-8 ####[facility] LABCLIA [id number] [place] [address] [place] Platelet mean volume (Bld) [Entitic vol] 10.1 fL Normal 9.0-12.7 [facility] Comment on above: Order Comment: Speci men Type: BLOOD SPECIMENOrdering Facility: [facility] Address: [address] [place] [address] Performed By: #### 5 7021-8 ####[facility] LABCLIA [id number] [place] [address] [place] Platelets (Bld) [#/Vol] 348 10*3/uL Normal 150-400 [facility] Comment on above: Order Comment: Speci men Type: BLOOD SPECIMENOrdering Facility: [facility] Address: [address] [place] [address] Performed By: #### 5 7021-8 ####[facility] LABCLIA [id number] [place] [address] [place] RBC (Bld) [#/Vol] 6.13 10*6/uL High 4.20-6.00 [facility] Comment on above: Order Comment: Speci men Type: BLOOD SPECIMENOrdering Facility: [facility] Address: [address] [place] [address] Performed By: #### 5 7021-8 ####[facility] LABCLIA [id number] [place] [id number] [place] WBC (Bld) [#/Vol] 10.84 10*3/uL Normal 3.70-11.00 [facility] Comment on above: Order Comment: Speci men Type: BLOOD SPECIMENOrdering Facility: [facility] Address: [address] [place] [address] Performed By: #### 5 7021-8 ####[facility] LABCLIA [id number] [place] [id number] [place] CNOVon 02-25-2025 CNOV Office Visit (FAMPWS ) POPPY NEFF ([id number]) 1970 M Date Time Provider Department 02/25/25 8:00 [facility] your visit today, we recorded the following information about you: Temperature Pulse Respiration Blood pressure 97 degrees 70/minute 18/minute 106/80 Weight Height 120.7 kg 1.83 m Laura Nash PA-C 02/25/2025 11:21 AM Signed Chief Complaint Patient presents with: Yearly Exam HPI Poppy Neff is a 55 year old male who presents here today for Physical Patient with PMHx of: DM2, HTN, hyperlipidemia, obesity, cardiomyopathy, Hx of NSTEMI, and those as below. No concerns today Has been taking all medications. Past medical history, appointments, medications, allergies reviewed. Previous Medical History PAST MEDICAL HISTORY Diagnosis Date Dry eye syndrome 12/12/2021 History of non-ST elevation myocardial infarction (NSTEMI) 08/15/2019 History of pulmonary embolism 08/29/2020 Saw Hematology- was taken off Eliquis. Hyperlipidemia, mixed 01/11/2021 Hypertension, essential 01/13/2020 Obesity, Class III, BMI 40-49.9 (morbid obesity) 12/12/2021 Pulmonary arterial hypertension (HCC) 08/15/2019 Pulmonary embolus (HCC) 08/23/2019 Right ventricular enlargement 08/23/2019 Right ventricular systolic dysfunction 12/12/2021 Sinus tachycardia by electrocardiography 12/12/2021 Type 2 diabetes mellitus without complication (HCC) 08/23/2019 Well adult exam 09/23/2019 Last done 09/23/19 Wrist fracture 2014 left Previous Surgical History PAST SURGICAL HISTORY Procedure Laterality Date TONSILLECTOMY HX 1980 Family History FAMILY HISTORY Problem Relation Age of Onset Diabetes Mother Hypertension Mother Diabetes Father Hypertension Father Diabetes Maternal Grandmother Diabetes Maternal Grandfather Diabetes Paternal Grandfather Patient Allergies ALLERGIES Allergen Reactions Lindy Inhibitors Cough Current Medications Current Outpatient Medications on File Prior to Visit Medication Sig atorvastatin (LIPITOR) 80 mg tablet Take 1 tablet by mouth once daily. hydroCHLOROthiazide 25 mg tablet Take 1 tablet by mouth once daily. losartan (COZAAR) 100 mg tablet Take 1 tablet by mouth once daily. metFORMIN (GLUCOPHAGE) 1,000 mg tablet Take 1 tablet by mouth two times a day with meals. empagliflozin (JARDIANCE) 25 mg tablet Take 1 tablet by mouth once daily. Take 1 tablet once daily in the morning semaglutide (OZEMPIC) 0.25 mg or 0.5 mg (2 mg/3 mL) pen Inject 0.5 mg subcutaneously one time a week. Insulin [place], Disposable, (NOVOFINE 32) 32 gauge x 1/4 1 Each once daily. Use daily with Victoza pen. No current facility-administered medications on file prior to visit. Social History Social History Tobacco Use Smoking status: Never Smokeless tobacco: Never Vaping Use Vaping status: Never Used Substance Use Topics Alcohol use: Yes Comment: rare Drug use: Never Review of Symptoms REVIEW OF SYSTEMS GENERAL: No weight loss, malaise or fevers HEENT: Negative for frequent or significant headaches, No changes in hearing or vision, no nose bleeds or other nasal problems NECK: Negative for lumps, goiter, pain and significant neck swelling RESPIRATORY: Negative for cough, hemoptysis, wheezing, COPD, dyspnea or shortness of breath CARDIOVASCULAR: Negative for chest pain, leg swelling, or palpitations GI: No nausea, vomiting, or diarrhea MUSCULOSKELETAL: Negative for joint pain or swelling, back pain or muscle pain SKIN: Negative for lesions, rash, and itching HEMATOLOGY/LYMPHOLOGY: Negative for prolonged bleeding, bruising easily or swollen nodes ENDOCRINE: Negative for cold or heat intolerance NEURO: No history of headaches, syncope, paralysis, seizures or tremors EXAM: BP 106/80 (BP Site: Left Arm, BP Position: Sitting, BP Cuff Size: Large Adult) Pulse 70 Temp 36.1 ?C (97 ?F) Resp 18 Ht 183 cm (6' 0.05) Wt 120.7 kg (266 lb) SpO2 95% BMI 36.03 kg/m? General Appearance: Well appearing, alert, in no acute distress, well-hydrated, well nourished.. Skin: Skin color, texture, turgor normal, no suspicious rashes or lesions. Head: Normocephalic, no masses, lesions, tenderness or abnormalities. Eyes: Anicteric sclera. Pupils are equally round and reactive to light. Extraocular movements are intact. Ears: External ears normal, canals clear. Oropharynx: Lips, mucosa, and tongue normal, teeth and gums normal, oropharynx normal. Neck: Supple, no adenopathy; thyroid symmetric, normal size, no bruits. Lungs: Lungs clear to auscultation. No wheezing, rhonchi, rales.. Heart: RRR without murmur, gallop, or rubs. Abdomen: Normal abdominal exam, Abdomen soft, non-tender. Bowel sounds normal. No masses, organomegaly. Peripheral Pulses: Normal. Feet:Shoes and socks removed, sensitive to 10 gm monofilament, and (more content not included)... Normal [facility] 02-25-2025 [facility] Telephone (INTMWS) POPPY NEFF ([id number]) 1970 M Date Time Provider Department 02/25/25 [facility] During your visit today, we recorded the following information about you: Angelica Maher LPN 02/25/2025 8:42 AM Signed The office rec'd and completed a prior auth for ozempic. This was reviewed and approved. Prior authorization approved P[facility] [facility] [phone] Note from payer: Request Reference Number: [id number]. OZEMPIC INJ 4MG/3ML is approved through 02/25/2026. Your patient may now fill this prescription and it will be covered. Approval Details Authorization number: [id number] Authorized from February 25, 2025 to February 25, 2026 Electronic appeal: Not supported View History Medication Being Authorized semaglutide (OZEMPIC) 1 mg/dose (4 mg/3 mL) pen Inject 1 mg subcutaneously one time a week. Dispense: 9 mL Refills: 1 Start: 02/25/2025 Class: Normal Diagnoses: Type 2 diabetes mellitus without complication, unspecified whether retirement insulin use (HCC) This order has been released to its destination. To be filled at: [place] [id number] [address] [place] [address] Authorization number: [id number] Authorized from February 25, 2025 to February 25, 2026 Information received electronically from payer Pharmacy notified. Allergies As of Date: 02/25/2025 Noted Allergy Reaction LINDY INHIBITORS 10/04/2019 3 - Cough Date Reviewed: 02/25/2025 Reviewed by: Darius Garcia LPN - Fully Assessed Reason for Visit: Insurance Authorization [1693] Prescriptions as of 02/25/2025 - atorvastatin (LIPITOR) 80 mg tablet Take 1 tablet by mouth once daily. - empagliflozin (JARDIANCE) 25 mg tablet Take 1 tablet by mouth once daily. Take 1 tablet once daily in the morning - hydroCHLOROthiazide 25 mg tablet Take 1 tablet by mouth once daily. - losartan (COZAAR) 100 mg tablet Take 1 tablet by mouth once daily. - metFORMIN (GLUCOPHAGE) 1,000 mg tablet Take 1 tablet by mouth two times a day with meals. - semaglutide (OZEMPIC) 1 mg/dose (4 mg/3 mL) pen Inject 1 mg subcutaneously one time a week. Meds Comments as of 01/23/2024: 01/23/24 The medications are managed by this patient by: PATIENT Gely MckeonMANDIE Problem List As Of Date 02/25/2025 Noted Resolved Type 2 diabetes mellitus without complication (*08/23/2019 Pulmonary embolus (HCC) [I26.99] 08/23/2019 01/16/2024 Right ventricular enlargement [I51.7] 08/23/2019 08/29/2020 Pulmonary HTN (HCC) [I27.20] 08/23/2019 08/29/2020 Well adult exam [Z00.00] 09/23/2019 Hypertension, essential [I10] 01/13/2020 History of pulmonary embolism [Z86.711] 08/29/2020 Hyperlipidemia, mixed [E78.2] 01/11/2021 Sinus tachycardia by electrocardiography [R00.0]12/12/2021 Right ventricular systolic dysfunction [I51.89] 12/12/2021 Pulmonary arterial hypertension (HCC) [I27.21] 08/15/2019 09/23/2022 Class 2 obesity with body mass index (BMI) of 3*12/12/2021 History of non-ST elevation myocardial infarcti*08/15/2019 Elevated liver enzymes [R74.8] 12/12/2021 Dry eye syndrome [H04.129] 12/12/2021 Screening for prostate cancer [Z12.5] 09/23/2022 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 Cardiomyopathy (HCC) [I42.9] 01/16/2024 Type 2 diabetes mellitus without retinopathy (H*01/23/2024 Encounter Status:Closed by ANGELICA MAHER on 02/25/25 Normal [facility] Comprehensive metabolic 2000 panelon 02-25-2025 Albumin [Mass/Vol] 4.3 g/dL Normal 3.9-4.9 [facility] Comment on above: Order Comment: Speci men Type: BLOOD SPECIMENOrdering Facility: [facility] Address: [address] [place] [address] Performed By: #### 2 4331-1, 99262-2 ####[facility] LABCLIA [id number] [id number], [place] [address] [place] ALP [Catalytic activity/Vol] 71 U/L Normal 38-113 [facility] Comment on above: Order Comment: Speci men Type: BLOOD SPECIMENOrdering Facility: [facility] Address: [address] [place] [id number] Performed By: #### 2 4331-1, ####[facility] LABCLIA [id number] [place] [address] [place] ALT [Catalytic activity/Vol] 20 U/L Normal 10-54 [facility] Comment on above: Order Comment: Speci men Type: BLOOD SPECIMENOrdering Facility: [facility] Address: [address] [place] [address] Performed By: #### 2 4331-1, ####[facility] LABCLIA [id number] [place] [address] [place] Anion gap [Moles/Vol] 15 mmol/L Normal 8-15 [facility] Comment on above: Order Comment: Speci men Type: BLOOD SPECIMENOrdering Facility: [facility] Address: [address] [place] [address] Performed By: #### 2 4331-1, ####[facility] LABCLIA [id number] [place] [address] [place] AST [Catalytic activity/Vol] 19 U/L Normal 14-40 [facility] Comment on above: Order Comment: Speci men Type: BLOOD SPECIMENOrdering Facility: [facility] Address: [address] [place], [place] [address] Performed By: #### 2 4331-1, ####[facility] LABCLIA [id number] [place] [id number] [place] Bilirubin [Mass/Vol] 0.7 mg/dL Normal 0.2-1.3 [facility] Comment on above: Order Comment: Speci men Type: BLOOD SPECIMENOrdering Facility: [facility] Address: [address] [place] [address] Performed By: #### 2 4331-1, 22080-0 ####[facility] LABCLIA [id number] [address] [address] [place] Calcium [Mass/Vol] 9.7 mg/dL Normal 8.5-10.2 [facility] Comment on above: Order Comment: Speci men Type: BLOOD SPECIMENOrdering Facility: [facility] Address: [address] [place] [address] Performed By: #### 2 4331-1, 91627-8 ####[facility] LABCLIA [id number] [place] [id number] [place] Chloride [Moles/Vol] 104 mmol/L Normal 98-107 [facility] Comment on above: Order Comment: Speci men Type: BLOOD SPECIMENOrdering Facility: [facility] Address: [address] [place] [address] Performed By: #### 2 4331-, 83699-7 ####[facility] LABCLIA [id number] [place] [id number] [place] CO2 [Moles/Vol] 21 mmol/L Low 22-30 [facility] Comment on above: Order Comment: Speci men Type: BLOOD SPECIMENOrdering Facility: [facility] Address: [address] [place], [place] [address] Performed By: #### 2 4331-, 20611-3 ####[facility] LABCLIA [id number] [address] [place] [address] [place] Creatinine [Mass/Vol] 1.13 mg/dL Normal 0.73-1.22 [facility] Comment on above: Order Comment: Speci men Type: BLOOD SPECIMENOrdering Facility: [facility] Address: [address] [place], [place] [address] Performed By: #### 2 4331-1, 21252-3 ####[facility] LABCLIA [id number] [place] [address] [place] Creatinine and Glomerular filtration rate.predicted panel (S/P/Bld) 78 mL/min/1.73m??? Normal >=60 [facility] Comment on above: Order Comment: Maicol godfrey Type: BLOOD SPECIMENOrdering Facility: [facility] Address: [address] [place] [address] Result Comment: Angelica mated Glomerular Filtration Rate (eGFR) is calculated using the 2020 CKD-EPI creatinine equation. This equation utilizes serum creatinine, sex, and age as parameters. The creatinine assay has traceable calibration to isotope dilution-mass spectrometry. Refer to KDIGO guidelines for clinical interpretation. In patients with unstable renal function, e.g. those with acute kidney injury, the eGFR may not accurately reflect actual GFR. Performed By: #### 2 4331-1, 62462-2 ####[facility] [id number] [place] [address] [place] Glucose [Mass/Vol] 97 mg/dL Normal 74-99 [facility] Comment on above: Order Comment: Maicol godfrey Type: BLOOD SPECIMENOrdering Facility: [facility] Address: [address] [place] [address] Result Comment: The [place] Diabetes Association (ADA) provides guidance for cutoff values for fasting glucose and random glucose. The ADA defines fasting as no caloric intake for at least 8 hours. Fasting plasma glucose results between 100 to 125 mg/dL indicate increased risk for diabetes (prediabetes). Fasting plasma glucose results greater than or equal to 126 mg/dL meet the criteria for diagnosis of diabetes. In the absence of unequivocal hyperglycemia, results should be confirmed by repeat testing. In a patient with classic symptoms of hyperglycemia or hyperglycemic crisis, random plasma glucose results greater than or equal to 200 mg/dL meet the criteria for diagnosis of diabetes. Reference: Standards of Medical Care in Diabetes 2016, [place] [employer] Association. Diabetes Care. 2016.39(Suppl 1). Performed By: #### 2 4331-1, 12843-0 ####[facility] LABIA [id number] [address] [id number], [place] [address] [place] Potassium [Moles/Vol] 4.6 mmol/L Normal 3.7-5.1 [facility] Comment on above: Order Comment: Speci men Type: BLOOD SPECIMENOrdering Facility: [facility] Address: [address] [place] [address] Performed By: #### 2 4331-1, 73863-0 ####[facility] LABCLIA [id number] [address] [address] [place] Protein [Mass/Vol] 7.3 g/dL Normal 6.3-8.0 [facility] Comment on above: Order Comment: Speci men Type: BLOOD SPECIMENOrdering Facility: [facility] Address: [address] [place] [address] Performed By: #### 2 4331-1, 69929-5 ####[facility] LABCLIA [id number] [place] [id number] [place] Sodium [Moles/Vol] 140 mmol/L Normal 136-144 [facility] Comment on above: Order Comment: Speci men Type: BLOOD SPECIMENOrdering Facility: [facility] Address: [address] [place] [address] Performed By: #### 2 4331-1, 61456-7 ####[facility] LABCLIA [id number] [address], [facility] [place] Urea nitrogen [Mass/Vol] 22 mg/dL Normal 9-24 [facility] Comment on above: Order Comment: Speci men Type: BLOOD SPECIMENOrdering Facility: [facility] Address: [address] [place], [place] [address] Performed By: #### 2 4331-1, 67496-1 ####[facility] LABCLIA [id number] [address] [place] [address] [place] HbA1c (Bld)on 02-25-2025 Average glucose Estimated from glycated hemoglobin (Bld) [Mass/Vol] 137 mg/dL Normal [facility] Comment on above: Order Comment: Soniai men Type: BLOOD SPECIMENOrdering Facility: [facility] Address: [address] [place] [address] Result Comment: eAG: (Estimated average glucose) is a calculated value from HgbA1c and is outside energy sales representatives of the average blood glucose level in the last 2-3 month period. Performed By: #### 5 5454-3 ####[facility] LABCLIA [id number] [place] [address] [place] HbA1c (Bld) [Mass fraction] 6.4 % High 4.3-5.6 [facility] Comment on above: Order Comment: Maicol men Type: BLOOD SPECIMENOrdering Facility: [facility] Address: [address] [place] [address] Result Comment: Amer ican Diabetes Association guidelines indicate that patients with HgbA1c in the range 5.7-6.4% are at increased risk for development of diabetes, and intervention by lifestyle modification may be beneficial. HgbA1c greater or equal to 6.5% is considered diagnostic of diabetes. Performed By: #### 5 5454-3 ####[facility] LABCLIA [id number] [place] [address] [place] Lipid 1996 panelon 5 Cholesterol [Mass/Vol] 104 mg/dL Normal <200 [facility] Comment on above: Order Comment: Soniai men Type: BLOOD SPECIMENOrdering Facility: [facility] Address: [address] [place] [address] Result Comment: <200 mg/dL, Desirable 200-239 mg/dL, Borderline high >239 mg/dL, High Performed By: #### 2 4331-1, 48562-6 ####[facility] LABCLIA [id number] [place] [address] [place] Cholesterol in HDL [Mass/Vol] 36 mg/dL Low >39 [facility] Comment on above: Order Comment: Soniai men Type: BLOOD SPECIMENOrdering Facility: [facility] Address: [address] [place], [place] [id number] Result Comment: 40-5 9 mg/dL, Acceptable >59 mg/dL, High: Negative risk factor for coronary heart disease <40 mg/dL, Low: Positive risk factor for coronary heart disease Performed By: #### 2 433-, ####[facility] LABCLIA [id number] [address] [address] [place] Cholesterol in LDL [Mass/Vol] 51 mg/dL Normal <100 [facility] Comment on above: Order Comment: Speci men Type: BLOOD SPECIMENOrdering Facility: [facility] Address: [address] [place] [address] Result Comment: <100 mg/dL, Optimal 100-129 mg/dL, Near optimal/above optimal 130-159 mg/dL, Borderline high 160-189 mg/dL, High >189 mg/dL, Very high Secondary prevention optimal LDL Cholesterol levels are recommended to be <70 mg/dL LDL cholesterol is calculated using the Hernández-NIH equation. Performed By: #### 2 4330-10, ####[facility] LABCLIA [id number] [place] [id number] [place] Cholesterol in LDL/Cholesterol in HDL [Mass ratio] 1.42 {ratio} Normal <2.54 [facility] Comment on above: Order Comment: Speci men Type: BLOOD SPECIMENOrdering Facility: [facility] Address: [address] [place] [address] Result Comment: Hiral luo: 1. National Cholesterol Education Program ATP III Guideline At-A-Glance Quick Desk Reference: National Heart, Lung, and Blood [place]. National Institutes of Health. 2001: NIH Publication No. 01-3305. 2. An International Atherosclerosis Society position paper: global recommendations for the management of dyslipidemia: executive summary, Atherosclerosis. 2014: 232(2):410-413. Performed By: #### 2 433-, ####[facility] LABIA [id number] [address] [address] [place] Cholesterol in VLDL [Mass/Vol] 12 mg/dL Normal <30 [facility] Comment on above: Order Comment: Speci men Type: BLOOD SPECIMENOrdering Facility: [facility] Address: [address] [place], [place] [id number] Performed By: #### 2 433-, ####[facility] LABCLIA [id number] [address] [id number], [place] [address] [place] Cholesterol non HDL [Mass/Vol] 68 mg/dL Normal <130 [facility] Comment on above: Order Comment: Speci men Type: BLOOD SPECIMENOrdering Facility: [facility] Address: [address] [place] [address] Result Comment: <130 mg/dL, Optimal 130-159 mg/dL, Near optimal/above optimal 160-189 mg/dL, Borderline high 190-219 mg/dL, High >219 mg/dL, Very high Secondary prevention optimal non HDL Cholesterol levels are recommended to be <100 mg/dL Performed By: #### 2 433-, ####[facility] LABCLIA [id number] [facility] [id number] [address] [place] Cholesterol.total /Cholesterol in HDL [Mass ratio] 2.89 {ratio} Normal <5.10 [facility] Comment on above: Order Comment: Speci men Type: BLOOD SPECIMENOrdering Facility: [facility] Address: [address] [place], [place] [id number] Performed By: #### 2 433-, ####[facility] LABCLIA [id number] [address] [id number] [address] [place] FASTING TIME 12 hrs Normal [facility] Comment on above: Order Comment: Speci men Type: BLOOD SPECIMENOrdering Facility: [facility] Address: [address] [place], [place] [id number] Performed By: #### 2 4331-, ####[facility] LABCLIA [id number] [facility] [address] [id number], [place] [address] [place] Triglyceride [Mass/Vol] 88 mg/dL Normal <150 [facility] Comment on above: Order Comment: Speci men Type: BLOOD SPECIMENOrdering Facility: [facility] Address: [address] [place] [address] Result Comment: <150 mg/dL, Normal 150-199 mg/dL, Borderline high 200-499 mg/dL, High >499 mg/dL, Very high Performed By: #### 2 4331-1, 32394-9 ####[facility] LABCLIA [id number] [address] [place] PSA/PROSTATE SPECIFIC ANTIGE N SCREENINGon 02-25-2025 Prostate specific Ag [Mass/Vol] 0.34 ng/mL Normal <2.60 [facility] Comment on above: Order Comment: Speci men Type: BLOOD SPECIMENOrdering Facility: [facility] Address: [address] [place] [address] Result Comment: Tota l PSA test methodology used is the Electrochemiluminescence Immunoassay by [employer]. Total PSA values by differing methodologies cannot be interchanged. Performed By: #### P SAS1 ####[facility] LABCLIA [id number] [address] [place] Urinalysis complete panel (U )on 02-25-2025 Bacteria LM.HPF (Urine sed) [#/Area] Negative Normal Negative [facility] Comment on above: Order Comment: Speci men Type: URINE SPECIMENOrdering Facility: [facility] Address: [address] [place] [address] Performed By: #### 2 4356-8 ####[facility] LABCLIA [id number] [place] [id number] [place] Bilirubin Ql (U) Negative Normal Negative [facility] Comment on above: Order Comment: Speci men Type: URINE SPECIMENOrdering Facility: [facility] Address: [address] [place] [address] Performed By: #### 2 4356-8 ####[facility] LABCLIA [id number] [facility] [address] [place] [address] [place] Clarity (Unsp spec) Clear Normal Clear [facility] Comment on above: Order Comment: Speci men Type: URINE SPECIMENOrdering Facility: [facility] Address: [address] [place] [address] Performed By: #### 2 4356-8 ####[facility] LABCLIA [id number] [address], [facility]95 [place] Color (U) Yellow Normal Yellow [facility] Comment on above: Order Comment: Speci men Type: URINE SPECIMENOrdering Facility: [facility] Address: [address] [place] [address] Performed By: #### 2 4356-8 ####[facility] LABCLIA [id number] [address], [facility]95 [place] Epithelial cells LM.HPF (Urine sed) [#/Area] None Seen Normal [facility] Comment on above: Order Comment: Speci men Type: URINE SPECIMENOrdering Facility: [facility] Address: [address] [place] [address] Performed By: #### 2 4356-8 ####[facility] LABCLIA [id number] [address] [place] [address] [place] Glucose Test strip (U) [Mass/Vol] 3+ Abnormal Negative [facility] Comment on above: Order Comment: Speci men Type: URINE SPECIMENOrdering Facility: [facility] Address: [address] [place] [address] Performed By: #### 2 4356-8 ####[facility] LABCLIA [id number] [address], [facility]95 [place] Hemoglobin Ql (U) Negative Normal Negative [facility] Comment on above: Order Comment: Speci men Type: URINE SPECIMENOrdering Facility: [facility] Address: [address] [place] [address] Performed By: #### 2 4356-8 ####[facility] LABCLIA [id number] [address] [place] [address] [place] Hyaline casts (Urine sed) [#/Area] 1-3 /LPF Abnormal 0 /LPF [facility] Comment on above: Order Comment: Speci men Type: URINE SPECIMENOrdering Facility: [facility] Address: [address] [place] [address] Performed By: #### 2 4356-8 ####[facility] LABCLIA [id number] [address] [place] [address] [place] Ketones Ql (U) Negative Normal Negative [facility] Comment on above: Order Comment: Speci men Type: URINE SPECIMENOrdering Facility: [facility] Address: [address] [place] [address] Performed By: #### 2 4356-8 ####[facility] LABCLIA [id number] [address], [facility]95 [place] Leukocyte esterase Test strip Ql (U) Negative Normal Negative [facility] Comment on above: Order Comment: Speci men Type: URINE SPECIMENOrdering Facility: [facility] Address: [address] [place] [address] Performed By: #### 2 4356-8 ####[facility] LABCLIA [id number] [address], [facility]95 [place] Nitrite Ql (U) Negative Normal Negative [facility] Comment on above: Order Comment: Speci men Type: URINE SPECIMENOrdering Facility: [facility] Address: [address] [place], [place] [address] Performed By: #### 2 4356-8 ####[facility] LABCLIA [id number] [address] [place] [address] [place] pH (U) 5.5 [pH] Normal <8.5 [facility] Comment on above: Order Comment: Speci men Type: URINE SPECIMENOrdering Facility: [facility] Address: [address] [place] [address] Performed By: #### 2 4356-8 ####[facility] LABIA [id number] [place] [address] [place] Protein (U) [Mass/Vol] Trace Abnormal Negative [facility] Comment on above: Order Comment: Speci men Type: URINE SPECIMENOrdering Facility: [facility] Address: [address] [place] [address] Performed By: #### 2 4356-8 ####[facility] LABIA [id number] [place] [address] [place] RBC LM.HPF (Urine sed) [#/Area] 0-2 /HPF Normal 0-2 /HPF [facility] Comment on above: Order Comment: Speci men Type: URINE SPECIMENOrdering Facility: [facility] Address: [address] [place] [address] Performed By: #### 2 4356-8 ####[facility] [id number] [place] [address] [place] Specific gravity (U) [Rel density] 1.038 High 1.005-1.030 [facility] Comment on above: Order Comment: Speci men Type: URINE SPECIMENOrdering Facility: [facility] Address: [address] [place] [address] Performed By: #### 2 4356-8 ####[facility] LABIA [id number] [place] [address] [place] Urobilinogen Ql (U) 1.0 EU/dL Normal 0.2-1.0 EU/dL [facility] Comment on above: Order Comment: Speci men Type: URINE SPECIMENOrdering Facility: [facility] Address: [address] [place] [address] Performed By: #### 2 4356-8 ####[facility] LABIA [id number] [place] [address] [place] WBC LM.HPF (Urine sed) [#/Area] 0-5 /HPF Normal 0-5 /HPF [facility] Comment on above: Order Comment: Speci men Type: URINE SPECIMENOrdering Facility: [facility] Address: [address] [place] [address] Performed By: #### 2 4356-8 ####[facility] LABCLIA [id number] [place] [id number] [place] CNPMariaa 01-17-2025 CNPN Telephone (GENSWS) POPPY NEFF ([id number]) 1970 M Date Time Provider Department 01/17/25 HAL GONZALEZ GENSWS During your visit today, we recorded the following information about you: Sonido Cardoza MA 01/17/2025 10:46 AM Signed Pt is unable to come for colonoscopy Friday. Please contact him to reschedule. KENNY Campbell Laurie, MA 02/18/2025 11:44 AM Signed Ronen Neff appointment was cancelled and called left message for patient to call back and reschedule. Ronen Neff Routed to specialty pool so that they may reach out to patient to reschedule. Sonido Cardoza MA Allergies As of Date: 01/17/2025 Noted Allergy Reaction LINDY INHIBITORS 10/04/2019 3 - Cough Date Reviewed: 10/18/2024 Reviewed by: Medina Tsang APRN.CUSTOM HARVESTER - Fully Assessed Reason for Visit: Reschedule Colonoscopy [Other] Prescriptions as of 02/18/2025 - atorvastatin (LIPITOR) 80 mg tablet Take 1 tablet by mouth once daily. - hydroCHLOROthiazide 25 mg tablet Take 1 tablet by mouth once daily. - losartan (COZAAR) 100 mg tablet Take 1 tablet by mouth once daily. - metFORMIN (GLUCOPHAGE) 1,000 mg tablet Take 1 tablet by mouth two times a day with meals. - empagliflozin (JARDIANCE) 25 mg tablet Take 1 tablet by mouth once daily. Take 1 tablet once daily in the morning - semaglutide (OZEMPIC) 0.25 mg or 0.5 mg (2 mg/3 mL) pen Inject 0.5 mg subcutaneously one time a week. - Insulin [place], Disposable, (NOVOFINE 32) 32 gauge x 1/4 1 Each once daily. Use daily with Victoza pen. Meds Comments as of 01/23/2024: 01/23/24 The medications are managed by this patient by: PATIENT MANDIE Sheppard Problem List As Of Date 01/17/2025 Noted Resolved Type 2 diabetes mellitus without complication (*08/23/2019 Pulmonary embolus (HCC) [I26.99] 08/23/2019 01/16/2024 Right ventricular enlargement [I51.7] 08/23/2019 08/29/2020 Pulmonary HTN (HCC) [I27.20] 08/23/2019 08/29/2020 Well adult exam [Z00.00] 09/23/2019 Hypertension, essential [I10] 01/13/2020 History of pulmonary embolism [Z86.711] 08/29/2020 Hyperlipidemia, mixed [E78.2] 01/11/2021 Sinus tachycardia by electrocardiography [R00.0]12/12/2021 Right ventricular systolic dysfunction [I51.89] 12/12/2021 Pulmonary arterial hypertension (HCC) [I27.21] 08/15/2019 09/23/2022 Obesity, Class III, BMI 40-49.9 (morbid obesity*12/12/2021 History of non-ST elevation myocardial infarcti*08/15/2019 Elevated liver enzymes [R74.8] 12/12/2021 Dry eye syndrome [H04.129] 12/12/2021 Screening for prostate cancer [Z12.5] 09/23/2022 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 Cardiomyopathy (HCC) [I42.9] 01/16/2024 Type 2 diabetes mellitus without retinopathy (H*01/23/2024 Encounter Status:Closed by SONIDO CARDOZA on 02/18/25 [facility] CNOVon 10-18-2024 CNOV Office Visit (GENSWS ) POPPY NEFF ([id number]) 1970 M Date Time Provider Department 10/18/24 10:00 AM MEDINA TSANG GENYESICAS During your visit today, we recorded the following information about you: Temperature Pulse Blood pressure Weight 96.6 degrees 76/minute 118/82 122.5 kg Height 1.854 m StephenieVal gaytanDARIA 10/18/2024 10:23 AM Signed REVIEW OF SYSTEMS: General: The patient denies fatigue, denies weight loss, denies weight gain, denies feeling hot, and denies feelings of cold. Eyes: The patient denies glaucoma, denies eye injury/surgery, does not wear glasses or contacts. Ear/Nose/Throat: The patient notes allergies, denies hayfever, denies ear infections, and denies bloody noses. Cardiovascular: The patient denies chest pain, denies heart disease, notes high blood pressure,denies cardiac stent, denies prior heart attack, denies irregular heart beat, notes high cholesterol, denies poor circulation, denies heart failure, other cardiac issues, denies claudication, denies cold feet, denies peripheral arterial stent. Respiratory: The patient denies tuberculosis, denies pneumonia, denies frequent cough, notes pulmonary embolism, denies shortness of breath, and denies coughing up blood. Gastrointestinal: The patient denies difficulty swallowing, denies acid reflux, denies ulcers, denies vomiting, denies jaundice/hepatitis, denies gallbladder problems, denies black or tarry stools, denies hemorrhoids, denies bleeding from rectum, denies diverticulitis, denies constipation, denies diarrhea, denies loss of stool control, and denies hernias. Kidney/Bladder: The patient denies kidney stones, denies urine infections, and denies bloody urine. Skin: The patient denies a history of skin cancer, denies bleeding/changing moles, and denies a history of skin rash. Neurologic: The patient denies a history of epilepsy/convulsions, denies headaches, denies head/spinal injuries, and denies stroke/TIA. Psychiatric: The patient denies psychiatric medications, denies depression, and denies voices, denies substance abuse. Endocrine: The patient denies thyroid disorders, notes diabetes, and denies hormonal problems. Hematologic: The patient denies a history of bruising, denies bleeding, and denies anemia, denies blood clots. Infections: The patient denies a history of measles and mumps, denies rheumatic fever, and denies sexually transmitted diseases. Musculoskeletal: The patient denies back pain/injury, denies back problems, denies sciatica, denies knee/foot trouble, denies arthritis, or denies gout. When was patient's last Mammogram screening? N/A Last Colonoscopy: none DARIA Glynn Kimberley, APRN.CUSTOM HARVESTER 10/18/2024 10:23 AM Signed HISTORY AND PHYSICAL Poppy Neff : 1970 REFERRING PHYSICIAN: Laura Nash [address] [place] [phone] CHIEF COMPLAINT: Patient presents with: Consult: Colonoscopy, no prior colonoscopy HPI: Poppy is a 54 year old male referred for endoscopy. Poppy notes due for screening colonoscopy. Poppy denies abdominal pain.. Poppy denies diarrhea. Poppy denies constipation. Poppy denies a change in bowel habits. Poppy denies melena. Poppy denies bright red blood per rectum. Poppy denies hemorrhoids. Poppy denies heartburn. Poppy denies dysphagia. Poppy denies a history of ulcers/ peptic ulcer disease. Poppy denies family history of colon issues. Poppy has a hx of HTN, NSTEMI(2019)- he follows with [facility]. Last OV 09/23/24. Pt to get updated ECHO. Denies CP, SOB, dizziness, palpitations, syncope, edema, recent hospitalizations Other medical history is significant for T2DM and obesity. Poppy has not undergone prior endoscopy. Current Outpatient Medications Medication Sig atorvastatin (LIPITOR) 80 mg tablet Take 1 tablet by mouth once daily. hydroCHLOROthiazide 25 mg tablet Take 1 tablet by mouth once daily. losartan (COZAAR) 100 mg tablet Take 1 tablet by mouth once daily. metFORMIN (GLUCOPHAGE) 1,000 mg tablet Take 1 tablet by mouth two times a day with meals. empagliflozin (JARDIANCE) 25 mg tablet Take 1 tablet by mouth once daily. Take 1 tablet once daily in the morning semaglutide (OZEMPIC) 0.25 mg or 0.5 mg (2 mg/3 mL) pen Inject 0.5 mg subcutaneously one time a week. Insulin [place], Disposable, (NOVOFINE 32) 32 gauge x 1/4 1 Each once daily. Use daily with Victoza pen. peg 3350-Electrolytes (GOLYTELY) 236-22.74-6.74 -5.86 gram suspension Take 4,000 mL by mouth one time only for 1 dose. Refer to printed prep instructions from your provider. No current facility-administered medications for this visit. ALLERGIES: Lindy Inhibitors PAST MEDICAL HISTORY Diagnosis Date Dry eye syndrome 12/12/2021 History of non-ST elevation myocardial infarction (NSTEMI) 08/15/2019 History of pulmonary embolism 08/29/2020 Saw Hem (more content not included)... Normal [facility] Cardiology Visit Reporton Cardiology Visit Report [facility] [address] [place] [address] OFFICE VISIT Date of Service: 09/23/24 MR#: [id number] Acct: [id number] Name: POPPY NEFF Rep #: [id number] : 1970 Provider: ADAM oliva Age/Sex: 54/M [place] [facility] [place] Status: Signed HPI HPI History of Present Illness Details: This is a 54-year-old gentleman who presents here today for a cardiovascular follow-up. He was last seen in our office in July of 2022. In August 2019, he presented with shortness of breath. He was noted to have bilateral pulmonary embolus which was significant requiring TPA. He was noted to be hypotensive. An echocardiogram performed demonstrated ejection fraction of 50%, moderately dilated right ventricle and pulmonary systolic pressure of 55 mmHg. He also has a history of hypertension, hyperlipidemia and diabetes. He denies chest, arm, jaw, or neck discomfort. He denies palpitations. He denies bilateral lower extremity edema. He denies claudication. He denies shortness of breath with activity, shortness of breath at rest, orthopnea, or PND. He denies chronic cough. He denies significant, sudden weight gain. He states occasional lightheadedness. He denies dizziness, near-syncope, or syncope. He denies blood in urine, blood in stool, or epistaxis. He denies fever with chills. He denies myalgia. He denies fatigue. His exercise level has remained stable. Intake Vital Signs 12/25/23 08:42 09/23/24 08:37 Height 6 ft 1 in 6 ft 1 in Weight: 286 lb 268 lb BMI 37.7 35.3 BP 123/80 H 121/77 H Blood Pressure Location Lt brachial Lt brachial Position Sitting Sitting Respiration 18 16 Pulse 77 63 Pulse Source Monitor NIBP Pulse Oximetry (%) 95 Intake Visit Reasons: 9 M [employer] Cook Required: No Is patient in pain?: No Allergies lisinopril Adverse Reaction (Verified 09/23/24 08:43) cough Medications ???Medication ???Instructions ???Recorded ???Confirmed ???Type atorvastatin 80 mg tablet 80 mg PO QHS #30 tabs 08/17/19 09/23/24 Rx hydrochlorothiazide 25 mg tablet 25 mg PO DAILY #90 tabs 07/17/21 09/23/24 Rx metformin 1,000 mg tablet 1,000 mg PO BID 07/17/21 09/23/24 History losartan 100 mg tablet 100 mg PO DAILY #90 tabs 12/25/23 09/23/24 Rx empagliflozin 25 mg tablet 25 mg PO QDAY 09/23/24 09/23/24 History (Jardiance) semaglutide 0.25 mg or 0.5 mg (2 mg subcut 09/23/24 09/23/24 History mg/3 mL) subcutaneous pen injector (Ozempic) Ejection fraction %: 47 Have you fallen in the past year?: No PFSH Medical History Essential (primary) hypertension Right ventricular systolic dysfunction Secondary pulmonary arterial hypertension Type 2 diabetes mellitus Deep vein thrombosis, lower left extremity (08/15/19) History of non-ST elevation myocardial infarction (NSTEMI) (08/15/19) Hyperlipidemia Cardiac enzymes elevated Obesity (BMI 30-39.9) Elevated liver enzymes ADEN (acute kidney injury) Lactic acidosis Respiratory failure with hypoxia Bilateral pulmonary embolism (08/15/19) Surgical History History of tonsillectomy Family History Mother Diabetes Social History Smoking Status: Never smoker alcohol intake: current alcohol intake frequency: holidays/special occasions only substance use type: does not use caffeine: Yes Type: carbonated beverages Number of servings: 2 ROS Const Const: Negative for fatigue or weakness Eyes Eyes: Negative for change in vision ENT ENT: Negative for dizziness or balance problems Cardio Chest Pain: No Palpitations: No Edema: None Muscle aches with walking: None Resp Respiratory: Negative for SOB with activity, SOB at rest or SOB orthopnea SOB lying down GI GI: Negative nausea or heartburn : Negative for hematuria or frequent nighttime urination/ nocturia Musc Musc: Negative for balance problems Skin Skin: Negative non-healing lesions or rash Neuro Neuro: Positive for lightheadedness (Occasionally when getting up too quickly); Negative for dizziness, near syncope, syncope or weakness Endo Endo: Negative for fatigue Allergy Allergy/Immunology: Negative for rash Cardiology Exam Const Appearance: cooperative, healthy appearing, comfortable and no acute distress Nutritional Appearance: well nourished and obese Orientation: alert, awake and oriented x3 Head Head: normal to inspection Ears: hearing grossly normal bilaterally Nose: external nose normal Face and Sinus: face symmetric Mouth: moist mucous membranes Eyes General: appearance normal, both eyes and all related structures Eyelids: eyelids normal EOM: EOM intact (more content not included)... Normal [facility] 07-30-2024 [facility] POPPY NEFF ([id number]) 1970 M Date Time Provider Department 07/30/24 10:20 AM LAURA NASH During your visit today, we recorded the following information about you: Temperature Pulse Respiration Blood pressure 97.8 degrees 76/minute 18/minute 106/86 Weight 127.5 kg Laura Nash PA-C 07/30/2024 11:39 AM Signed Chief Complaint Patient presents with: 6 Month Exam HPI Poppy Neff is a 54 year old male who presents here today for Chronic Medical Conditions.. Patient with hx of DM2, HTN, hyperlipidemia, obesity, cardiomyopathy, Hx of NSTEMI, and those as below. Had insurance change and reports some of his medications needed to be switched. He is picking up jardiance today. Hasn't heard if ozempic approved yet. Past medical history, appointments, medications, allergies reviewed. Previous Medical History PAST MEDICAL HISTORY Diagnosis Date Dry eye syndrome 12/12/2021 History of non-ST elevation myocardial infarction (NSTEMI) 08/15/2019 History of pulmonary embolism 08/29/2020 Saw Hematology- was taken off Eliquis. Hyperlipidemia, mixed 01/11/2021 Hypertension, essential 01/13/2020 Obesity, Class III, BMI 40-49.9 (morbid obesity) (HCC) 12/12/2021 Pulmonary arterial hypertension (HCC) 08/15/2019 Pulmonary embolus (HCC) 08/23/2019 Right ventricular enlargement 08/23/2019 Right ventricular systolic dysfunction 12/12/2021 Sinus tachycardia by electrocardiography 12/12/2021 Type 2 diabetes mellitus without complication (HCC) 08/23/2019 Well adult exam 09/23/2019 Last done 09/23/19 Wrist fracture 2014 left Previous Surgical History PAST SURGICAL HISTORY Procedure Laterality Date TONSILLECTOMY HX 1979 Family History FAMILY HISTORY Problem Relation Age of Onset Diabetes Mother Hypertension Mother Diabetes Father Hypertension Father Diabetes Maternal Grandmother Diabetes Maternal Grandfather Diabetes Paternal Grandfather Patient Allergies ALLERGIES Allergen Reactions Lindy Inhibitors Cough Current Medications Current Outpatient Medications on File Prior to Visit Medication Sig losartan (COZAAR) 100 mg tablet Take 1 tablet by mouth once daily. metFORMIN (GLUCOPHAGE) 1,000 mg tablet Take 1 tablet by mouth two times a day with meals. hydroCHLOROthiazide 25 mg tablet Take 1 tablet by mouth once daily. atorvastatin (LIPITOR) 80 mg tablet Take 1 tablet by mouth once daily. empagliflozin (JARDIANCE) 25 mg tablet Take 1 tablet by mouth once daily. Take 1 tablet once daily in the morning semaglutide (OZEMPIC) 0.25 mg or 0.5 mg (2 mg/3 mL) pen Inject 0.5 mg subcutaneously one time a week. Insulin [place], Disposable, (NOVOFINE 32) 32 gauge x 1/4 1 Each once daily. Use daily with Victoza pen. No current facility-administered medications on file prior to visit. Social History Social History Tobacco Use Smoking status: Never Smokeless tobacco: Never Vaping Use Vaping status: Never Used Substance Use Topics Alcohol use: Yes Comment: rare Drug use: Never Review of Symptoms REVIEW OF SYSTEMS GENERAL: No weight loss, malaise or fevers NECK: Negative for lumps, goiter, pain and significant neck swelling RESPIRATORY: Negative for cough, hemoptysis, wheezing, COPD, dyspnea or shortness of breath CARDIOVASCULAR: Negative for chest pain, leg swelling, hypertension, CHF or palpitations NEURO: No history of headaches, syncope, paralysis, seizures or tremors EXAM: BP 106/86 (BP Site: Left Arm, BP Position: Sitting, BP Cuff Size: Large Adult) Pulse 76 Temp 36.6 ?C (97.8 ?F) Resp 18 Wt 127.5 kg (281 lb) SpO2 93% BMI 37.04 kg/m? General Appearance: Well appearing, alert, in no acute distress, well-hydrated, well nourished.. Neck: Supple, no adenopathy; thyroid symmetric, normal size, no bruits. Lungs: Lungs clear to auscultation. No wheezing, rhonchi, rales.. Heart: RRR without murmur, gallop, or rubs. No ectopy. Extremities: No deformities, edema, skin discoloration, clubbing or cyanosis. Good capillary refill. . Peripheral Pulses: Normal. Health Maintenance List Colorectal Cancer Screening Never done HbA1C due on 07/17/2024 Shingrix Vaccine(1 of 2) due on 01/15/2025 Influenza Vaccine(1) due on 04/04/2025 Covid-19 Vaccine( season) due on 07/30/2025 Urine Albumin:Creatinine Ratio due on 01/15/2025 LDL Cholesterol due on 01/15/2025 Diabetic Foot Exam due on 01/15/2025 Annual PCP Team Chronic Disease Visit due on 01/15/2025 Depression Screening due on 01/15/2025 Anxiety Screening due on 01/15/2025 BP Controlled (<130/80) due on 01/15/2025 Dilated Retinal Exam due on 01/22/2025 DTaP,Tdap,Td Vaccine(2 - Td or Tdap) due on 09/23/2029 Pneumococcal Vaccine Completed Hepatitis B Vaccine Discontinued Hepatitis C Screening Discontinued HIV Screening Discontinued Da (more content not included)... Normal [facility] POPPY [facility]FF ([id number]) 1970 M Date Time Provider Department 07/30/24 [facility] During your visit today, we recorded the following information about you: Darius Garcia LPN 07/30/2024 11:48 AM Signed Pt was seen in office today and needs to be scheduled for a surgical consult for a colonoscopy. Pt was not able to schedule after his visit and would like scheduling to contact him. Thank you. DARIA Prajapati Ida 07/30/2024 12:56 PM Signed 1st attempt to contact patient. M to return call to schedule consult Jenny Bailey 07/31/2024 10:38 AM Signed 2nd attempt, Called patient LVM to call back to schedule Colonoscopy Consult Allergies As of Date: 07/30/2024 Noted Allergy Reaction LINDY INHIBITORS 10/04/2019 3 - Cough Date Reviewed: 07/30/2024 Reviewed by: Darius Garcia LPN - Fully Assessed Reason for Visit: Surgical Consult [Other] Cmt: colonoscopy Prescriptions as of 07/31/2024 - atorvastatin (LIPITOR) 80 mg tablet Take 1 tablet by mouth once daily. - hydroCHLOROthiazide 25 mg tablet Take 1 tablet by mouth once daily. - losartan (COZAAR) 100 mg tablet Take 1 tablet by mouth once daily. - metFORMIN (GLUCOPHAGE) 1,000 mg tablet Take 1 tablet by mouth two times a day with meals. - empagliflozin (JARDIANCE) 25 mg tablet Take 1 tablet by mouth once daily. Take 1 tablet once daily in the morning - semaglutide (OZEMPIC) 0.25 mg or 0.5 mg (2 mg/3 mL) pen Inject 0.5 mg subcutaneously one time a week. - Insulin [place], Disposable, (NOVOFINE 32) 32 gauge x 1/4 1 Each once daily. Use daily with Victoza pen. Meds Comments as of 01/23/2024: 01/23/24 The medications are managed by this patient by: PATIENT MANDIE Sheppard Problem List As Of Date 07/30/2024 Noted Resolved Type 2 diabetes mellitus without complication (*08/23/2019 Pulmonary embolus (HCC) [I26.99] 08/23/2019 01/16/2024 Right ventricular enlargement [I51.7] 08/23/2019 08/29/2020 Pulmonary HTN (HCC) [I27.20] 08/23/2019 08/29/2020 Well adult exam [Z00.00] 09/23/2019 Hypertension, essential [I10] 01/13/2020 History of pulmonary embolism [Z86.711] 08/29/2020 Hyperlipidemia, mixed [E78.2] 01/11/2021 Sinus tachycardia by electrocardiography [R00.0]12/12/2021 Right ventricular systolic dysfunction [I51.89] 12/12/2021 Pulmonary arterial hypertension (HCC) [I27.21] 08/15/2019 09/23/2022 Obesity, Class III, BMI 40-49.9 (morbid obesity*12/12/2021 History of non-ST elevation myocardial infarcti*08/15/2019 Elevated liver enzymes [R74.8] 12/12/2021 Dry eye syndrome [H04.129] 12/12/2021 Screening for prostate cancer [Z12.5] 09/23/2022 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 Unable to complete this electronically. Poppy Neff (Palmer: [id number]) - JOHNATHAN-[id number] Ozempic (0.25 or 0.5 MG/DOSE) 2MG/3ML pen-injectors status: JOHNATHAN Request Created: July 22, 2024 [id number] Sent: July 23, 2024 Angelica Maher LPN 07/23/2024 12:09 PM Signed Office notes was requested and faxed for expided review. Angelica Maher LPN 07/26/2024 11:17 AM Signed BONE MINERAL DENSITY PATIENT INSTRUCTIONS Bone mineral density testing measures the amount of calcium in certain parts of your bones. This information determines how strong your bones are. The test is used to detect osteoporosis, a disease in which the bone's mineral content and density are low, increasing a person's risk of fractures. The lumbar spine (lower back) and the hip are the skeletal sites usually examined. For the test, remember that: 1. You cannot take this test if you are . 2. Eat a normal diet on the day of the test. 3. Take your medications as you normally would. 4. DO NOT take calcium supplements (such as Tums) for 24 hours before the test. 5. On the day of the test, leave valuables (jewelry or credit cards) at home. 6. The test should be performed prior to oral, rectal or IV contrast studies, or at least 7 days after any of these studies. For the test, you may be asked to wear a hospital gown. You will lie on your back, on a padded table, in a comfortable position. Generally, you can resume your usual activities immediately. Angelica Maher LPN 08/03/2024 11:42 AM Signed No response from insurance. Called the pharmacy and the rx was filled and picked up 07/28/24 with a co pay of 24.99. Called [employer] to request the approval letter to be faxed. They report they do not handle these appeals for pt. The appeals are handles with [facility]. Can call [phone]. Allergies As of Date: 07/23/2024 Noted Allergy Reaction LINDY INHIBITORS 10/04/2019 3 - Cough Date Reviewed: 01/23/2024 Reviewed by: Sony Govea OD - Fully Assessed Reason for Visit: Insurance Authorization [[id number]] Prescriptions as of 08/03/2024 - atorvastatin (LIPITOR) 80 mg tablet Take 1 tablet by mouth once daily. - hydroCHLOROthiazide 25 mg tablet Take 1 tablet by mouth once daily. - losartan (COZAAR) 100 mg tablet Take 1 tablet by mouth once daily. - metFORMIN (GLUCOPHAGE) 1,000 mg tablet Take 1 tablet by mouth two times a day with meals. - empagliflozin (JARDIANCE) 25 mg tablet Take 1 tablet by mouth once daily. Take 1 tablet once daily in the morning - semaglutide (OZEMPIC) 0.25 mg or 0.5 mg (2 mg/3 mL) pen Inject 0.5 mg subcutaneously one time a week. - Insulin [place], Disposable, (NOVOFINE 32) 32 gauge x 1/4 1 Each once daily. Use daily with Victoza pen. Meds Comments as of 01/23/2024: 01/23/24 The medications are managed by this patient by: PATIENT Gely Killinger, COT Problem List As Of Date 07/23/2024 Noted Resolved Type 2 diabetes mellitus without complication (*08/23/2019 Pulmonary embolus (HCC) [I26.99] 08/23/2019 01/16/2024 Right ventricular enlargement [I51.7] 08/23/2019 08/29/2020 Pulmonary HTN (HCC) [I27.20] 08/23/2019 08/29/2020 Well adult exam [Z00.00] 09/23/2019 Hypertension, essential [I10] 01/13/2020 History of pulmonary embolism [Z86.711] 08/29/2020 Hyperlipidemia, mixed [E78.2] 01/11/2021 Sinus tachycardia by electrocardiography [R00.0]12/12/2021 Right ventricular systolic dysfunction [I51.89] 12/12/2021 Pulmonary arterial hypertension (HCC) [I27.21] 08/15/2019 09/23/2022 Obesity, Class III, BMI 40-49.9 (morbid obesity*12/12/2021 History of non-ST elevation myocardial infarcti*08/15/2019 Elevated liver enzymes [R74.8] 12/12/2021 Dry eye syndrome [H04.129] 12/12/2021 Screening for prostate cancer [Z12.5] 09/23/2022 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 This information determines how strong your bones are. The test is used to detect osteoporosis, a disease in which the bone's mineral content and density are low, increasing a person's risk of fractures. The lumbar spine (lower back) and the hip are the skeletal sites usually examined. For the test, remember that: 1. You cannot take this test if you are . 2. Eat a normal d (more content not included)... Normal [facility] 07-22-2024 [facility] Telephone ([facility]) POPPY NEFF ([id number]) 1970 M Date Time Provider Department 07/22/24 PALMER CASILLAS [facility] During your visit today, we recorded the following information about you: Prerna Zayas 07/22/2024 1:37 PM Signed Patient stated has new insurance and they will not cover some of his prescriptions. He stated they will not cover Farxiga but they will cover Jardiance. He stated they will not cover Victoxza but they will cover Ozempic. He would like them sent to [facility] in [place]. Darius Garcia LPN 07/22/2024 1:41 PM Signed Please see message below regarding covered medications for pt. DARIA Prajapati Jeffrey A, MD 07/22/2024 4:09 PM Signed Let patient know new meds sent. Also let him know the ozempic is just once a week instead of daily like the victoza. Requested Prescriptions Signed Prescriptions Disp Refills empagliflozin (JARDIANCE) 25 mg tablet 90 tablet 1 Sig: Take 1 tablet by mouth once daily. Take 1 tablet once daily in the morning Authorizing Provider: PALMER CASILLAS semaglutide (OZEMPIC) 0.25 mg or 0.5 mg (2 mg/3 mL) pen 1 Each 5 Sig: Inject 0.5 mg subcutaneously one time a week. Authorizing Provider: PALMER CASILLAS Amanda, RN 07/22/2024 4:21 PM Signed Pt called and is notified of providers results and instructions. Pt voices understanding. Charu Alvarez RN Allergies As of Date: 07/22/2024 Noted Allergy Reaction LINDY INHIBITORS 10/04/2019 3 - Cough Date Reviewed: 01/23/2024 Reviewed by: Sony Govea OD - Fully Assessed Reason for Visit: Medication Problem [65] Order(s):Order #: [id number] Order #: [id number] Prescriptions as of 07/23/2024 - empagliflozin (JARDIANCE) 25 mg tablet Take 1 tablet by mouth once daily. Take 1 tablet once daily in the morning - semaglutide (OZEMPIC) 0.25 mg or 0.5 mg (2 mg/3 mL) pen Inject 0.5 mg subcutaneously one time a week. - losartan (COZAAR) 100 mg tablet Take 1 tablet by mouth once daily. - metFORMIN (GLUCOPHAGE) 1,000 mg tablet Take 1 tablet by mouth two times a day with meals. - hydroCHLOROthiazide 25 mg tablet Take 1 tablet by mouth once daily. - atorvastatin (LIPITOR) 80 mg tablet Take 1 tablet by mouth once daily. - Insulin [place], Disposable, (NOVOFINE 32) 32 gauge x 1/4 1 Each once daily. Use daily with Victoza pen. Meds Comments as of 01/23/2024: 01/23/24 The medications are managed by this patient by: PATIENT MANDIE Sheppard Medication notes this encounter DAPAGLIFLOZIN PROPANEDIOL 10 MG TABLET >> Palmer Casillas MD 07/22/2024 4:08 PM not covered by new insurance. LIRAGLUTIDE 0.6 MG/0.1 ML (18 MG/3 ML) SUBCUTANEOUS PEN INJECTOR >> Palmer Casillas MD 07/22/2024 4:08 PM not covered by new insurance. Problem List As Of Date 07/22/2024 Noted Resolved Type 2 diabetes mellitus without complication (*08/23/2019 Pulmonary embolus (HCC) [I26.99] 08/23/2019 01/16/2024 Right ventricular enlargement [I51.7] 08/23/2019 08/29/2020 Pulmonary HTN (HCC) [I27.20] 08/23/2019 08/29/2020 Well adult exam [Z00.00] 09/23/2019 Hypertension, essential [I10] 01/13/2020 History of pulmonary embolism [Z86.711] 08/29/2020 Hyperlipidemia, mixed [E78.2] 01/11/2021 Sinus tachycardia by electrocardiography [R00.0]12/12/2021 Right ventricular systolic dysfunction [I51.89] 12/12/2021 Pulmonary arterial hypertension (HCC) [I27.21] 08/15/2019 09/23/2022 Obesity, Class III, BMI 40-49.9 (morbid obesity*12/12/2021 History of non-ST elevation myocardial infarcti*08/15/2019 Elevated liver enzymes [R74.8] 12/12/2021 Dry eye syndrome [H04.129] 12/12/2021 Screening for prostate cancer [Z12.5] 09/23/2022 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 Take 1 tablet once daily in the morning SEMAGLUTIDE 0.25 MG OR 0.5 MG (2 MG/* 1 Ea* 5 07/22/2024 Route: SUBCUTANEOUS Sig: Inject 0.5 mg subcutaneously one time a week. Medications Discontinued During This Encounter Prescriptions - liraglutide (VICTOZA) 0.6 mg/ 0.1 ml subcutaneous pen injector (Discontinued) Inject 1.8 mg subcutaneously once daily. - dapagliflozin propanediol (FARXIGA) 10 mg tablet (Discontinued) Take 1 tablet by mouth once daily. Take one daily in the morning Encounter Status:Closed by CHARU ALVAREZ on 07/22/24 Normal [facility] CBC W Auto Differential pane l (Bld)on 01-16-2024 Basophils (Bld) [#/Vol] 0.08 10*3/uL <0.11 k/uL [facility] Basophils/100 WBC (Bld) 0.8 % [facility] Differential cell count method Nom (Bld) Auto [facility] Eosinophils (Bld) [#/Vol] 0.12 10*3/uL <0.46 k/uL [facility] Eosinophils/100 WBC (Bld) 1.2 % [facility] Erythrocyte distribution width (RBC) [Ratio] 13.2 % 11.5 - 15.0 % [facility] Hematocrit (Bld) [Volume fraction] 52.8 % High 39.0 - 51.0 % [facility] Hemoglobin (Bld) [Mass/Vol] 17.4 g/dL High 13.0 - 17.0 g/dL [facility] Immature granulocytes (Bld) [#/Vol] 0.04 10*3/uL <0.10 k/uL [facility] Immature granulocytes/100 WBC (Bld) 0.4 % [facility] Lymphocytes (Bld) [#/Vol] 1.82 10*3/uL 1.00 - 4.00 k/uL [facility] Lymphocytes/100 WBC (Bld) 17.9 % [facility] MCH (RBC) [Entitic mass] 28.7 pg 26.0 - 34.[address] [facility] MCHC (RBC) [Mass/Vol] 33.0 g/dL 30.5 - 36.0 g/dL [facility] MCV (RBC) [Entitic vol] 87.0 fL 80.0 - 100.[address] [facility] Monocytes (Bld) [#/Vol] 0.68 10*3/uL <0.87 k/uL [facility] Monocytes/100 WBC (Bld) 6.7 % [facility] Neutrophils (Bld) [#/Vol] 7.42 10*3/uL 1.45 - 7.50 k/uL [facility] Neutrophils/100 WBC (Bld) 73.0 % [facility] Nucleated RBC (Bld) [#/Vol] <0.01 k/uL [facility] Nucleated RBC/100 WBC (Bld) [Ratio] 0.0 /[address] [facility] Platelet mean volume (Bld) [Entitic vol] 9.8 fL 9.0 - 12.[address] [facility] Platelets (Bld) [#/Vol] 427 10*3/uL High 150 - 400 k/uL [facility] RBC (Bld) [#/Vol] 6.07 10*6/uL High 4.20 - 6.0 0 m/uL [facility] WBC (Bld) [#/Vol] 10.16 10*3/uL 3.70 - 11 .00 k/uL [facility] HbA1c (Bld)on 01-16-2024 Average glucose Estimated from glycated hemoglobin (Bld) [Mass/Vol] 157 mg/dL [facility] HbA1c (Bld) [Mass fraction] 7.1 % High 4.3 - 5.6 % [facility] Urinalysis complete panel (U )on 01-16-2024 Bacteria LM.HPF (Urine sed) [#/Area] Negative Negative /HPF [facility] Bilirubin Ql (U) Negative Negative [facility] Clarity (Unsp spec) Clear Clear [facility] Color (U) Yellow Yellow [facility] Epithelial cells LM.HPF (Urine sed) [#/Area] None Seen [facility] Glucose Test strip (U) [Mass/Vol] 3+ Abnormal Negative [facility] Hemoglobin Ql (U) Negative Negative [facility] Hyaline casts (Urine sed) [#/Area] 1-3 /LPF Abnormal 0 /LPF [facility] Ketones Ql (U) Negative Negative [facility] Leukocyte esterase Test strip Ql (U) Negative Negative [facility] Nitrite Ql (U) Negative Negative [facility] pH (U) 5.5 [pH] <8.[address] [facility] Protein (U) [Mass/Vol] Negative Negative [facility] RBC LM.HPF (Urine sed) [#/Area] 0-2 /HPF 0-2 /HPF [facility] Specific gravity (U) [Rel density] 1.035 High 1.005 - 1.[address] [facility] Urobilinogen Ql (U) 0.2 EU/dL 0.2-1.0 EU/dL [facility] WBC LM.HPF (Urine sed) [#/Area] 0-5 /HPF 0-5 /HPF [facility] Cardiology Visit Reporton Cardiology Visit Report [facility] [address] [place], [place] [address] OFFICE VISIT Date of Service: 12/25/23 MR#: [id number] Acct: [id number] Name: POPPY NEFF Rep #: [id number] : 1970 Provider: ADAM georges Age/Sex: 53/M [place] [facility] [place] [facility] [place] Signed [facility] History of Present Illness Details: This is a 53-year-old gentleman who presents here today for a cardiovascular follow-up. He was last seen in our office in July of 2022. In August 2019, he presented with shortness of breath. He was noted to have bilateral pulmonary embolus which was significant requiring TPA. He was noted to be hypotensive. An echocardiogram performed demonstrated ejection fraction of 50%, moderately dilated right ventricle and pulmonary systolic pressure of 55 mmHg. He also has a history of hypertension, hyperlipidemia and diabetes. From a cardiac standpoint, the patient is doing well. He denies any palpitations, chest pain, pressure or heaviness. He denies SOB, Orthopnea, and PND. He does not have bleeding issues; no blood in urine, stool or nosebleeds. He denies any decrease in energy level, myalgias, or claudication. He does not have edema, or sudden weight gain. He denies dizziness, lightheadedness, syncopal or near syncopal episodes, and headaches. Intake Vital Signs 07/16/22 08:37 12/25/23 08:42 Height 6 ft 1 in 6 ft 1 in Weight: 286 lb BMI 37.7 BP 123/80 H Blood Pressure Location Lt brachial Position Sitting Respiration 18 Pulse 77 Pulse Source Monitor Pulse Oximetry (%) 95 Intake Visit Reasons: 1 Y FU [employer] Required: No Is patient in pain?: No Allergies lisinopril Adverse Reaction (Verified 12/25/23 08:50) cough Medications atorvastatin 80 mg tablet 80 mg PO QHS #30 tabs 08/17/19 [Rx Confirmed 12/25/23] hydrochlorothiazide 25 mg tablet 25 mg PO DAILY #90 tabs 07/17/21 [Rx Confirmed 12/25/23] metformin 1,000 mg tablet 1,000 mg PO BID 07/17/21 [History Confirmed 12/25/23] dapagliflozin propanediol 10 mg tablet (Farxiga) 10 mg PO QAM 07/16/22 [History Confirmed 12/25/23] liraglutide 0.6 mg/0.1 mL (18 mg/3 mL) subcutaneous pen injector (Victoza 2-Titi) 0.6 mg subcut DAILY 12/25/23 [History Confirmed 12/25/23] losartan 100 mg tablet 100 mg PO DAILY #90 tabs 12/25/23 [Rx Confirmed 12/25/23] [facility] Medical History ADEN (acute kidney injury) Bilateral pulmonary embolism (08/15/19) Cardiac enzymes elevated Deep vein thrombosis, lower left extremity (08/15/19) Elevated liver enzymes Essential (primary) hypertension History of non-ST elevation myocardial infarction (NSTEMI) (08/15/19) Hyperlipidemia Lactic acidosis Obesity (BMI 30-39.9) Respiratory failure with hypoxia Right ventricular systolic dysfunction Secondary pulmonary arterial hypertension Type 2 diabetes mellitus Surgical History History of tonsillectomy Family History Mother Diabetes Social History Smoking Status: Never smoker alcohol intake: current alcohol intake frequency: holidays/special occasions only substance use type: does not use caffeine: Yes Type: carbonated beverages Number of servings: 2 ROS Const Const: Negative for fatigue, weakness, fever(s), headache(s), chills, frequent falls, weight gain or weight loss Eyes Eyes: Negative for blind spots, loss of peripheral vision, transient loss of vision, blurry vision, change in vision, double vision, floaters or tunnel vision ENT ENT: Negative for headache(s), dizziness, Nosebleed/epistaxis, balance problems or neck pain Cardio Chest Pain: No Palpitations: No Edema: None Muscle aches with walking: None Resp Respiratory: Negative for SOB with activity, SOB at rest or SOB orthopnea SOB lying down GI GI: Negative nausea, vomiting, heartburn, bloating, vomiting blood/hematemesis, bright, red blood in stools or black,tarry stools Musc Musc: Negative for muscle aches/ myalgia, muscle weakness, joint pain or balance problems Neuro Neuro: Negative for dizziness, lightheadedness, near syncope, syncope, orthostatic symptoms, frequent falls, headache(s), weakness, blurry vision or double vision Miguel Angel Hematologic/Lymphatic: Negative for easy bleeding or easy bruising Endo Endo: Negative for fatigue Cardiology Exam Const Appearance: cooperative, healthy appearing, comfortable and no acute distress Nutritional Appearance: well nourished and obese Orientation: alert, awake and oriented x3 Head Head: normal to inspection Ears: hearing grossly normal bilaterally Nose: external nose normal Face and Sinus: face symmetric Eyes Genera (more content not included)... Normal [facility] HGB A1C [CCL]on 04-01-2023 HbA1c (Bld) [Mass fraction] 7.0 % High 4.3-5.6 [facility] Comment on above: Result Comment: Amer ican Diabetes Association guidelines indicate that patients with HgbA1c in the range 5.7-6.4% are at increased risk for development of diabetes, and intervention by lifestyle modification may be beneficial. HgbA1c greater or equal to 6.5% is considered diagnostic of diabetes. Performed By: #### 2 [id number] #### [place] [id number] Hemoglobin A0 154 mg/dL Normal [facility] Comment on above: Result Comment: eAG: (Estimated average glucose) is a calculated value from HgbA1c and is outside energy sales representatives of the average blood glucose level in the last 2-3 month period. [facility] [address] [place] [address] Bart Jeffries III, M.D. [id number] Performed By: #### 2 04053 #### [address] [address] LYME DISEASE BY PCR [CCL]on 03-28-2023 RESULT CRITICAL? NO Normal [facility] Comment on above: Performed By: #### 2 19747 #### [address] [address] B. burgdorferi PCR Not detected Normal [facility] Comment on above: Result Comment: NOT DETECTED - A negative result does not rule out the presence of PCR inhibitors in the patient specimen or assay specific nucleic acid in concentrations below the level of detection by the assay. Blood and CSF specimens have poor clinical sensitivity for detection of Borrelia burgdorferi by PCR. INTERPRETIVE INFORMATION: Borrelia Species DNA Detection by PCR This test was developed and its performance characteristics determined by [email or web address]. It has not been cleared or approved by the US Food and Drug Administration. This test was performed in a CLIA certified laboratory and is intended for clinical purposes. Performed by [email or web address], [address] [place] [id number] [email or web address], Ming Piper MD, PHD, Lab. Director [facility] [address] [place] [address] Bart Jeffries III, M.D. [id number] Performed By: #### 2 25444 #### [facility],[address] [place] [address] EMERGENCY REPORTon 3 EMERGENCY REPORT [facility] EMERGENCY ROOM REPORT NAME ACCOUNT SEX AGE ADMIT DISCHARGE PT MED. RECORD# NUMBER DATE DATE TYPE POPPY NEFF [id number] Diana 53 03/22/23 03/23/23 3 [id number] ROOM: ER DATE OF : 1970 DICTATING PHYSICIAN: Jg Vela CHIEF COMPLAINT/HISTORY OF PRESENT ILLNESS: This is a 53-year-old male seen in the presence of his in room number 7 for a chief complaint of a rash that was growing in size present for about 48 hours. This patient comes to the emergency room complaining about this redness on his left anterior thigh below the thigh below the inguinal crease that has grown in size over the past couple days. He believes that he had a bite there about a week ago. It was a little tiny thing and all of a sudden it has gotten bigger and we measured it here today and it is 8 x 15 cm. His had drawn a chemehuevi around it and then she had drawn a smaller chemehuevi in the middle where it was first noted. First it was noted was about 1.5 cm or so in diameter, now it has gotten quite a bit bigger. It itches. It is not particularly painful. He does not recall any bites, although there are plenty of ticks out there right now. He is not on any anticoagulants. He is a diabetic. He states that he has had a lot of aches and not sure if he had fevers but a lot of aches and a frontal headache which after we gave him a [place] here in the emergency room was gone. 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 No alcohol use. . Here with his . REVIEW OF SYSTEMS: In general, does not have any history of chronic skin or bone disorders. He denies any sore throat, chest pain, shortness of breath, abdominal pain, nausea, vomiting, diarrhea. For this problem he has not been taking any medications at home. PHYSICAL EXAMINATION: He is seen in room number 7. SKIN: The measurement is noted, 8 x 15 cm total size and it has gone outside the patient's 's marker from last night, probably about 1.5 cm in a couple places. The area in the middle is not indurated. There are no vesicles present. There is no distinct hemorrhagic area. The rash itself is kind of uniformly red with kind of a purpuric look to it. It is confluent. There is no inguinal adenopathy. The area appears normal. There is no rash elsewhere on his anterior, posterior torso, on his buttocks, legs, arms. VITAL SIGNS: 98.8 temperature, 94% saturation room air, 144/92 blood pressure, 74 pulse, 16 respirations. DIAGNOSTIC DATA: Labs were obtained. White count was normal. The chemistries essentially normal with a slightly elevated sugar at 182 which should be down in the morning. Lyme studies are pending. His sodium and chloride are very slightly decreased. I do not consider it significant. His BUN was slightly elevated at 26. Creatinine slightly elevated at 1.3. His SGOT and SGPT slightly elevated. His platelets Page 1 of 2 POPPY NEFF Emergency Room Report POPPY NEFF : 1970 were normal at 266,000. EMERGENCY DEPARTMENT COURSE AND TREATMENT: I told him I thought it may be just a bite, just cellulitis and we will put him on clindamycin and doxycycline. Doxy incase it is a tick bite and clindamycin incase there is any Strep involved or MRSA. He does not have a history of MRSA. I think this is most likely an insect bite but I think there is a possibility that he has an infection there. We are going to treat him as an infection and I told him to take the antibiotics, keep a close eye on the size. PLAN/DISPOSITION: If he gets fever, vomiting, or pain he needs to return, especially if this is enlarging and to follow up with his family doctor, Dr. Casillas. Call his office on Friday for recheck appointment. I told him he can call us tomorrow or the next day and will see if we have the results of his Lyme test available for him. He is welcome to return any time. Dictated By: Jg Vela DO 03/23/23 06:42 JOB #: [id number] Transcribed By: baylee 03/23/23 09:05 Electronically signed by: E-SIGN JG VELA 03/26/23 19:37 Page 2 of 2 POPPY NEFF Emergency Room Report Normal [facility] LYME LATE (SIGNS/SYMP >30 DA YS) [CCL]on 03-25-2023 Lyme IgG IgM Ab Positive Abnormal Negative [facility] Comment on above: Result Comment: Borr joshua burgdorferi antibody screening test indicates possible presence of Lyme-specific antibodies. Current testing guidelines recommend that all positive or equivocal screen test results be confirmed by a standardized Lyme immunoblot assay following CDC criteria. For final interpretation please refer to Lyme immunoblot result(s). Clinical and epidemiological correction is required. Lyme Western Blot confirmation test has been ordered and billed. [facility] [address] [place] [address] Bart Jeffries III, M.D. [id number] Performed By: #### 2 55690 #### [place] [address] Performed By: #### 2 76133 #### [place] [address] CBC + DIFFon 03-23-2023 Baso # 0.00 x10EE3/UL Normal 0.00 - 0.10 [facility] Comment on above: Performed By: #### 2 04713 #### [place] [address] Basophils/100 WBC (Bld) 0.8 % Normal 0.0 - 2.0 [facility] Comment on above: Performed By: #### 2 86703 #### [place] [address] CBC + DIFF Normal [facility] Comment on above: Result Comment: CBC- COMPLETE BLOOD COUNT Performed By: #### 2 38011 #### [place] [address] EO # 0.10 x10EE3/UL Normal 0.00 - 0.50 [facility] Comment on above: Performed By: #### 2 24639 #### [facility],[address] [place] [address] Eosinophils/100 WBC (Bld) 1.5 % Normal 0.0 - 7.0 [facility] Comment on above: Performed By: #### 2 45724 #### [facility],[address] [place] [address] Erythrocyte distribution width (RBC) [Ratio] 14.0 % Normal 12.0 - 15.6 [facility] Comment on above: Performed By: #### 2 74308 #### [facility],[address] [place] [address] Hematocrit (Bld) [Volume fraction] 44.6 % Normal 40.0 - 52.0 [facility] Comment on above: Performed By: #### 2 99839 #### [facility],[address] [place] [address] Hemoglobin (Bld) [Mass/Vol] 15.3 g/dL Normal 13.0 - 17.5 [facility] Comment on above: Performed By: #### 2 50511 #### [facility],[address] [place] [address] Lymph # 1.10 x10EE3/UL Normal 0.80 - 2.80 [facility] Comment on above: Performed By: #### 2 53206 #### [facility],[address] [place], [place] [address] Lymphocytes/100 WBC (Bld) 17.2 % Low 20.0 - 45.0 [facility] Comment on above: Performed By: #### 2 67666 #### [facility],[address] [place], [place] [id number] MANUAL DIFF N/A Normal [facility] Comment on above: Performed By: #### 2 80556 #### [facility],[address] [place], [place] [phone] MCH (RBC) [Entitic mass] 29 pg Normal 27 - 33 [facility] Comment on above: Performed By: #### 2 46293 #### [facility],[address] [place] [address] MCHC 34 X10 3 Normal 32 - 36 [facility] Comment on above: Performed By: #### 2 05021 #### [place] [address] MCV (RBC) [Entitic vol] 86 fL Normal 81 - 98 [facility] Comment on above: Performed By: #### 2 72341 #### [place] [address] Knott # 0.70 x10EE3/UL Normal 0.20 - 1.00 [facility] Comment on above: Performed By: #### 2 95868 #### [place] [address] MONOS % 11.6 % High 0.0 - 10.0 [facility] Comment on above: Performed By: #### 2 23219 #### [place] [address] Morphology Santos (Bld) [Interp] N/A Normal [facility] Comment on above: Performed By: #### 2 14934 #### [place] [address] Neut # 4.50 x10EE3/UL Normal 1.50 - 7.10 [facility] Comment on above: Performed By: #### 2 62419 #### [place] [address] Neutrophils/100 WBC (Bld) 68.9 % Normal 46.0 - 76.0 [facility] Comment on above: Performed By: #### 2 61899 #### [place] [address] PLATELET 266 x10EE3/UL Normal 150 - 450 [facility] Comment on above: Performed By: #### 2 27341 #### [facility],[address] [place] [address] Platelet mean volume (Bld) [Entitic vol] 8.7 fL Normal 6.4 - 10.5 [facility] Comment on above: Result Comment: AUTO MATED DIFFERENTIAL Performed By: #### 2 98189 #### [facility],[address] [place] [address] RBC 5.19 x 10EE6/UL Normal 4.50 - 6.00 [facility] Comment on above: Performed By: #### 2 94391 #### [facility],[address] [place] [address] WBC 6.5 x 10EE3/UL Normal 4.5 - 10.8 [facility] Comment on above: Performed By: #### 2 88984 #### [facility],[address] [place] [address] CMP with eGFRon 03-23-2023 AGE 53 years Normal [facility] Comment on above: Performed By: #### 2 57622 #### [facility],[address] [place] [address] Albumin [Mass/Vol] 3.0 g/dL Low 3.4 - 5.0 [facility] Comment on above: Performed By: #### 2 17596 #### [facility],[address] [place] [address] Albumin/Globulin [Mass ratio] 0.7 {ratio} Low 0.9 - 1.6 [facility] Comment on above: Performed By: #### 2 67473 #### [facility],[address] [place] [address] ALK PHOS 99 U/L Normal 46 - 116 [facility] Comment on above: Performed By: #### 2 05751 #### [facility],[address] [place] [address] ALT [Catalytic activity/Vol] 115 U/L High 16 - 63 [facility] Comment on above: Performed By: #### 2 78835 #### [facility],[address] [place] [address] Anion gap [Moles/Vol] 13 mmol/L Normal 10 - 20 [facility] Comment on above: Performed By: #### 2 78057 #### [facility],[address] [place] [address] AST [Catalytic activity/Vol] 77 U/L High 15 - 37 [facility] Comment on above: Performed By: #### 2 21185 #### [facility],[address] [place] [address] B/C RATIO 20 ratio Normal 0 - 30 [facility] Comment on above: Performed By: #### 2 98816 #### [facility],[address] [place] [address] Bilirubin [Mass/Vol] 0.6 mg/dL Normal 0.2 - 1.0 [facility] Comment on above: Performed By: #### 2 46069 #### [facility],[address] [place] [address] Calcium [Mass/Vol] 8.3 mg/dL Low 8.5 - 10.1 [facility] Comment on above: Performed By: #### 2 90529 #### [facility],[address] [place] [address] Chloride [Moles/Vol] 97 mmol/L Low 98 - 107 [facility] Comment on above: Performed By: #### 2 96234 #### [facility],[address] [place] [address] CMP with eGFR Normal [facility] Comment on above: Result Comment: COMP REHENSIVE METABOLIC PANEL Performed By: #### 2 90611 #### [facility],[address] [place] [address] CO2 [Moles/Vol] 25.9 mmol/L Normal 21.0 - 32.0 [facility] Comment on above: Performed By: #### 2 54787 #### [facility],[address] [place] [address] Creatinine [Mass/Vol] 1.32 mg/dL High 0.70 - 1.30 [facility] Comment on above: Performed By: #### 2 60244 #### [facility],[address] [place] [address]2820 eGFR 57 ML/MINUTE Low 60 - 999 [facility] Comment on above: Performed By: #### 2 90012 #### [facility],[address] [place] [address] GFR/1.73 sq M.predicted among non-blacks MDRD (S/P/Bld) [Vol rate/Area] mL/min/{1.73_m2} Normal 60 - 999 [facility] Comment on above: Result Comment: ACCO RDING TO THE NATIONAL KIDNEY DISEASE EDUCATION PROGRAM(NKDE), A NORMAL eGFR IS A VALUE GREATER THAN OR EQUAL TO 60 ML/MIN/1.73 SQ METERS. CHRONIC KIDNEY DISEASE: <60mL/MIN/1.73 SQ METERS KIDNEY FAILURE: <15mL/MIN/1.73 SQ METERS THIS TEST SHOULD ONLY BE USED FOR PATIENTS 18 YEARS OF AGE AND OLDER. Performed By: #### 2 22627 #### [facility],[address] [place] [address] Globulin (S) [Mass/Vol] 4.4 g/dL High 1.5 - 3.8 [facility] Comment on above: Performed By: #### 2 71897 #### [facility],[address] [place] [address] Glucose [Mass/Vol] 182 mg/dL High 74 - 106 [facility] Comment on above: Performed By: #### 2 12781 #### [facility],[address] [place] [address] Potassium [Moles/Vol] 3.7 mmol/L Normal 3.5 - 5.1 [facility] Comment on above: Performed By: #### 2 05518 #### [facility],[address] [place] [address]175 Protein [Mass/Vol] 7.4 g/dL Normal 6.4 - 8.2 [facility] Comment on above: Performed By: #### 2 36908 #### [facility],[address] [place], [place] [address] Sodium [Moles/Vol] 132 mmol/L Low 136 - 145 [facility] Comment on above: Performed By: #### 2 97664 #### [facility],[address] [place], [place] [address] Urea nitrogen [Mass/Vol] 26 mg/dL High - [facility] Comment on above: Performed By: #### 2 80686 #### [facility],[address] [place] [address] LYME LATE (SIGNS/SYMP >30 DA YS) [CCL]on 03-23-2023 LYME LATE (SIGNS/SYMP >30 DAYS) [CCL] Normal [facility] Comment on above: Result Comment: { CA LLED TO/BY _[id number] Performed By: #### 2 04932 #### [facility],[address] [place] [address] ALBUMIN/CREAT RATIO RND URon 09-23-2022 Albumin DL <= 20 mg/L (U) [Mass/Vol] [facility] Albumin/Creatinin e (U) [Mass ratio] <30 mg/g [facility] Creatinine (U) [Mass/Vol] 72.6 mg/dL 20.0 - 300.0 mg/dL [facility] CBC W Auto Differential pane l (Bld)on 09-23-2022 Basophils (Bld) [#/Vol] 0.07 10*3/uL <0.11 k/uL [facility] Basophils/100 WBC (Bld) 0.7 % [facility] Differential cell count method Nom (Bld) Auto [facility] Eosinophils (Bld) [#/Vol] 0.16 10*3/uL <0.46 k/uL [facility] Eosinophils/100 WBC (Bld) 1.6 % [facility] Erythrocyte distribution width (RBC) [Ratio] 12.5 % 11.5 - 15.0 % [facility] Hematocrit (Bld) [Volume fraction] 53.0 % High 39.0 - 51.0 % [facility] Hemoglobin (Bld) [Mass/Vol] 17.4 g/dL High 13.0 - 17.0 g/dL [facility] Immature granulocytes (Bld) [#/Vol] 0.04 10*3/uL <0.10 k/uL [facility] Immature granulocytes/100 WBC (Bld) 0.4 % [facility] Lymphocytes (Bld) [#/Vol] 2.49 10*3/uL 1.00 - 4.00 k/uL [facility] Lymphocytes/100 WBC (Bld) 25.1 % [facility] MCH (RBC) [Entitic mass] 28.9 pg 26.0 - 34.[address] [facility] MCHC (RBC) [Mass/Vol] 32.8 g/dL 30.5 - 36.0 g/dL [facility] MCV (RBC) [Entitic vol] 87.9 fL 80.0 - 100.[address] [facility] Monocytes (Bld) [#/Vol] 0.80 10*3/uL <0.87 k/uL [facility] Monocytes/100 WBC (Bld) 8.1 % [facility] Neutrophils (Bld) [#/Vol] 6.36 10*3/uL 1.45 - 7.50 k/uL [facility] Neutrophils/100 WBC (Bld) 64.1 % [facility] Nucleated RBC (Bld) [#/Vol] <0.01 k/uL [facility] Nucleated RBC/100 WBC (Bld) [Ratio] 0.0 /[address] [facility] Platelet mean volume (Bld) [Entitic vol] 10.1 fL 9.0 - 12.[address] [facility] Platelets (Bld) [#/Vol] 329 10*3/uL 150 - 400 k/uL [facility] RBC (Bld) [#/Vol] 6.03 10*6/uL High 4.20 - 6.0 0 m/uL [facility] WBC (Bld) [#/Vol] 9.92 10*3/uL 3.70 - 11. 00 k/uL [facility] D-DIMERon 01-17-2022 Fibrin D-dimer FEU (PPP) [Mass/Vol] <190 <500 ng/mL FEU [facility] Vital Signs Date Time Vital Sign Value Performing Clinician Faci lity 03-03-2025 10:16-0400 Body mass index (BMI) [Ratio] 36.13 kg/m2 Tammy Paz APRN.[facility] Work Phone: [facility] 03-03-2025 10:16-0400 Body temperature 97 [degF] Tammy eLzama-Jurgen STREETN.[facility] Work Phone: [facility] 03-03-2025 10:16-0400 Body weight 121 kg Tammy Paz APRN.[employer] Work Phone: [facility] 03-03-2025 10:16-0400 Diastolic blood pressure 75 mm[Hg] Tammy Kimler-Jurgen PHOTOGRAPH PRINTER.[facility] Work Phone: [facility] 03-03-2025 10:16-0400 Heart rate 97 /min Tammy Lezama-Jurgen PHOTOGRAPH PRINTER.[employer] Work Phone: [facility] 03-03-2025 10:16-0400 Respiratory rate 20 /min Tammy Lezama-Jurgen STREETN.[employer] Work Phone: [facility] 03-03-2025 10:16-0400 SaO2% (BldA) [Mass fraction] 97 % Tammy Lezama-Jurgen STREETN.[facility] Work Phone: [facility] 03-03-2025 10:16-0400 Systolic blood pressure 106 mm[Hg] Tammy Kimler-Jurgen PHOTOGRAPH PRINTER.[employer] Work Phone: [facility] 10-18-2024 09:56-0500 Body height 185.4 cm Medina Wilmer PHOTOGRAPH PRINTER.[employer] Work Phone: [facility] 10-18-2024 09:56-0500 Body mass index (BMI) [Ratio] 35.62 kg/m2 Medina Wilmer PHOTOGRAPH PRINTER.[employer] Work Phone: [facility] 10-18-2024 09:56-0500 Body temperature 96.6 [degF] Medina Wilmer PHOTOGRAPH PRINTER.[employer] Work Phone: [facility] 10-18-2024 09:56-0500 Body weight 122.47 kg Medina Wilmer PHOTOGRAPH PRINTER.[employer] Work Phone: [facility] 10-18-2024 09:56-0500 Diastolic blood pressure 82 mm[Hg] Medina Wilmer PHOTOGRAPH PRINTER.[employer] Work Phone: [facility] 10-18-2024 09:56-0500 Heart rate 76 /min Medina Wilmer PHOTOGRAPH PRINTER.[employer] Work Phone: [facility] 10-18-2024 09:56-0500 SaO2% (BldA) [Mass fraction] 96 % Medina Wilmer PHOTOGRAPH PRINTER.[employer] Work Phone: [facility] 10-18-2024 09:56-0500 Systolic blood pressure 118 mm[Hg] Medina Wilmer PHOTOGRAPH PRINTER.[employer] Work Phone: [facility] 07-30-2024 10:36-0400 Body mass index (BMI) [Ratio] 37.04 kg/m2 Laura Nash PA-C Work Phone: [facility] 07-30-2024 10:36-0400 Body temperature 97.81 [degF] Laura Nash PA-C Work Phone: [facility] 07-30-2024 10:36-0400 Body weight 127.46 kg Laura MANN-C Work Phone: [facility] 07-30-2024 10:36-0400 Diastolic blood pressure 86 mm[Hg] Laura LEWISC Work Phone: [facility] 07-30-2024 10:36-0400 Heart rate 76 /min Laura Nash PA-C Work Phone: [facility] 07-30-2024 10:36-0400 Respiratory rate 18 /min Laura Nash PA-C Work Phone: [facility] 07-30-2024 10:36-0400 SaO2% (BldA) [Mass fraction] 93 % Laura Nash PA-C Work Phone: [facility] 07-30-2024 10:36-0400 Systolic blood pressure 106 mm[Hg] Laura Nash PA-C Work Phone: [facility] 01-16-2024 09:18-0400 Body height 185.5 cm Laura Nash PA-C Work Phone: [facility] 01-16-2024 09:18-0400 Body temperature 97.39 [degF] Laura Nash PA-C Work Phone: [facility] 01-16-2024 09:18-0400 Body weight 128.82 kg Laura Nash PA-C Work Phone: [facility] 01-16-2024 09:18-0400 Diastolic blood pressure 72 mm[Hg] Laura Nash PA-C Work Phone: [facility] 01-16-2024 09:18-0400 Heart rate 64 /min Laura Nash PA-C Work Phone: [facility] 01-16-2024 09:18-0400 Respiratory rate 16 /min Laura Nash PA-C Work Phone: [facility] 01-16-2024 09:18-0400 SaO2% (BldA) [Mass fraction] 94 % Laura Nash PA-C Work Phone: [facility] 01-16-2024 09:18-0400 Systolic blood pressure 110 mm[Hg] Laura Nash PA-C Work Phone: [facility] 04-15-2023 08:18-0400 Body weight 125.19 kg Vilma Nguyen PHOTOGRAPH PRINTER.CUSTOM HARVESTER Work Phone: [facility] 04-15-2023 08:18-0400 Diastolic blood pressure 76 mm[Hg] Vilma Nguyen PHOTOGRAPH PRINTER.CUSTOM HARVESTER Work Phone: [facility] 04-15-2023 08:18-0400 Heart rate 72 /min Vilma Nguyen PHOTOGRAPH PRINTER.CUSTOM HARVESTER Work Phone: [facility] 04-15-2023 08:18-0400 Respiratory rate 16 /min Vilma Nguyen PHOTOGRAPH PRINTER.CUSTOM HARVESTER Work Phone: [facility] 04-15-2023 08:18-0400 Systolic blood pressure 112 mm[Hg] Vilma Nguyen PHOTOGRAPH PRINTER.CUSTOM HARVESTER Work Phone: [facility] 11-06-2022 09:39-0500 Body height 185.4 cm Charu [place] PA-C Work Phone: [facility] 11-06-2022 09:39-0500 Body temperature 96.8 [degF] Charu Ag PA-C Work Phone: [facility] 11-06-2022 09:39-0500 Body weight 131.36 kg Charu Ag PA-C Work Phone: [facility] 11-06-2022 09:39-0500 Diastolic blood pressure 84 mm[Hg] Charu [place] PA-C Work Phone: [facility] 11-06-2022 09:39-0500 Heart rate 70 /min Charu [place] PA-C Work Phone: [facility] 11-06-2022 09:39-0500 SaO2% (BldA) [Mass fraction] 99 % Charu Ag PA-C Work Phone: [facility] 11-06-2022 09:39-0500 Systolic blood pressure 124 mm[Hg] Charu Ag PA-C Work Phone: [facility] 09-23-2022 09:04-0500 Body height 183.5 cm Palmer Casillas MD Work Phone: [facility] 09-23-2022 09:04-0500 Body weight 131.54 kg Palmer Casillas MD Work Phone: [facility] 09-23-2022 09:04-0500 Diastolic blood pressure 88 mm[Hg] Palmer Casillas MD Work Phone: [facility] 09-23-2022 09:04-0500 Heart rate 72 /min Palmer Casillas MD Work Phone: [facility] 09-23-2022 09:04-0500 Respiratory rate 16 /min Palmer Casillas MD Work Phone: [facility] 09-23-2022 09:04-0500 Systolic blood pressure 124 mm[Hg] Palmer Casillas MD Work Phone: [facility] 01-17-2022 14:29-0400 Body height 182.9 cm Cristian Patten MD Work Phone: [facility] 01-17-2022 14:29-0400 Body weight 133.81 kg Cristian Patten MD Work Phone: [facility] 01-17-2022 14:29-0400 Diastolic blood pressure 68 mm[Hg] Cristian Patten MD Work Phone: [facility] 01-17-2022 14:29-0400 Heart rate 71 /min Cristian Patten MD Work Phone: [facility] 01-17-2022 14:29-0400 Systolic blood pressure 148 mm[Hg] Cristian Patten MD Work Phone: [facility] Encounters Encounter Date Encounter Type Care Provider Facility Start: 03-03-2025 End: 03-03-2025 ambulatory PALMER CASILLAS Facility:[facility] Start: 03-03-2025 End: 03-03-2025 Patient encounter procedure Tammy Paz APRN.CNP Work Phone: [facility] Comment on above: Viral URI with cough (Primary Dx); Post-nasal drainage Start: 03-01-2025 End: 03-01-2025 Follow-up encounter Laura Nash PA-C Work Phone: [facility] [place] Start: 02-25-2025 Patient encounter status Timayad teresa Nash PA-C Work Phone: [facility] Start: 02-25-2025 End: 02-25-2025 ambulatory LAURA NASH Facility:[facility] Start: 02-25-2025 Encounter for genera l adult medical examination without abnormal findings LAURA NASH [facility] Start: 02-25-2025 End: 02-25-2025 ambulatory LAURA NASH Facility:[facility] Start: 01-17-2025 End: 02-18-2025 Telephone encounter Hal Gonzalez MD Work Phone: General Surgery Comment on above: Reschedule [place] py Start: 10-18-2024 End: 10-18-2024 ambulatory MEDINA TSANG Facility:[facility] Start: 10-18-2024 End: 10-18-2024 Patient encounter procedure Medina Tsang PHOTOGRAPH PRINTER.CUSTOM HARVESTER Work Phone: General Surgery Comment on above: Screening for colon cancer Start: 09-24-2024 End: 09-24-2024 Chart abstracting Palmer Casillas MD Work Phone: [facility] [place] Comment on above: outside Cardiology Start: 09-23-2024 End: 09-23-2024 ambulatory Palmer Casillas [place] [place] Start: 07-30-2024 End: 07-30-2024 Telephone encounter Laura Nash PA-C Work Phone: [facility] [place] Comment on above: Surgical Consult (co lonoscopy) Start: 07-30-2024 End: 07-30-2024 ambulatory LAURA NASH Facility:[facility] Start: 07-30-2024 End: 07-30-2024 Office outpatient visit 25 minutes Laura Nash PA-C Work Phone: [facility] [place] Comment on above: Type 2 diabetes faye itus without complication, unspecified whether retirement insulin use (HCC) (Primary Dx); Type 2 diabetes mellitus without retinopathy (HCC); Hyperlipidemia, mixed; Hypertension, essential; History of non-ST elevation myocardial infarction (NSTEMI); Cardiomyopathy, unspecified type (HCC); Obesity, Class III, BMI 40-49.9 (morbid obesity) (HCC) Start: 07-23-2024 End: 08-03-2024 Telephone encounter Palmer Casillas MD Work Phone: [facility] [place] Comment on above: Insurance Authorizat ion Start: 07-22-2024 End: 07-22-2024 Telephone encounter Palmer Casillas MD Work Phone: Ambulatory Surgery Comment on above: Medication Problem Start: 07-16-2024 End: 07-16-2024 Refill Palmer Casillas MD Work Phone: Family [facility] [place] Comment on above: Refill Request Start: 02-02-2024 Refill Palmer ricardo MD Work Phone: Family [facility] [place] Comment on above: Refill Request Start: 01-23-2024 End: 01-23-2024 Patient encounter procedure Sony Jaylynelmer OD Work Phone: Ophthalmology Comment on above: Type 2 diabetes faye itus without retinopathy (HCC) (Primary Dx); Dry eye syndrome of both eyes Start: 01-19-2024 Telephone encounter Laura trevino PA-C Work Phone: [facility] [place] Comment on above: Results Start: 01-16-2024 End: 01-16-2024 Patient encounter procedure Laura Nash PA-C Work Phone: [facility] [place] Comment on above: Well adult exam ([facility] Dx); Type 2 diabetes mellitus without complication, unspecified whether retirement insulin use (HCC); Hypertension, essential; Hyperlipidemia, mixed; Screening for prostate cancer; Obesity, Class III, BMI 40-49.9 (morbid obesity) (HCC); History of pulmonary embolism; History of non-ST elevation myocardial infarction (NSTEMI); Cardiomyopathy, unspecified type (HCC); Screening for colon cancer Start: 01-16-2024 End: 01-16-2024 Patient encounter status Laura Nash PA-C Work Phone: [facility] Work Phone: Start: 12-25-2023 End: 12-25-2023 ambulatory Palmer Villalobosey Facility:[facility] Start: 11-11-2023 ambulatory Palmer Daisha Facility :[facility] Start: 06-19-2023 Refill Palmer ricardo MD Work Phone: [facility] [place] Comment on above: Refill Request Start: 04-15-2023 End: 04-15-2023 Patient encounter procedure Vilma Nguyen APRN.CUSTOM HARVESTER Work Phone: [facility] [place] Comment on above: Hypertension, essent ial (Primary Dx); Hyperlipidemia, mixed; Type 2 diabetes mellitus without complication, unspecified whether long term care social worker insulin use (HCC); Sinus tachycardia by electrocardiography; Obesity, Class III, BMI 40-49.9 (morbid obesity) (HCC) Start: 04-04-2023 Telephone encounter Laura trevino PA-C Work Phone: [facility] [place] Comment on above: Results Start: 03-31-2023 Patient encounter procedure Sandi Ornelas MD Work Phone: Infectious Disease Start: 03-31-2023 Telephone encounter Laura trevino PA-C Work Phone: [facility] [place] Comment on above: Results Start: 03-23-2023 End: 03-23-2023 Emergency department patient visit JG DO [facility] Start: 11-06-2022 End: 11-06-2022 Patient encounter procedure Charu Luong PA-C Work Phone: General Surgery Comment on above: Encounter for screen ing for malignant neoplasm of colon (Primary Dx) Start: 10-01-2022 Telephone encounter Laura trevino PA-C Work Phone: [facility] [place] Comment on above: Orders Start: 10-01-2022 End: 10-01-2022 Nursing evaluation of patient and report Mi Nurse Work Phone: [facility] [place] Comment on above: Type 2 diabetes faye itus without complication, unspecified whether long term care social worker insulin use (HCC) (Primary Dx) Start: 09-24-2022 Telephone encounter Palmer Casillas MD Work Phone: [facility] [place] Comment on above: Results Start: 09-23-2022 End: 09-23-2022 Patient encounter procedure Palmer Casillas MD Work Phone: [facility] [place] Comment on above: Well adult exam ([facility] early Dx); Type 2 diabetes mellitus without complication, unspecified whether retirement insulin use (HCC); Hypertension, essential; Hyperlipidemia, mixed; Sinus tachycardia by electrocardiography; Right ventricular systolic dysfunction; Pulmonary arterial hypertension (HCC); Need for vaccination; History of pulmonary embolism; PASTOR (dyspnea on exertion); Screening for colon cancer; Screening for prostate cancer Start: 09-23-2022 End: 09-23-2022 Patient encounter status Palmer Casillas MD Work Phone: [facility] [place] Start: 01-17-2022 End: 01-17-2022 ambulatory Cristian Patten MD Work Phone: Hematology/Oncology Comment on above: Other acute pulmonar y embolism with acute cor pulmonale (HCC); skilled nursing current use of anticoagulant therapy Start: 01-17-2022 End: 01-17-2022 Patient encounter procedure Cristian Patten MD Work Phone: [place] [facility] Start: 09-23-2019 Patient encounter status Vera Patten MD Work Phone: [facility] Work Phone: Start: 12-03-2018 End: 12-03-2018 Patient encounter procedure DEBORAH Chidi WEISSLEY Facility: Procedures Date Procedure Procedure Detail Performing Clinician Start: 02-25-2025 Adult depression scr eening assessment Laura Nash PA-C Work Phone: Start: 01-16-2024 Adult depression scr eening assessment Palmer Casillas MD Work Phone: Start: 09-23-2022 INFLUENZA VACCINE QUADRIVALENT 6 MO - 64 YRS IM Palmer Casillas MD Work Phone: Plan of Treatment Date Care Activity Detail Author Start: 09-23-2029 Urine microalbumin profile [facility] Start: 03-03-2026 BP Controlled (<130/80) BP Con trolled (<130/80) [facility] Start: 02-25-2026 Annual PCP Team Reserves Clerk caty Disease Visit Annual PCP Team Chronic Disease Visit [facility] Start: 02-25-2026 Anxiety Screening Anxiety Screening [facility] Start: 02-25-2026 BP Controlled (<130/80) BP Con trolled (<130/80) [facility] Start: 02-25-2026 Depression Screening Depression Scre ening [facility] Start: 02-25-2026 Diabetic foot examination Diabetic Foot Exam [facility] Start: 02-25-2026 Hepatitis B screening Urine Albumin:Creatinine Ratio [facility] Start: 02-25-2026 Hepatitis B surface antibody level LDL Cholesterol [facility] Start: 09-08-2025 End: 09-08-2025 Patient encounter procedure 09/08/2025 8:20 AM EST Office Visit [facility] [place] [address] [place], [place] [id number] Laura Nash PA-C [address] [place] [id number] 6 month f/u [facility] [place] Comment on above: 6 month f/u Start: 08-28-2025 Hemoglobin A1c measurement HbA1C [facility] Start: 07-30-2025 Annual PCP Team Reserves Clerk caty Disease Visit Annual PCP Team Chronic Disease Visit [facility] Start: 07-30-2025 Covid-19 Vaccine ( season) Covid-19 Vaccine ( season) [facility] Comment on above: Postponed from 06/06 (Declined at this time) Start: 06-06-2025 Influenza vaccination Influenz a Vaccine (Season Ended) [facility] Start: 04-04-2025 Influenza vaccination Influenza Vacc ine (#1) [facility] Comment on above: Postponed from 06/06 (Declined at this time) Start: 04-01-2025 End: 07-01-2025 CBC W Auto Differential panel - Blood COMPLETE BLOOD COUNT AND DIFFERENTIAL Lab Routine Polycythemia Expected: 04/01/2025, Expires: 07/01/2025 [facility] Work Phone: Comment on above: Expected: 04/01/2025 , Expires: 07/01/2025 Start: 04-01-2025 End: 07-01-2025 Erythropoietin (EPO) [Units/volume] in Serum or Plasma ERYTHROPOIETIN/EPO Lab Routine Polycythemia Expected: 04/01/2025, Expires: 07/01/[address] [facility] Comment on above: Expected: 04/01/2025 , Expires: 07/01/2025 Start: 03-24-2025 End: 03-24-2025 Patient encounter procedure 03/24/2025 9:00 AM EDT Office Visit [facility] [address] [place] [address] Allyn Ortega, OD [address] [place] [address] Dx: Type 2 diabetes mellitus without complication, unspecified whether retirement insulin use (HCC) [E11.9]; Type 2 diabetes mellitus without retinopathy (HCC) [E11.9] Ophthalmology Comment on above: Dx: Type 2 diabetes mellitus without complication, unspecified whether long term care social worker insulin use (HCC) [E11.9]; Type 2 diabetes mellitus without retinopathy (HCC) [E11.9] Start: 02-25-2025 End: 02-25-2025 Patient encounter procedure 02/25/2025 8:00 AM EDT Office Visit [facility] [place] [address] [place] [address] Laura Nash PA-C [address] [place] [address] physical [facility] [place] Comment on above: physical Start: 01-28-2025 End: 01-28-2025 Patient encounter procedure 01/28/2025 8:40 AM EDT Office Visit [facility] [place] [address] [place] [address] Laura Nash PA-C [address] [place] [address] physical [facility] [place] Comment on above: physical Start: 01-24-2025 End: 01-24-2025 Patient encounter procedure 01/24/2025 9:00 AM EDT Office Visit [facility] [address] [id number] Sony Govea, OD [address] [place] [address] Diabetic Eye Examination. Ophthalmology Comment on above: Diabetic Eye Examina tion. Start: 01-22-2025 Glaucoma screening Dilated Retinal E xam [facility] Start: 01-15-2025 Annual PCP Team Reserves Clerk caty Disease Visit Annual PCP Team Chronic Disease Visit [facility] Start: 01-15-2025 Anxiety Screening Anxiety Screening [facility] Start: 01-15-2025 BP Controlled (<130/80) BP Con trolled (<130/80) [facility] Start: 01-15-2025 Covid-19 Vaccine () Covid-19 Vaccine () [facility] Comment on above: Postponed from 06/06 (Declined at this time) Start: 01-15-2025 Depression Screening Depression Scre ening [facility] Start: 01-15-2025 Diabetic foot examination Diabetic Foot Exam [facility] Start: 01-15-2025 Hepatitis B screening Urine Albumin:Creatinine Ratio [facility] Start: 01-15-2025 Hepatitis B surface antibody level LDL Cholesterol [facility] Start: 01-15-2025 Shingrix Vaccine (1 of 2) Shingrix Vaccine (1 of 2) [facility] Comment on above: Postponed from 02/16 (Declined at this time) Start: 11-12-2024 End: 11-12-2024 Patient encounter procedure 11/12/2024 1:15 PM EST Appointment Ambulatory Surgery [address] [place] [address] Hal Gonzalez MD [address] [place], [place] [phone] Screening for colon cancer [Z12.11] Ambulatory Surgery Comment on above: Screening for colon cancer [Z12.11] Start: 10-18-2024 End: 10-18-2024 Patient encounter procedure 10/18/2024 10:00 AM EST Office Visit General Surgery [address] [place] [phone] Medina Tsang APRN.CUSTOM HARVESTER [address] [place] [address] Screening for colon cancer [Z12.11] General Surgery Comment on above: Screening for colon cancer [Z12.11] Start: 07-30-2024 End: 10-29-2024 Comprehensive metabolic 2000 panel - Serum or Plasma COMPREHENSIVE METABOLIC PANEL Lab Routine Type 2 diabetes mellitus without complication, unspecified whether retirement insulin use (HCC) Hypertension, essential Expected: 07/30/2024, Expires: 10/29/[address] [facility] Comment on above: Expected: 07/30/2024 , Expires: 10/29/2024 Start: 07-30-2024 End: 10-29-2024 Hemoglobin A1c in Blood HEMOGLOBIN A1C Lab Routine Type 2 diabetes mellitus without complication, unspecified whether long term care social worker insulin use (HCC) Type 2 diabetes mellitus without retinopathy (HCC) Expected: 07/30/2024, Expires: 10/29/2024 [facility] Work Phone: Comment on above: Expected: 07/30/2024 , Expires: 10/29/2024 Start: 07-30-2024 End: 10-29-2024 LIPID PANEL, NONFASTING LIPID PANEL, NONFASTING Lab Routine Hyperlipidemia, mixed Expected: 07/30/2024, Expires: 10/29/[address] [facility] Comment on above: Expected: 07/30/2024 , Expires: 10/29/2024 Start: 07-30-2024 End: 07-30-2024 Patient encounter procedure 07/30/2024 10:20 AM EDT Office Visit [facility] [place] [address] [place], [place] [phone] Laura Nash PA-C [address] [place] [address] 6 month follow up Family [facility] [place] Comment on above: 6 month follow up Start: 07-20-2024 End: 07-20-2024 Patient encounter procedure 07/20/2024 9:40 AM EDT Office Visit [facility] [place] [address] [place], [place] [phone] Laura Nash PA-C [address] [facility] [place] [id number] 6 month FU [facility] [place] Comment on above: 6 month FU Start: 07-17-2024 Hemoglobin A1c measurement HbA1C [facility] Start: 06-06-2024 Covid-19 Vaccine () Covid-19 Vaccine () [facility] Start: 06-06-2024 Influenza vaccination [facility] Start: 04-15-2024 ANNUAL PCP TEAM MARKETING PROFESSOR CATY DISEASE VISIT ANNUAL PCP TEAM CHRONIC DISEASE VISIT [facility] Start: 04-15-2024 BP CONTROLLED (<130/80) BP CON TROLLED (<130/80) [facility] Start: 03-31-2024 ANNUAL PCP TEAM MARKETING PROFESSOR CATY DISEASE VISIT ANNUAL PCP TEAM CHRONIC DISEASE VISIT [facility] Start: 01-16-2024 End: 04-16-2024 Comprehensive metabolic 2000 panel - Serum or Plasma [facility] Work Phone: Comment on above: Expected: 01/16/2024 , Expires: 04/16/2024 Start: 01-16-2024 End: 04-16-2024 LIPID PANEL, NONFASTING [facility] Work Phone: Comment on above: Expected: 01/16/2024 , Expires: 04/16/2024 Start: 01-16-2024 End: 04-16-2024 Microalbumin/Creatinine [Mass Ratio] in Urine [facility] Work Phone: Comment on above: Expected: 01/16/2024 , Expires: 04/16/2024 Start: 01-16-2024 End: 04-16-2024 PSA/PROSTATE SPECIFIC ANTIGEN SCREENING [facility] Work Phone: Comment on above: Expected: 01/16/2024 , Expires: 04/16/2024 Start: 09-23-2023 3 comp foot exam completed DIABETIC FOOT EXAM [facility] Start: 09-23-2023 ANNUAL PCP TEAM MARKETING PROFESSOR CATY DISEASE VISIT ANNUAL PCP TEAM CHRONIC DISEASE VISIT [facility] Start: 09-23-2023 COVID-19 VACCINE (#1) COVID-19 VACCI NE (#1) [facility] Comment on above: Postponed from 08/19 (Declined at this time) Start: 09-23-2023 Hepatitis B screening URINE ALBUMIN:CREATININE RATIO [facility] Start: 09-23-2023 Hepatitis B surface antibody level LDL CHOLESTEROL [facility] Start: 09-23-2023 SHINGRIX VACCINE (1 of 2) SHINGRIX VACCINE (1 of 2) [facility] Comment on above: Postponed from 02/16 (Insurance Coverage) Start: 09-22-2023 Hemoglobin A1c/Hemoglobin.total in Blood HBA1C [facility] Start: 06-06-2023 [facility] Start: 04-30-2023 End: 06-30-2023 Borrelia burgdorferi IgG and IgM panel - Serum LYME AB LATE >30 DAYS SYMPTOMS Lab Routine Rash Arthralgia, unspecified joint Expected: 04/30/2023, Expires: 06/30/2023 [facility] Work Phone: Comment on above: Expected: 04/30/2023 , Expires: 06/30/2023 Start: 04-15-2023 End: 06-15-2023 CBC W Auto Differential panel - Blood CBC + DIFF Lab Routine Hypertension, essential Expected: 04/15/2023, Expires: 06/15/2023 [facility] Work Phone: Comment on above: Expected: 04/15/2023 , Expires: 06/15/2023 Start: 04-15-2023 End: 06-15-2023 Comprehensive metabolic 2000 panel - Serum or Plasma COMP METABOLIC PANEL Lab Routine Type 2 diabetes mellitus without complication, unspecified whether retirement insulin use (HCC) Expected: 04/15/2023, Expires: 06/15/2023 [facility] Work Phone: Comment on above: Expected: 04/15/2023 , Expires: 06/15/2023 Start: 04-15-2023 End: 06-15-2023 LIPID PANEL, NONFASTING LIPID PANEL, NONFASTING Lab Routine Hyperlipidemia, mixed Expected: 04/15/2023, Expires: 06/15/2023 [facility] Work Phone: Comment on above: Expected: 04/15/2023 , Expires: 06/15/2023 Start: 12-24-2022 ANNUAL PCP TEAM MARKETING PROFESSOR CATY DISEASE VISIT ANNUAL PCP TEAM CHRONIC DISEASE VISIT [facility] Start: 12-22-2022 Hemoglobin A1c/Hemoglobin.total in Blood HBA1C [facility] Start: 12-12-2022 Glaucoma screening Dilated Retinal E xam [facility] Start: 12-12-2022 Hepatitis B surface antibody level LDL CHOLESTEROL [facility] Start: 12-12-2022 Hepatitis C antibody , confirmatory test DILATED RETINAL EXAM [facility] Start: 10-06-2022 DEPRESSION ASSESSMENT DEPRESSION ASS ESSMENT [facility] Start: 09-23-2022 End: 11-23-2022 Comprehensive metabolic 2000 panel - Serum or Plasma [facility] Work Phone: Comment on above: Expected: 09/23/2022 , Expires: 11/23/2022 Start: 09-23-2022 End: 11-23-2022 Hemoglobin A1c in Blood [facility] Work Phone: Comment on above: Expected: 09/23/2022 , Expires: 11/23/2022 Start: 09-23-2022 End: 11-23-2022 LIPID PANEL, NONFASTING [facility] Work Phone: Comment on above: Expected: 09/23/2022 , Expires: 11/23/2022 Start: 09-23-2022 End: 11-23-2022 Prostate specific Ag [Mass/volume] in Serum or Plasma [facility] Work Phone: Comment on above: Expected: 09/23/2022 , Expires: 11/23/2022 Start: 09-23-2022 End: 11-23-2022 Urinalysis complete panel - Urine [facility] Work Phone: Comment on above: Expected: 09/23/2022 , Expires: 11/23/2022 Start: 06-14-2022 Hemoglobin A1c/Hemoglobin.total in Blood HBA1C [facility] Start: 06-06-2022 Influenza vaccination INFLUENZ A (Season Ended) [facility] Start: 02-16-2022 End: 04-18-2022 HYPERCOAG DIAG PNL HYPERCOAG DIAG PNL Lab Routine Other acute pulmonary embolism with acute cor pulmonale (HCC) Expected: 02/16/2022, Expires: 04/18/2022 [facility] Work Phone: Comment on above: Expected: 02/16/2022 , Expires: 04/18/2022 Start: 02-16-2022 Shingrix Vaccine (1 of 2) Shingrix Vaccine (1 of 2) [facility] Start: 01-11-2022 Hepatitis B screening URINE ALBUMIN:CREATININE RATIO [facility] Start: 08-29-2021 3 comp foot exam completed DIABETIC FOOT EXAM [facility] Start: 02-16-2017 COLOGUARD (FIT-DNA) COLOGUARD (FIT-D NA) [facility] Start: 02-16-2017 Colonoscopy COLONOSCOPY [facility] Start: 02-16-2017 COLORECTAL CANCER SCREENING COLORECTAL CANCER SCREENING [facility] Start: 02-16-[address] COLONOGRAPHY [facility] Start: 02-16-2017 FECAL OCCULT BLOOD FECAL OCCULT BLOO D [facility] Start: 02-16-2017 Screening for malign ant neoplasm of colon [facility] Start: 02-16-2017 SIGMOIDOSCOPY SIGMOIDOSCOPY [facility] Start: 02-16-1990 BP CONTROLLED (<130/80) BP CON TROLLED (<130/80) [facility] [facility] Start: 02-16-1990 HEPATITIS C SCREENING HEPATITIS C SC REENING [facility] Start: 02-16-1990 HIV SCREENING HIV SCREENING [facility] Start: 02-16-1977 COVID-19 VACCINE (1) COVID-19 VACCIN E (1) [facility] End: 10-18-2025 Screening colonoscopy COLONOSCOPY SCREENING Endoscopy Routine Screening for colon cancer 1 Occurrences starting 10/18/2024 until 10/18/2025 [facility] Work Phone: Comment on above: 1 Occurrences starti ng 10/18/2024 until 10/18/2025 [facility] Immunizations Immunization Date Immunization Notes Care Provider Praful esparza 09-23-2022 influenza, injectabl e, quadrivalent, contains preservative Palmer Casillas MD Work Phone: [facility] 09-23-2022 pneumococcal (PCV20) vaccine, 20 valent (PREVNAR 20) Palmer Casillas MD Work Phone: [facility] 09-23-2022 pneumococcal Conjuga te, unspecified formulation Palmer Casillas MD Work Phone: [facility] Work Phone: 09-23-2022 influenza virus vacc ine, unspecified formulation Palmer Casillas MD Work Phone: [facility] 08-29-2020 influenza, injectabl e, quadrivalent, contains preservative Cristian Patten MD Work Phone: [facility] 08-29-2020 pneumococcal polysaccharide vaccine, 23 valent Cristian Patten MD Work Phone: [facility] 09-23-2019 tetanus toxoid, redu tulio diphtheria toxoid, and acellular pertussis vaccine, adsorbed Cristian Patten MD Work Phone: [facility] 08-16-2019 influenza, seasonal, injectable Cristian Patten MD Work Phone: [facility] Payers Date Payer Category Payer Private Health Insurance [id number] 2024 Private Health Insurance [id number] 2023 Self-pay 2023 Unknown [id number] 2019 Unknown YENNI OATES PPO [id number] 2019-Present [phone] [facility] [id number] [place] [address] PPO [id number] 2019 Unknown YENNI OATES PPO [id number] 2019-Present [phone] [address] [place] [address] PPO [id number] 1970 Unknown [id number] Unknown [id number] Unknown [id number] 62 Unknown [id number] Social History Date Type Detail Facility Start: 08-23-2019 End: 03-31-2023 Tobacco smoking status NHIS Never smoked tobacco [facility] Start: 08-23-2019 End: 03-31-2023 Tobacco use and exposure Smokeless tobacco non-user [facility] Start: 01-17-2022 End: 03-31-2023 Alcohol intake Lifetime non-drinker (finding) [facility] Start: 09-23-2019 End: 10-17-2021 History SDOH Alcohol Frequency [address] [facility] Start: 10-17-2021 History SDOH Physica l Activity MPS [address] [facility] Start: 10-17-2021 History SDOH Financial [address] [facility] Start: 10-17-2021 History SDOH Transport Med [address] [facility] Start: 1970 Sex Assigned At Not on file [facility] Start: 01-07-2022 End: 01-17-2022 Exposure to SARS-CoV-2 (event) Not sure [facility] Start: 09-23-2019 End: 03-24-2023 History of Social function [facility] Work Phone: Start: 09-23-2019 End: 03-24-2023 Alcohol Use Disorder Identification Test - Consumption [AUDIT-C] [facility] Work Phone: How often to you hav e a drink containing alcohol? Never [facility] Work Phone: Average Number of Drinks Not on file [facility] (I/We) worried wheth er (my/our) food would run out before (I/we) got money to buy more. Never true [facility] In the past 12 month s, was there a time when you were not able to pay the mortgage or rent on time? No [facility] Start: 01-16-2024 End: 03-03-2025 Alcohol intake Current drinker of alcohol (finding) [facility] Start: 01-16-2024 Alcohol Comment rare [facility] Medical Equipment Procedure Code Equipment Code Equipment Origin al Text Equipment Identifier Dates 1 Each once peace y. Use daily with Victoza pen. [id number] Start: 10-01-2022 Comment on above: 1 Each once daily. U se daily with Victoza pen. Clinical Notes 08-23-2019 to 03-03-2025 Patient InstructionsTammy Paz APRN.[facility] - 03/03/2025 10:37 AM EDTTelephone Encounter - Sheron Aceves RN - 03/01/2025 1:30 PM Medina Ashby APRN.[facility] - 10/18/2024 10:00 AM EST Note Date & Type Note Facility 03-03-2025 Instructions Tammy Paz APRN.[facility] - 03/03/2025 10:38 AM EDT 1. Viral URI with cough (J06.9) 2. Post-nasal drainage (R09.82) - Symptoms include cough, congestion, rhinorrhea, cephalalgia, and mild dyspnea. - Vital signs are stable; blood pressure and oxygen saturation are within normal limits. - Pulmonary auscultation reveals clear breath sounds; oropharyngeal examination shows post-nasal drainage; tympanic membranes are clear with no signs of otitis media. - Diagnosed with viral upper respiratory infection and post-nasal drainage. - Prescribed a cough suppressant. - Recommended Mucinex to assist with mucus clearance. - Advised that symptoms may persist for approximately one week. - Patient understands and agrees with the treatment plan. - A prescription for a cough suppressant has been sent to your pharmacy. Take it as directed to help control your congestion and cough. - A prescription for Mucinex (guaifenesin) has been sent to your pharmacy. Take it as directed to help loosen mucus. - For headache or any mild pain, you may take [id number] Tylenol or ibuprofen as needed. - Expect your cold symptoms (cough, congestion, runny nose) to last about one week as the virus runs its course. documented in this encounter [facility] 03-03-2025 Note HNO ID: [id number] Author: TAMMY PAZ APRN.[employer] Service: ? Author Type: Nurse Practitioner Type: Progress Notes Filed: 03/03/2025 10:38 Note Text: [facility] Subjective Poppy Neff is a 55 year old male. Patient presents with: Cough: Chest congestion, runny nose, headache, sinus pressure and pain, SOB, x 2 days Cough URI Symptoms: - Onset yesterday morning. - Persistent cough, non-productive, causing difficulty sleeping. - Rhinorrhea with clear discharge. - Congestion and headache. - Mild dyspnea associated with severe coughing episodes. - Nocturnal symptoms worse when sitting or lying down; slight improvement when standing. - Denies fever, chills, chest pain, or back pain. - Took two Benadryl and cough medicine last night with minimal relief. Review of Systems Respiratory: Positive for cough. Constitutional: (-) fever, (-) chills Head: (+) headache Ears/Nose/Mouth/Throat: (+) runny nose, (+) congestion, (+) post nasal drip Cardiovascular: (-) chest pain Respiratory: (+) cough, (+) shortness of breath, (-) phlegm Objective BP 106/75 Pulse 97 Temp 36.1 ?C (97 ?F) Resp 20 Wt 121 kg (266 lb 12.1 oz) SpO2 97% BMI 36.13 kg/m? PAST MEDICAL HISTORY Diagnosis Date Dry eye syndrome 12/12/2021 History of non-ST elevation myocardial infarction (NSTEMI) 08/15/2019 History of pulmonary embolism 08/29/2020 Saw Hematology- was taken off Eliquis. Hyperlipidemia, mixed 01/11/2021 Hypertension, essential 01/13/2020 Obesity, Class III, BMI 40-49.9 (morbid obesity) 12/12/2021 Pulmonary arterial hypertension (HCC) 08/15/2019 Pulmonary embolus (HCC) 08/23/2019 Right ventricular enlargement 08/23/2019 Right ventricular systolic dysfunction 12/12/2021 Sinus tachycardia by electrocardiography 12/12/2021 Type 2 diabetes mellitus without complication (HCC) 08/23/2019 Well adult exam 09/23/2019 Last done 09/23/19 Wrist fracture 2014 left PAST SURGICAL HISTORY Procedure Laterality Date TONSILLECTOMY HX 1979 ALLERGIES Lindy Inhibitors MEDICATIONS atorvastatin (LIPITOR) 80 mg tablet Take 1 tablet by mouth once daily. empagliflozin (JARDIANCE) 25 mg tablet Take 1 tablet by mouth once daily. Take 1 tablet once daily in the morning hydroCHLOROthiazide 25 mg tablet Take 1 tablet by mouth once daily. losartan (COZAAR) 100 mg tablet Take 1 tablet by mouth once daily. metFORMIN (GLUCOPHAGE) 1,000 mg tablet Take 1 tablet by mouth two times a day with meals. semaglutide (OZEMPIC) 1 mg/dose (4 mg/3 mL) pen Inject 1 mg subcutaneously one time a week. benzonatate (TESSALON PERLE) 100 mg capsule Take 2 capsules by mouth three times a day as needed for up to 10 days. guaiFENesin (MUCINEX) 600 mg 12 hr tablet Take 2 tablets by mouth two times a day as needed for cold/allergy symptoms for up to 10 days. FAMILY HISTORY Problem Relation Age of Onset Diabetes Mother Hypertension Mother Diabetes Father Hypertension Father Diabetes Maternal Grandmother Diabetes Maternal Grandfather Diabetes Paternal Grandfather Social History Tobacco Use Smoking status: Never Smokeless tobacco: Never Vaping Use Vaping status: Never Used Substance Use Topics Alcohol use: Yes Comment: rare Drug use: Never Physical Exam Vitals and nursing note reviewed. Constitutional: General: He is not in acute distress. Appearance: Normal appearance. He is not ill-appearing. HENT: Right Ear: Tympanic membrane, ear canal and external ear normal. Left Ear: Tympanic membrane, ear canal and external ear normal. Nose: Nose normal. Mouth/Throat: Mouth: Mucous membranes are moist. Pharynx: Oropharynx is clear. Postnasal drip present. No posterior oropharyngeal erythema. Cardiovascular: Rate and Rhythm: Normal rate and regular rhythm. Heart sounds: Normal heart sounds. Pulmonary: Effort: Pulmonary effort is normal. No respiratory distress. Breath sounds: Normal breath sounds. No wheezing or rales. Skin: General: Skin is warm and dry. Findings: No erythema or rash. Neurological: Mental Status: He is alert. General: No acute distress. HEENT: Post-nasal drainage; tympanic membranes clear bilaterally, no signs of otitis media. Resp: Lungs clear to auscultation bilaterally. {1. Viral URI with cough (J06.9) 2. Post-nasal drainage (R09.82) - Symptoms include cough, congestion, rhinorrhea, cephalalgia, and mild dyspnea. - Vital signs are stable; blood pressure and oxygen saturation are within normal limits. - Pulmonary auscultation reveals clear breath sounds; oropharyngeal examination shows post-nasal drainage; tympanic membranes are clear with no signs of otitis media. - Diagnosed with viral upper respiratory infection and post-nasal drainage. - Prescribed a cough suppressant. - Recommended Mucinex to assist with mucus clearance. - Advised that symptoms may persist for approximately one week. - Patient understands and (more content not included)... [facility] 03-03-2025 History of Present illness Narrative [facility] Subjective Poppy Neff is a 55 year old male. Patient presents with: Cough: Chest congestion, runny nose, headache, sinus pressure and pain, SOB, x 2 days Cough URI Symptoms: - Onset yesterday morning. - Persistent cough, non-productive, causing difficulty sleeping. - Rhinorrhea with clear discharge. - Congestion and headache. - Mild dyspnea associated with severe coughing episodes. - Nocturnal symptoms worse when sitting or lying down; slight improvement when standing. - Denies fever, chills, chest pain, or back pain. - Took two Benadryl and cough medicine last night with minimal relief. Review of Systems Respiratory: Positive for cough. Constitutional: (-) fever, (-) chills Head: (+) headache Ears/Nose/Mouth/Throat: (+) runny nose, (+) congestion, (+) post nasal drip Cardiovascular: (-) chest pain Respiratory: (+) cough, (+) shortness of breath, (-) phlegm Objective BP 106/75 Pulse 97 Temp 36.1 C (97 F) Resp 20 Wt 121 kg (266 lb 12.1 oz) SpO2 97% BMI 36.13 kg/m PAST MEDICAL HISTORY Diagnosis Date Dry eye syndrome 12/12/2021 History of non-ST elevation myocardial infarction (NSTEMI) 08/15/2019 History of pulmonary embolism 08/29/2020 Saw Hematology- was taken off Eliquis. Hyperlipidemia, mixed 01/11/2021 Hypertension, essential 01/13/2020 Obesity, Class III, BMI 40-49.9 (morbid obesity) 12/12/2021 Pulmonary arterial hypertension (HCC) 08/15/2019 Pulmonary embolus (HCC) 08/23/2019 Right ventricular enlargement 08/23/2019 Right ventricular systolic dysfunction 12/12/2021 Sinus tachycardia by electrocardiography 12/12/2021 Type 2 diabetes mellitus without complication (HCC) 08/23/2019 Well adult exam 09/23/2019 Last done 09/23/19 Wrist fracture 2014 left PAST SURGICAL HISTORY Procedure Laterality Date TONSILLECTOMY HX 1979 ALLERGIES Lindy Inhibitors MEDICATIONS atorvastatin (LIPITOR) 80 mg tablet Take 1 tablet by mouth once daily. empagliflozin (JARDIANCE) 25 mg tablet Take 1 tablet by mouth once daily. Take 1 tablet once daily in the morning hydroCHLOROthiazide 25 mg tablet Take 1 tablet by mouth once daily. losartan (COZAAR) 100 mg tablet Take 1 tablet by mouth once daily. metFORMIN (GLUCOPHAGE) 1,000 mg tablet Take 1 tablet by mouth two times a day with meals. semaglutide (OZEMPIC) 1 mg/dose (4 mg/3 mL) pen Inject 1 mg subcutaneously one time a week. benzonatate (TESSALON PERLE) 100 mg capsule Take 2 capsules by mouth three times a day as needed for up to 10 days. guaiFENesin (MUCINEX) 600 mg 12 hr tablet Take 2 tablets by mouth two times a day as needed for cold/allergy symptoms for up to 10 days. FAMILY HISTORY Problem Relation Age of Onset Diabetes Mother Hypertension Mother Diabetes Father Hypertension Father Diabetes Maternal Grandmother Diabetes Maternal Grandfather Diabetes Paternal Grandfather Social History Tobacco Use Smoking status: Never Smokeless tobacco: Never Vaping Use Vaping status: Never Used Substance Use Topics Alcohol use: Yes Comment: rare Drug use: Never Physical Exam Vitals and nursing note reviewed. Constitutional: General: He is not in acute distress. Appearance: Normal appearance. He is not ill-appearing. HENT: Right Ear: Tympanic membrane, ear canal and external ear normal. Left Ear: Tympanic membrane, ear canal and external ear normal. Nose: Nose normal. Mouth/Throat: Mouth: Mucous membranes are moist. Pharynx: Oropharynx is clear. Postnasal drip present. No posterior oropharyngeal erythema. Cardiovascular: Rate and Rhythm: Normal rate and regular rhythm. Heart sounds: Normal heart sounds. Pulmonary: Effort: Pulmonary effort is normal. No respiratory distress. Breath sounds: Normal breath sounds. No wheezing or rales. Skin: General: Skin is warm and dry. Findings: No erythema or rash. Neurological: Mental Status: He is alert. General: No acute distress. HEENT: Post-nasal drainage; tympanic membranes clear bilaterally, no signs of otitis media. Resp: Lungs clear to auscultation bilaterally. {1. Viral URI with cough (J06.9) 2. Post-nasal drainage (R09.82) - Symptoms include cough, congestion, rhinorrhea, cephalalgia, and mild dyspnea. - Vital signs are stable; blood pressure and oxygen saturation are within normal limits. - Pulmonary auscultation reveals clear breath sounds; oropharyngeal examination shows post-nasal drainage; tympanic membranes are clear with no signs of otitis media. - Diagnosed with viral upper respiratory infection and post-nasal drainage. - Prescribed a cough suppressant. - Recommended Mucinex to assist with mucus clearance. - Advised that symptoms may persist for approximately one week. - Patient understands and agrees with the treatment plan. - Follow-up with your PCP in 3-5 days if symptoms have not improved or sooner if symptoms worsen - Discussed red flags and need for immediate medical evaluation if any occur. - Discussed supportive care treatment with fluids, rest and analgesia. - Discussed expected course of illness Tammy Paz APRN.[employer] and Recording using [employer] software for draft documentation of the visit was discussed with the patient/authorized outside energy sales representatives; all questions welcomed and answered. Patient/authorized outside energy sales representatives agreed to proceed History and Record Review Clinical information obtained from an independent historian. History obtained from or confirmed by: spouse. Disposition The patient was discharged. OTC Medications were advised: Procedures documented in this encounter [facility] 03-01-2025 Telephone encounter Note Patient returned call and given provider's message below and patient verbalized understanding. Chidi Aceves RN [facility] 03-01-2025 Miscellaneous Notes Patient returned call and given provider's message below and patient verbalized understanding. Chidi Aceves RN Left message to return call Teodora Guerrero MA Let patient know that his A1c is down to 6.4%. good job. He has small amount of protein in his urine. We will monitor this. His red blood cells and hemoglobin is up a little. Need to repeat in 1month. Make sure to be hydrated for lab. The rest of his labs are all normal/stable. Thanks. Laura Nash PA-C documented in this encounter [facility] 03-01-2025 Telephone encounter Note Left message to return call Teodora Guerrero MA [facility] 03-01-2025 Telephone encounter Note Let patient know that his A1c is down to 6.4%. good job. He has small amount of protein in his urine. We will monitor this. His red blood cells and hemoglobin is up a little. Need to repeat in 1month. Make sure to be hydrated for lab. The rest of his labs are all normal/stable. Thanks. Laura Nash PA-C [facility] 02-25-2025 Note HNO ID: [id number] Author: LAURA NASH PA-C Service: ? Author Type: Physician Film Casting Operator Type: Progress Notes Filed: 02/25/2025 11:21 Note Text: Chief Complaint Patient presents with: Yearly Exam HPI Poppy Neff is a 55 year old male who presents here today for Physical Patient with PMHx of: DM2, HTN, hyperlipidemia, obesity, cardiomyopathy, Hx of NSTEMI, and those as below. No concerns today Has been taking all medications. Past medical history, appointments, medications, allergies reviewed. Previous Medical History PAST MEDICAL HISTORY Diagnosis Date Dry eye syndrome 12/12/2021 History of non-ST elevation myocardial infarction (NSTEMI) 08/15/2019 History of pulmonary embolism 08/29/2020 Saw Hematology- was taken off Eliquis. Hyperlipidemia, mixed 01/11/2021 Hypertension, essential 01/13/2020 Obesity, Class III, BMI 40-49.9 (morbid obesity) 12/12/2021 Pulmonary arterial hypertension (HCC) 08/15/2019 Pulmonary embolus (HCC) 08/23/2019 Right ventricular enlargement 08/23/2019 Right ventricular systolic dysfunction 12/12/2021 Sinus tachycardia by electrocardiography 12/12/2021 Type 2 diabetes mellitus without complication (HCC) 08/23/2019 Well adult exam 09/23/2019 Last done 09/23/19 Wrist fracture 2014 left Previous Surgical History PAST SURGICAL HISTORY Procedure Laterality Date TONSILLECTOMY HX 1980 Family History FAMILY HISTORY Problem Relation Age of Onset Diabetes Mother Hypertension Mother Diabetes Father Hypertension Father Diabetes Maternal Grandmother Diabetes Maternal Grandfather Diabetes Paternal Grandfather Patient Allergies ALLERGIES Allergen Reactions Lindy Inhibitors Cough Current Medications Current Outpatient Medications on File Prior to Visit Medication Sig atorvastatin (LIPITOR) 80 mg tablet Take 1 tablet by mouth once daily. hydroCHLOROthiazide 25 mg tablet Take 1 tablet by mouth once daily. losartan (COZAAR) 100 mg tablet Take 1 tablet by mouth once daily. metFORMIN (GLUCOPHAGE) 1,000 mg tablet Take 1 tablet by mouth two times a day with meals. empagliflozin (JARDIANCE) 25 mg tablet Take 1 tablet by mouth once daily. Take 1 tablet once daily in the morning semaglutide (OZEMPIC) 0.25 mg or 0.5 mg (2 mg/3 mL) pen Inject 0.5 mg subcutaneously one time a week. Insulin [place], Disposable, (NOVOFINE 32) 32 gauge x 1/4 1 Each once daily. Use daily with Victoza pen. No current facility-administered medications on file prior to visit. Social History Social History Tobacco Use Smoking status: Never Smokeless tobacco: Never Vaping Use Vaping status: Never Used Substance Use Topics Alcohol use: Yes Comment: rare Drug use: Never Review of Symptoms REVIEW OF SYSTEMS GENERAL: No weight loss, malaise or fevers HEENT: Negative for frequent or significant headaches, No changes in hearing or vision, no nose bleeds or other nasal problems NECK: Negative for lumps, goiter, pain and significant neck swelling RESPIRATORY: Negative for cough, hemoptysis, wheezing, COPD, dyspnea or shortness of breath CARDIOVASCULAR: Negative for chest pain, leg swelling, or palpitations GI: No nausea, vomiting, or diarrhea MUSCULOSKELETAL: Negative for joint pain or swelling, back pain or muscle pain SKIN: Negative for lesions, rash, and itching HEMATOLOGY/LYMPHOLOGY: Negative for prolonged bleeding, bruising easily or swollen nodes ENDOCRINE: Negative for cold or heat intolerance NEURO: No history of headaches, syncope, paralysis, seizures or tremors EXAM: BP 106/80 (BP Site: Left Arm, BP Position: Sitting, BP Cuff Size: Large Adult) Pulse 70 Temp 36.1 ?C (97 ?F) Resp 18 Ht 183 cm (6' 0.05) Wt 120.7 kg (266 lb) SpO2 95% BMI 36.03 kg/m? General Appearance: Well appearing, alert, in no acute distress, well-hydrated, well nourished.. Skin: Skin color, texture, turgor normal, no suspicious rashes or lesions. Head: Normocephalic, no masses, lesions, tenderness or abnormalities. Eyes: Anicteric sclera. Pupils are equally round and reactive to light. Extraocular movements are intact. Ears: External ears normal, canals clear. Oropharynx: Lips, mucosa, and tongue normal, teeth and gums normal, oropharynx normal. Neck: Supple, no adenopathy; thyroid symmetric, normal size, no bruits. Lungs: Lungs clear to auscultation. No wheezing, rhonchi, rales.. Heart: RRR without murmur, gallop, or rubs. Abdomen: Normal abdominal exam, Abdomen soft, non-tender. Bowel sounds normal. No masses, organomegaly. Peripheral Pulses: Normal. Feet:Shoes and socks removed, sensitive to 10 gm monofilament, and vibratory perception normal Health Maintenance List BP Controlled (<130/80) Never done Colorectal Cancer Screening Never done Shingrix Vaccine(1 of 2) Never done HbA1C due on 07/17/2024 Urine Albumin:Creatinine Ratio due on 01/15/2025 LDL Cholesterol due on 01/15/2025 Diabetic Foot Exam (more content not included)... [facility] 02-18-2025 Telephone encounter Note Images from the original note were not included. Ronen Neff appointment was cancelled and called left message for patient to call back and reschedule. Ronen Neff Routed to specialty pool so that they may reach out to patient to reschedule. Sonido Cardoza MA [facility] 02-18-2025 Miscellaneous Notes Images from the original note were not included. Ronen Neff appointment was cancelled and called left message for patient to call back and reschedule. Ronen Neff Routed to specialty pool so that they may reach out to patient to reschedule. Sonido Cardoza MA Pt is unable to come for colonoscopy Friday. Please contact him to reschedule. Sonido Cardoza MA documented in this encounter [facility] 01-17-2025 Telephone encounter Note Pt is unable to come for colonoscopy Friday. Please contact him to reschedule. Sonido Cardoza MA [facility] 10-18-2024 History of Present illness Narrative HISTORY AND PHYSICAL Poppy Neff : 1970 REFERRING PHYSICIAN: Laura Nash [address] [facility] [id number] CHIEF COMPLAINT: Patient presents with: Consult: Colonoscopy, no prior colonoscopy HPI: Poppy is a 54 year old male referred for endoscopy. Poppy notes due for screening colonoscopy. Poppy denies abdominal pain.. Poppy denies diarrhea. Poppy denies constipation. Poppy denies a change in bowel habits. Poppy denies melena. Poppy denies bright red blood per rectum. Poppy denies hemorrhoids. Poppy denies heartburn. Poppy denies dysphagia. Poppy denies a history of ulcers/ peptic ulcer disease. Poppy denies family history of colon issues. Poppy has a hx of HTN, NSTEMI(2019)- he follows with [facility]. Last OV 09/23/24. Pt to get updated ECHO. Denies CP, SOB, dizziness, palpitations, syncope, edema, recent hospitalizations Other medical history is significant for T2DM and obesity. Poppy has not undergone prior endoscopy. Current Outpatient Medications Medication Sig atorvastatin (LIPITOR) 80 mg tablet Take 1 tablet by mouth once daily. hydroCHLOROthiazide 25 mg tablet Take 1 tablet by mouth once daily. losartan (COZAAR) 100 mg tablet Take 1 tablet by mouth once daily. metFORMIN (GLUCOPHAGE) 1,000 mg tablet Take 1 tablet by mouth two times a day with meals. empagliflozin (JARDIANCE) 25 mg tablet Take 1 tablet by mouth once daily. Take 1 tablet once daily in the morning semaglutide (OZEMPIC) 0.25 mg or 0.5 mg (2 mg/3 mL) pen Inject 0.5 mg subcutaneously one time a week. Insulin [place], Disposable, (NOVOFINE 32) 32 gauge x 1/4 1 Each once daily. Use daily with Victoza pen. peg 3350-Electrolytes (GOLYTELY) 236-22.74-6.74 -5.86 gram suspension Take 4,000 mL by mouth one time only for 1 dose. Refer to printed prep instructions from your provider. No current facility-administered medications for this visit. ALLERGIES: Lindy Inhibitors PAST MEDICAL HISTORY Diagnosis Date Dry eye syndrome 12/12/2021 History of non-ST elevation myocardial infarction (NSTEMI) 08/15/2019 History of pulmonary embolism 08/29/2020 Saw Hematology- was taken off Eliquis. Hyperlipidemia, mixed 01/11/2021 Hypertension, essential 01/13/2020 Obesity, Class III, BMI 40-49.9 (morbid obesity) (HCC) 12/12/2021 Pulmonary arterial hypertension (HCC) 08/15/2019 Pulmonary embolus (HCC) 08/23/2019 Right ventricular enlargement 08/23/2019 Right ventricular systolic dysfunction 12/12/2021 Sinus tachycardia by electrocardiography 12/12/2021 Type 2 diabetes mellitus without complication ([facility]) 08/23/2019 Well adult exam 09/23/2019 Last done 09/23/19 Wrist fracture 2014 left PAST SURGICAL HISTORY Procedure Laterality Date TONSILLECTOMY HX 1980 FAMILY HISTORY Problem Relation Age of Onset Diabetes Mother Hypertension Mother Diabetes Father Hypertension Father Diabetes Maternal Grandmother Diabetes Maternal Grandfather Diabetes Paternal Grandfather Social History Tobacco Use Smoking status: Never Smokeless tobacco: Never Vaping Use Vaping status: Never Used Substance Use Topics Alcohol use: Yes Comment: rare Drug use: Never REVIEW OF SYMPTOMS: The review of systems data was entered by the nurse and reviewed by me SEE NURSING NOTE PHYSICAL EXAMINATION: General: The patient is 54 year old, male well nourished, well hydrated in no acute distress. The patient is oriented to time, place, and person. VITALS: Blood pressure 118/82, pulse 76, temperature (!) 35.9 C (96.6 F), height 185.4 cm (6' 1), weight 122.5 kg (270 lb), SpO2 96%. Body mass index is 35.62 kg/m . HEENT: Normal cephalic, ataumatic, pupils are equally round, sclera are anicteric, mucous membranes are moist, oropharynx is clear. Neck has no masses, asymmetry or lymphadenopathy. Respiratory: Clear to auscultation and percussion. Normal respiratory excursion and pattern. Cardiac: Examination is regular rate and rhythm. Normal S1/S2 Abdominal exam: Soft, nontender, with no palpable masses. No hepatosplenomegaly. No palpable hernias. Extremities: no clubbing, cyanosis or edema. No adenopathy. LABORATORY VALUES: As Noted RADIOLOGIC STUDIES: As Noted Assessment IMPRESSION: screen for colon cancer PLAN: I have reviewed my findings with the surgeon. Will plan for lower endoscopy. We discussed the risks and benefits of the planned endoscopy. I have informed the patient that complications can occur including failure to complete the endoscopy and perforation. Poppy had the opportunity to ask questions concerning the planned endoscopy. My staff has also explained the procedure to the patient in understandable terms and has given the patient printed material concerning the procedure. Poppy freely consents to surgery. I plan to use Golytely bowel preparation Patient instructed to contact PCP for instructions regarding diabetic medication, which may require adjustment during bowel preparation and/or day of procedure. Instructed to hold Jardiance for 3 days prior to endoscopy. Instructed to hold Ozempic for 7 days prior to endoscopy. I have explained to the patient the difference between IV conscious sedation and MAC anesthesia - and I have offered either, according to the patient's wishes. I have explained that with IV conscious sedation there is no anesthesia provider available and therefore there is a limitation of the amount of IV medications that can be given and that the patient may wake up in the middle of the procedure and/or experience pain/discomfort during the procedure. Further discussion was done and the patient was given the opportunity to ask questions and all questions were answered. Poppy chooses IV conscious sedation. Poppy was counseled that if there are changes in his/her medical condition, to let the office know if surgery should proceed. If there are changes in patient's medical condition from time of this encounter to the day of the procedure that preclude anesthesia, patient may have procedure cancelled for patient's safety. Diagnoses: (Z12.11) Screening for colon cancer Consultation requested by Laura Nash PA-C for an opinion regarding colon cancer screening. My final recommendations will be communicated back to the requesting physician by way of shared Medical record or letter to requesting physician via US mail. Portions of this documentation were copied and pasted from previous office visit notes in order to provide a cohesive continuity of the history. The note has been reviewed and edited and updated as necessary. Medina Tsang APRN.YO REVIEW OF SYSTEMS: General: The patient denies fatigue, denies weight loss, denies weight gain, denies feeling hot, and denies feelings of cold. Eyes: The patient denies glaucoma, denies eye injury/surgery, does not wear glasses or contacts. Ear/Nose/Throat: The patient notes allergies, denies hayfever, denies ear infections, and denies bloody noses. Cardiovascular: The patient denies chest pain, denies heart disease, notes high blood pressure,denies cardiac stent, denies prior heart attack, denies irregular heart beat, notes high cholesterol, denies poor circulation, denies heart failure, other cardiac issues, denies claudication, denies cold feet, denies peripheral arterial stent. Respiratory: The patient denies tuberculosis, denies pneumonia, denies frequent cough, notes pulmonary embolism, denies shortness of breath, and denies coughing up blood. Gastrointestinal: The patient denies difficulty swallowing, denies acid reflux, denies ulcers, denies vomiting, denies jaundice/hepatitis, denies gallbladder problems, denies black or tarry stools, denies hemorrhoids, denies bleeding from rectum, denies diverticulitis, denies constipation, denies diarrhea, denies loss of stool control, and denies hernias. Kidney/Bladder: The patient denies kidney stones, denies urine infections, and denies bloody urine. Skin: The patient denies a history of skin cancer, denies bleeding/changing moles, and denies a history of skin rash. Neurologic: The patient denies a history of epilepsy/convulsions, denies headaches, denies head/spinal injuries, and denies stroke/TIA. Psychiatric: The patient denies psychiatric medications, denies depression, and denies voices, denies substance abuse. Endocrine: The patient denies thyroid disorders, notes diabetes, and denies hormonal problems. Hematologic: The patient denies a history of bruising, denies bleeding, and denies anemia, denies blood clots. Infections: The patient denies a history of measles and mumps, denies rheumatic fever, and denies sexually transmitted diseases. Musculoskeletal: The patient denies back pain/injury, denies back problems, denies sciatica, denies knee/foot trouble, denies arthritis, or denies gout. When was patient's last Mammogram screening? N/A Last Colonoscopy: none Val Asencio LPN documented in this encounter [facility] 10-18-2024 Note HNO ID: [id number] Author: MEDINA TSANG APRN.CUSTOM HARVESTER Service: ? Author Type: Nurse Practitioner Type: Progress Notes Filed: 10/18/2024 10:23 Note Text: HISTORY AND PHYSICAL Poppy Neff : 1970 REFERRING PHYSICIAN: Laura Nash [address] [facility] [id number] CHIEF COMPLAINT: Patient presents with: Consult: Colonoscopy, no prior colonoscopy HPI: Poppy is a 54 year old male referred for endoscopy. Poppy notes due for screening colonoscopy. Poppy denies abdominal pain.. Poppy denies diarrhea. Poppy denies constipation. Poppy denies a change in bowel habits. Poppy denies melena. Poppy denies bright red blood per rectum. Poppy denies hemorrhoids. Poppy denies heartburn. Poppy denies dysphagia. Poppy denies a history of ulcers/ peptic ulcer disease. Poppy denies family history of colon issues. Poppy has a hx of HTN, NSTEMI(2019)- he follows with [facility]. Last OV 09/23/24. Pt to get updated ECHO. Denies CP, SOB, dizziness, palpitations, syncope, edema, recent hospitalizations Other medical history is significant for T2DM and obesity. Poppy has not undergone prior endoscopy. Current Outpatient Medications Medication Sig atorvastatin (LIPITOR) 80 mg tablet Take 1 tablet by mouth once daily. hydroCHLOROthiazide 25 mg tablet Take 1 tablet by mouth once daily. losartan (COZAAR) 100 mg tablet Take 1 tablet by mouth once daily. metFORMIN (GLUCOPHAGE) 1,000 mg tablet Take 1 tablet by mouth two times a day with meals. empagliflozin (JARDIANCE) 25 mg tablet Take 1 tablet by mouth once daily. Take 1 tablet once daily in the morning semaglutide (OZEMPIC) 0.25 mg or 0.5 mg (2 mg/3 mL) pen Inject 0.5 mg subcutaneously one time a week. Insulin [place], Disposable, (NOVOFINE 32) 32 gauge x 1/4 1 Each once daily. Use daily with Victoza pen. peg 3350-Electrolytes (GOLYTELY) 236-22.74-6.74 -5.86 gram suspension Take 4,000 mL by mouth one time only for 1 dose. Refer to printed prep instructions from your provider. No current facility-administered medications for this visit. ALLERGIES: Lindy Inhibitors PAST MEDICAL HISTORY Diagnosis Date Dry eye syndrome 12/12/2021 History of non-ST elevation myocardial infarction (NSTEMI) 08/15/2019 History of pulmonary embolism 08/29/2020 Saw Hematology- was taken off Eliquis. Hyperlipidemia, mixed 01/11/2021 Hypertension, essential 01/13/2020 Obesity, Class III, BMI 40-49.9 (morbid obesity) ([facility]) 12/12/2021 Pulmonary arterial hypertension ([facility]) 08/15/2019 Pulmonary embolus ([facility]) 08/23/2019 Right ventricular enlargement 08/23/2019 Right ventricular systolic dysfunction 12/12/2021 Sinus tachycardia by electrocardiography 12/12/2021 Type 2 diabetes mellitus without complication ([facility]) 08/23/2019 Well adult exam 09/23/2019 Last done 09/23/19 Wrist fracture 2014 left PAST SURGICAL HISTORY Procedure Laterality Date TONSILLECTOMY HX 1980 FAMILY HISTORY Problem Relation Age of Onset Diabetes Mother Hypertension Mother Diabetes Father Hypertension Father Diabetes Maternal Grandmother Diabetes Maternal Grandfather Diabetes Paternal Grandfather Social History Tobacco Use Smoking status: Never Smokeless tobacco: Never Vaping Use Vaping status: Never Used Substance Use Topics Alcohol use: Yes Comment: rare Drug use: Never REVIEW OF SYMPTOMS: The review of systems data was entered by the nurse and reviewed by me SEE NURSING NOTE PHYSICAL EXAMINATION: General: The patient is 54 year old, male well nourished, well hydrated in no acute distress. The patient is oriented to time, place, and person. VITALS: Blood pressure 118/82, pulse 76, temperature (!) 35.9 ?C (96.6 ?F), height 185.4 cm (6' 1), weight 122.5 kg (270 lb), SpO2 96%. Body mass index is 35.62 kg/m?. HEENT: Normal cephalic, ataumatic, pupils are equally round, sclera are anicteric, mucous membranes are moist, oropharynx is clear. Neck has no masses, asymmetry or lymphadenopathy. Respiratory: Clear to auscultation and percussion. Normal respiratory excursion and pattern. Cardiac: Examination is regular rate and rhythm. Normal S1/S2 Abdominal exam: Soft, nontender, with no palpable masses. No hepatosplenomegaly. No palpable hernias. Extremities: no clubbing, cyanosis or edema. No adenopathy. LABORATORY VALUES: As Noted RADIOLOGIC STUDIES: As Noted Assessment IMPRESSION: screen for colon cancer PLAN: I have reviewed my findings with the surgeon. Will plan for lower endoscopy. We discussed the risks and benefits of the planned endoscopy. I have informed the patient that complications can occur including failure to complete the endoscopy and perforation. Poppy had the opportunity to ask questions concerning the planned endoscopy. My staff has also explained the procedure to the patient in understandable terms and has given the patient printed material concerning the procedure. Poppy freely consents to surgery. (more content not included)... [facility] 10-18-2024 Note HNO ID: [id number] Author: VAL ASENCIO LPN Service: ? Author Type: LICENSED NURSE Type: Progress Notes Filed: 10/18/2024 10:23 Note Text: REVIEW OF SYSTEMS: General: The patient denies fatigue, denies weight loss, denies weight gain, denies feeling hot, and denies feelings of cold. Eyes: The patient denies glaucoma, denies eye injury/surgery, does not wear glasses or contacts. Ear/Nose/Throat: The patient notes allergies, denies hayfever, denies ear infections, and denies bloody noses. Cardiovascular: The patient denies chest pain, denies heart disease, notes high blood pressure,denies cardiac stent, denies prior heart attack, denies irregular heart beat, notes high cholesterol, denies poor circulation, denies heart failure, other cardiac issues, denies claudication, denies cold feet, denies peripheral arterial stent. Respiratory: The patient denies tuberculosis, denies pneumonia, denies frequent cough, notes pulmonary embolism, denies shortness of breath, and denies coughing up blood. Gastrointestinal: The patient denies difficulty swallowing, denies acid reflux, denies ulcers, denies vomiting, denies jaundice/hepatitis, denies gallbladder problems, denies black or tarry stools, denies hemorrhoids, denies bleeding from rectum, denies diverticulitis, denies constipation, denies diarrhea, denies loss of stool control, and denies hernias. Kidney/Bladder: The patient denies kidney stones, denies urine infections, and denies bloody urine. Skin: The patient denies a history of skin cancer, denies bleeding/changing moles, and denies a history of skin rash. Neurologic: The patient denies a history of epilepsy/convulsions, denies headaches, denies head/spinal injuries, and denies stroke/TIA. Psychiatric: The patient denies psychiatric medications, denies depression, and denies voices, denies substance abuse. Endocrine: The patient denies thyroid disorders, notes diabetes, and denies hormonal problems. Hematologic: The patient denies a history of bruising, denies bleeding, and denies anemia, denies blood clots. Infections: The patient denies a history of measles and mumps, denies rheumatic fever, and denies sexually transmitted diseases. Musculoskeletal: The patient denies back pain/injury, denies back problems, denies sciatica, denies knee/foot trouble, denies arthritis, or denies gout. When was patient's last Mammogram screening? N/A Last Colonoscopy: none Val Asencio LPN [facility] 09-24-2024 Note HNO ID: [id number] Author: ROCKY RODRIGUEZ MA Service: ? Author Type: Manager Ct Type: Progress Notes Filed: 09/24/2024 15:27 Note Text: Faxed. Rocky Rodriguez MA [facility] 09-24-2024 Note HNO ID: [id number] Author: PALMER CASILLAS MD Service: ? Author Type: Physician Type: Progress Notes Filed: 09/24/2024 08:38 Note Text: Fax copy of most recent lipid panel from 01/16/2024 to [facility] 09-24-2024 History of Present illness Narrative Fax copy of most recent lipid panel from 01/16/2024 to [facility] Scan on 09/23/2024 9:33 AM by Provider, Kailash, NAE: Consultation - Cardiology documented in this encounter [facility] 09-24-2024 Note HNO ID: [id number] Author: DARIUS GARCIA LPN Service: ? Author Type: LICENSED NURSE Type: Progress Notes Filed: 09/24/2024 08:04 Note Text: Scan on 09/23/2024 9:33 AM by Provider, NAE Linder: Consultation - Cardiology [facility] 08-03-2024 Telephone encounter Note No response from insurance. Called the pharmacy and the rx was filled and picked up 07/28/24 with a co pay of 24.99. Called [employer] to request the approval letter to be faxed. They report they do not handle these appeals for pt. The appeals are handles with [facility]. Can call [phone]. [facility] 08-03-2024 Miscellaneous Notes No response from insurance. Called the pharmacy and the rx was filled and picked up 07/28/24 with a co pay of 24.99. Called [employer] to request the approval letter to be faxed. They report they do not handle these appeals for pt. The appeals are handles with [facility]. Can call [phone]. Office notes was requested and faxed for expided review. Covermymeds PA rec'd and completed. Unable to complete this electronically. Poppy Neff (Palmer: [id number]) - JOHNATHAN-[id number] Ozempic (0.25 or 0.5 MG/DOSE) 2MG/3ML pen-injectors status: PA Request Created: July 22, 2024 [id number] Sent: July 23, 2024 documented in this encounter [facility] 07-30-2024 Telephone encounter Note 1st attempt to contact patient. LVM to return call to schedule consult [facility] Work Phone: 07-30-2024 Miscellaneous Notes 1st attempt to contact patient. LVM to return call to schedule consult Pt was seen in office today and needs to be scheduled for a surgical consult for a colonoscopy. Pt was not able to schedule after his visit and would like scheduling to contact him. Thank you. Darius Garcia LPN documented in this encounter [facility] 07-30-2024 Telephone encounter Note Pt was seen in office today and needs to be scheduled for a surgical consult for a colonoscopy. Pt was not able to schedule after his visit and would like scheduling to contact him. Thank you. Darius Garcia LPN [facility] 07-30-2024 Note HNO ID: [id number] Author: LAURA NASH PA-C Service: ? Author Type: Physician Film Casting Operator Type: Progress Notes Filed: 07/30/2024 11:39 Note Text: Chief Complaint Patient presents with: 6 Month Exam HPI Poppy Neff is a 54 year old male who presents here today for Chronic Medical Conditions.. Patient with hx of DM2, HTN, hyperlipidemia, obesity, cardiomyopathy, Hx of NSTEMI, and those as below. Had insurance change and reports some of his medications needed to be switched. He is picking up jardiance today. Hasn't heard if ozempic approved yet. Past medical history, appointments, medications, allergies reviewed. Previous Medical History PAST MEDICAL HISTORY Diagnosis Date Dry eye syndrome 12/12/2021 History of non-ST elevation myocardial infarction (NSTEMI) 08/15/2019 History of pulmonary embolism 08/29/2020 Saw Hematology- was taken off Eliquis. Hyperlipidemia, mixed 01/11/2021 Hypertension, essential 01/13/2020 Obesity, Class III, BMI 40-49.9 (morbid obesity) (HCC) 12/12/2021 Pulmonary arterial hypertension (HCC) 08/15/2019 Pulmonary embolus ([facility]) 08/23/2019 Right ventricular enlargement 08/23/2019 Right ventricular systolic dysfunction 12/12/2021 Sinus tachycardia by electrocardiography 12/12/2021 Type 2 diabetes mellitus without complication ([facility]) 08/23/2019 Well adult exam 09/23/2019 Last done 09/23/19 Wrist fracture 2014 left Previous Surgical History PAST SURGICAL HISTORY Procedure Laterality Date TONSILLECTOMY HX 1979 Family History FAMILY HISTORY Problem Relation Age of Onset Diabetes Mother Hypertension Mother Diabetes Father Hypertension Father Diabetes Maternal Grandmother Diabetes Maternal Grandfather Diabetes Paternal Grandfather Patient Allergies ALLERGIES Allergen Reactions Lindy Inhibitors Cough Current Medications Current Outpatient Medications on File Prior to Visit Medication Sig losartan (COZAAR) 100 mg tablet Take 1 tablet by mouth once daily. metFORMIN (GLUCOPHAGE) 1,000 mg tablet Take 1 tablet by mouth two times a day with meals. hydroCHLOROthiazide 25 mg tablet Take 1 tablet by mouth once daily. atorvastatin (LIPITOR) 80 mg tablet Take 1 tablet by mouth once daily. empagliflozin (JARDIANCE) 25 mg tablet Take 1 tablet by mouth once daily. Take 1 tablet once daily in the morning semaglutide (OZEMPIC) 0.25 mg or 0.5 mg (2 mg/3 mL) pen Inject 0.5 mg subcutaneously one time a week. Insulin [place], Disposable, (NOVOFINE 32) 32 gauge x 1/4 1 Each once daily. Use daily with Victoza pen. No current facility-administered medications on file prior to visit. Social History Social History Tobacco Use Smoking status: Never Smokeless tobacco: Never Vaping Use Vaping status: Never Used Substance Use Topics Alcohol use: Yes Comment: rare Drug use: Never Review of Symptoms REVIEW OF SYSTEMS GENERAL: No weight loss, malaise or fevers NECK: Negative for lumps, goiter, pain and significant neck swelling RESPIRATORY: Negative for cough, hemoptysis, wheezing, COPD, dyspnea or shortness of breath CARDIOVASCULAR: Negative for chest pain, leg swelling, hypertension, CHF or palpitations NEURO: No history of headaches, syncope, paralysis, seizures or tremors EXAM: BP 106/86 (BP Site: Left Arm, BP Position: Sitting, BP Cuff Size: Large Adult) Pulse 76 Temp 36.6 ?C (97.8 ?F) Resp 18 Wt 127.5 kg (281 lb) SpO2 93% BMI 37.04 kg/m? General Appearance: Well appearing, alert, in no acute distress, well-hydrated, well nourished.. Neck: Supple, no adenopathy; thyroid symmetric, normal size, no bruits. Lungs: Lungs clear to auscultation. No wheezing, rhonchi, rales.. Heart: RRR without murmur, gallop, or rubs. No ectopy. Extremities: No deformities, edema, skin discoloration, clubbing or cyanosis. Good capillary refill. . Peripheral Pulses: Normal. Health Maintenance List Colorectal Cancer Screening Never done HbA1C due on 07/17/2024 Shingrix Vaccine(1 of 2) due on 01/15/2025 Influenza Vaccine(1) due on 04/04/2025 Covid-19 Vaccine( season) due on 07/30/2025 Urine Albumin:Creatinine Ratio due on 01/15/2025 LDL Cholesterol due on 01/15/2025 Diabetic Foot Exam due on 01/15/2025 Annual PCP Team Chronic Disease Visit due on 01/15/2025 Depression Screening due on 01/15/2025 Anxiety Screening due on 01/15/2025 BP Controlled (<130/80) due on 01/15/2025 Dilated Retinal Exam due on 01/22/2025 DTaP,Tdap,Td Vaccine(2 - Td or Tdap) due on 09/23/2029 Pneumococcal Vaccine Completed Hepatitis B Vaccine Discontinued Hepatitis C Screening Discontinued HIV Screening Discontinued Data reviewed N/a ASSESSMENT/PLAN: 1. Type 2 diabetes mellitus without complication, unspecified whether retirement insulin use (HCC) - ICD9: 250.00, ICD10: E11.9 (primary diagnosis) - Control undetermined, due for labs - Continue current medications - Counseled on healthy diet and re (more content not included)... [facility] 07-30-2024 History of Present illness Narrative Chief Complaint Patient presents with: 6 Month Exam HPI Poppy Neff is a 54 year old male who presents here today for Chronic Medical Conditions.. Patient with hx of DM2, HTN, hyperlipidemia, obesity, cardiomyopathy, Hx of NSTEMI, and those as below. Had insurance change and reports some of his medications needed to be switched. He is picking up jardiance today. Hasn't heard if ozempic approved yet. Past medical history, appointments, medications, allergies reviewed. Previous Medical History PAST MEDICAL HISTORY Diagnosis Date Dry eye syndrome 12/12/2021 History of non-ST elevation myocardial infarction (NSTEMI) 08/15/2019 History of pulmonary embolism 08/29/2020 Saw Hematology- was taken off Eliquis. Hyperlipidemia, mixed 01/11/2021 Hypertension, essential 01/13/2020 Obesity, Class III, BMI 40-49.9 (morbid obesity) (HCC) 12/12/2021 Pulmonary arterial hypertension (HCC) 08/15/2019 Pulmonary embolus (HCC) 08/23/2019 Right ventricular enlargement 08/23/2019 Right ventricular systolic dysfunction 12/12/2021 Sinus tachycardia by electrocardiography 12/12/2021 Type 2 diabetes mellitus without complication (HCC) 08/23/2019 Well adult exam 09/23/2019 Last done 09/23/19 Wrist fracture 2014 left Previous Surgical History PAST SURGICAL HISTORY Procedure Laterality Date TONSILLECTOMY HX 1979 Family History FAMILY HISTORY Problem Relation Age of Onset Diabetes Mother Hypertension Mother Diabetes Father Hypertension Father Diabetes Maternal Grandmother Diabetes Maternal Grandfather Diabetes Paternal Grandfather Patient Allergies ALLERGIES Allergen Reactions Lindy Inhibitors Cough Current Medications Current Outpatient Medications on File Prior to Visit Medication Sig losartan (COZAAR) 100 mg tablet Take 1 tablet by mouth once daily. metFORMIN (GLUCOPHAGE) 1,000 mg tablet Take 1 tablet by mouth two times a day with meals. hydroCHLOROthiazide 25 mg tablet Take 1 tablet by mouth once daily. atorvastatin (LIPITOR) 80 mg tablet Take 1 tablet by mouth once daily. empagliflozin (JARDIANCE) 25 mg tablet Take 1 tablet by mouth once daily. Take 1 tablet once daily in the morning semaglutide (OZEMPIC) 0.25 mg or 0.5 mg (2 mg/3 mL) pen Inject 0.5 mg subcutaneously one time a week. Insulin [place], Disposable, (NOVOFINE 32) 32 gauge x 1/4 1 Each once daily. Use daily with Victoza pen. No current facility-administered medications on file prior to visit. Social History Social History Tobacco Use Smoking status: Never Smokeless tobacco: Never Vaping Use Vaping status: Never Used Substance Use Topics Alcohol use: Yes Comment: rare Drug use: Never Review of Symptoms REVIEW OF SYSTEMS GENERAL: No weight loss, malaise or fevers NECK: Negative for lumps, goiter, pain and significant neck swelling RESPIRATORY: Negative for cough, hemoptysis, wheezing, COPD, dyspnea or shortness of breath CARDIOVASCULAR: Negative for chest pain, leg swelling, hypertension, CHF or palpitations NEURO: No history of headaches, syncope, paralysis, seizures or tremors EXAM: BP 106/86 (BP Site: Left Arm, BP Position: Sitting, BP Cuff Size: Large Adult) Pulse 76 Temp 36.6 C (97.8 F) Resp 18 Wt 127.5 kg (281 lb) SpO2 93% BMI 37.04 kg/m General Appearance: Well appearing, alert, in no acute distress, well-hydrated, well nourished.. Neck: Supple, no adenopathy; thyroid symmetric, normal size, no bruits. Lungs: Lungs clear to auscultation. No wheezing, rhonchi, rales.. Heart: RRR without murmur, gallop, or rubs. No ectopy. Extremities: No deformities, edema, skin discoloration, clubbing or cyanosis. Good capillary refill. . Peripheral Pulses: Normal. Health Maintenance List Colorectal Cancer Screening Never done HbA1C due on 07/17/2024 Shingrix Vaccine(1 of 2) due on 01/15/2025 Influenza Vaccine(1) due on 04/04/2025 Covid-19 Vaccine(1 - season) due on 07/30/2025 Urine Albumin:Creatinine Ratio due on 01/15/2025 LDL Cholesterol due on 01/15/2025 Diabetic Foot Exam due on 01/15/2025 Annual PCP Team Chronic Disease Visit due on 01/15/2025 Depression Screening due on 01/15/2025 Anxiety Screening due on 01/15/2025 BP Controlled (<130/80) due on 01/15/2025 Dilated Retinal Exam due on 01/22/2025 DTaP,Tdap,Td Vaccine(2 - Td or Tdap) due on 09/23/2029 Pneumococcal Vaccine Completed Hepatitis B Vaccine Discontinued Hepatitis C Screening Discontinued HIV Screening Discontinued Data reviewed N/a ASSESSMENT/PLAN: 1. Type 2 diabetes mellitus without complication, unspecified whether retirement insulin use (HCC) - ICD9: 250.00, ICD10: E11.9 (primary diagnosis) - Control undetermined, due for labs - Continue current medications - Counseled on healthy diet and regular exercise - Discussed need for and benefit of weight loss. BMI 37.04 kg/(m^2) - METFORMIN 1,000 MG TABLET - HEMOGLOBIN A1C - COMPREHENSIVE METABOLIC PANEL 2. Type 2 diabetes mellitus without retinopathy (HCC) - ICD9: 250.00, ICD10: E11.9 Await labs Up to date with scan - HEMOGLOBIN A1C 3. Hyperlipidemia, mixed - ICD9: 272.2, ICD10: E78.2 - Control undetermined, due for labs - Continue current medications - Counseled on healthy diet and regular exercise - ATORVASTATIN 80 MG TABLET - LIPID PANEL, NONFASTING 4. Hypertension, essential - ICD9: 401.9, ICD10: I10 - fair Control - Recommend home blood pressure monitoring, to bring results to next visit - Encouraged sodium restriction, DASH or Mediterranean diet - Recommend regular aerobic exercise - HYDROCHLOROTHIAZIDE 25 MG TABLET - LOSARTAN 100 MG TABLET - COMPREHENSIVE METABOLIC PANEL 5. History of non-ST elevation myocardial infarction (NSTEMI) - ICD9: 412, ICD10: I25.2 Cont with cardio. 6. Cardiomyopathy, unspecified type (HCC) - ICD9: 425.4, ICD10: I42.9 Cont with cardio 7. Obesity, Class III, BMI 40-49.9 (morbid obesity) (HCC) - ICD9: 278.01, ICD10: E66.01 Patient to continue to work on diet Last 3 Encounter Wt Readings: Date: Wt: 07/30/2024 127.5 kg (281 lb) 01/16/2024 128.8 kg (284 lb) 04/15/2023 125.2 kg (276 lb) Laura Nash PA-C documented in this encounter [facility] 07-26-2024 Instructions Angelica Maher LPN - 07/26/2024 11:17 AM EDT BONE MINERAL DENSITY PATIENT INSTRUCTIONS ======= Bone mineral density testing measures the amount of calcium in certain parts of your bones. This information determines how strong your bones are. The test is used to detect osteoporosis, a disease in which the bone's mineral content and density are low, increasing a person's risk of fractures. The lumbar spine (lower back) and the hip are the skeletal sites usually examined. For the test, remember that: 1. You cannot take this test if you are . 2. Eat a normal diet on the day of the test. 3. Take your medications as you normally would. 4. DO NOT take calcium supplements (such as Tums) for 24 hours before the test. 5. On the day of the test, leave valuables (jewelry or credit cards) at home. 6. The test should be performed prior to oral, rectal or IV contrast studies, or at least 7 days after any of these studies. For the test, you may be asked to wear a hospital gown. You will lie on your back, on a padded table, in a comfortable position. Generally, you can resume your usual activities immediately. documented in this encounter [facility] 07-23-2024 Telephone encounter Note Office notes was requested and faxed for expided review. [facility] 07-23-2024 Telephone encounter Note Covermymeds PA rec'd and completed. Unable to complete this electronically. Poppy Neff (Palmer: [id number]) - JOHNATHAN-[id number] Ozempic (0.25 or 0.5 MG/DOSE) 2MG/3ML pen-injectors status: JOHNATHAN Request Created: July 22, 2024 [id number] Sent: July 23, [address] [facility] 07-22-2024 Telephone encounter Note Pt called and is notified of providers results and instructions. Pt voices understanding. Charu Alvarez RN [facility] 07-22-2024 Miscellaneous Notes Pt called and is notified of providers results and instructions. Pt voices understanding. Charu Alvarez RN Let patient know new meds sent. Also let him know the ozempic is just once a week instead of daily like the victoza. Requested Prescriptions Signed Prescriptions Disp Refills empagliflozin (JARDIANCE) 25 mg tablet 90 tablet 1 Sig: Take 1 tablet by mouth once daily. Take 1 tablet once daily in the morning Authorizing Provider: PALMER CASILLAS semaglutide (OZEMPIC) 0.25 mg or 0.5 mg (2 mg/3 mL) pen 1 Each 5 Sig: Inject 0.5 mg subcutaneously one time a week. Authorizing Provider: PALMER CASILLAS Please see message below regarding covered medications for pt. Darius Garcia LPN Patient stated has new insurance and they will not cover some of his prescriptions. He stated they will not cover Farxiga but they will cover Jardiance. He stated they will not cover Victoxza but they will cover Ozempic. He would like them sent to [facility] in [place]. documented in this encounter [facility] 07-22-2024 Telephone encounter Note Let patient know new meds sent. Also let him know the ozempic is just once a week instead of daily like the victoza. Requested Prescriptions Signed Prescriptions Disp Refills empagliflozin (JARDIANCE) 25 mg tablet 90 tablet 1 Sig: Take 1 tablet by mouth once daily. Take 1 tablet once daily in the morning Authorizing Provider: PALMER CASILLAS semaglutide (OZEMPIC) 0.25 mg or 0.5 mg (2 mg/3 mL) pen 1 Each 5 Sig: Inject 0.5 mg subcutaneously one time a week. Authorizing Provider: PALMER CASILLAS [facility] 07-22-2024 Telephone encounter Note Please see message below regarding covered medications for pt. Darius Garcia LPN [facility] 07-22-2024 Telephone encounter Note Patient stated has new insurance and they will not cover some of his prescriptions. He stated they will not cover Farxiga but they will cover Jardiance. He stated they will not cover Victoxza but they will cover Ozempic. He would like them sent to [facility] in [place]. [facility] 07-16-2024 Telephone encounter Note The following approved medication requests have been transmitted electronically. Requested Prescriptions Signed Prescriptions Disp Refills losartan (COZAAR) 100 mg tablet 90 tablet 1 Sig: Take 1 tablet by mouth once daily. Authorizing Provider: PALMER CASILLAS dapagliflozin propanediol (FARXIGA) 10 mg tablet 90 tablet 1 Sig: Take 1 tablet by mouth once daily. Take one daily in the morning Authorizing Provider: PALMER CASILLAS MD [facility] 07-16-2024 Miscellaneous Notes The following approved medication requests have been transmitted electronically. Requested Prescriptions Signed Prescriptions Disp Refills losartan (COZAAR) 100 mg tablet 90 tablet 1 Sig: Take 1 tablet by mouth once daily. Authorizing Provider: PALMER CASILLAS dapagliflozin propanediol (FARXIGA) 10 mg tablet 90 tablet 1 Sig: Take 1 tablet by mouth once daily. Take one daily in the morning Authorizing Provider: PALMER CASILLAS MD Prescription Refill Information The patient has been identified by name and date of : Yes Caregiver verified no other encounters exist for this prescription request: Yes Caregiver confirmed with patient/requestor that no other refills are due, in the near future, with this provider at this time: Yes The last office visit in the department: 01/16/24 Does the patient have a future office visit with this provider/department: Yes Requested Prescriptions Pending Prescriptions Disp Refills losartan (COZAAR) 100 mg tablet 90 tablet 1 Sig: Take 1 tablet by mouth once daily. dapagliflozin propanediol (FARXIGA) 10 mg tablet 90 tablet 1 Sig: Take 1 tablet by mouth once daily. Take one daily in the morning Deborah Pastrana LPN July 16, 2024 10:47 AM documented in this encounter [facility] 07-16-2024 Telephone encounter Note Prescription Refill Information The patient has been identified by name and date of : Yes Caregiver verified no other encounters exist for this prescription request: Yes Caregiver confirmed with patient/requestor that no other refills are due, in the near future, with this provider at this time: Yes The last office visit in the department: 01/16/24 Does the patient have a future office visit with this provider/department: Yes Requested Prescriptions Pending Prescriptions Disp Refills losartan (COZAAR) 100 mg tablet 90 tablet 1 Sig: Take 1 tablet by mouth once daily. dapagliflozin propanediol (FARXIGA) 10 mg tablet 90 tablet 1 Sig: Take 1 tablet by mouth once daily. Take one daily in the morning Deborah Pastrana LPN July 16, 2024 10:[address] [facility] 02-02-2024 Telephone encounter Note Pt notified he has a valid prescription at the pharmacy. He will contact them for a refill. Stephany Johnston LPN [facility] 02-02-2024 Miscellaneous Notes Pt notified he has a valid prescription at the pharmacy. He will contact them for a refill. Stephany Johnston LPN Patient has been identified by name and date of : Yes, Provider Dr. Casillas Date 02-02-24 Time 1:38 pm Patient phones for refill(s): Requested Prescriptions Pending Prescriptions Disp Refills liraglutide (VICTOZA 2-TITI) 0.6 mg/0.1 mL (18 mg/3 mL) 3 Each 5 Sig: Inject 1.8 mg subcutaneously once daily. Date of last office visit in primary care: 01/16/2024 Date of next office visit in primary care: 07/20/2024 Please advise. Thank you. Milena Neri. documented in this encounter [facility] 02-02-2024 Telephone encounter Note Patient has been identified by name and date of : Yes, Provider Dr. Casillas Date 02-02-24 Time 1:38 pm Patient phones for refill(s): Requested Prescriptions Pending Prescriptions Disp Refills liraglutide (VICTOZA 2-TITI) 0.6 mg/0.1 mL (18 mg/3 mL) 3 Each 5 Sig: Inject 1.8 mg subcutaneously once daily. Date of last office visit in primary care: 01/16/2024 Date of next office visit in primary care: 07/20/2024 Please advise. Thank you. Milena Neri. [facility] 01-23-2024 History of Present illness Narrative Assessment and Plan: 1. Type 2 diabetes mellitus without retinopathy (HCC) -Patient education on the importance of strict blood sugar control in order to minimize the risk of vision loss from Diabetes Mellitus. -Advised close follow-up with primary care physician / service line bus cleaner. -Advised keeping scheduled eye examinations with sooner follow-up if any new symptoms develop. -Return in one year for Dilated fundus examination. 2. Dry eye syndrome of both eyes -Refresh Artificial tears, 1 drop, two times a day, Both eyes. Sony Govea, DONELL I have reviewed, confirmed, and edited as necessary the relevant ophthalmic history, review of systems, allergies, patient history, and ophthalmological examination findings as obtained by the ophthalmic technical staff. I have seen and examined Poppy Neff. I have discussed the examination findings, diagnosis, and treatment options with Poppy Neff and/or his family. I have also reviewed and agree with the assessment and plan as stated above and agree with all its relevant components. I gave the patient the opportunity to ask questions about the examination findings, diagnosis, and treatment options. documented in this encounter [facility] 01-23-2024 Instructions Sony Govea OD - 01/23/2024 8:56 AM EDT Patient education on the importance of strict blood sugar control in order to minimize the risk of vision loss from Diabetes Mellitus. Advised close follow-up with primary care physician / service line bus cleaner. Advised keeping scheduled eye examinations with sooner follow-up if any new symptoms develop. Refresh Artificial tears, 1 drop, two times a day, Both eyes. Please call the office with decreased vision or increased eye pain. documented in this encounter [facility] 01-19-2024 Miscellaneous Notes The following approved medication requests have been transmitted electronically. Requested Prescriptions Signed Prescriptions Disp Refills liraglutide (VICTOZA) 0.6 mg/ 0.1 ml subcutaneous pen injector 3 Each 5 Sig: Inject 1.8 mg subcutaneously once daily. Authorizing Provider: LAURA NASH PA-C Pt notified of results, pt states he is willing to increase victoza to 1.8mg. pt uses [facility] in [place]. Stephany Johnston LPN A1c is at 7.1. see if patient would be willing to increase victoza from 1.2 to 1.8mg? Cholesterol normal. Blood counts are okay/stable Urine okay. Thanks. Laura Nash PA-C documented in this encounter [facility] 01-16-2024 History of Present illness Narrative Chief Complaint Patient presents with: Yearly Exam HPI Poppy Neff is a 53 year old male who presents here today for Physical. Patient with hx of DM2, HTN, hyperlipidemia, Obesity, Cardiomyopathy, hx of NSTEMI, and those as below. No concerns today. Past medical history, appointments, medications, allergies reviewed. Previous Medical History PAST MEDICAL HISTORY Diagnosis Date Dry eye syndrome 12/12/2021 History of non-ST elevation myocardial infarction (NSTEMI) 08/15/2019 History of pulmonary embolism 08/29/2020 Saw Hematology- was taken off Eliquis. Hyperlipidemia, mixed 01/11/2021 Hypertension, essential 01/13/2020 Obesity, Class III, BMI 40-49.9 (morbid obesity) (HCC) 12/12/2021 Pulmonary arterial hypertension (HCC) 08/15/2019 Pulmonary embolus (HCC) 08/23/2019 Right ventricular enlargement 08/23/2019 Right ventricular systolic dysfunction 12/12/2021 Sinus tachycardia by electrocardiography 12/12/2021 Type 2 diabetes mellitus without complication (HCC) 08/23/2019 Well adult exam 09/23/2019 Last done 09/23/19 Wrist fracture 2014 left Previous Surgical History PAST SURGICAL HISTORY Procedure Laterality Date TONSILLECTOMY HX 1980 Family History FAMILY HISTORY Problem Relation Age of Onset Diabetes Mother Hypertension Mother Diabetes Father Hypertension Father Diabetes Maternal Grandmother Diabetes Maternal Grandfather Diabetes Paternal Grandfather Patient Allergies ALLERGIES Allergen Reactions Lindy Inhibitors Cough Current Medications Current Outpatient Medications on File Prior to Visit Medication Sig dapagliflozin propanediol (FARXIGA) 10 mg tablet Take 1 tablet by mouth once daily. Take one daily in the morning liraglutide (VICTOZA) 0.6 mg/ 0.1 ml subcutaneous pen injector Inject 0.6 mg daily via pen once a day for a week then go to 1.2 mg a day. metFORMIN (GLUCOPHAGE) 1,000 mg tablet Take 1 tablet by mouth twice daily with meals. losartan (COZAAR) 100 mg tablet Take 1 tablet by mouth once daily. hydroCHLOROthiazide 25 mg tablet Take 1 tablet by mouth once daily. atorvastatin (LIPITOR) 80 mg tablet Take 1 tablet by mouth once daily. Insulin [place], Disposable, (NOVOFINE 32) 32 gauge x 1/4 1 Each once daily. Use daily with Victoza pen. No current facility-administered medications on file prior to visit. Social History Social History Tobacco Use Smoking status: Never Smokeless tobacco: Never Vaping Use Vaping Use: Never used Substance Use Topics Alcohol use: Never Drug use: Never Review of Symptoms REVIEW OF SYSTEMS GENERAL: No weight loss, malaise or fevers HEENT: No changes in hearing or vision, no nose bleeds or other nasal problems NECK: Negative for lumps, goiter, pain and significant neck swelling RESPIRATORY: Negative for cough, hemoptysis, wheezing, COPD, dyspnea or shortness of breath CARDIOVASCULAR: Negative for chest pain, leg swelling, CHF or palpitations GI: Negative for abdominal discomfort, blood in stools or black stools, change in bowel habit, heart burn, nausea, vomiting : No history of dysuria, frequency or incontinence MUSCULOSKELETAL: Negative for joint pain or swelling, back pain or muscle pain SKIN: Negative for lesions, rash, and itching PSYCH: Negative for sleep disturbance, mood disorder and recent psychosocial stressors HEMATOLOGY/LYMPHOLOGY: Negative for prolonged bleeding, bruising easily or swollen nodes ENDOCRINE: Negative for cold or heat intolerance, polyuria, polydipsia and goiter NEURO: No history of headaches, syncope, paralysis, seizures or tremors EXAM: BP 110/72 (BP Site: Left Arm, BP Position: Sitting, BP Cuff Size: Large Adult) Pulse 64 Temp 36.3 C (97.4 F) (Right Tympanic) Resp 16 Ht 185.5 cm (6' 1.03) Wt 128.8 kg (284 lb) SpO2 94% BMI 37.44 kg/m General Appearance: Well appearing, alert, in no acute distress, well-hydrated, well nourished. and Obese. Skin: Skin color, texture, turgor normal, no suspicious rashes or lesions. Head: Normocephalic, no masses, lesions, tenderness or abnormalities. Eyes: Anicteric sclera. Pupils are equally round and reactive to light. Extraocular movements are intact. . Ears: External ears normal, canals clear, TMs pearly lam. Nose/Sinuses: Nares normal, septum midline, mucosa normal, no drainage or sinus tenderness. Oropharynx: Lips, mucosa, and tongue normal, teeth and gums normal, oropharynx normal. Neck: Supple, no adenopathy; thyroid symmetric, normal size, no bruits. Lungs: Lungs clear to auscultation. No wheezing, rhonchi, rales.. Heart: RRR without murmur, gallop, or rubs. No ectopy. Abdomen: Normal abdominal exam, Abdomen soft, non-tender. Bowel sounds normal. No masses, organomegaly. Extremities: No deformities, edema, skin discoloration, clubbing or cyanosis. Good capillary refill. . Peripheral Pulses: Normal. Neurologic: Gait normal. Reflexes normal and symmetric. Sensation grossly intact.. Genitalia: Penis normal. No urethral discharge. Scrotum normal to palpation. No hernia.. Rectal: Rectal negative. Prostate palpation negative. Feet:Shoes and socks removed, No deformities, ulcers, calluses, normal distal pulses, sensitive to 10 gm monofilament, and vibratory perception normal Health Maintenance List Colorectal Cancer Screening Never done Shingrix Vaccine(1 of 2) Never done Dilated Retinal Exam due on 12/12/2022 HbA1C due on 09/22/2023 Urine Albumin:Creatinine Ratio due on 09/23/2023 LDL Cholesterol due on 09/23/2023 Diabetic Foot Exam due on 09/23/2023 Behavioral Health Screening Never done Covid-19 Vaccine( season) due on 01/15/2025 Annual PCP Team Chronic Disease Visit due on 04/15/2024 BP Controlled (<130/80) due on 04/15/2024 Influenza Vaccine(Season Ended) due on 06/06/2024 DTaP,Tdap,Td Vaccine(2 - Td or Tdap) due on 09/23/2029 Pneumococcal Vaccine Completed Hepatitis B Vaccine Discontinued Hepatitis C Screening Discontinued HIV Screening Discontinued Data reviewed N/a ASSESSMENT/PLAN: 1. Well adult exam - ICD9: V70.0, ICD10: Z00.00 (primary diagnosis) - Counseled on healthy diet and regular exercise - Discussed need for and benefit of weight loss. BMI 37.44 kg/(m^2) - Colorectal cancer screening recommended - agrees to Colonoscopy - patient to consider vaccines. 2. Type 2 diabetes mellitus without complication, unspecified whether long term care social worker insulin use (HCC) - ICD9: 250.00, ICD10: E11.9 - Control undetermined, due for labs - Continue current medications - METFORMIN 1,000 MG TABLET - HEMOGLOBIN A1C - COMPLETE BLOOD COUNT AND DIFFERENTIAL - ALBUMIN/CREATININE RATIO, URINE - CONSULT TO OPHTHALMOLOGY 3. Hypertension, essential - ICD9: 401.9, ICD10: I10 - Controlled - Continue current medications - Recommend home blood pressure monitoring, to bring results to next visit - Encouraged sodium restriction, DASH or Mediterranean diet - Recommend regular aerobic exercise - LOSARTAN 100 MG TABLET - HYDROCHLOROTHIAZIDE 25 MG TABLET - COMPREHENSIVE METABOLIC PANEL - URINALYSIS, WITH MICROSCOPIC 4. Hyperlipidemia, mixed - ICD9: 272.2, ICD10: E78.2 - Control undetermined, due for labs - Continue current medications - Counseled on healthy diet and regular exercise - ATORVASTATIN 80 MG TABLET - LIPID PANEL, NONFASTING 5. Screening for prostate cancer - ICD9: V76.44, ICD10: Z12.5 - PSA/PROSTATE SPECIFIC ANTIGEN SCREENING 6. Obesity, Class III, BMI 40-49.9 (morbid obesity) (HCC) - ICD9: 278.01, ICD10: E66.01 Last 3 Encounter Wt Readings: Date: Wt: 01/16/2024 128.8 kg (284 lb) 04/15/2023 125.2 kg (276 lb) 03/31/2023 122.5 kg (270 lb) Weight increasing - Behavioral intervention 7. History of pulmonary embolism - ICD9: V12.55, ICD10: Z86.711 No new issues 8. History of non-ST elevation myocardial infarction (NSTEMI) - ICD9: 412, ICD10: I25.2 Stable Continue with cardio 9. Cardiomyopathy, unspecified type (HCC) - ICD9: 425.4, ICD10: I42.9 No current or recent symptoms Has echo scheduled. Continue with cardiology. 10. Screening for colon cancer - ICD9: V76.51, ICD10: Z12.11 - CONSULT TO GENERAL SURGERY Laura Nash PA-C documented in this encounter [facility] 06-19-2023 Miscellaneous Notes Last refill 09/24/22 Qty:2 each with 5 refills KENA 04/15/23 NOV 10/24/23 Darius Garcia LPN Patient has been identified by name and date of : Yes Requested Prescriptions Pending Prescriptions Disp Refills liraglutide (VICTOZA 2-TITI) 0.6 mg/0.1 mL (18 mg/3 mL) 2 Each 5 Sig: Inject 0.6 mg daily via pen once a day for a week then go to 1.2 mg a day. RX INSTRUCTIONS: Patient aware RX will be sent to pharmacy. No need to notify patient. Fawn Pham Pss documented in this encounter [facility] 04-17-2023 Miscellaneous Notes Pt returned call and given provider's message below with verbalized understanding. Pt agreeable. Left message for pt to contact office. Darius Garcia LPN Let patient know that I heard back from hematology. It's somewhat confusing and hard to explain but basically Dr. Vera says we do not need to put you back on eliquis based on the test results. The results indicate that factor VIII and fibrinogen are acting as acute phase reactants and not sure of the chronicity. However if you were to start having s/s of blood clots (leg swelling, breathing issues, etc.) make sure to seek emergency care for evaluation. Laura Nash PA-C TC to patient who is given providers message below. Patient verbalized understanding and will wait for further recommendation. LUBNA Ferrer Please let patient know that I received results from his lab test. There are 2 abnormal values and i'm going to get hematology input on these findings. Our [employer] barrier attendant is currently out of the office this week so I will contact him next week and let him no further recommendations once I get a response. Thanks. Laura Nash PA-C documented in this encounter [facility] 04-15-2023 Instructions Vilma Nguyen APRN.YO - 04/15/2023 8:35 AM EDT Continue current medications Complete labwork Follow up in 6 months documented in this encounter [facility] 04-15-2023 History of Present illness Narrative Chief Complaint Patient presents with: 6 Month Exam HPI Poppy Neff is a 53 year old male who presents here today for Above Complaints.. Patient presents for routine follow up. Patient was recently diagnosed with Lyme disease and is doing well. Patient reports he does not currently have any concerns regarding his chronic health conditions. Past medical history, appointments, medications, allergies reviewed. Previous Medical History PAST MEDICAL HISTORY Diagnosis Date Dry eye syndrome 12/12/2021 History of non-ST elevation myocardial infarction (NSTEMI) 08/15/2019 History of pulmonary embolism 08/29/2020 Saw Hematology- was taken off Eliquis. Hyperlipidemia, mixed 01/11/2021 Hypertension, essential 01/13/2020 Obesity, Class III, BMI 40-49.9 (morbid obesity) ([facility]) 12/12/2021 Pulmonary arterial hypertension ([facility]) 08/15/2019 Pulmonary embolus ([facility]) 08/23/2019 Right ventricular enlargement 08/23/2019 Right ventricular systolic dysfunction 12/12/2021 Sinus tachycardia by electrocardiography 12/12/2021 Type 2 diabetes mellitus without complication ([facility]) 08/23/2019 Well adult exam 09/23/2019 Last done 09/23/19 Wrist fracture 2014 left Previous Surgical History PAST SURGICAL HISTORY Procedure Laterality Date TONSILLECTOMY HX 1980 Family History FAMILY HISTORY Problem Relation Age of Onset Diabetes Mother Hypertension Mother Diabetes Father Hypertension Father Diabetes Maternal Grandmother Diabetes Maternal Grandfather Diabetes Paternal Grandfather Patient Allergies ALLERGIES Allergen Reactions Lindy Inhibitors Cough Current Medications Current Outpatient Medications on File Prior to Visit Medication Sig doxycycline hyclate (VIBRAMYCIN) 100 mg capsule Take 100 mg by mouth twice daily. Insulin [place], Disposable, (NOVOFINE 32) 32 gauge x 1/4 1 Each once daily. Use daily with Victoza pen. liraglutide (VICTOZA) 0.6 mg/ 0.1 ml subcutaneous pen injector Inject 0.6 mg daily via pen once a day for a week then go to 1.2 mg a day. atorvastatin (LIPITOR) 80 mg tablet Take 1 tablet by mouth once daily. dapagliflozin (FARXIGA) 10 mg tablet Take 1 tablet by mouth once daily. Take one daily in the morning hydroCHLOROthiazide (HYDRODIURIL, ESIDRIX) 25 mg tablet Take 1 tablet by mouth once daily. metFORMIN (GLUCOPHAGE) 1,000 mg tablet Take 1 tablet by mouth twice daily with meals. losartan (COZAAR) 100 mg tablet Take 1 tablet by mouth once daily. No current facility-administered medications on file prior to visit. Social History Social History Tobacco Use Smoking status: Never Smokeless tobacco: Never Vaping Use Vaping Use: Never used Substance Use Topics Alcohol use: Never Drug use: Never Review of Symptoms REVIEW OF SYSTEMS SEE HPI EXAM: BP 112/76 Pulse 72 Resp 16 Wt 125.2 kg (276 lb) BMI 36.41 kg/m General Appearance: Well appearing, alert, in no acute distress, well-hydrated, well nourished.. Skin: Skin color, texture, turgor normal, no suspicious rashes or lesions. Lungs: Lungs clear to auscultation. No wheezing, rhonchi, rales.. Heart: RRR without murmur, gallop, or rubs. No ectopy. Peripheral Pulses: Normal. Health Maintenance List BP CONTROLLED (<130/80) Never done COLORECTAL CANCER SCREENING Never done DEPRESSION ASSESSMENT due on 10/06/2022 DILATED RETINAL EXAM due on 12/12/2022 SHINGRIX VACCINE(1 of 2) due on 09/23/2023 COVID-19 VACCINE(1) due on 09/23/2023 INFLUENZA(1) due on 06/06/2023 HBA1C due on 09/22/2023 URINE ALBUMIN:CREATININE RATIO due on 09/23/2023 LDL CHOLESTEROL due on 09/23/2023 DIABETIC FOOT EXAM due on 09/23/2023 ANNUAL PCP TEAM CHRONIC DISEASE VISIT due on 03/31/2024 DTAP,TDAP,TD(2 - Td or Tdap) due on 09/23/2029 PNEUMOCOCCAL Completed HEPATITIS B Discontinued HEPATITIS C SCREENING Discontinued HIV SCREENING Discontinued Data Review Component Latest Ref Rng & Units 03/23/2023 Hemoglobin A1C 4.3 - 5.6 % 7.0 (H) Estimated Average Glucose mg/dL 154 ASSESSMENT/PLAN: 1. Hypertension, essential - ICD9: 401.9, ICD10: I10 (primary diagnosis) - Controlled - Continue current medications - Recommend home blood pressure monitoring, to bring results to next visit - Encouraged sodium restriction, DASH or Mediterranean diet - Recommend regular aerobic exercise - Discussed need for and benefit of weight loss. BMI 36.41 kg/(m^2) - Reviewed risks of hypertension and principles of treatment - LOSARTAN 100 MG TABLET - HYDROCHLOROTHIAZIDE 25 MG TABLET - CBC + DIFF 2. Hyperlipidemia, mixed - ICD9: 272.2, ICD10: E78.2 - Controlled - Continue current medications - Counseled on healthy diet and regular exercise - Discussed need for and benefit of weight loss. BMI 36.41 kg/(m^2) - ATORVASTATIN 80 MG TABLET - LIPID PANEL, NONFASTING 3. Type 2 diabetes mellitus without complication, unspecified whether long term care social worker insulin use (HCC) - ICD9: 250.00, ICD10: E11.9 - Improving control - Continue current medications - Counseled on healthy diet and regular exercise - Discussed need for and benefit of weight loss. BMI 36.41 kg/(m^2) - METFORMIN 1,000 MG TABLET - COMP METABOLIC PANEL 4. Sinus tachycardia by electrocardiography - ICD9: 785.0, ICD10: R00.0 -Follows with cardiology 5. Obesity, Class III, BMI 40-49.9 (morbid obesity) (HCC) - ICD9: 278.01, ICD10: E66.01 Morenita Nguyen APRN.C[employer]OM HARVESTER documented in this encounter [facility] 03-31-2023 Miscellaneous Notes Pt advised of Laura's message and instructions. Pt verbalizes understanding. Will repeat labs as instructed. Darius Garcia LPN Let patient know that Infectious disease review the lab results and they said only 1 band came back positive and does not fully support a dx of acute lyme disease. They said since you are improving, finish atb and we would repeat test in 6 weeks to further look at this. Laura Nash PA-C documented in this encounter [facility] 03-31-2023 History of Present illness Narrative E-CONSULT PROVIDER TO PROVIDER NOTE SERVICE DATE: 03/31/2023 REQUESTING PROVIDER: Laura Nash PA-C CONSULTING SERVICE: Infectious diseases I am being asked to provide an opinion on Lyme serological testing for Poppy who is a 53 year old male. Clinical Question I am requesting an Infectious Disease E-Consult for my 53 year old male patient, Poppy Neff who is being treated for lyme disease. My clinical question: patient was seen at an outside ER on 03/23 due to 2 day hx of rash, malaise, arthralgia, and fatigue. They checked lyme panel which came back positive for IgM on western blot test. He is currently on doxycycline and is feeling better. Can not recall a tick bite. He was prescribed doxycycline for 10 days. Is there anything further I should do for treatment? My understanding is that doxycycline for 10 days is the appropriate treatment and nothing further would be needed but patient is concerned for any potential retirement consequences. Plan I reviewed patient chart in detail. Serological testing with positive IgM and Western blot with B41 does not support acute Lyme disease. We need to have 2 out of 3 bands positive from p41, p 39 and p21 to support diagnosis. Unclear if her symptoms are secondary to acute Lyme but given patient improved on doxycycline which could be anti-inflammatory effect, okay to continue treatment for 10 days. Many patients also complained of chronic symptoms so I will recommend repeating testing in 6 weeks for IgG and if patient has Five of the followin, 23, 28, 30, 39, 41, 45, 58,66, 93 then can support a diagnosis. Only IgM positive and p41 could be falsely positive Thanks for involving patient care. Please call ID further questions SIGNATURE: Sandi Ornelas MD PATIENT NAME: Poppy Neff DATE: March 31, 2023 TIME: 12:28 PM documented in this encounter [facility] 11-06-2022 History of Present illness Narrative HISTORY AND PHYSICAL Poppy Neff 1970 REFERRING PHYSICIAN: Cristian Patten MD CHIEF COMPLAINT: Consult (colonoscopy) HPI: The patient is a 52 year old male referred for endoscopy. Poppy notes no colon complaints. Patient denies any change in bowel habits, weight changes, blood in stools, black tarry stools or abdominal pain. Denies family history of colon issues. The patient notes no upper GI complaints. Poppy has not undergone prior endoscopy. Patient's past medical history is significant for history of NSTEMI, history of PE, hyperlipidemia, hypertension, obesity, type 2 diabetes mellitus. Patient follow with Dr. Casillas in primary care and [facility] for cardiology. He notes updated cardiac testing is planned in the near future. PAST MEDICAL HISTORY Diagnosis Date Dry eye syndrome 12/12/2021 History of non-ST elevation myocardial infarction (NSTEMI) 08/15/2019 History of pulmonary embolism 08/29/2020 Saw Hematology- was taken off Eliquis. Hyperlipidemia, mixed 01/11/2021 Hypertension, essential 01/13/2020 Obesity, Class III, BMI 40-49.9 (morbid obesity) ([facility]) 12/12/2021 Pulmonary arterial hypertension ([facility]) 08/15/2019 Pulmonary embolus ([facility]) 08/23/2019 Right ventricular enlargement 08/23/2019 Right ventricular systolic dysfunction 12/12/2021 Sinus tachycardia by electrocardiography 12/12/2021 Type 2 diabetes mellitus without complication ([facility]) 08/23/2019 Well adult exam 09/23/2019 Last done 09/23/19 Wrist fracture 2014 left PAST SURGICAL HISTORY Procedure Laterality Date TONSILLECTOMY HX 1979 Current Outpatient Medications Medication Sig Insulin [place], Disposable, (NOVOFINE 32) 32 gauge x 1/4 1 Each once daily. Use daily with Victoza pen. liraglutide (VICTOZA) 0.6 mg/ 0.1 ml subcutaneous pen injector Inject 0.6 mg daily via pen once a day for a week then go to 1.2 mg a day. atorvastatin (LIPITOR) 80 mg tablet Take 1 tablet by mouth once daily. dapagliflozin (FARXIGA) 10 mg tablet Take 1 tablet by mouth once daily. Take one daily in the morning hydroCHLOROthiazide (HYDRODIURIL, ESIDRIX) 25 mg tablet Take 1 tablet by mouth once daily. metFORMIN (GLUCOPHAGE) 1,000 mg tablet Take 1 tablet by mouth twice daily with meals. losartan (COZAAR) 100 mg tablet Take 1 tablet by mouth once daily. No current facility-administered medications for this visit. ALLERGIES: Lindy Inhibitors PERSONAL HISTORY: Social History Tobacco Use Smoking status: Never Smokeless tobacco: Never Vaping Use Vaping Use: Never used Substance Use Topics Alcohol use: Never Drug use: Never FAMILY HISTORY: FAMILY HISTORY Problem Relation Age of Onset Diabetes Mother Hypertension Mother Diabetes Father Hypertension Father Diabetes Maternal Grandmother Diabetes Maternal Grandfather Diabetes Paternal Grandfather REVIEW OF SYMPTOMS: The review of systems data was entered by the nurse and reviewed by nj Nursing Notes: Estrella Vieira RN 11/06/2022 9:39 AM Signed REVIEW OF SYSTEMS: General: The patient denies fatigue, denies weight loss, denies weight gain, denies feeling hot, and denies feelings of cold. Eyes: The patient denies glaucoma, denies eye injury/surgery, does not wear glasses or contacts. Ear/Nose/Throat: The patient denies allergies, denies hayfever, denies ear infections, and denies bloody noses. Cardiovascular: The patient denies chest pain, denies heart disease, NOTES high blood pressure,denies cardiac stent, denies prior heart attack, denies irregular heart beat, NOTES high cholesterol, denies poor circulation, denies heart failure, other cardiac issues, denies claudication, denies cold feet, denies peripheral arterial stent. Respiratory: The patient denies tuberculosis, denies pneumonia, denies frequent cough, NOTES pulmonary embolism, denies shortness of breath, and denies coughing up blood. Gastrointestinal: The patient denies difficulty swallowing, denies acid reflux, denies ulcers, denies vomiting, denies jaundice/hepatitis, denies gallbladder problems, denies black or tarry stools, denies hemorrhoids, denies bleeding from rectum, denies diverticulitis, denies constipation, denies diarrhea, denies loss of stool control, and denies hernias. Kidney/Bladder: The patient denies kidney stones, denies urine infections, and denies bloody urine. Skin: The patient denies a history of skin cancer, denies bleeding/changing moles, and denies a history of skin rash. Neurologic: The patient denies a history of epilepsy/convulsions, denies headaches, denies head/spinal injuries, and denies stroke/TIA. Psychiatric: The patient denies psychiatric medications, denies depression, and denies voices, denies substance abuse. Endocrine: The patient denies thyroid disorders, denies diabetes, and denies hormonal problems. Hematologic: The patient denies a history of bruising, denies bleeding, and denies anemia, denies blood clots. Infections: The patient denies a history of measles and mumps, denies rheumatic fever, and denies sexually transmitted diseases. Musculoskeletal: The patient denies back pain/injury, denies back problems, denies sciatica, denies knee/foot trouble, denies arthritis, or denies gout. When was patient's last Mammogram screening? none Last Colonoscopy: none Estrella Vieira RN I have confirmed and edited as necessary, the PFSH and ROS obtained by others. Charu Luong PA-C PHYSICAL EXAMINATION: General: The patient is 52 year old male, well nourished, well hydrated in no acute distress. The patient is oriented to time, place, and person. VITALS: Blood pressure 124/84, pulse 70, temperature 36 C (96.8 F), height 185.4 cm (6' 1), weight 131.4 kg (289 lb 9.6 oz), SpO2 99 %. There is no height or weight on file to calculate BMI. HEENT: Normal cephalic, ataumatic, pupils are equally round, sclera are anicteric, mucous membranes are moist, oropharynx is clear. Neck has no masses, asymmetry or lymphadenopathy. Respiratory: Clear to auscultation and percussion. Normal respiratory excursion and pattern. Cardiac: Examination is regular rate and rhythm. Normal S1/S2 Abdominal exam: Soft, nontender, with no palpable masses. No hepatosplenomegaly. No palpable hernias. Extremities: no clubbing, cyanosis or edema. No adenopathy. LABORATORY VALUES: As Noted RADIOLOGIC STUDIES: As Noted Assessment IMPRESSION: encounter for screening colonoscopy PLAN: I have reviewed my findings with the surgeon. Will plan for lower endoscopy. We discussed the risks and benefits of the planned endoscopy. I have informed the patient that complications can occur including failure to complete the endoscopy and perforation. The patient had the opportunity to ask questions concerning the planned endoscopy. My staff has also explained the procedure to the patient in understandable terms and has given the patient printed material concerning the procedure. The patient freely consents to surgery. The patient was offered a surgery/procedure at a [facility] facility. I have counseled the patient regarding the risk of exposure to and/or potential harm posed by the COVID-19 virus with having a surgery/procedure at this time versus the risk of delaying the surgery/procedure. It is not possible to know either the risk of delaying the surgery or procedure or chance of getting an infection with perfect accuracy, but a joint decision was made between the patient and myself to proceed at this time with endoscopy. I plan to use Golytely bowel preparation Cardiac clearance requested as patient has cardiac testing scheduled Patient instructed to contact PCP for instructions regarding diabetic medication, which may require adjustment during bowel preparation and/or day of procedure Patient to continue on his anticoagulation for colonoscopy Diagnoses: (Z12.11) Encounter for screening for malignant neoplasm of colon (primary encounter diagnosis) Consultation requested by Dr. Patten for an opinion regarding screening colonoscopy. My final recommendations will be communicated back to the requesting physician by way of shared Medical record or letter to requesting physician via US mail. Charu Luong PA-C documented in this encounter [facility] 11-06-2022 Nurse Note REVIEW OF SYSTEMS: General: The patient denies fatigue, denies weight loss, denies weight gain, denies feeling hot, and denies feelings of cold. Eyes: The patient denies glaucoma, denies eye injury/surgery, does not wear glasses or contacts. Ear/Nose/Throat: The patient denies allergies, denies hayfever, denies ear infections, and denies bloody noses. Cardiovascular: The patient denies chest pain, denies heart disease, NOTES high blood pressure,denies cardiac stent, denies prior heart attack, denies irregular heart beat, NOTES high cholesterol, denies poor circulation, denies heart failure, other cardiac issues, denies claudication, denies cold feet, denies peripheral arterial stent. Respiratory: The patient denies tuberculosis, denies pneumonia, denies frequent cough, NOTES pulmonary embolism, denies shortness of breath, and denies coughing up blood. Gastrointestinal: The patient denies difficulty swallowing, denies acid reflux, denies ulcers, denies vomiting, denies jaundice/hepatitis, denies gallbladder problems, denies black or tarry stools, denies hemorrhoids, denies bleeding from rectum, denies diverticulitis, denies constipation, denies diarrhea, denies loss of stool control, and denies hernias. Kidney/Bladder: The patient denies kidney stones, denies urine infections, and denies bloody urine. Skin: The patient denies a history of skin cancer, denies bleeding/changing moles, and denies a history of skin rash. Neurologic: The patient denies a history of epilepsy/convulsions, denies headaches, denies head/spinal injuries, and denies stroke/TIA. Psychiatric: The patient denies psychiatric medications, denies depression, and denies voices, denies substance abuse. Endocrine: The patient denies thyroid disorders, denies diabetes, and denies hormonal problems. Hematologic: The patient denies a history of bruising, denies bleeding, and denies anemia, denies blood clots. Infections: The patient denies a history of measles and mumps, denies rheumatic fever, and denies sexually transmitted diseases. Musculoskeletal: The patient denies back pain/injury, denies back problems, denies sciatica, denies knee/foot trouble, denies arthritis, or denies gout. When was patient's last Mammogram screening? none Last Colonoscopy: none Estrella Vieira RN documented in this encounter [facility] 10-01-2022 Miscellaneous Notes The following approved medication requests have been transmitted electronically. Requested Prescriptions Signed Prescriptions Disp Refills Insulin [place], Disposable, (NOVOFINE 32) 32 gauge x 1/4 100 Each 0 Si Each once daily. Use daily with Victoza pen. Authorizing Provider: LAURA NASH PA-C Patient needs order for pen needles to use with his Victoza injections. Please send order to pharmacy at this time. Misty Henderson LPN documented in this encounter [facility] 10-01-2022 History of Present illness Narrative Patient presents for Self-injection teaching of Victoza. Brought own medication. Reviewed over proper technique of hand hygiene, medication preparation, site preparation, administration, and disposal of supplies. Pt verbalized understanding of all instructions. Was able to complete teach-back of instructions and give injection to self in right upper abdomen. Tolerated well. Spent 20 minutes with face to face education. Pt alert and oriented. Misty Henderson LPN documented in this encounter [facility] 09-24-2022 Miscellaneous Notes Patient has been notified and scheduled Victozia script sent in. Please set p NV for patient to be taught how to give injection. Pt notified of results and provider message. Pt reports he is willing to try Victoza. Pt would like nurse to show how to give shot. Call pt when medication has been ordered to set up appt with nurse. Margaret Otto LPN Left message for pt to contact office. Darius Garcia LPN Please let patient know CBC, prostate lab, small urine protein test, electrolytes, liver functions, and kidney functions were all good. Lipid panel as ok except for a low HDL at 36 (goal>40) increased exercise can help this. A1c is high at 8.5% and worse then last time when it was 7.2% (goal<7%) his urine is showing he is spilling a large amount of blood sugar. This is most likely from his farxiga trying to do it's job but with this and the higher A1c it also shows his diet is bad and appears not to be trying to reduce carbs, starches, sugars and sweets. At these levels he will more then likely have a heart attack or stroke in the next 10 years. Develop kidney failure and need to go on dialysis in 10-15 years and develop painful nerve pain in his hands and feet. I would like to add on Victozia injections once a day to help improve his diabetes control and provide some heart protection. documented in this encounter [facility] 09-23-2022 History of Present illness Narrative Images from the original note were not included. Chief Complaint Patient presents with: Physical HPI Poppy Neff is a 52 year old male who presents here today for Physical. Patient with hx of DM2, HTN, HLP, PE on eliquis, and those as below. Patient was taken off the Eliquis peer Cardio about a year ago. Since then he has noted some increaed shortness of breath that has gotten worse in the past month or two with activity. Has not discussed it with cardio. Is not like when he had the PE in 2019. Yesterday was out in the cold chasing cows and noticed it then. No chest pain or tightness. No jaw pain or left arm discomfort. He has also had a dry cough for awhile. Past medical history, appointments, medications, allergies reviewed. Previous Medical History PAST MEDICAL HISTORY Diagnosis Date Pulmonary embolus (HCC) 08/23/2019 Pulmonary HTN (HCC) 08/23/2019 Right ventricular enlargement 08/23/2019 Type 2 diabetes mellitus without complication (HCC) 08/23/2019 Wrist fracture 2014 left Previous Surgical History PAST SURGICAL HISTORY Procedure Laterality Date TONSILLECTOMY HX 1979 Family History FAMILY HISTORY Problem Relation Age of Onset Diabetes Mother Hypertension Mother Diabetes Father Hypertension Father Diabetes Maternal Grandmother Diabetes Maternal Grandfather Diabetes Paternal Grandfather Patient Allergies ALLERGIES Allergen Reactions Lindy Inhibitors Cough Current Medications Current Outpatient Medications on File Prior to Visit Medication Sig atorvastatin (LIPITOR) 80 mg tablet Take 1 tablet by mouth once daily. dapagliflozin (FARXIGA) 10 mg tablet Take 1 tablet by mouth once daily. Take one daily in the morning hydroCHLOROthiazide (HYDRODIURIL, ESIDRIX) 25 mg tablet Take 1 tablet by mouth once daily. Per cardio, Dr. Delaney metFORMIN (GLUCOPHAGE) 1,000 mg tablet Take 1 tablet by mouth twice daily with meals. losartan (COZAAR) 100 mg tablet Take 1 tablet by mouth once daily. apixaban (ELIQUIS) 5 mg tab(s) Take 1 tablet by mouth twice daily. No current facility-administered medications on file prior to visit. Social History Social History Tobacco Use Smoking status: Never Smokeless tobacco: Never Vaping Use Vaping Use: Never used Substance Use Topics Alcohol use: Never Drug use: Never Review of Symptoms REVIEW OF SYSTEMS GENERAL: No weight loss, malaise or fevers HEENT: Negative for frequent or significant headaches, No changes in hearing or vision, no nose bleeds or other nasal problems NECK: Negative for lumps, goiter, pain and significant neck swelling RESPIRATORY: Negative for hemoptysis, wheezing. See HPI CARDIOVASCULAR: Negative for chest pain, leg swelling, hypertension, CHF or palpitations GI: No nausea, vomiting, or diarrhea, No heartburn or reflux symptoms, and no blood : No history of dysuria, blood MUSCULOSKELETAL: Negative for joint pain or swelling, back pain or muscle pain SKIN: Negative for lesions, rash, and itching PSYCH: Negative for sleep disturbance, mood disorder and recent psychosocial stressors HEMATOLOGY/LYMPHOLOGY: Negative for prolonged bleeding, bruising easily or swollen nodes ENDOCRINE: Negative for cold or heat intolerance, symptoms of low BS's NEURO: No history of headaches, syncope, paralysis, seizures or tremors EXAM: BP 124/88 (BP Site: Right Arm, BP Position: Sitting, BP Cuff Size: Large Adult) Pulse 72 Resp 16 Ht 183.5 cm (6' 0.25) Wt 131.5 kg (290 lb) BMI 39.06 kg/m Last 15 Encounter Wt Readings: Date: Wt: 09/23/2022 131.5 kg (290 lb) 01/17/2022 133.8 kg (295 lb) 12/24/2021 131.1 kg (289 lb) 01/11/2021 134.7 kg (297 lb) 08/29/2020 133.8 kg (295 lb) 09/23/2019 132 kg (291 lb) 08/23/2019 131.5 kg (290 lb) General Appearance: Well appearing, alert, in no acute distress, well-hydrated, well nourished.. Skin: Skin color, texture, turgor normal, no suspicious rashes or lesions. Head: Normocephalic, no masses, lesions, tenderness or abnormalities. Eyes: Anicteric sclera. Pupils are equally round and reactive to light. Extraocular movements are intact. . Ears: External ears, TM's normal, canals clear. Neck: Supple, no adenopathy; thyroid symmetric, normal size, no bruits. Lungs: Lungs clear to auscultation. No wheezing, rhonchi, rales.. Heart: RRR without murmur, gallop, or rubs. No ectopy. Abdomen: Normal abdominal exam, Abdomen soft, non-tender. Bowel sounds normal. No masses, organomegaly. Extremities: No deformities, edema, skin discoloration, clubbing or cyanosis. Good capillary refill. . Musculoskeletal: Muscular strength intact, No joint swelling, deformity, or tenderness. Peripheral Pulses: Normal. Neurologic: Gait normal. Reflexes normal and symmetric. Sensation to light touch and crainal nerves 2-12 intact.. Genitalia: Normal, Penis normal. No urethral discharge. Scrotum normal to palpation. No hernia. Rectal: Normal exam. Diabetic Foot Exam: Feet: Shoes and socks removed, no deformities, ulcers, calluses, normal distal pulses, sensitive to 10 gm microfilament, and vibratory exam within normal limits Skin: warm, dry, no callouses or ulcer, and normal hair growth Vascular Pulses: Normal SEMMES-BRUCE MONOFILAMENT TESTING Left Foot Right Foot Dorsal Surface Intact Dorsal Surface Intact Plantar Surface Intact Plantar Surface Intact Health Maintenance List HEPATITIS B(1 of 3 - 3-dose series) Never done COVID-19 VACCINE(1) Never done HEPATITIS C SCREENING Never done HIV SCREENING Never done BP CONTROLLED (<130/80) Never done COLORECTAL CANCER SCREENING Never done DIABETIC FOOT EXAM due on 08/29/2021 PNEUMOCOCCAL(2 - PCV) due on 08/29/2021 DEPRESSION ASSESSMENT Never done URINE ALBUMIN:CREATININE RATIO due on 01/11/2022 SHINGRIX VACCINE(1 of 2) Never done INFLUENZA(1) due on 06/06/2022 HBA1C due on 06/14/2022 LDL CHOLESTEROL due on 12/12/2022 DILATED RETINAL EXAM due on 12/12/2022 ANNUAL PCP TEAM CHRONIC DISEASE VISIT due on 12/24/2022 DTAP,TDAP,TD(2 - Td or Tdap) due on 09/23/2029 Data reviewed A/P ASSESSMENT/PLAN: 1. Well adult exam - ICD9: V70.0, ICD10: Z00.00 (primary diagnosis) - Counseled on healthy diet and regular exercise - Discussed need for and benefit of weight loss. BMI 39.06 kg/(m^2) - Patient was counseled [id number] by myself (the billing provider) for the following immunizations and vaccine components, including side effects: Influenza and Pneumococcal . Patient consents for immunization and understands risks and benefits. A VIS sheet on each immunization was given to the patient. - Follow up for annual exam in one year - PSA/PROSTSPECAG DIAG 2. Type 2 diabetes mellitus without complication, unspecified whether long term care social worker insulin use (HCC) - ICD9: 250.00, ICD10: E11.9 - will await labs to determine if any changes needed. - Continue current medications - Encouraged regular aerobic exercise and weight loss - BP goal of <130/80 - LDL goal of <100 Check - ALBUMIN/CREAT RATIO RND UR - HGB A1C - COMP METABOLIC PANEL - URINALYSIS, WITH MICROSCOPIC - LIPID PANEL, NONFASTING - CBC + DIFF 3. Hypertension, essential - ICD9: 401.9, ICD10: I10 - good control - Continue current medication(s) - Recommended regular aerobic exercise. - Recommend home blood pressure monitoring, to bring results in on next visit - Goal of BP <130/80 - COMP METABOLIC PANEL - URINALYSIS, WITH MICROSCOPIC - LIPID PANEL, NONFASTING 4. Hyperlipidemia, mixed - ICD9: 272.2, ICD10: E78.2 - to be determined upon return of lab results - Encouraged following a low fat, low cholesterol diet. - Discussed the benefits of regular aerobic exercise and weight loss. - Encouraged following a low carbohydrate, healthy oil intake diet. - Continue current therapy. - COMP METABOLIC PANEL - URINALYSIS, WITH MICROSCOPIC - LIPID PANEL, NONFASTING 5. Sinus tachycardia by electrocardiography - ICD9: 785.0, ICD10: R00.0 - stable seeing cardio. 6. Right ventricular systolic dysfunction - ICD9: 429.9, ICD10: I51.89 - as per #5 7. Pulmonary arterial hypertension (HCC) - ICD9: 416.8, ICD10: I27.21 - as per #5 8. Need for vaccination - ICD9: V05.9, ICD10: Z23 - INFLUENZA VACCINE QUADRIVALENT 6 MO - 64 YRS IM: give - PNEUMOCOCCAL VACCINE (PREVNAR 20): given 9. History of pulmonary embolism - ICD9: V12.55, ICD10: Z86.711 - has been of eliquis for a year. 10. PASTOR (dyspnea on exertion) - ICD9: 786.09, ICD10: R06.09 - discussed could be related to body habitus and age. Had considered stress echo but patient under going testing from cardio after the first of the year. 11. Screening for colon cancer - ICD9: V76.51, ICD10: Z12.11 - CONSULT TO GENERAL SURGERY 12. Screening for prostate cancer - ICD9: V76.44, ICD10: Z12.5 Check - PSA/PROSTSPECAG DIAG Requested Prescriptions Signed Prescriptions Disp Refills atorvastatin (LIPITOR) 80 mg tablet 90 tablet 1 Sig: Take 1 tablet by mouth once daily. dapagliflozin (FARXIGA) 10 mg tablet 90 tablet 1 Sig: Take 1 tablet by mouth once daily. Take one daily in the morning hydroCHLOROthiazide (HYDRODIURIL, ESIDRIX) 25 mg tablet 90 tablet 1 Sig: Take 1 tablet by mouth once daily. metFORMIN (GLUCOPHAGE) 1,000 mg tablet 180 tablet 1 Sig: Take 1 tablet by mouth twice daily with meals. losartan (COZAAR) 100 mg tablet 90 tablet 1 Sig: Take 1 tablet by mouth once daily. F/u 6 months routine. Palmer Casillas MD documented in this encounter [facility] 01-17-2022 History and physical note STAFF ROUNDING ADDENDUM: Patient seen and examined with GELY Almodovar. I have reviewed the H&P/Progress note obtained and documented by the medical student. I personally participated in the palmer components. I have discussed the case and management of the patient's care with the medical student and Mr. Neff. The following comments revise or confirm relevant palmer components of the note. IMPRESSION: This is a 51 year old male who presents with first episode of idiopathic pulmonary embolism 3 years ago and has been on apixaban. He also has family history of thromboembolism. PLAN: Check D-dimer today and stop apixaban if D-dimer is normal. Obtain hypercoagulable panel and follow-up in a month to have further discussion for long-term anticoagulation therapy and risk of recurrent DVT or pulmonary embolism. I also recommend that he have his screening colonoscopy later this year. Referral was made to general surgery. I spent 45 minutes in the visit, with more than 50% of the total [id number] time of the visit in counseling / coordination of care. SIGNATURE: Cristian Patten MD DATE of SERVICE: January 17, 2022 Cc; Dr. Palmer Lee documented in this encounter [facility] 01-17-2022 History of Present illness Narrative Hematology and Medical Oncology /R35 PATIENT NAME: Poppy Neff. CLINIC NO: [id number]. ATTENDING PHYSICIAN: Dr. Cristian Patten DATE OF SERVICE:01/17/2022. DIAGNOSIS: History of pulmonary embolism HPI: Poppy Neff is a 51 year old male with PMH of HTN, HLD, obesity, NSTEMI, type 2 DM, and PE who presents for a consultation regarding his history of PE. The patient reports he was diagnosed with a PE in 2019. His symptoms at that time were only moderate fatigue. He was started on Eliquis 5mg BID and has continued on this for the past 3 years with no side effects or complaints. No easy bruising or bleeding. No family history of DVT/PE. Nonsmoker. MEDICATIONS: Current Outpatient Medications Medication Sig losartan (COZAAR) 100 mg tablet Take 1 tablet by mouth once daily. apixaban (ELIQUIS) 5 mg tab(s) Take 1 tablet by mouth twice daily. atorvastatin (LIPITOR) 80 mg tablet Take 1 tablet by mouth once daily. metFORMIN (GLUCOPHAGE) 1,000 mg tablet Take 1 tablet by mouth twice daily with meals. dapagliflozin (FARXIGA) 10 mg tablet Take 1 tablet by mouth once daily. Take one daily in the morning hydroCHLOROthiazide (HYDRODIURIL, ESIDRIX) 25 mg tablet Take 1 tablet by mouth once daily. Per cardio, Dr. Delaney No current facility-administered medications for this visit. . ALLERGIES: ALLERGIES Allergen Reactions Lindy Inhibitors Cough . PAST MEDICAL HISTORY: PAST MEDICAL HISTORY Diagnosis Date Pulmonary embolus (HCC) 08/23/2019 Pulmonary HTN (HCC) 08/23/2019 Right ventricular enlargement 08/23/2019 Type 2 diabetes mellitus without complication (HCC) 08/23/2019 Wrist fracture 2014 left . PAST SURGICAL HISTORY: PAST SURGICAL HISTORY Procedure Laterality Date TONSILLECTOMY HX 1979 . FAMILY HISTORY: FAMILY HISTORY Problem Relation Age of Onset Diabetes Mother Hypertension Mother Diabetes Father Hypertension Father Diabetes Maternal Grandmother Diabetes Maternal Grandfather Diabetes Paternal Grandfather . SOCIAL HISTORY: Social History Tobacco Use Smoking status: Never Smoker Smokeless tobacco: Never Used Vaping Use Vaping Use: Never used Substance Use Topics Alcohol use: Never Drug use: Never REVIEW OF SYSTEMS: CONSTITUTIONAL: No fevers, chills, nightsweats, unintended weight loss HEENT: Denies frequent or severe heaches, nasal congestion/sinus symptoms, problematic allergy problems. EYES: No diplopia or blurry vision. CARDIOVASCULAR: No chest pain, dyspnea, palpitations, orthopnea, PND, ankle edema. PULM: No dyspnea, unexplained cough. GI: No dysphagia/odynophagia, problematic reflux, constipation, diarrhea, changes in stool habits, hematochezia, melena. : No new urinary complaints, including dysuria, gross hematuria or pyuria. NEURO: No new balance problems, peripheral weakness/paresthesias or numbness of concern. MUSC-SKEL: No new joint pain, swelling, or erythema. PSY: No concerns regarding depression, anxiety or panic. INTEGUMENTARY: No new skin changes (rash, new or changing mole, new growth) PHYSICAL EXAMINATION: HEENT: Head is normocephalic, atraumatic. Sclerae white, conjunctivae pink. PEERL. EOMs are intact. Oropharynx is benign. LYMPHATICS: There is no palpable adenopathy in the neck, supraclavicular region, axillae, or groin. LUNGS: Lungs are clear to percussion and auscultation. HEART: Heart is normal without murmurs, gallops, or rubs. ABDOMEN: Soft and nontender without organomegaly. No masses can be palpated. EXTREMITIES: Are without edema. NEUROLOGIC: Exam is physiologic IMAGING: N/a ASSESSMENT: Poppy Neff is a 51 year old male with a history of an unprovoked PE in 2019, currently on Eliquis. PLAN: - We discussed his unprovoked pulmonary embolism, diagnosed in 2019. He has been on anti cougulation since then. He has no risk factors for recurrent DVT/PE, so we discussed obtaining a D-dimer for evaluation. If this is normal, he may stop Eliquis. We will obtain a hypercoagulable panel in 2 weeks following cessation of Eliquis to rule out any hereditary causes of hypercoagulability. - Follow-up in a month to discuss results By signing my name below, I, [place], attest that this documentation has be prepared under the direction and in the presence of Dr. Cristian Patten Electronically signed, [place], MARICELS III January 17, 2022 3:01 PM documented in this encounter [facility] 01-17-2022 Nurse Note New pat. Discuss recent lab results. DX: PE Devika Beckett LPN documented in this encounter [facility] 08-23-2019 History of Past i llness Narrative Problem Noted Date Resolved Date Right ventricular enlargement 08/23/2019 Overview: Suspected secondary to significant PE- aug 2019 Pulmonary HTN 08/23/2019 08/29/2020 Overview: Suspected secondary to significant PE- aug 2019 documented as of this encounter (statuses as of 01/18/2022) [facility] History of Past illness Narrative* Problem Noted Date Resolved Date Right ventricular enlargement 08/23/2019 Overview: Suspected secondary to significant PE- aug 2019 Pulmonary HTN 08/23/2019 08/29/2020 Overview: Suspected secondary to significant PE- aug 2019 Pulmonary arterial hypertension 08/15/2019 09/23/2022 Overview: Seeing Dr. Delaney documented as of this encounter (statuses as of 09/23/2022) [facility] History of Past illness Narrative* Problem Noted Date Resolved Date Right ventricular enlargement 08/23/2019 Overview: Suspected secondary to significant PE- aug 2019 Pulmonary HTN 08/23/2019 08/29/2020 Overview: Suspected secondary to significant PE- aug 2019 Pulmonary arterial hypertension 08/15/2019 09/23/2022 Overview: Seeing Dr. Delaney documented as of this encounter (statuses as of 09/24/2022) [facility] History of Past illness Narrative* Problem Noted Date Resolved Date Right ventricular enlargement 08/23/2019 Overview: Suspected secondary to significant PE- aug 2019 Pulmonary HTN 08/23/2019 08/29/2020 Overview: Suspected secondary to significant PE- aug 2019 Pulmonary arterial hypertension 08/15/2019 09/23/2022 Overview: Seeing Dr. Delaney documented as of this encounter (statuses as of 10/06/2022) [facility] History of Past illness Narrative* Problem Noted Date Resolved Date Right ventricular enlargement 08/23/2019 Overview: Suspected secondary to significant PE- aug 2019 Pulmonary HTN 08/23/2019 08/29/2020 Overview: Suspected secondary to significant PE- aug 2019 Pulmonary arterial hypertension 08/15/2019 09/23/2022 Overview: Seeing Dr. Delaney documented as of this encounter (statuses as of 10/07/2022) [facility] of Past illness Narrative* Problem Noted Date Resolved Date Right ventricular enlargement 08/23/2019 Overview: Suspected secondary to significant PE- aug 2019 Pulmonary HTN 08/23/2019 08/29/2020 Overview: Suspected secondary to significant PE- aug 2019 Pulmonary arterial hypertension 08/15/2019 09/23/2022 Overview: Seeing Dr. Delaney documented as of this encounter (statuses as of 11/12/2022) [facility] of Past illness Narrative* Problem Noted Date Resolved Date Right ventricular enlargement 08/23/2019 Overview: Suspected secondary to significant PE- aug 2019 Pulmonary HTN 08/23/2019 08/29/2020 Overview: Suspected secondary to significant PE- aug 2019 Pulmonary arterial hypertension 08/15/2019 09/23/2022 Overview: Seeing Dr. Delaney documented as of this encounter (statuses as of 03/31/2023) [facility] of Past illness Narrative* Problem Noted Date Resolved Date Right ventricular enlargement 08/23/2019 Overview: Suspected secondary to significant PE- aug 2019 Pulmonary HTN 08/23/2019 08/29/2020 Overview: Suspected secondary to significant PE- aug 2019 Pulmonary arterial hypertension 08/15/2019 09/23/2022 Overview: Seeing Dr. Delaney documented as of this encounter (statuses as of 03/31/2023) [facility] of Past illness Narrative* Problem Noted Date Diagnosed Date Resolved Date Right ventricular enlargement 08/23/2019 08/29/2020 Overview: Suspected secondary to significant PE- aug 2019 Pulmonary HTN 08/23/2019 08/29/2020 Overview: Suspected secondary to significant PE- aug 2019 Pulmonary arterial hypertension 08/15/2019 09/23/2022 Overview: Seeing Dr. Delaney documented as of this encounter (statuses as of 04/15/2023) [facility] of Past illness Narrative* Problem Noted Date Diagnosed Date Resolved Date Right ventricular enlargement 08/23/2019 08/29/2020 Overview: Suspected secondary to significant PE- aug 2019 Pulmonary HTN 08/23/2019 08/29/2020 Overview: Suspected secondary to significant PE- aug 2019 Pulmonary arterial hypertension 08/15/2019 09/23/2022 Overview: Seeing Dr. Delaney documented as of this encounter (statuses as of 04/17/2023) [facility] of Past illness Narrative* Problem Noted Date Diagnosed Date Resolved Date Right ventricular enlargement 08/23/2019 08/29/2020 Overview: Suspected secondary to significant PE- aug 2019 Pulmonary HTN 08/23/2019 08/29/2020 Overview: Suspected secondary to significant PE- aug 2019 Pulmonary arterial hypertension 08/15/2019 09/23/2022 Overview: Seeing Dr. Delaney documented as of this encounter (statuses as of 06/19/2023) [facility] of Past illness Narrative* Problem Noted Date Diagnosed Date Resolved Date Pulmonary embolus 08/23/2019 01/16/2024 Overview: Aug 2019. On eliquis retirement. Seeing Dr. Delaney Right ventricular enlargement 08/23/2019 08/29/2020 Overview: Suspected secondary to significant PE- aug 2019 Pulmonary HTN 08/23/2019 08/29/2020 Overview: Suspected secondary to significant PE- aug 2019 Pulmonary arterial hypertension 08/15/2019 09/23/2022 Overview: Seeing Dr. Delaney documented as of this encounter (statuses as of 01/16/2024) [facility] of Past illness Narrative* Problem Noted Date Diagnosed Date Resolved Date Pulmonary embolus 08/23/2019 01/16/2024 Overview: Aug 2019. On eliquis retirement. Seeing Dr. Delaney Right ventricular enlargement 08/23/2019 08/29/2020 Overview: Suspected secondary to significant PE- aug 2019 Pulmonary HTN 08/23/2019 08/29/2020 Overview: Suspected secondary to significant PE- aug 2019 Pulmonary arterial hypertension 08/15/2019 09/23/2022 Overview: Seeing Dr. Delaney documented as of this encounter (statuses as of 01/19/2024) [facility] of Past illness Narrative* Problem Noted Date Diagnosed Date Resolved Date Pulmonary embolus 08/23/2019 01/16/2024 Overview: Aug 2019. 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 Seeing Dr. Delaney Right ventricular enlargement 08/23/2019 08/29/2020 Overview: Suspected secondary to significant PE- aug 2019 Pulmonary HTN 08/23/2019 08/29/2020 Overview: Suspected secondary to significant PE- aug 2019 Pulmonary arterial hypertension 08/15/2019 09/23/2022 Overview: Seeing Dr. 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 inspector current use of anticoagulant therapy Long-term (current) use of anticoagulants documented in this encounter [facility] note* Diagnosis Well adult exam- Primary Routine general medical examination at a health care facility Type 2 diabetes mellitus without complication, unspecified whether long term care social worker insulin use (HCC) Hypertension, essential Unspecified essential hypertension Hyperlipidemia, mixed Mixed hyperlipidemia Sinus tachycardia by electrocardiography Right ventricular systolic dysfunction Heart disease, unspecified Pulmonary arterial hypertension (HCC) Other chronic pulmonary heart diseases Need for vaccination Need for prophylactic vaccination and inoculation against unspecified single disease History of pulmonary embolism Personal history of pulmonary embolism PASTOR (dyspnea on exertion) Other dyspnea and respiratory abnormality Screening for colon cancer Special screening for malignant neoplasms, colon Screening for prostate cancer Special screening for malignant neoplasm of prostate [facility] Diagnosis Type 2 diabetes mellitus without complication, unspecified whether retirement insulin use (HCC)- Primary [facility] Diagnosis Type 2 diabetes mellitus without complication, unspecified whether retirement insulin use (HCC)- Primary documented in this encounter [facility] note* Diagnosis Encounter for screening for malignant neoplasm of colon- Primary Special screening for malignant neoplasms, colon [facility] Diagnosis Lyme disease, unspecified [A69.20 (ICD-10-CM)]- Primary Encounter for screening examination for infectious disease [Z11.9 (ICD-10-CM)] [facility] Diagnosis Rash- Primary Rash and other nonspecific skin eruption Arthralgia, unspecified joint [facility] Diagnosis Hypertension, essential- Primary Unspecified essential hypertension Hyperlipidemia, mixed Mixed hyperlipidemia Type 2 diabetes mellitus without complication, unspecified whether long term care social worker insulin use (HCC) Sinus tachycardia by electrocardiography Obesity, Class III, BMI 40-49.9 (morbid obesity) (HCC) Morbid obesity [facility] Diagnosis Elevated factor VIII level [facility] Diagnosis Well adult exam- Primary Routine general medical examination at a health care facility Type 2 diabetes mellitus without complication, unspecified whether long term care social worker insulin use (HCC) Hypertension, essential Unspecified essential hypertension Hyperlipidemia, mixed Mixed hyperlipidemia Screening for prostate cancer Special screening for malignant neoplasm of prostate Obesity, Class III, BMI 40-49.9 (morbid obesity) (HCC) Morbid obesity History of pulmonary embolism Personal history of pulmonary embolism History of non-ST elevation myocardial infarction (NSTEMI) Old myocardial infarction Cardiomyopathy, unspecified type (HCC) Screening for colon cancer Special screening for malignant neoplasms, colon [facility] Diagnosis Type 2 diabetes mellitus without retinopathy (HCC)- Primary Type II or unspecified type diabetes mellitus without mention of complication, not stated as uncontrolled Dry eye syndrome of both eyes documented in this encounter [facility] note* Diagnosis Hypertension, essential Unspecified essential hypertension documented in this encounter [facility] note* Diagnosis Type 2 diabetes mellitus without complication, unspecified whether retirement insulin use (HCC)- Primary Type 2 diabetes mellitus without retinopathy (HCC) Type II or unspecified type diabetes mellitus without mention of complication, not stated as uncontrolled Hyperlipidemia, mixed Mixed hyperlipidemia Hypertension, essential Unspecified essential hypertension History of non-ST elevation myocardial infarction (NSTEMI) Old myocardial infarction Cardiomyopathy, unspecified type (HCC) Obesity, Class III, BMI 40-49.9 (morbid obesity) (HCC) Morbid obesity documented in this encounter [facility] note* Diagnosis Screening for colon cancer Special screening for malignant neoplasms, colon documented in this encounter [facility] note* Diagnosis Microalbuminuria- Primary Proteinuria Polycythemia Polycythemia vera documented in this encounter [facility] note* Diagnosis Viral URI with cough- Primary Acute upper respiratory infections of unspecified site Post-nasal drainage Unspecified sinusitis (chronic) documented in this encounter [facility] for referral (narrative)* Outpatient Procedure (Routine) - Pending Review Specialty Diagnoses / Procedures Referred By Rina t Referred To Contact [facility] Diagnoses Screening for colon cancer Procedures COLONOSCOPY SCREENING COLONOSCOPY FLX DX W/COLLJ SPEC WHEN Medina Lay APRN.CNP [address] [place] [address] [facility] [address] [place] [address] Referral ID Status Reason Start Date Expiration Date Visits Requested Visits Authorized [id number] Pending Review Auto-Generat ed Referral 10/18/2024 10/18/[address] [facility] Summary Purpose Family History No Family History Records FoundNo Family History Records FoundNo Family History Records FoundNo Family History Records Found Advance Directives No Advanced Directives Records FoundNo Advanced Directives Records FoundNo Advanced Directives Records FoundNo Advanced Directives Records Found Reason for Referral Specialty Diagnoses / Procedures Referred By Contac t Referred To Contact General Surgery Diagnoses Other acute pulmonary embolism with acute cor pulmonale (HCC) Procedures CONSULT TO GENERAL SURGERY OFFICE/OUTPATIENT [facility] MDM 60-74 MINUTES Cristian Patten MD [address] [place] [address] [facility] [address] [place] [address] Referral ID Status Reason Start Date Expiration Date Visits Requested Visits Authorized [id number] Authorized PCP Requested Referral 01/17/2022 01/17/2023 1 1 Specialty Diagnoses / Procedures Referred By Contac t Referred To Contact General Surgery Diagnoses Screening for colon cancer Procedures CONSULT TO GENERAL SURGERY OFFICE/OUTPATIENT [facility] MDM 60-74 MINUTES Palmer Casillas MD [address] [place] [address] Referral ID Status Reason Start Date Expiration Date Visits Requested Visits Authorized [id number] Authorized PCP Requested Referral 09/23/2023 1 1 Specialty Diagnoses / Procedures Referred By Contac t Referred To Contact General Surgery Diagnoses Screening for colon cancer Procedures CONSULT TO GENERAL SURGERY OFFICE/OUTPATIENT [facility] 60 MINUTES Laura Nash PA-C [address] [place] [address] Referral ID Status Reason Start Date Expiration Date Visits Requested Visits Authorized [id number] Authorized PCP Requested Referral 01/16/2024 01/15/2025 1 1 Specialty Diagnoses / Procedures Referred By Contac t Referred To Contact Ophthalmology Diagnoses Type 2 diabetes mellitus without complication, unspecified whether long term care social worker insulin use (HCC) Procedures CONSULT TO OPHTHALMOLOGY OFFICE/OUTPATIENT [facility] 60 MINUTES Laura Nash PA-C [address] [place] [address] Referral ID Status Reason Start Date Expiration Date Visits Requested Visits Authorized [id number] Authorized PCP Requested Referral 01/16/2024 01/15/2025 1 1 Additional Source Comments (unrecognized sect ion and content) No Status Records FoundNo Status Records FoundNo Status Records FoundNo Status Records Found INFORMATION SOURCE (unrecogn ized section and content) DATE CREATED AUTHOR 12/04/2018 [facility] DATE CREATED AUTHOR AUTHOR'S ORGANIZ ATION 04/02/2023 [facility] DATE CREATED AUTHOR AUTHOR'S ORGANIZ ATION 09/26/2024 [facility] DATE CREATED AUTHOR AUTHOR'S ORGANIZ ATION 03/03/2025 [facility] Source Comments (unrecognize d section and content) In the event this informatio n is protected by the Federal Confidentiality of Alcohol and Drug Abuse Patient Records regulations: The Federal rules restrict any use of the information to criminally investigate or prosecute any alcohol or drug abuse patient.[facility] the event this information is protected by the Federal Confidentiality of Alcohol and Drug Abuse Patient Records regulations: The Federal rules restrict any use of the information to criminally investigate or prosecute any alcohol or drug abuse patient.[facility] Hospital[facility] the event this information is protected by the Federal Confidentiality of Alcohol and Drug Abuse Patient Records regulations: The Federal rules restrict any use of the information to criminally investigate or prosecute any alcohol or drug abuse patient.[facility] Hospital[facility] the event this information is protected by the Federal Confidentiality of Alcohol and Drug Abuse Patient Records regulations: The Federal rules restrict any use of the information to criminally investigate or prosecute any alcohol or drug abuse patient.[facility] HospitalIn the event this information is protected by the Federal Confidentiality of Alcohol and Drug Abuse Patient Records regulations: The Federal rules restrict any use of the information to criminally investigate or prosecute any alcohol or drug abuse patient.[facility] HospitalIn the event this information is protected by the Federal Confidentiality of Alcohol and Drug Abuse Patient Records regulations: The Federal rules restrict any use of the information to criminally investigate or prosecute any alcohol or drug abuse patient.[facility] HospitalIn the event this information is protected by the Federal Confidentiality of Alcohol and Drug Abuse Patient Records regulations: The Federal rules restrict any use of the information to criminally investigate or prosecute any alcohol or drug abuse patient.[facility] HospitalIn the event this information is protected by the Federal Confidentiality of Alcohol and Drug Abuse Patient Records regulations: The Federal rules restrict any use of the information to criminally investigate or prosecute any alcohol or drug abuse patient.[facility] HospitalIn the event this information is protected by the Federal Confidentiality of Alcohol and Drug Abuse Patient Records regulations: The Federal rules restrict any use of the information to criminally investigate or prosecute any alcohol or drug abuse patient.[facility] HospitalIn the event this information is protected by the Federal Confidentiality of Alcohol and Drug Abuse Patient Records regulations: The Federal rules restrict any use of the information to criminally investigate or prosecute any alcohol or drug abuse patient.[facility] HospitalIn the event this information is protected by the Federal Confidentiality of Alcohol and Drug Abuse Patient Records regulations: The Federal rules restrict any use of the information to criminally investigate or prosecute any alcohol or drug abuse patient.[facility] HospitalIn the event this information is protected by the Federal Confidentiality of Alcohol and Drug Abuse Patient Records regulations: The Federal rules restrict any use of the information to criminally investigate or prosecute any alcohol or drug abuse patient.[facility] HospitalIn the event this information is protected by the Federal Confidentiality of Alcohol and Drug Abuse Patient Records regulations: The Federal rules restrict any use of the information to criminally investigate or prosecute any alcohol or drug abuse patient.[facility] HospitalIn the event this information is protected by the Federal Confidentiality of Alcohol and Drug Abuse Patient Records regulations: The Federal rules restrict any use of the information to criminally investigate or prosecute any alcohol or drug abuse patient.[facility] HospitalIn the event this information is protected by the Federal Confidentiality of Alcohol and Drug Abuse Patient Records regulations: The Federal rules restrict any use of the information to criminally investigate or prosecute any alcohol or drug abuse patient.[facility] HospitalIn the event this information is protected by the Federal Confidentiality of Alcohol and Drug Abuse Patient Records regulations: The Federal rules restrict any use of the information to criminally investigate or prosecute any alcohol or drug abuse patient.[facility] HospitalIn the event this information is protected by the Federal Confidentiality of Alcohol and Drug Abuse Patient Records regulations: The Federal rules restrict any use of the information to criminally investigate or prosecute any alcohol or drug abuse patient.[facility] HospitalIn the event this information is protected by the Federal Confidentiality of Alcohol and Drug Abuse Patient Records regulations: The Federal rules restrict any use of the information to criminally investigate or prosecute any alcohol or drug abuse patient.[facility] HospitalIn the event this information is protected by the Federal Confidentiality of Alcohol and Drug Abuse Patient Records regulations: The Federal rules restrict any use of the information to criminally investigate or prosecute any alcohol or drug abuse patient.[facility] HospitalIn the event this information is protected by the Federal Confidentiality of Alcohol and Drug Abuse Patient Records regulations: The Federal rules restrict any use of the information to criminally investigate or prosecute any alcohol or drug abuse patient.[facility] HospitalIn the event this information is protected by the Federal Confidentiality of Alcohol and Drug Abuse Patient Records regulations: The Federal rules restrict any use of the information to criminally investigate or prosecute any alcohol or drug abuse patient.[facility] HospitalIn the event this information is protected by the Federal Confidentiality of Alcohol and Drug Abuse Patient Records regulations: The Federal rules restrict any use of the information to criminally investigate or prosecute any alcohol or drug abuse patient.[facility] HospitalIn the event this information is protected by the Federal Confidentiality of Alcohol and Drug Abuse Patient Records regulations: The Federal rules restrict any use of the information to criminally investigate or prosecute any alcohol or drug abuse patient.[facility] HospitalIn the event this information is protected by the Federal Confidentiality of Alcohol and Drug Abuse Patient Records regulations: The Federal rules restrict any use of the information to criminally investigate or prosecute any alcohol or drug abuse patient.[facility] HospitalIn the event this information is protected by the Federal Confidentiality of Alcohol and Drug Abuse Patient Records regulations: The Federal rules restrict any use of the information to criminally investigate or prosecute any alcohol or drug abuse patient.[facility] Reason for Visit (unrecogniz ed section and content) Reason Comments New Patient Specialty Diagnoses / Procedures Referred By Contac t Referred To Contact Hematology Diagnoses Other acute pulmonary embolism with acute cor pulmonale (HCC) skilled nursing current use of anticoagulant therapy Procedures CONSULT TO HEMATOLOGY OFFICE/OUTPATIENT [facility] 60-74 MINUTES Laura Nash PA-C [address] [place] [address] Referral ID Status Reason Start Date Expiration Date V isits Requested Visits Authorized [id number] Closed PCP Requested Referral 12/24/2021 12/24/2022 1 1 Reason Comments Physical Reason Comments Results Reason Comments Education Of Patient/family Self-injecti on teaching; Victoza Reason Comments Orders Reason Comments Consult colonoscopy Specialty Diagnoses / Procedures Referred By Contac t Referred To Contact General Surgery Diagnoses Other acute pulmonary embolism with acute cor pulmonale (HCC) Procedures CONSULT TO GENERAL SURGERY OFFICE/OUTPATIENT [facility] 60-74 MINUTES Cristian Patten MD [address] [place] [address] [facility] [address] [place] [address] Referral ID Status Reason Start Date Expiration Date V isits Requested Visits Authorized [id number] Closed PCP Requested Referral 01/17/2022 01/17/2023 1 1 Reason Comments 6 Month Exam Reason Onset Date Comments Refill Request 06/19/2023 Reason Comments Yearly Exam Reason Comments Diabetes Specialty Diagnoses / Procedures Referred By Contac t Referred To Contact Ophthalmology Diagnoses Type 2 diabetes mellitus without complication, unspecified whether long term care social worker insulin use (HCC) Procedures CONSULT TO OPHTHALMOLOGY OFFICE/OUTPATIENT [facility] MDM 60 MINUTES Laura Nash PA-C [address] [place] [address] Referral ID Status Reason Start Date Expiration Date V isits Requested Visits Authorized [id number] Closed PCP Requested Referral 01/16/2024 01/15/2025 1 1 Reason Onset Date Comments Refill Request 02/02/2024 Reason Onset Date Comments Refill Request 07/16/2024 Reason Comments Medication Problem Reason Comments Surgical Consult colonoscopy Reason Comments Insurance Authorization Reason Comments outside Cardiology Reason Comments Consult Colonoscopy, no prio r colonoscopy Specialty Diagnoses / Procedures Referred By Contac t Referred To Contact General Surgery Diagnoses Screening for colon cancer Procedures CONSULT TO GENERAL SURGERY OFFICE/OUTPATIENT [facility] 60 MINUTES Laura Nash PA-C [address] [place] [address] Referral ID Status Reason Start Date Expiration Date V isits Requested Visits Authorized [id number] Closed PCP Requested Referral 01/16/2024 01/15/2025 1 1 Reason Comments Reschedule Colonoscopy Reason Comments Cough Chest congestion, ru nny nose, headache, sinus pressure and pain, SOB, x 2 days Care Teams (unrecognized sec tion and content) 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 Start Date End Date Palmer Casillas MD [address] [place], [place] [id number] PCP - General Family Practice 09/23/19 Maynor Sánchez [facility] [address] [place], [place] [id number] Pharmacist Pharmacy 12/12/21 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 Start Date End Date Palmer Casillas MD [address] [place], [place] [id number] PCP - General Family Medicine 09/23/19 Maynor Sánchez [facility] [address] [facility] [place] [address] Pharmacist Pharmacy 12/12/21 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 Start Date End Date Palmer Casillas MD [address] [facility] [place] [address] PCP - General Family Medicine 09/23/19 Maynor Sánchez, [facility] [address] [facility] [place] [address] Pharmacist Pharmacy 12/12/21 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 Start Date End Date Palmer Casillas MD [address] [facility] [place] [address] PCP - General Family Medicine 09/23/19 Maynor Sánchez, [facility] [address] [facility] [place] [address] Pharmacist Pharmacy 12/12/21 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 Start Date End Date Palmer Casillas MD [address] [facility] [place] [address] PCP - General Family Medicine 09/23/19 Maynor Sánchez, [facility] [address] [facility] [place] [address] Pharmacist Pharmacy 12/12/21 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 Start Date End Date Pamler Casillas MD [address] [facility] [place] [address] PCP - General Family Medicine 09/23/19 Maynor Sánchez, [facility] [address] [facility] [place] [address] Pharmacist Pharmacy 12/12/21 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 Start Date End Date Palmer Casillas MD [address] [facility] [place] [address] PCP - General Family Medicine 09/23/19 [facility] [address] [facility] [place] [address] Pharmacist Pharmacy 12/12/21 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 Start Date End Date Palmer Casillas MD [address] [facility] [place] [address] PCP - General Family Medicine 09/23/19 [facility] [address] [facility] [place] [address] Pharmacist Pharmacy 12/12/21 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 Start Date End Date Palmer Casillas MD [address] [facility] [place] [address] PCP - General Family Medicine 09/23/19 [facility] [address] [facility] [place] [address] Pharmacist Pharmacy 12/12/21 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 Start Date End Date Palmer Casillas MD [address] [facility] [place] [address] PCP - General Family Medicine 09/23/19 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 Start Date End Date Palmer Casillas MD [address] [facility] [place] [address] PCP - General Family Medicine 09/23/19 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 Start Date End Date Palmer Casillas MD [address] [facility] [place] [address] PCP - General Family Medicine 09/23/19 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 Start Date End Date Palmer Casillas MD [address] [place] [address] PCP - General Family Medicine 09/23/19 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 Start Date End Date Palmer Casillas MD [address] [place] [address] PCP - General Family Medicine 09/23/19 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 Start Date End Date Plamer Casillas MD [address] [place] [address] PCP - General Family Medicine 09/23/19 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 Start Date End Date Palmer Casillas MD [address] [place] [address] PCP - General Family Medicine 09/23/19 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 Start Date End Date Palmer Casillas MD [address] [place] [address] PCP - General Family Medicine 09/23/19 Vilma Nguyen APRN.CUSTOM HARVESTER [address] [place] [address] Press[facility]itter Family Medicine 09/11/24 Laura Nash PA-C [address] [place] [address] [facility] 09/11/24 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 Start Date End Date Palmer Casillas MD [address] [place] [address] PCP - General Family Medicine 09/23/19 Vilma Nguyen APRN.CUSTOM HARVESTER [address] [place] [address] [facility] 09/11/24 Laura Nash PA-C [address] [place] [address] [facility] 09/11/24 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 Start Date End Date Palmer Casillas MD [address] [place] [address] PCP - General Family Medicine 09/23/19 Vimla Nguyen APRN.CUSTOM HARVESTER [address] [place] [address] [facility] 09/11/24 Laura Nash PA-C [address] [place] [address] [facility] 09/11/24 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5 % 1 Drop (AK-DILATE, IRIS-SYNEPHRINE) 1 Drop, BOTH EYES, DIRECTED, Starting on Fri01/23/24 at 0900, Until Fri01/23/24 at 2058, Administer for dilation PROTECT FROM LIGHT, [facility] MED ORDERS Given 01/23/2024 9:00 AM EDT 1 Drop proparacaine 0.5 % 1 Drop (ALCAINE) 1 Drop, BOTH EYES, DIRECTED, Starting on Fri01/23/24 at 0900, Until Fri01/23/24 at 2058, Administer for pneumo tonometry, tonopen tonometry, or pachymetry. In the event of a proparacaine shortage, administer tetracaine 0.5% ophthalmic drops 1 drop in both eyes as directed for pneumo tonometry, tonopen tonometry, or pachymetry, [facility] MED ORDERS Given 01/23/2024 9:00 AM EDT 1 Drop tropicamide 1 % 1 Drop (MYDRIACYL) 1 Drop, BOTH EYES, DIRECTED, Starting on Fri01/23/24 at 0900, Until Fri01/23/24 at 2058, Administer for dilation, [facility] CL[facility]IC MED ORDERS Given 01/23/2024 9:00 AM EDT 1 Drop FOR RECORDS PERTAINING TO PATIENTS WHO ARE OR HAVE BEEN ENROLLED IN A CHEMICAL DEPENDENCY/SUBSTANCEABUSE PROGRAM, SOME INFORMATION MAY BE OMITTED. This clinical summary was aggregated from multiple sources. Caution should be exercised in using it in the provision of clinical care. This summary normalizes information from multiple sources, and as a consequence, information in this document may materially change the coding, format and clinical context of patient data. In addition, data may be omitted in some cases. CLINICAL DECISIONS SHOULD BE BASED ON THE PRIMARY CLINICAL RECORDS. [employer] provides no warranty or guarantee of the accuracy or completeness of information in this document.
[2025-03-10] MEDS: Atorvastatin Calcium 80 MG Tablet PO (21:08)
--- OUTSIDE RECORDS SUMMARY | 2025-03-10 21:47 | XMS RPT_ITS | CCD ---
Author Organization [facility] Care Team Providers Care Sports Equipment Repairer Name Role Phone DEBORAH ZURITA Attending Unavailable DEBORAH ZURITA Referring Unavailable Palmer Casillas MD Primary Care Provider [phone] [facility], [place] Unavailable Palmer Casillas MD Primary Care Provider [facility], [place] Unavailable JG VELA DO Admitting Unavailable ALTON WATERS DO Referring Unavailable ALTON WATERS DO Consulting Unavailable JG VELA DO Attending Unavailable JG VELA DO Primary Care Unavailable PROVIDER, UNKNOWN Consulting Unavailable Palmer Casillas MD Primary Care Provider Palmer Casillas MD Primary Care Provider Vilma Nguyen APRN.CNP Unavailable Laura Nash PA-C Unavailable Palmer Casillas Primary Care Unavailable Karen Casillas NP Attending Unavailable Palmer Casillas Referring Unavailable Palmer Casillas Primary Care Unavailable Clint Camarena NP Attending Unavailable Palmer Casillas Referring Unavailable Palmer Casillas Primary Care Unavailable Karen Casillas NP Attending Unavailable Palmer Casillas Referring Unavailable LAURA NASH Attending Unavailable PALMER CASILLAS Primary Care Unavailable PALMER CASILLSA A Primary Care Unavailable TAMMY PAZ Attending [...] Translations: [LINDY INHIBITORS] Drug Intolerance 9 [facility] Work Phone: (20 sources) Angiotensin-conv erting enzyme inhibitor agent Drug Intolerance 9 [facility] Work Phone: (1 source) Lisinopril Drug Allergy 4 [facility] Repository Medications Current Medications Medication Drug [...] 2 diabetes mellitus without complication, unspecified whether group home insulin use (HCC) Take 1 tablet by mouth two times a day with meals. 60 tablet 5 02/25/2025 Active Start: 08-23-2022 End: 07-30-2024 take 1 tablet by mouth twice daily at mealtime metFORMIN (GLUCOPHAGE) 1,000 mg tablet Indications: Type 2 diabetes mellitus without complication, unspecified whether intermediate project manager insulin use (HCC) Take 1 tablet by [...] 1 Drop (AK-DILATE, IRIS-SYNEPHRINE) polyethylene glycol 3350 345976 mg / potassium chloride 2970 mg / sodium bicarbonate 6740 mg / sodium chloride 5860 mg / sodium sulfate 32813 mg powder for oral solution (2 sources) [...] 2 diabetes mellitus without complication, unspecified whether intermediate project manager insulin use (HCC) Inject 1 mg subcutaneously [...] source) Long-term current use of anticoagulant; Translations: [correction (current) use of anticoagulants] Episodic Other and [...] Test Name Value Interpretation Reference Range Facility [facility] 03-03-2025 CNOV Office Visit (UCWSTR ) POPPY NEFF ([id number]) 1970 M Date Time Provider Department 03/03/25 10:00 AM TAMMY PAZ [facility]WSTR During your visit today, we recorded the following information about you: Temperature Pulse Respiration Blood pressure 97 degrees 97/minute 20/minute 106/75 Weight 121 kg Tammy Paz APRN.[facility] 03/03/2025 10:38 AM Signed [facility] [...] clear wi (more content not included)... Normal [facility] ALBUMIN/CREATININE RATIO, UR INEon 02-25-2025 Albumin DL <= 20 mg/L (U) [Mass/Vol] 47.2 mg/L Normal [facility] Comment on above: Order Comment: Speci men Type: URINE SPECIMENOrdering Facility: [facility] Address: [address] [place] [address] Performed By: #### U ACR ####[facility] LABCLIA [id number] [place] [id number] [place] Albumin/Creatinin e (U) [Mass ratio] 41 mg/g High <30 [facility] Comment on above: Order Comment: Speci men Type: URINE SPECIMENOrdering Facility: [facility] Address: [address] [place] [address] Result Comment: Adul t Male and Female Nephrotic Criteria: <30 mg/g is considered normal to mildly increased 30-300 mg/g is considered moderately increased >300 mg/g is considered severely increased KDIGO. (2013). KDIGO 2012 Clinical Practice Guideline for the Evaluation and Management of Chronic Kidney Disease. Official Journal of the International Society of Nephrology, 3(1), 1-150. Performed By: #### U ACR ####[facility] LABIA [id number] [place] [address] [place] Creatinine (U) [Mass/Vol] 115.9 mg/dL Normal 20.0-300.0 [facility] Comment on above: Order Comment: Speci men Type: URINE SPECIMENOrdering Facility: [facility] Address: [address] [place] [address] Performed By: #### U ACR ####[facility] LABIA [id number] [place] [address] [place] CBC W Auto Differential pane l (Bld)on 02-25-2025 Basophils (Bld) [#/Vol] 0.06 10*3/uL Normal <0.11 [facility] Comment on above: Order Comment: Speci men Type: BLOOD SPECIMENOrdering Facility: [facility] Address: [address] [place] [address] Performed By: #### 5 7021-8 ####[facility] LABIA [id number] [place] [address] [place] Basophils/100 WBC (Bld) 0.6 % Normal [facility] Comment on above: Order Comment: Speci men Type: BLOOD SPECIMENOrdering Facility: [facility] Address: [address] [place] [address] Performed By: #### 5 7021-8 ####[facility] LABCLIA [id number] [place] [address] [place] Differential cell count method Nom (Bld) Auto Normal [facility] Comment on above: Order Comment: Speci men Type: BLOOD SPECIMENOrdering Facility: [facility] Address: [address] [place] [address] Performed By: #### 5 7021-8 ####[facility] LABCLIA [id number] [place] [address] [place] Eosinophils (Bld) [#/Vol] 0.10 10*3/uL Normal <0.46 [facility] Comment on above: Order Comment: Speci men Type: BLOOD SPECIMENOrdering Facility: [facility] Address: [address] [place] [address] Performed By: #### 5 7021-8 ####[facility] LABCLIA [id number] [place] [address] [place] Eosinophils/100 WBC (Bld) 0.9 % Normal [facility] Comment on above: Order Comment: Speci men Type: BLOOD SPECIMENOrdering Facility: [facility] Address: [address] [place] [address] Performed By: #### 5 7021-8 ####[facility] LABCLIA [id number] [place] [address] [place] Erythrocyte distribution width (RBC) [Ratio] 14.0 % Normal 11.5-15.0 [facility] Comment on above: Order Comment: Speci men Type: BLOOD SPECIMENOrdering Facility: [facility] Address: [address] [place] [address] Performed By: #### 5 7021-8 ####[facility] LABCLIA [id number] [place] [address] [place] Hematocrit (Bld) [Volume fraction] 52.7 % High 39.0-51.0 [facility] Comment on above: Order Comment: Speci men Type: BLOOD SPECIMENOrdering Facility: [facility] Address: [address] [place] [address] Performed By: #### 5 7021-8 ####[facility] LABCLIA [id number] [place] [address] [place] Hemoglobin (Bld) [Mass/Vol] 17.8 g/dL High 13.0-17.0 [facility] Comment on above: Order Comment: Speci men Type: BLOOD SPECIMENOrdering Facility: [facility] Address: [address] [place] [address] Performed By: #### 5 7021-8 ####[facility] LABCLIA [id number] [place] [address] [place] Immature granulocytes (Bld) [#/Vol] 0.04 10*3/uL Normal <0.10 [facility] Comment on above: Order Comment: Speci men Type: BLOOD SPECIMENOrdering Facility: [facility] Address: [address] [place] [address] Performed By: #### 5 7021-8 ####[facility] LABCLIA [id number] [place] [address] [place] Immature granulocytes/100 WBC (Bld) 0.4 % Normal [facility] Comment on above: Order Comment: Speci men Type: BLOOD SPECIMENOrdering Facility: [facility] Address: [address] [place] [address] Performed By: #### 5 7021-8 ####[facility] LABCLIA [id number] [place] [address] [place] Lymphocytes (Bld) [#/Vol] 1.75 10*3/uL Normal 1.00-4.00 [facility] Comment on above: Order Comment: Speci men Type: BLOOD SPECIMENOrdering Facility: [facility] Address: [address] [place] [address] Performed By: #### 5 7021-8 ####[facility] LABIA [id number] [place] [address] [place] Lymphocytes/100 WBC (Bld) 16.1 % Normal [facility] Comment on above: Order Comment: Speci men Type: BLOOD SPECIMENOrdering Facility: [facility] Address: [address] [place] [address] Performed By: #### 5 7021-8 ####[facility] LABIA [id number] [place] [address] [place] MCH (RBC) [Entitic mass] 29.0 pg Normal 26.0-34.0 [facility] Comment on above: Order Comment: Speci men Type: BLOOD SPECIMENOrdering Facility: [facility] Address: [address] [place] [address] Performed By: #### 5 7021-8 ####[facility] [id number] [place] [address] [place] MCHC (RBC) [Mass/Vol] 33.8 g/dL Normal 30.5-36.0 [facility] Comment on above: Order Comment: Speci men Type: BLOOD SPECIMENOrdering Facility: [facility] Address: [address] [place] [address] Performed By: #### 5 7021-8 ####[facility] LABIA [id number] [place] [address] [place] MCV (RBC) [Entitic vol] 86.0 fL Normal 80.0-100.0 [facility] Comment on above: Order Comment: Speci men Type: BLOOD SPECIMENOrdering Facility: [facility] Address: [address] [place] [address] Performed By: #### 5 7021-8 ####[facility] LABIA [id number] [place] [address] [place] Monocytes (Bld) [#/Vol] 0.77 10*3/uL Normal <0.87 [facility] Comment on above: Order Comment: Speci men Type: BLOOD SPECIMENOrdering Facility: [facility] Address: [address] [place] [address] Performed By: #### 5 7021-8 ####[facility] LABCLIA [id number] [place] [address] [place] Monocytes/100 WBC (Bld) 7.1 % Normal [facility] Comment on above: Order Comment: Speci men Type: BLOOD SPECIMENOrdering Facility: [facility] Address: [address] [place] [address] Performed By: #### 5 7021-8 ####[facility] LABCLIA [id number] [place] [address] [place] Neutrophils (Bld) [#/Vol] 8.12 10*3/uL High 1.45-7.50 [facility] Comment on above: Order Comment: Speci men Type: BLOOD SPECIMENOrdering Facility: [facility] Address: [address] [place] [address] Performed By: #### 5 7021-8 ####[facility] LABCLIA [id number] [place] [address] [place] Neutrophils/100 WBC (Bld) 74.9 % Normal [facility] Comment on above: Order Comment: Speci men Type: BLOOD SPECIMENOrdering Facility: [facility] Address: [address] [place] [address] Performed By: #### 5 7021-8 ####[facility] LABCLIA [id number] [place] [id number] [place] Nucleated RBC (Bld) [#/Vol] 10*3/uL Normal <0.01 [facility] Comment on above: Order Comment: Speci men Type: BLOOD SPECIMENOrdering Facility: [facility] Address: [address] [place] [address] Performed By: #### 5 7021-8 ####[facility] LABCLIA [id number] [place] [address] [place] Nucleated RBC/100 WBC (Bld) [Ratio] 0.0 /100 WBC Normal [facility] Comment on above: Order Comment: Speci men Type: BLOOD SPECIMENOrdering Facility: [facility] Address: [address] [place] [address] Performed By: #### 5 7021-8 ####[facility] LABCLIA [id number] [place] [address] [place] Platelet mean volume (Bld) [Entitic vol] 10.1 fL Normal 9.0-12.7 [facility] Comment on above: Order Comment: Speci men Type: BLOOD SPECIMENOrdering Facility: [facility] Address: [address] [place] [address] Performed By: #### 5 7021-8 ####[facility] LABCLIA [id number] [place] [address] [place] Platelets (Bld) [#/Vol] 348 10*3/uL Normal 150-400 [facility] Comment on above: Order Comment: Speci men Type: BLOOD SPECIMENOrdering Facility: [facility] Address: [address] [place] [address] Performed By: #### 5 7021-8 ####[facility] LABCLIA [id number] [place] [address] [place] RBC (Bld) [#/Vol] 6.13 10*6/uL High 4.20-6.00 [facility] Comment on above: Order Comment: Speci men Type: BLOOD SPECIMENOrdering Facility: [facility] Address: [address] [place] [address] Performed By: #### 5 7021-8 ####[facility] LABCLIA [id number] [place] [id number] [place] WBC (Bld) [#/Vol] 10.84 10*3/uL Normal 3.70-11.00 [facility] Comment on above: Order Comment: Speci men Type: BLOOD SPECIMENOrdering Facility: [facility] Address: [address] [place] [address] Performed By: #### 5 7021-8 ####[facility] LABCLIA [id number] [place] [id number] [place] CNOVon 02-25-2025 CNOV Office Visit (FAMPWS ) POPPY NEFF ([id number]) 1970 M Date Time Provider Department 02/25/25 8:00 AM [facility] your visit today, we recorded [...] mg subcutaneously one time a week. Insulin [place], Disposable, (NOVOFINE 32) 32 gauge x 1/4 [...] monofilament, and (more content not included)... Normal [facility] 02-25-2025 [place] Telephone (INTMWS) POPPY NEFF ([id number]) 1970 M Date Time Provider Department 02/25/25 PALMER CASILLAS INTMWS During your visit today, we recorded the following information about you: Angelica Maher LPN 02/25/2025 8:42 AM Signed The office rec'd and completed a prior auth for ozempic. This was reviewed and approved. Prior authorization approved Payer: [facility] [phone] Note from payer: Request Reference Number: [id number]. OZEMPIC INJ 4MG/3ML is approved through 02/25/2026. Your patient may now fill this prescription and it will be covered. Approval Details Authorization number: [id number] Authorized from February 25, 2025 to February 25, 2026 Electronic appeal: Not supported View History Medication Being Authorized semaglutide (OZEMPIC) 1 mg/dose (4 mg/3 mL) pen Inject 1 mg subcutaneously one time a week. Dispense: 9 mL Refills: 1 Start: 02/25/2025 Class: Normal Diagnoses: Type 2 diabetes mellitus without complication, unspecified whether group home insulin use (HCC) This order has been released to its destination. To be filled at: [place] [id number] [address] [place] [address] Authorization number: [id number] Authorized from February 25, 2025 to February [...] Status:Closed by ANGELICA MAHER on 02/25/25 Normal [facility] Comprehensive metabolic 2000 panelon 02-25-2025 Albumin [Mass/Vol] 4.3 g/dL Normal 3.9-4.9 [facility] Comment on above: Order Comment: Speci men Type: BLOOD SPECIMENOrdering Facility: [facility] Address: [address] [place] [address] Performed By: #### 2 4331-1, 30694-7 ####[facility] LABCLIA [id number] [id number] [address] [place] ALP [Catalytic activity/Vol] 71 U/L Normal 38-113 [facility] Comment on above: Order Comment: Speci men Type: BLOOD SPECIMENOrdering Facility: [facility] Address: [address] [place] [id number] Performed By: #### 2 4331-1, ####[facility] LABCLIA [id number] [place] [address] [place] ALT [Catalytic activity/Vol] 20 U/L Normal 10-54 [facility] Comment on above: Order Comment: Speci men Type: BLOOD SPECIMENOrdering Facility: [facility] Address: [address] [place] [address] Performed By: #### 2 4331-1, ####[facility] LABCLIA [id number] [place] [address] [place] Anion gap [Moles/Vol] 15 mmol/L Normal 8-15 [facility] Comment on above: Order Comment: Speci men Type: BLOOD SPECIMENOrdering Facility: [facility] Address: [address] [place] [address] Performed By: #### 2 4331-1, ####[facility] LABCLIA [id number] [place] [address] [place] AST [Catalytic activity/Vol] 19 U/L Normal 14-40 [facility] Comment on above: Order Comment: Speci men Type: BLOOD SPECIMENOrdering Facility: [facility] Address: [address] [place], [place] [address] Performed By: #### 2 4331-1, ####[facility] LABCLIA [id number] [place] [id number] [place] Bilirubin [Mass/Vol] 0.7 mg/dL Normal 0.2-1.3 [facility] Comment on above: Order Comment: Speci men Type: BLOOD SPECIMENOrdering Facility: [facility] Address: [address] [place] [address] Performed By: #### 2 4331-1, 60474-5 ####[facility] LABCLIA [id number] [address] [address] [place] Calcium [Mass/Vol] 9.7 mg/dL Normal 8.5-10.2 [facility] Comment on above: Order Comment: Speci men Type: BLOOD SPECIMENOrdering Facility: [facility] Address: [address] [place] [address] Performed By: #### 2 4331-1, 32428-9 ####[facility] LABCLIA [id number] [place] [id number] [place] Chloride [Moles/Vol] 104 mmol/L Normal 98-107 [facility] Comment on above: Order Comment: Speci men Type: BLOOD SPECIMENOrdering Facility: [facility] Address: [address] [place] [address] Performed By: #### 2 4331-, 30119-8 ####[facility] LABCLIA [id number] [place] [id number] [place] CO2 [Moles/Vol] 21 mmol/L Low 22-30 [facility] Comment on above: Order Comment: Speci men Type: BLOOD SPECIMENOrdering Facility: [facility] Address: [address] [place], [place] [address] Performed By: #### 2 4331-, 60612-0 ####[facility] LABCLIA [id number] [address] [place] [address] [place] Creatinine [Mass/Vol] 1.13 mg/dL Normal 0.73-1.22 [facility] Comment on above: Order Comment: Speci men Type: BLOOD SPECIMENOrdering Facility: [facility] Address: [address] [place], [place] [address] Performed By: #### 2 4331-1, 92403-1 ####[facility] LABCLIA [id number] [place] [address] [place] Creatinine and Glomerular filtration rate.predicted panel (S/P/Bld) 78 mL/min/1.73m??? Normal >=60 [facility] Comment on above: Order Comment: Maicol godfrey Type: BLOOD SPECIMENOrdering Facility: [facility] Address: [address] [place] [address] Result Comment: Angelica mated Glomerular Filtration Rate [...] actual GFR. Performed By: #### 2 4331-1, 39693-2 ####[facility] [id number] [place] [address] [place] Glucose [Mass/Vol] 97 mg/dL Normal 74-99 [facility] Comment on above: Order Comment: Maicol godfrey Type: BLOOD SPECIMENOrdering Facility: [facility] Address: [address] [place] [address] Result Comment: The [place] Diabetes Association (ADA) provides guidance for cutoff [...] Standards of Medical Care in Diabetes 2016, [place] Diabetes Association. Diabetes Care. 2016.39(Suppl 1). Performed By: #### 2 4331-1, 37910-3 ####[facility] LABIA [id number] [address] [id number] [address] [place] Potassium [Moles/Vol] 4.6 mmol/L Normal 3.7-5.1 [facility] Comment on above: Order Comment: Speci men Type: BLOOD SPECIMENOrdering Facility: [facility] Address: [address] [place] [address] Performed By: #### 2 4331-1, 43727-4 ####[facility] LABCLIA [id number] [address] [address] [place] Protein [Mass/Vol] 7.3 g/dL Normal 6.3-8.0 [facility] Comment on above: Order Comment: Speci men Type: BLOOD SPECIMENOrdering Facility: [facility] Address: [address] [place] [address] Performed By: #### 2 4331-1, 41902-0 ####[facility] LABCLIA [id number] [place] [id number] [place] Sodium [Moles/Vol] 140 mmol/L Normal 136-144 [facility] Comment on above: Order Comment: Speci men Type: BLOOD SPECIMENOrdering Facility: [facility] Address: [address] [place] [address] Performed By: #### 2 4331-1, 10260-0 ####[facility] LABCLIA [id number] [address], [facility] [place] Urea nitrogen [Mass/Vol] 22 mg/dL Normal 9-24 [facility] Comment on above: Order Comment: Speci men Type: BLOOD SPECIMENOrdering Facility: [facility] Address: [address] [place], [place] [address] Performed By: #### 2 4331-1, 40275-6 ####[facility] LABCLIA [id number] [address] [place] [address] [place] HbA1c (Bld)on 02-25-2025 Average glucose Estimated from glycated hemoglobin (Bld) [Mass/Vol] 137 mg/dL Normal [facility] Comment on above: Order Comment: Soniai men Type: BLOOD SPECIMENOrdering Facility: [facility] Address: [address] [place] [address] Result Comment: eAG: (Estimated average glucose) is a calculated value from HgbA1c and is technical sales representatives of the average blood glucose level in the last 2-3 month period. Performed By: #### 5 5454-3 ####[facility] LABCLIA [id number] [place] [address] [place] HbA1c (Bld) [Mass fraction] 6.4 % High 4.3-5.6 [facility] Comment on above: Order Comment: Maicol men Type: BLOOD SPECIMENOrdering Facility: [facility] Address: [address] [place] [address] Result Comment: [place] Diabetes Association guidelines indicate that patients with HgbA1c in the range 5.7-6.4% are at increased risk for development of diabetes, and intervention by lifestyle modification may be beneficial. HgbA1c greater or equal to 6.5% is considered diagnostic of diabetes. Performed By: #### 5 5454-3 ####[facility] LABCLIA [id number] [place] [address] [place] Lipid 1996 panelon 5 Cholesterol [Mass/Vol] 104 mg/dL Normal <200 [facility] Comment on above: Order Comment: Soniai men Type: BLOOD SPECIMENOrdering Facility: [facility] Address: [address] [place] [address] Result Comment: <200 mg/dL, Desirable 200-239 mg/dL, Borderline high >239 mg/dL, High Performed By: #### 2 4331-1, 85896-4 ####[facility] LABCLIA [id number] [place] [address] [place] Cholesterol in HDL [Mass/Vol] 36 mg/dL Low >39 [facility] Comment on above: Order Comment: Soniai men Type: BLOOD SPECIMENOrdering Facility: [facility] Address: [address] [place], [place] [address] Result Comment: 40-5 9 mg/dL, Acceptable >59 mg/dL, High: Negative risk factor for coronary heart disease <40 mg/dL, Low: Positive risk factor for coronary heart disease Performed By: #### 2 433-, ####[facility] LABCLIA [id number] [address] [address] [place] Cholesterol in LDL [Mass/Vol] 51 mg/dL Normal <100 [facility] Comment on above: Order Comment: Speci men Type: BLOOD SPECIMENOrdering Facility: [facility] Address: [address] [place] [address] Result Comment: <100 mg/dL, Optimal 100-129 mg/dL, Near optimal/above optimal 130-159 mg/dL, Borderline high 160-189 mg/dL, High >189 mg/dL, Very high Secondary prevention optimal LDL Cholesterol levels are recommended to be <70 mg/dL LDL cholesterol is calculated using the Hernández-NIH equation. Performed By: #### 2 4330-10, ####[facility] [facility] LABCLIA [id number] [place] [id number] [place] Cholesterol in LDL/Cholesterol in HDL [Mass ratio] 1.42 {ratio} Normal <2.54 [facility] Comment on above: Order Comment: Speci men Type: BLOOD SPECIMENOrdering Facility: [facility] Address: [address] [place] [address] Result Comment: Hiral luo: 1. National Cholesterol Education Program ATP III Guideline At-A-Glance Quick Desk Reference: National Heart, Lung, and Blood [place]. National Institutes of Health. 2001: NIH Publication No. 01-3305. 2. An International Atherosclerosis Society position paper: global recommendations for the management of dyslipidemia: executive summary, Atherosclerosis. 2014: 232(2):410-413. Performed By: #### 2 433-, ####[facility] LABIA [id number] [address] [address] [place] Cholesterol in VLDL [Mass/Vol] 12 mg/dL Normal <30 [facility] Comment on above: Order Comment: Speci men Type: BLOOD SPECIMENOrdering Facility: [facility] Address: [address] [place], [place] [address] Performed By: #### 2 433-, ####[facility] LABCLIA [id number] [address] [id number], [place] [address] [place] Cholesterol non HDL [Mass/Vol] 68 mg/dL Normal <130 [facility] Comment on above: Order Comment: Speci men Type: BLOOD SPECIMENOrdering Facility: [facility] Address: [address] [place] [address] Result Comment: <130 mg/dL, Optimal 130-159 mg/dL, Near optimal/above optimal 160-189 mg/dL, Borderline high 190-219 mg/dL, High >219 mg/dL, Very high Secondary prevention optimal non HDL Cholesterol levels are recommended to be <100 mg/dL Performed By: #### 2 433-, ####[facility] LABCLIA [id number] [facility] AV[facility]UEH[facility]ENT[facility] [id number], [place] [address] [place] Cholesterol.total /Cholesterol in HDL [Mass ratio] 2.89 {ratio} Normal <5.10 [facility] Comment on above: Order Comment: Speci men Type: BLOOD SPECIMENOrdering Facility: [facility] Address: [address] [place], [place] [address] Performed By: #### 2 433-, ####[facility] LABCLIA [id number] [address] [id number], [place] [address] [place] FASTING TIME 12 hrs Normal [facility] Comment on above: Order Comment: Speci men Type: BLOOD SPECIMENOrdering Facility: [facility] Address: [address] [place], [place] [address] Performed By: #### 2 4331-, ####[facility] LABCLIA [id number] [id number], [place] [address] [place] Triglyceride [Mass/Vol] 88 mg/dL Normal <150 [facility] Comment on above: Order Comment: Speci men Type: BLOOD SPECIMENOrdering Facility: [facility] Address: [address] [place] [address] Result Comment: <150 mg/dL, Normal 150-199 mg/dL, Borderline high 200-499 mg/dL, High >499 mg/dL, Very high Performed By: #### 2 4331-1, 97219-0 ####[facility] LABCLIA [id number] [address] [place] PSA/PROSTATE SPECIFIC ANTIGE N SCREENINGon 02-25-2025 Prostate specific Ag [Mass/Vol] 0.34 ng/mL Normal <2.60 [facility] Comment on above: Order Comment: Speci men Type: BLOOD SPECIMENOrdering Facility: [facility] Address: [address] [place] [address] Result Comment: Tota l PSA test methodology used is the Electrochemiluminescence Immunoassay by [employer]. Total PSA values by differing methodologies cannot be interchanged. Performed By: #### P SAS1 ####[facility] LABCLIA [id number] [address] [place] Urinalysis complete panel (U )on 02-25-2025 Bacteria LM.HPF (Urine sed) [#/Area] Negative Normal Negative [facility] Comment on above: Order Comment: Speci men Type: URINE SPECIMENOrdering Facility: [facility] Address: [address] [place] [address] Performed By: #### 2 4356-8 ####[facility] LABCLIA [id number] [place] [id number] [place] Bilirubin Ql (U) Negative Normal Negative [facility] Comment on above: Order Comment: Speci men Type: URINE SPECIMENOrdering Facility: [facility] Address: [address] [place] [address] Performed By: #### 2 4356-8 ####[facility] LABCLIA [id number] [facility] [address] [place] [address] [place] Clarity (Unsp spec) Clear Normal Clear [facility] Comment on above: Order Comment: Speci men Type: URINE SPECIMENOrdering Facility: [facility] Address: [address] [place] [address] Performed By: #### 2 4356-8 ####[facility] LABCLIA [id number] [address], [facility] [place] Color (U) Yellow Normal Yellow [facility] Comment on above: Order Comment: Speci men Type: URINE SPECIMENOrdering Facility: [facility] Address: [address] [place] [address] Performed By: #### 2 4356-8 ####[facility] LABCLIA [id number] [address], [facility] [place] Epithelial cells LM.HPF (Urine sed) [#/Area] None Seen Normal [facility] Comment on above: Order Comment: Speci men Type: URINE SPECIMENOrdering Facility: [facility] Address: [address] [place] [address] Performed By: #### 2 4356-8 ####[facility] LABCLIA [id number] [address] [place] [address] [place] Glucose Test strip (U) [Mass/Vol] 3+ Abnormal Negative [facility] Comment on above: Order Comment: Speci men Type: URINE SPECIMENOrdering Facility: [facility] Address: [address] [place] [address] Performed By: #### 2 4356-8 ####[facility] LABCLIA [id number] [address], [facility] [place] Hemoglobin Ql (U) Negative Normal Negative [facility] Comment on above: Order Comment: Speci men Type: URINE SPECIMENOrdering Facility: [facility] Address: [address] [place] [address] Performed By: #### 2 4356-8 ####[facility] LABCLIA [id number] [address] [place] [address] [place] Hyaline casts (Urine sed) [#/Area] 1-3 /LPF Abnormal 0 /LPF [facility] Comment on above: Order Comment: Speci men Type: URINE SPECIMENOrdering Facility: [facility] Address: [address] [place] [address] Performed By: #### 2 4356-8 ####[facility] LABCLIA [id number] [address] [place] [address] [place] Ketones Ql (U) Negative Normal Negative [facility] Comment on above: Order Comment: Speci men Type: URINE SPECIMENOrdering Facility: [facility] Address: [address] [place] [address] Performed By: #### 2 4356-8 ####[facility] LABCLIA [id number] [address], [facility] [place] Leukocyte esterase Test strip Ql (U) Negative Normal Negative [facility] Comment on above: Order Comment: Speci men Type: URINE SPECIMENOrdering Facility: [facility] Address: [address] [place] [address] Performed By: #### 2 4356-8 ####[facility] LABCLIA [id number] [address], [facility] [place] Nitrite Ql (U) Negative Normal Negative [facility] Comment on above: Order Comment: Speci men Type: URINE SPECIMENOrdering Facility: [facility] Address: [address] [place], [place] [address] Performed By: #### 2 4356-8 ####[facility] LABCLIA [id number] [address] [place] [address] [place] pH (U) 5.5 [pH] Normal <8.5 [facility] Comment on above: Order Comment: Speci men Type: URINE SPECIMENOrdering Facility: [facility] Address: [address] [place] [address] Performed By: #### 2 4356-8 ####[facility] LABIA [id number] [place] [address] [place] Protein (U) [Mass/Vol] Trace Abnormal Negative [facility] Comment on above: Order Comment: Speci men Type: URINE SPECIMENOrdering Facility: [facility] Address: [address] [place] [address] Performed By: #### 2 4356-8 ####[facility] LABIA [id number] [place] [address] [place] RBC LM.HPF (Urine sed) [#/Area] 0-2 /HPF Normal 0-2 /HPF [facility] Comment on above: Order Comment: Speci men Type: URINE SPECIMENOrdering Facility: [facility] Address: [address] [place] [address] Performed By: #### 2 4356-8 ####[facility] [id number] [place] [address] [place] Specific gravity (U) [Rel density] 1.038 High 1.005-1.030 [facility] Comment on above: Order Comment: Speci men Type: URINE SPECIMENOrdering Facility: [facility] Address: [address] [place] [address] Performed By: #### 2 4356-8 ####[facility] LABIA [id number] [place] [address] [place] Urobilinogen Ql (U) 1.0 EU/dL Normal 0.2-1.0 EU/dL [facility] Comment on above: Order Comment: Speci men Type: URINE SPECIMENOrdering Facility: [facility] Address: [address] [place] [address] Performed By: #### 2 4356-8 ####[facility] LABIA [id number] [place] [address] [place] WBC LM.HPF (Urine sed) [#/Area] 0-5 /HPF Normal 0-5 /HPF [facility] Comment on above: Order Comment: Speci men Type: URINE SPECIMENOrdering Facility: [facility] Address: [address] [place] [address] Performed By: #### 2 4356-8 ####[facility] LABCLIA [id number] [place] [id number] [place] CNPMariaa 01-17-2025 CNPN Telephone (GENSWS) POPPY NEFF ([id number]) 1970 M Date Time Provider Department 01/17/25 [...] Date Reviewed: 10/18/2024 Reviewed by: Medina Tsang APRN.DUMP OPERATOR - Fully Assessed Reason for Visit: Reschedule [...] subcutaneously one time a week. - Insulin [place], Disposable, (NOVOFINE 32) 32 gauge x 1/4 [...] Encounter Status:Closed by SONIDO CARDOZA on 02/18/25 [facility] CNOVon 10-18-2024 CNOV Office Visit (GENSWS ) POPPY NEFF ([id number]) 1970 M Date Time Provider Department 10/18/24 [...] N/A Last Colonoscopy: none DARIA Glynn Kimberley, APRN.DUMP OPERATOR 10/18/2024 10:23 AM Signed HISTORY AND PHYSICAL Poppy Neff : 1970 REFERRING PHYSICIAN: Laura Nash [address] [place] [phone] CHIEF COMPLAINT: Patient presents with: Consult: Colonoscopy, [...] mg subcutaneously one time a week. Insulin [place], Disposable, (NOVOFINE 32) 32 gauge x 1/4 [...] Saw Hem (more content not included)... Normal [facility] Cardiology Visit Reporton Cardiology Visit Report [facility] [address] [place] [address] OFFICE VISIT Date of Service: 09/23/24 MR#: [id number] Acct: [id number] Name: POPPY NEFF Rep #: [id number] : 1970 Provider: ADAM oliva Age/Sex: 54/M Location[facility] Status: Signed HPI HPI History of [...] (%) 95 Intake Visit Reasons: 9 M Valve Technician Required: No Is patient in pain?: No [...] EOM intact (more content not included)... Normal [facility] 07-30-2024 [facility] POPPY NEFF ([id number]) 1970 M Date Time Provider Department 07/30/24 [...] mg subcutaneously one time a week. Insulin [place], Disposable, (NOVOFINE 32) 32 gauge x 1/4 [...] Discontinued Da (more content not included)... Normal [facility] ([id number]) 1970 M Date Time Provider Department 07/30/24 [facility] NAS[facility] During your visit today, we recorded [...] subcutaneously one time a week. - Insulin [place], Disposable, (NOVOFINE 32) 32 gauge x 1/4 [...] Status:Closed by CAMRYN ANTOINE on 07/30/24 [facility] (INT[facility]) POPPY NEFF ([id number]) 1970 M Date Time Provider Department 07/23/24 PALMER CASILLAS INTMWS During your visit today, we recorded the following information about you: Angelica Maher LPN 07/23/2024 10:43 AM Signed Charlotte waterman'wes and completed. Unable to complete this electronically. Poppy Neff (Palmer: [id number]) - JOHNATHAN-[id number] Ozempic (0.25 or 0.5 MG/DOSE) 2MG/3ML pen-injectors status: JOHNATHAN Request Created: July 22, 2024 [id number] Sent: July 23, 2024 Angelica Maher LPN [...] for pt. The appeals are handles with [facility]. Can call [phone]. Allergies As of Date: 07/23/2024 Noted Allergy Reaction LINDY INHIBITORS 10/04/2019 3 - Cough Date Reviewed: 01/23/2024 Reviewed by: Sony Govea OD - Fully Assessed Reason for Visit: Insurance Authorization [[id number]] Prescriptions as of 08/03/2024 - atorvastatin (LIPITOR) [...] subcutaneously one time a week. - Insulin [place], Disposable, (NOVOFINE 32) 32 gauge x 1/4 [...] normal d (more content not included)... Normal [facility] 07-22-2024 [facility] Telephone (ASWSTR) POPPY NEFF ([id number]) 1970 M Date Time Provider Department 07/22/24 [...] Ozempic. He would like them sent to [facility] in [place]. Darius Garcia LPN 07/22/2024 1:41 PM Signed [...] for Visit: Medication Problem [65] Order(s):Order #: [id number] Order #: [id number] Prescriptions as of 07/23/2024 - empagliflozin (JARDIANCE) [...] tablet by mouth once daily. - Insulin [place], Disposable, (NOVOFINE 32) 32 gauge x 1/4 [...] Status:Closed by CHARU ALVAREZ on 07/22/24 Normal [facility] CBC W Auto Differential pane l (Bld)on 01-16-2024 Basophils (Bld) [#/Vol] 0.08 10*3/uL <0.11 k/uL [facility] Basophils/100 WBC (Bld) 0.8 % [facility] Differential cell count method Nom (Bld) Auto [facility] Eosinophils (Bld) [#/Vol] 0.12 10*3/uL <0.46 k/uL [facility] Eosinophils/100 WBC (Bld) 1.2 % [facility] Erythrocyte distribution width (RBC) [Ratio] 13.2 % 11.5 - 15.0 % [facility] Hematocrit (Bld) [Volume fraction] 52.8 % High 39.0 - 51.0 % [facility] Hemoglobin (Bld) [Mass/Vol] 17.4 g/dL High 13.0 - 17.0 g/dL [facility] Immature granulocytes (Bld) [#/Vol] 0.04 10*3/uL <0.10 k/uL [facility] Immature granulocytes/100 WBC (Bld) 0.4 % [facility] Lymphocytes (Bld) [#/Vol] 1.82 10*3/uL 1.00 - 4.00 k/uL [facility] Lymphocytes/100 WBC (Bld) 17.9 % [facility] MCH (RBC) [Entitic mass] 28.7 pg 26.0 - 34.0 pg [facility] MCHC (RBC) [Mass/Vol] 33.0 g/dL 30.5 - 36.0 g/dL [facility] MCV (RBC) [Entitic vol] 87.0 fL 80.0 - 100.0 fL [facility] Monocytes (Bld) [#/Vol] 0.68 10*3/uL <0.87 k/uL [facility] Monocytes/100 WBC (Bld) 6.7 % [facility] Neutrophils (Bld) [#/Vol] 7.42 10*3/uL 1.45 - 7.50 k/uL [facility] Neutrophils/100 WBC (Bld) 73.0 % [facility] Nucleated RBC (Bld) [#/Vol] <0.01 k/uL [facility] Nucleated RBC/100 WBC (Bld) [Ratio] 0.0 /100 WBC [facility] Platelet mean volume (Bld) [Entitic vol] 9.8 fL 9.0 - 12.7 fL [facility] Platelets (Bld) [#/Vol] 427 10*3/uL High 150 - 400 k/uL [facility] RBC (Bld) [#/Vol] 6.07 10*6/uL High 4.20 - 6.0 0 m/uL [facility] WBC (Bld) [#/Vol] 10.16 10*3/uL 3.70 - 11 .00 k/uL [facility] HbA1c (Bld)on 01-16-2024 Average glucose Estimated from glycated hemoglobin (Bld) [Mass/Vol] 157 mg/dL [facility] HbA1c (Bld) [Mass fraction] 7.1 % High 4.3 - 5.6 % [facility] Urinalysis complete panel (U )on 01-16-2024 Bacteria LM.HPF (Urine sed) [#/Area] Negative Negative /HPF [facility] Bilirubin Ql (U) Negative Negative [facility] Clarity (Unsp spec) Clear Clear [facility] Color (U) Yellow Yellow [facility] Epithelial cells LM.HPF (Urine sed) [#/Area] None Seen [facility] Glucose Test strip (U) [Mass/Vol] 3+ Abnormal Negative [facility] Hemoglobin Ql (U) Negative Negative [facility] Hyaline casts (Urine sed) [#/Area] 1-3 /LPF Abnormal 0 /LPF [facility] Ketones Ql (U) Negative Negative [facility] Leukocyte esterase Test strip Ql (U) Negative Negative [facility] Nitrite Ql (U) Negative Negative [facility] pH (U) 5.5 [pH] <8.5 [facility] Protein (U) [Mass/Vol] Negative Negative [facility] RBC LM.HPF (Urine sed) [#/Area] 0-2 /HPF 0-2 /HPF [facility] Specific gravity (U) [Rel density] 1.035 High 1.005 - 1.030 [facility] Urobilinogen Ql (U) 0.2 EU/dL 0.2-1.0 EU/dL [facility] WBC LM.HPF (Urine sed) [#/Area] 0-5 /HPF 0-5 /HPF [facility] Cardiology Visit Reporton Cardiology Visit Report [facility] [address] [place], [place] [address] OFFICE VISIT Date of Service: 12/25/23 MR#: [id number] Acct: [id number] Name: POPPY NEFF Rep #: [id number] : 1970 Provider: ADAM georges Age/Sex: 53/M [place] [facility] [place] Signed [facility] History of Present Illness Details: This is [...] 95 Intake Visit Reasons: 1 Y FU Valve Technician Required: No Is patient in pain?: No [...] DAILY #90 tabs 12/25/23 [Rx Confirmed 12/25/23] [facility] Medical History ADEN (acute kidney injury) Bilateral [...] Eyes Genera (more content not included)... Normal [facility] HGB A1C [CCL]on 04-01-2023 HbA1c (Bld) [Mass fraction] 7.0 % High 4.3-5.[address] [facility] Comment on above: Result Comment: Amer ican Diabetes Association guidelines indicate that patients with HgbA1c in the range 5.7-6.4% are at increased risk for development of diabetes, and intervention by lifestyle modification may be beneficial. HgbA1c greater or equal to 6.5% is considered diagnostic of diabetes. Performed By: #### 2 89355 #### [place] [id number] Hemoglobin A0 154 mg/dL Normal [facility] Comment on above: Result Comment: eAG: (Estimated average glucose) is a calculated value from HgbA1c and is technical sales representatives of the average blood glucose level in the last 2-3 month period. [facility] [address] [place] [address] Bart Jeffries III, M.D. [id number] Performed By: #### 2 54252 #### [address] [address] LYME DISEASE BY PCR [CCL]on 03-28-2023 RESULT CRITICAL? NO Normal [facility] Comment on above: Performed By: #### 2 25369 #### [address] [address] B. burgdorferi PCR Not detected Normal [facility] Comment on above: Result Comment: NOT DETECTED [...] developed and its performance characteristics determined by [employer]. It has not been cleared or approved by the US Food and Drug Administration. This test was performed in a CLIA certified laboratory and is intended for clinical purposes. Performed by [employer], [address] [place] [address] [email or web address], Ming Piper MD, PHD, Lab. Director [facility] [address] [place] [address] Bart Jeffries III, M.D. [id number] Performed By: #### 2 95269 #### [facility],[address] [place] [address] EMERGENCY REPORTon 3 EMERGENCY REPORT [facility] ROOM REPORT NAME ACCOUNT SEX AGE ADMIT DISCHARGE PT MED. RECORD# NUMBER DATE DATE TYPE POPPY NEFF [id number] Diana 53 03/22/23 03/23/23 3 [id number] ROOM: ER DATE OF : 1970 DICTATING [...] x 15 cm. His had drawn a ely shoshone around it and then she had drawn a smaller ely shoshone in the middle where it was first [...] headache which after we gave him a [place] here in the emergency room was gone. [...] Jg Vela DO 03/23/23 06:42 JOB #: [id number] Transcribed By: baylee 03/23/23 09:05 Electronically signed by: E-SIGN JG VELA 03/26/23 19:37 Page 2 of 2 POPPY NEFF Emergency Room Report Normal [facility] LYME LATE (SIGNS/SYMP >30 DA YS) [CCL]on 03-25-2023 Lyme IgG IgM Ab Positive Abnormal Negative [facility] Comment on above: Result Comment: Borr joshua [...] confirmation test has been ordered and billed. [facility] [address] [place] [address] Bart Jeffries III, M.D. [id number] Performed By: #### 2 45296 #### [place] [address] Performed By: #### 2 86519 #### [place] [address] CBC + DIFFon 03-23-2023 Baso # 0.00 x10EE3/UL Normal 0.00 - 0.[address] [facility] Comment on above: Performed By: #### 2 49860 #### [place] [address] Basophils/100 WBC (Bld) 0.8 % Normal 0.0 - 2.[address] [facility] Comment on above: Performed By: #### 2 25507 #### [place] [address] CBC + DIFF Normal [facility] Comment on above: Result Comment: CBC- COMPLETE BLOOD COUNT Performed By: #### 2 30141 #### [place] [address] EO # 0.10 x10EE3/UL Normal 0.00 - 0.[address] [facility] Comment on above: Performed By: #### 2 26657 #### [facility],[address] [place] [address] Eosinophils/100 WBC (Bld) 1.5 % Normal 0.0 - 7.[address] [facility] Comment on above: Performed By: #### 2 87790 #### [facility],[address] [place] [address] Erythrocyte distribution width (RBC) [Ratio] 14.0 % Normal 12.0 - 15.[address] [facility] Comment on above: Performed By: #### 2 60320 #### [facility],[address] [place] [address] Hematocrit (Bld) [Volume fraction] 44.6 % Normal 40.0 - 52.[address] [facility] Comment on above: Performed By: #### 2 06314 #### [facility],[address] [place] [address] Hemoglobin (Bld) [Mass/Vol] 15.3 g/dL Normal 13.0 - 17.[address] [facility] Comment on above: Performed By: #### 2 56073 #### [facility],[address] [place] [address] Lymph # 1.10 x10EE3/UL Normal 0.80 - 2.[address] [facility] Comment on above: Performed By: #### 2 42639 #### [facility],[address] [place], [place] [address] Lymphocytes/100 WBC (Bld) 17.2 % Low 20.0 - 45.[address] [facility] Comment on above: Performed By: #### 2 50621 #### [facility],[address] [place], [place] [address] MANUAL DIFF N/A Normal [facility] Comment on above: Performed By: #### 2 89094 #### [facility],[address] [place], [place] [address] MCH (RBC) [Entitic mass] 29 pg Normal 27 - [address] [facility] Comment on above: Performed By: #### 2 85807 #### [facility],[address] [place] [address] MCHC 34 X10 3 Normal 32 - [address] [facility] Comment on above: Performed By: #### 2 [address]1745 #### [place] [address] MCV (RBC) [Entitic vol] 86 fL Normal 81 - [address] [facility] Comment on above: Performed By: #### 2 26058 #### [place] [address] Edmunds # 0.70 x10EE3/UL Normal 0.20 - 1.[address] [facility] Comment on above: Performed By: #### 2 57361 #### [place] [address] MONOS % 11.6 % High 0.0 - 10.[address] [facility] Comment on above: Performed By: #### 2 71470 #### [place] [address] Morphology Santos (Bld) [Interp] N/A Normal [facility] Comment on above: Performed By: #### 2 77798 #### [place] [address] Neut # 4.50 x10EE3/UL Normal 1.50 - 7.[address] [facility] Comment on above: Performed By: #### 2 47483 #### [place] [address] Neutrophils/100 WBC (Bld) 68.9 % Normal 46.0 - 76.[address] [facility] Comment on above: Performed By: #### 2 71524 #### [place] [address] PLATELET 266 x10EE3/UL Normal 150 - [address] [facility] Comment on above: Performed By: #### 2 96182 #### [facility],[address] [place] [address] Platelet mean volume (Bld) [Entitic vol] 8.7 fL Normal 6.4 - 10.5 [facility] [facility] Comment on above: Result Comment: AUTO MATED DIFFERENTIAL Performed By: #### 2 [id number] #### [facility],[address] [place] [address] 04604 RBC 5.19 x 10EE6/UL Normal 4.50 - 6.[address] [facility] Comment on above: Performed By: #### 2 [id number] #### [facility],[address] [place] [address] 89555 WBC 6.5 x 10EE3/UL Normal 4.5 - 10.[address] [facility] Comment on above: Performed By: #### 2 [id number] #### [facility],[address] [place] [address] 27446 CMP with eGFRon 03-23-2023 AGE [address] [facility] Comment on above: Performed By: #### 2 [id number] #### [facility],[address] [place] [address] 81301 Albumin [Mass/Vol] 3.0 g/dL Low 3.4 - 5.[address] [facility] Comment on above: Performed By: #### 2 21275 #### [facility],[address] [place] [address] 20721 Albumin/Globulin [Mass ratio] 0.7 {ratio} Low 0.9 - 1.[address] [facility] Comment on above: Performed By: #### 2 42485 #### [facility],[address] [place] [address] 12442 ALK PHOS 99 U/L Normal 46 - [address] [facility] Comment on above: Performed By: #### 2 [id number] #### [facility],[address] [place] [address] 02962 ALT [Catalytic activity/Vol] 115 U/L High 16 - [address] [facility] Comment on above: Performed By: #### 2 76457 #### [facility],[address] [place] [address] 76991 Anion gap [Moles/Vol] 13 mmol/L Normal 10 - [address] [facility] Comment on above: Performed By: #### 2 [id number] #### [facility],[address] [place] [address] 03284 AST [Catalytic activity/Vol] 77 U/L High 15 - [address] [facility] Comment on above: Performed By: #### 2 [id number] #### [facility],[address] [place] [address] 20497 B/C RATIO 20 ratio Normal 0 - [address] [facility] Comment on above: Performed By: #### 2 44806 #### [facility],[address] [place] [address] 31802 Bilirubin [Mass/Vol] 0.6 mg/dL Normal 0.2 - 1.[address] [facility] Comment on above: Performed By: #### 2 68937 #### [facility],[address] [place] [address] 71176 Calcium [Mass/Vol] 8.3 mg/dL Low 8.5 - 10.[address] [facility] Comment on above: Performed By: #### 2 93655 #### [facility],[address] [place] [address] 38837 Chloride [Moles/Vol] 97 mmol/L Low 98 - [address] [facility] Comment on above: Performed By: #### 2 99474 #### [facility],[address] [place] [address] 70060 CMP with eGFR Normal [facility] Comment on above: Result Comment: COMP REHENSIVE METABOLIC PANEL Performed By: #### 2 37543 #### [facility],[address] [place] [address] 09073 CO2 [Moles/Vol] 25.9 mmol/L Normal 21.0 - 32.[address] [facility] Comment on above: Performed By: #### 2 41050 #### [facility],[address] [place] [address] 59904 Creatinine [Mass/Vol] 1.32 mg/dL High 0.70 - 1.[address] [facility] Comment on above: Performed By: #### 2 46912 #### [facility],[address] [place] [address] 80860 eGFR 57 ML/MINUTE Low 60 - [address] [facility] Comment on above: Performed By: #### 2 79723 #### [facility],[address] [place] [address] 06404 GFR/1.73 sq M.predicted among non-blacks MDRD (S/P/Bld) [Vol rate/Area] mL/min/{1.73_m2} Normal 60 - [address] [facility] Comment on above: Result Comment: ACCO RDING TO THE NATIONAL KIDNEY DISEASE EDUCATION PROGRAM(NKDE), A NORMAL eGFR IS A VALUE GREATER THAN OR EQUAL TO 60 ML/MIN/1.73 SQ METERS. CHRONIC KIDNEY DISEASE: <60mL/MIN/1.73 SQ METERS KIDNEY FAILURE: <15mL/MIN/1.73 SQ METERS THIS TEST SHOULD ONLY BE USED FOR PATIENTS 18 YEARS OF AGE AND OLDER. Performed By: #### 2 [id number] #### [facility],[address] [place] [address] 91485 Globulin (S) [Mass/Vol] 4.4 g/dL High 1.5 - 3.[address] [facility] Comment on above: Performed By: #### 2 25504 #### [facility],[address] [place] [address] 01402 Glucose [Mass/Vol] 182 mg/dL High 74 - [address] [facility] Comment on above: Performed By: #### 2 04598 #### [facility],[address] [place] [address] 44027 Potassium [Moles/Vol] 3.7 mmol/L Normal 3.5 - 5.[address] [facility] Comment on above: Performed By: #### 2 87809 #### [facility],[address] [place] [address] 91083 Protein [Mass/Vol] 7.4 g/dL Normal 6.4 - 8.[address] [facility] Comment on above: Performed By: #### 2 20484 #### [facility],[address] [place], [place] [id number] Sodium [Moles/Vol] 132 mmol/L Low 136 - [address] [facility] Comment on above: Performed By: #### 2 85886 #### [facility],[address] [place], [place] [id number] Urea nitrogen [Mass/Vol] 26 mg/dL High - [facility] Comment on above: Performed By: #### 2 [id number] #### [facility],[address] [place] [address] 73974 LYME LATE (SIGNS/SYMP >30 DA YS) [CCL]on 03-23-2023 LYME LATE (SIGNS/SYMP >30 DAYS) [CCL] Normal [facility] Comment on above: Result Comment: { CA LLED TO/BY _[id number] Performed By: #### 2 [id number] #### [facility],[address] [place] [address] 60424 ALBUMIN/CREAT RATIO RND URon 09-23-2022 Albumin DL <= 20 mg/L (U) [Mass/Vol] [facility] Albumin/Creatinin e (U) [Mass ratio] <30 mg/g [facility] Creatinine (U) [Mass/Vol] 72.6 mg/dL 20.0 - 300.0 mg/dL [facility] CBC W Auto Differential pane l (Bld)on 09-23-2022 Basophils (Bld) [#/Vol] 0.07 10*3/uL <0.11 k/uL [facility] Basophils/100 WBC (Bld) 0.7 % [facility] Differential cell count method Nom (Bld) Auto [facility] Eosinophils (Bld) [#/Vol] 0.16 10*3/uL <0.46 k/uL [facility] Eosinophils/100 WBC (Bld) 1.6 % [facility] Erythrocyte distribution width (RBC) [Ratio] 12.5 % 11.5 - 15.0 % [facility] Hematocrit (Bld) [Volume fraction] 53.0 % High 39.0 - 51.0 % [facility] Hemoglobin (Bld) [Mass/Vol] 17.4 g/dL High 13.0 - 17.0 g/dL [facility] Immature granulocytes (Bld) [#/Vol] 0.04 10*3/uL <0.10 k/uL [facility] Immature granulocytes/100 WBC (Bld) 0.4 % [facility] Lymphocytes (Bld) [#/Vol] 2.49 10*3/uL 1.00 - 4.00 k/uL [facility] Lymphocytes/100 WBC (Bld) 25.1 % [facility] MCH (RBC) [Entitic mass] 28.9 pg 26.0 - 34.0 pg [facility] MCHC (RBC) [Mass/Vol] 32.8 g/dL 30.5 - 36.0 g/dL [facility] MCV (RBC) [Entitic vol] 87.9 fL 80.0 - 100.0 fL [facility] Monocytes (Bld) [#/Vol] 0.80 10*3/uL <0.87 k/uL [facility] Monocytes/100 WBC (Bld) 8.1 % [facility] Neutrophils (Bld) [#/Vol] 6.36 10*3/uL 1.45 - 7.50 k/uL [facility] Neutrophils/100 WBC (Bld) 64.1 % [facility] Nucleated RBC (Bld) [#/Vol] <0.01 k/uL [facility] Nucleated RBC/100 WBC (Bld) [Ratio] 0.0 /100 WBC [facility] Platelet mean volume (Bld) [Entitic vol] 10.1 fL 9.0 - 12.7 fL [facility] Platelets (Bld) [#/Vol] 329 10*3/uL 150 - 400 k/uL [facility] RBC (Bld) [#/Vol] 6.03 10*6/uL High 4.20 - 6.0 0 m/uL [facility] WBC (Bld) [#/Vol] 9.92 10*3/uL 3.70 - 11. 00 k/uL [facility] D-DIMERon 01-17-2022 Fibrin D-dimer FEU (PPP) [Mass/Vol] <190 <500 ng/mL FEU [facility] Vital Signs Date Time Vital Sign Value Performing Clinician Faci lity 03-03-2025 10:16-0400 Body mass index (BMI) [Ratio] 36.13 kg/m2 Tammy Paz APRN.[facility] Work Phone: [facility] 03-03-2025 10:16-0400 Body temperature 97 [degF] Tammy Lezama-Jurgen STREETN.[facility] Work Phone: [facility] 03-03-2025 10:16-0400 Body weight 121 kg Tammy Paz APRN.DUMP OPERATOR Work Phone: [facility] 03-03-2025 10:16-0400 Diastolic blood pressure 75 mm[Hg] Tammy Kimler-Jurgen CLIENT LEADER.[facility] Work Phone: [facility] 03-03-2025 10:16-0400 Heart rate 97 /min Tammy Lezama-Jurgen CLIENT LEADER.DUMP OPERATOR Work Phone: [facility] 03-03-2025 10:16-0400 Respiratory rate 20 /min Tammy Lezama-Jurgen STREETN.DUMP OPERATOR Work Phone: [facility] 03-03-2025 10:16-0400 SaO2% (BldA) [Mass fraction] 97 % Tammy Lezama-Jurgen STREETN.[facility] Work Phone: [facility] 03-03-2025 10:16-0400 Systolic blood pressure 106 mm[Hg] Tammy Kimler-Jurgen CLIENT LEADER.DUMP OPERATOR Work Phone: [facility] 10-18-2024 09:56-0500 Body height 185.4 cm Medina Wilmer CLIENT LEADER.DUMP OPERATOR Work Phone: [facility] 10-18-2024 09:56-0500 Body mass index (BMI) [Ratio] 35.62 kg/m2 Medina Wilmer CLIENT LEADER.DUMP OPERATOR Work Phone: [facility] 10-18-2024 09:56-0500 Body temperature 96.6 [degF] Medina Wilmer CLIENT LEADER.DUMP OPERATOR Work Phone: [facility] 10-18-2024 09:56-0500 Body weight 122.47 kg Medina Wilmer CLIENT LEADER.DUMP OPERATOR Work Phone: [facility] 10-18-2024 09:56-0500 Diastolic blood pressure 82 mm[Hg] Medina Wilmer CLIENT LEADER.DUMP OPERATOR Work Phone: [facility] 10-18-2024 09:56-0500 Heart rate 76 /min Medina Wilmer CLIENT LEADER.DUMP OPERATOR Work Phone: [facility] 10-18-2024 09:56-0500 SaO2% (BldA) [Mass fraction] 96 % Medina Wilmer CLIENT LEADER.DUMP OPERATOR Work Phone: [facility] 10-18-2024 09:56-0500 Systolic blood pressure 118 mm[Hg] Medina Wilmer CLIENT LEADER.DUMP OPERATOR Work Phone: [facility] 07-30-2024 10:36-0400 Body mass index (BMI) [Ratio] 37.04 kg/m2 Laura Nash PA-C Work Phone: [facility] 07-30-2024 10:36-0400 Body temperature 97.81 [degF] Laura Nash PA-C Work Phone: [facility] 07-30-2024 10:36-0400 Body weight 127.46 kg Laura MANN-C Work Phone: [facility] 07-30-2024 10:36-0400 Diastolic blood pressure 86 mm[Hg] Laura LEWISC Work Phone: [facility] 07-30-2024 10:36-0400 Heart rate 76 /min Laura Nash PA-C Work Phone: [facility] 07-30-2024 10:36-0400 Respiratory rate 18 /min Laura Nash PA-C Work Phone: [facility] 07-30-2024 10:36-0400 SaO2% (BldA) [Mass fraction] 93 % Laura Nash PA-C Work Phone: [facility] 07-30-2024 10:36-0400 Systolic blood pressure 106 mm[Hg] Laura Nash PA-C Work Phone: [facility] 01-16-2024 09:18-0400 Body height 185.5 cm Laura Nash PA-C Work Phone: [facility] 01-16-2024 09:18-0400 Body temperature 97.39 [degF] Laura Nash PA-C Work Phone: [facility] 01-16-2024 09:18-0400 Body weight 128.82 kg Laura Nash PA-C Work Phone: [facility] 01-16-2024 09:18-0400 Diastolic blood pressure 72 mm[Hg] Laura Nash PA-C Work Phone: [facility] 01-16-2024 09:18-0400 Heart rate 64 /min Laura Nash PA-C Work Phone: [facility] 01-16-2024 09:18-0400 Respiratory rate 16 /min Laura Nash PA-C Work Phone: [facility] 01-16-2024 09:18-0400 SaO2% (BldA) [Mass fraction] 94 % Laura Nash PA-C Work Phone: [facility] 01-16-2024 09:18-0400 Systolic blood pressure 110 mm[Hg] Laura Nash PA-C Work Phone: [facility] 04-15-2023 08:18-0400 Body weight 125.19 kg Vilma Nguyen CLIENT LEADER.DUMP OPERATOR Work Phone: [facility] 04-15-2023 08:18-0400 Diastolic blood pressure 76 mm[Hg] Vilma Nguyen CLIENT LEADER.DUMP OPERATOR Work Phone: [facility] 04-15-2023 08:18-0400 Heart rate 72 /min Vilma Nguyen CLIENT LEADER.DUMP OPERATOR Work Phone: [facility] 04-15-2023 08:18-0400 Respiratory rate 16 /min Vilma Nguyen CLIENT LEADER.DUMP OPERATOR Work Phone: [facility] 04-15-2023 08:18-0400 Systolic blood pressure 112 mm[Hg] Vilma Nguyen CLIENT LEADER.DUMP OPERATOR Work Phone: [facility] 11-06-2022 09:39-0500 Body height 185.4 cm Charu [place]oungtown PA-C Work Phone: [facility] 11-06-2022 09:39-0500 Body temperature 96.8 [degF] Charu Ag PA-C Work Phone: [facility] 11-06-2022 09:39-0500 Body weight 131.36 kg Charu Ag PA-C Work Phone: [facility] 11-06-2022 09:39-0500 Diastolic blood pressure 84 mm[Hg] Charu [place] PA-C Work Phone: [facility] 11-06-2022 09:39-0500 Heart rate 70 /min Charu [place] PA-C Work Phone: [facility] 11-06-2022 09:39-0500 SaO2% (BldA) [Mass fraction] 99 % Charu Ag PA-C Work Phone: [facility] 11-06-2022 09:39-0500 Systolic blood pressure 124 mm[Hg] Charu Ag PA-C Work Phone: [facility] 09-23-2022 09:04-0500 Body height 183.5 cm Palmer Casillas MD Work Phone: [facility] 09-23-2022 09:04-0500 Body weight 131.54 kg Palmer Casillas MD Work Phone: [facility] 09-23-2022 09:04-0500 Diastolic blood pressure 88 mm[Hg] Palmer Casillas MD Work Phone: [facility] 09-23-2022 09:04-0500 Heart rate 72 /min Palmer Casillas MD Work Phone: [facility] 09-23-2022 09:04-0500 Respiratory rate 16 /min Palmer Casillas MD Work Phone: [facility] 09-23-2022 09:04-0500 Systolic blood pressure 124 mm[Hg] Palmer Casillas MD Work Phone: [facility] 01-17-2022 14:29-0400 Body height 182.9 cm Cristian Patten MD Work Phone: [facility] 01-17-2022 14:29-0400 Body weight 133.81 kg Cristian Patten MD Work Phone: [facility] 01-17-2022 14:29-0400 Diastolic blood pressure 68 mm[Hg] Cristian Patten MD Work Phone: [facility] 01-17-2022 14:29-0400 Heart rate 71 /min Cristian Patten MD Work Phone: [facility] 01-17-2022 14:29-0400 Systolic blood pressure 148 mm[Hg] Cristian Patten MD Work Phone: [facility] Encounters Encounter Date Encounter Type Care Provider Facility Start: 03-03-2025 End: 03-03-2025 ambulatory PALMER CASILLAS Facility:[facility] Start: 03-03-2025 End: 03-03-2025 Patient encounter procedure Tammy Paz APRN.CNP Work Phone: [facility] Comment on above: Viral URI with cough (Primary Dx); Post-nasal drainage Start: 03-01-2025 End: 03-01-2025 Follow-up encounter Laura Nash PA-C Work Phone: [facility] [place] Start: 02-25-2025 Patient encounter status Timayad teresa Nash PA-C Work Phone: [facility] Start: 02-25-2025 End: 02-25-2025 ambulatory LAURA NASH Facility:[facility] Start: 02-25-2025 Encounter for genera l adult medical examination without abnormal findings LAURA NASH [facility] Start: 02-25-2025 End: 02-25-2025 ambulatory LAURA NASH Facility:[facility] Start: 01-17-2025 End: 02-18-2025 Telephone encounter Hal Gonzalez MD Work Phone: General Surgery Comment on above: Reschedule [place] py Start: 10-18-2024 End: 10-18-2024 ambulatory MEDINA TSANG Facility:[facility] Start: 10-18-2024 End: 10-18-2024 Patient encounter procedure Medina Tsang CLIENT LEADER.DUMP OPERATOR Work Phone: General Surgery Comment on above: Screening for colon cancer Start: 09-24-2024 End: 09-24-2024 Chart abstracting Palmer Casillas MD Work Phone: [facility] [place] Comment on above: outside Cardiology Start: 09-23-2024 End: 09-23-2024 ambulatory Palmer Casillas Facility:[facility] Start: 07-30-2024 End: 07-30-2024 Telephone encounter Laura Nash PA-C Work Phone: [facility] [place] Comment on above: Surgical Consult (co lonoscopy) Start: 07-30-2024 End: 07-30-2024 ambulatory LAURA NASH Facility:[facility] Start: 07-30-2024 End: 07-30-2024 Office outpatient visit 25 minutes Laura Nash PA-C Work Phone: [facility] [place] Comment on above: Type 2 diabetes faye itus without complication, unspecified whether group home insulin use (HCC) (Primary Dx); Type 2 [...] Refill Palmer Casillas MD Work Phone: [facility] [place] Comment on above: Refill Request Start: 02-02-2024 Refill Palmer ricardo MD Work Phone: [facility] [place] Comment on above: Refill Request Start: 01-23-2024 End: 01-23-2024 Patient encounter procedure Sony Jaylynelmer OD Work Phone: Ophthalmology Comment on above: Type 2 diabetes faye itus without retinopathy (HCC) (Primary Dx); Dry eye syndrome of both eyes Start: 01-19-2024 Telephone encounter Laura trevino PA-C Work Phone: [facility] [place] Comment on above: Results Start: 01-16-2024 End: 01-16-2024 Patient encounter procedure Laura Nash PA-C Work Phone: [facility] [place] Comment on above: Well adult exam ([facility] Dx); Type 2 diabetes mellitus without complication, unspecified whether group home insulin use (HCC); Hypertension, essential; Hyperlipidemia, mixed; Screening for prostate cancer; Obesity, Class III, BMI 40-49.9 (morbid obesity) (HCC); History of pulmonary embolism; History of non-ST elevation myocardial infarction (NSTEMI); Cardiomyopathy, unspecified type (HCC); Screening for colon cancer Start: 01-16-2024 End: 01-16-2024 Patient encounter status Laura Nash PA-C Work Phone: [facility] Work Phone: Start: 12-25-2023 End: 12-25-2023 ambulatory Palmer Villalobosey Facility:[facility] Start: 11-11-2023 ambulatory Palmer Daisha Facility :[facility] Start: 06-19-2023 Refill Palmer ricardo MD Work Phone: [facility] [place] Comment on above: Refill Request Start: 04-15-2023 End: 04-15-2023 Patient encounter procedure Vilma Nguyen APRN.DUMP OPERATOR Work Phone: [facility] [place] Comment on above: Hypertension, essent ial (Primary Dx); Hyperlipidemia, mixed; Type 2 diabetes mellitus without complication, unspecified whether intermediate project manager insulin use (HCC); Sinus tachycardia by electrocardiography; Obesity, Class III, BMI 40-49.9 (morbid obesity) (HCC) Start: 04-04-2023 Telephone encounter Laura trevino PA-C Work Phone: [facility] [place] Comment on above: Results Start: 03-31-2023 Patient encounter procedure Sandi Ornelas MD Work Phone: Infectious Disease Start: 03-31-2023 Telephone encounter Laura trevino PA-C Work Phone: [facility] [place] Comment on above: Results Start: 03-23-2023 End: 03-23-2023 Emergency department patient visit JG DO [facility] Start: 11-06-2022 End: 11-06-2022 Patient encounter procedure Charu Luong PA-C Work Phone: General Surgery Comment on above: Encounter for screen ing for malignant neoplasm of colon (Primary Dx) Start: 10-01-2022 Telephone encounter Laura trevino PA-C Work Phone: [facility] [place] Comment on above: Orders Start: 10-01-2022 End: 10-01-2022 Nursing evaluation of patient and report Mi Nurse Work Phone: [facility] [place] Comment on above: Type 2 diabetes faye itus without complication, unspecified whether intermediate project manager insulin use (HCC) (Primary Dx) Start: 09-24-2022 Telephone encounter Palmer Casillas MD Work Phone: [facility] [place] Comment on above: Results Start: 09-23-2022 End: 09-23-2022 Patient encounter procedure Palmer Casillas MD Work Phone: [facility] [place] Comment on above: Well adult exam ([facility] early Dx); Type 2 diabetes mellitus without complication, unspecified whether group home insulin use (HCC); Hypertension, essential; Hyperlipidemia, mixed; Sinus tachycardia by electrocardiography; Right ventricular systolic dysfunction; Pulmonary arterial hypertension (HCC); Need for vaccination; History of pulmonary embolism; PASTOR (dyspnea on exertion); Screening for colon cancer; Screening for prostate cancer Start: 09-23-2022 End: 09-23-2022 Patient encounter status Palmer Casillas MD Work Phone: [facility] [place] Start: 01-17-2022 End: 01-17-2022 ambulatory Cristian Patten MD Work Phone: Hematology/Oncology Comment on above: Other acute pulmonar y embolism with acute cor pulmonale (HCC); correction current use of anticoagulant therapy Start: 01-17-2022 End: 01-17-2022 Patient encounter procedure Cristian Patten MD Work Phone: [place] [facility] Start: 09-23-2019 Patient encounter status Vera Patten MD Work Phone: [facility] Work Phone: Start: 12-03-2018 End: 12-03-2018 [...] Detail Author Start: 09-23-2029 Urine microalbumin profile [facility] Start: 03-03-2026 BP Controlled (<130/80) BP Con trolled (<130/80) [facility] Start: 02-25-2026 Annual PCP Team Telecommunications Project Manager caty Disease Visit Annual PCP Team Chronic Disease Visit [facility] Start: 02-25-2026 Anxiety Screening Anxiety Screening [facility] Start: 02-25-2026 BP Controlled (<130/80) BP Con trolled (<130/80) [facility] Start: 02-25-2026 Depression Screening Depression Scre ening [facility] Start: 02-25-2026 Diabetic foot examination Diabetic Foot Exam [facility] Start: 02-25-2026 Hepatitis B screening Urine Albumin:Creatinine Ratio [facility] Start: 02-25-2026 Hepatitis B surface antibody level LDL Cholesterol [facility] Start: 09-08-2025 End: 09-08-2025 Patient encounter procedure 09/08/2025 8:20 AM EST Office Visit [facility] [place] [address] [place], [place] [id number] Laura Nash PA-C [address] [place] [id number] 6 month f/u [facility] [place] Comment on above: 6 month f/u Start: 08-28-2025 Hemoglobin A1c measurement HbA1C [facility] Start: 07-30-2025 Annual PCP Team Telecommunications Project Manager caty Disease Visit Annual PCP Team Chronic Disease Visit [facility] Start: 07-30-2025 Covid-19 Vaccine ( season) Covid-19 Vaccine ( season) [facility] Comment on above: Postponed from 06/06 (Declined at this time) Start: 06-06-2025 Influenza vaccination Influenz a Vaccine (Season Ended) [facility] Start: 04-04-2025 Influenza vaccination Influenza Vacc ine (#1) [facility] Comment on above: Postponed from 06/06 (Declined at this time) Start: 04-01-2025 End: 07-01-2025 CBC W Auto Differential panel - Blood COMPLETE BLOOD COUNT AND DIFFERENTIAL Lab Routine Polycythemia Expected: 04/01/2025, Expires: 07/01/2025 [facility] Work Phone: Comment on above: Expected: 04/01/2025 , Expires: 07/01/2025 Start: 04-01-2025 End: 07-01-2025 Erythropoietin (EPO) [Units/volume] in Serum or Plasma ERYTHROPOIETIN/EPO Lab Routine Polycythemia Expected: 04/01/2025, Expires: 07/01/2025 [facility] Comment on above: Expected: 04/01/2025 , Expires: 07/01/2025 Start: 03-24-2025 End: 03-24-2025 Patient encounter procedure 03/24/2025 9:00 AM EDT Office Visit [facility] [address] [place] [address] Allyn Ortega, OD [address] [place] [address] Dx: Type 2 diabetes mellitus without complication, unspecified whether group home insulin use (HCC) [E11.9]; Type 2 diabetes mellitus without retinopathy (HCC) [E11.9] [facility] Comment on above: Dx: Type 2 diabetes mellitus without complication, unspecified whether intermediate project manager insulin use (HCC) [E11.9]; Type 2 diabetes mellitus without retinopathy (HCC) [E11.9] Start: 02-25-2025 End: 02-25-2025 Patient encounter procedure 02/25/2025 8:00 AM EDT Office Visit [facility] [place] [address] [place] [address] Laura Nash PA-C [address] [place] [address] physical [facility] [place] Comment on above: physical Start: 01-28-2025 End: 01-28-2025 Patient encounter procedure 01/28/2025 8:40 AM EDT Office Visit [facility] [place] [address] [place] [address] Laura Nash PA-C [address] [place] [address] physical [facility] [place] Comment on above: physical Start: 01-24-2025 End: 01-24-2025 Patient encounter procedure 01/24/2025 9:00 AM EDT Office Visit [facility] [address] [id number] Sony Govea, OD [address] [place] [address] Diabetic Eye Examination. Ophthalmology Comment on above: Diabetic Eye Examina tion. Start: 01-22-2025 Glaucoma screening Dilated Retinal E xam [facility] Start: 01-15-2025 Annual PCP Team Telecommunications Project Manager caty Disease Visit Annual PCP Team Chronic Disease Visit [facility] Start: 01-15-2025 Anxiety Screening Anxiety Screening [facility] Start: 01-15-2025 BP Controlled (<130/80) BP Con trolled (<130/80) [facility] Start: 01-15-2025 Covid-19 Vaccine () Covid-19 Vaccine () [facility] Comment on above: Postponed from 06/06 (Declined at this time) Start: 01-15-2025 Depression Screening Depression Scre ening [facility] Start: 01-15-2025 Diabetic foot examination Diabetic Foot Exam [facility] Start: 01-15-2025 Hepatitis B screening Urine Albumin:Creatinine Ratio [facility] Start: 01-15-2025 Hepatitis B surface antibody level LDL Cholesterol [facility] Start: 01-15-2025 Shingrix Vaccine (1 of 2) Shingrix Vaccine (1 of 2) [facility] Comment on above: Postponed from 02/16 (Declined at this time) Start: 11-12-2024 End: 11-12-2024 Patient encounter procedure 11/12/2024 1:15 PM EST Appointment Ambulatory Surgery [address] [place] [address] Hal Gonzalez MD [address] [place], [place] [id number] Screening for colon cancer [Z12.11] Ambulatory Surgery Comment on above: Screening for colon cancer [Z12.11] Start: 10-18-2024 End: 10-18-2024 Patient encounter procedure 10/18/2024 10:00 AM EST Office Visit General Surgery [address] [place] [id number] Medina Tsang APRN.DUMP OPERATOR [address] [place] [address] Screening for colon cancer [Z12.11] General Surgery Comment on above: Screening for colon cancer [Z12.11] Start: 07-30-2024 End: 10-29-2024 Comprehensive metabolic 2000 panel - Serum or Plasma COMPREHENSIVE METABOLIC PANEL Lab Routine Type 2 diabetes mellitus without complication, unspecified whether group home insulin use (HCC) Hypertension, essential Expected: 07/30/2024, Expires: 10/29/2024 [facility] Comment on above: Expected: 07/30/2024 , Expires: 10/29/2024 Start: 07-30-2024 End: 10-29-2024 Hemoglobin A1c in Blood HEMOGLOBIN A1C Lab Routine Type 2 diabetes mellitus without complication, unspecified whether intermediate project manager insulin use (HCC) Type 2 diabetes mellitus without retinopathy (HCC) Expected: 07/30/2024, Expires: 10/29/2024 [facility] Work Phone: Comment on above: Expected: 07/30/2024 , Expires: 10/29/2024 Start: 07-30-2024 End: 10-29-2024 LIPID PANEL, NONFASTING LIPID PANEL, NONFASTING Lab Routine Hyperlipidemia, mixed Expected: 07/30/2024, Expires: 10/29/2024 [facility] Comment on above: Expected: 07/30/2024 , Expires: 10/29/2024 Start: 07-30-2024 End: 07-30-2024 Patient encounter procedure 07/30/2024 10:20 AM EDT Office Visit Family [facility] [address] [place], [place] [id number] Laura Nash PA-C [address] [place] [address] 6 month follow up Family [facility] Comment on above: 6 month follow up Start: 07-20-2024 End: 07-20-2024 Patient encounter procedure 07/20/2024 9:40 AM EDT Office Visit [facility] [place] [address] [place], [place] [phone] Laura Nash PA-C [address] [facility] [place] [address] 6 month FU [facility] [place] Comment on above: 6 month FU Start: 07-17-2024 Hemoglobin A1c measurement HbA1C [facility] Start: 06-06-2024 Covid-19 Vaccine () Covid-19 Vaccine () [facility] Start: 06-06-2024 Influenza vaccination [facility] Start: 04-15-2024 ANNUAL PCP TEAM TIP BANDING MACHINE OPERATOR CATY DISEASE VISIT ANNUAL PCP TEAM CHRONIC DISEASE VISIT [facility] Start: 04-15-2024 BP CONTROLLED (<130/80) BP CON TROLLED (<130/80) [facility] Start: 03-31-2024 ANNUAL PCP TEAM TIP BANDING MACHINE OPERATOR CATY DISEASE VISIT ANNUAL PCP TEAM CHRONIC DISEASE VISIT [facility] Start: 01-16-2024 End: 04-16-2024 Comprehensive metabolic 2000 panel - Serum or Plasma [facility] Work Phone: Comment on above: Expected: 01/16/2024 , Expires: 04/16/2024 Start: 01-16-2024 End: 04-16-2024 LIPID PANEL, NONFASTING [facility] Work Phone: Comment on above: Expected: 01/16/2024 , Expires: 04/16/2024 Start: 01-16-2024 End: 04-16-2024 Microalbumin/Creatinine [Mass Ratio] in Urine [facility] Work Phone: Comment on above: Expected: 01/16/2024 , Expires: 04/16/2024 Start: 01-16-2024 End: 04-16-2024 PSA/PROSTATE SPECIFIC ANTIGEN SCREENING [facility] Work Phone: Comment on above: Expected: 01/16/2024 , Expires: 04/16/2024 Start: 09-23-2023 3 comp foot exam completed DIABETIC FOOT EXAM [facility] Start: 09-23-2023 ANNUAL PCP TEAM TIP BANDING MACHINE OPERATOR CATY DISEASE VISIT ANNUAL PCP TEAM CHRONIC DISEASE VISIT [facility] Start: 09-23-2023 COVID-19 VACCINE (#1) COVID-19 VACCI NE (#1) [facility] Comment on above: Postponed from 08/19 (Declined at this time) Start: 09-23-2023 Hepatitis B screening URINE ALBUMIN:CREATININE RATIO [facility] Start: 09-23-2023 Hepatitis B surface antibody level LDL CHOLESTEROL [facility] Start: 09-23-2023 SHINGRIX VACCINE (1 of 2) SHINGRIX VACCINE (1 of 2) [facility] Comment on above: Postponed from 02/16 (Insurance Coverage) Start: 09-22-2023 Hemoglobin A1c/Hemoglobin.total in Blood HBA1C [facility] Start: 06-06-2023 [facility] Start: 04-30-2023 End: 06-30-2023 Borrelia burgdorferi IgG and IgM panel - Serum LYME AB LATE >30 DAYS SYMPTOMS Lab Routine Rash Arthralgia, unspecified joint Expected: 04/30/2023, Expires: 06/30/2023 [facility] Work Phone: Comment on above: Expected: 04/30/2023 , Expires: 06/30/2023 Start: 04-15-2023 End: 06-15-2023 CBC W Auto Differential panel - Blood CBC + DIFF Lab Routine Hypertension, essential Expected: 04/15/2023, Expires: 06/15/2023 [facility] Work Phone: Comment on above: Expected: 04/15/2023 , Expires: 06/15/2023 Start: 04-15-2023 End: 06-15-2023 Comprehensive metabolic 2000 panel - Serum or Plasma COMP METABOLIC PANEL Lab Routine Type 2 diabetes mellitus without complication, unspecified whether group home insulin use (HCC) Expected: 04/15/2023, Expires: 06/15/2023 [facility] Work Phone: Comment on above: Expected: 04/15/2023 , Expires: 06/15/2023 Start: 04-15-2023 End: 06-15-2023 LIPID PANEL, NONFASTING LIPID PANEL, NONFASTING Lab Routine Hyperlipidemia, mixed Expected: 04/15/2023, Expires: 06/15/2023 [facility] Work Phone: Comment on above: Expected: 04/15/2023 , Expires: 06/15/2023 Start: 12-24-2022 ANNUAL PCP TEAM TIP BANDING MACHINE OPERATOR CATY DISEASE VISIT ANNUAL PCP TEAM CHRONIC DISEASE VISIT [facility] Start: 12-22-2022 Hemoglobin A1c/Hemoglobin.total in Blood HBA1C [facility] Start: 12-12-2022 Glaucoma screening Dilated Retinal E xam [facility] Start: 12-12-2022 Hepatitis B surface antibody level LDL CHOLESTEROL [facility] Start: 12-12-2022 Hepatitis C antibody , confirmatory test DILATED RETINAL EXAM [facility] Start: 10-06-2022 DEPRESSION ASSESSMENT DEPRESSION ASS ESSMENT [facility] Start: 09-23-2022 End: 11-23-2022 Comprehensive metabolic 2000 panel - Serum or Plasma [facility] Work Phone: Comment on above: Expected: 09/23/2022 , Expires: 11/23/2022 Start: 09-23-2022 End: 11-23-2022 Hemoglobin A1c in Blood [facility] Work Phone: Comment on above: Expected: 09/23/2022 , Expires: 11/23/2022 Start: 09-23-2022 End: 11-23-2022 LIPID PANEL, NONFASTING [facility] Work Phone: Comment on above: Expected: 09/23/2022 , Expires: 11/23/2022 Start: 09-23-2022 End: 11-23-2022 Prostate specific Ag [Mass/volume] in Serum or Plasma [facility] Work Phone: Comment on above: Expected: 09/23/2022 , Expires: 11/23/2022 Start: 09-23-2022 End: 11-23-2022 Urinalysis complete panel - Urine [facility] Work Phone: Comment on above: Expected: 09/23/2022 , Expires: 11/23/2022 Start: 06-14-2022 Hemoglobin A1c/Hemoglobin.total in Blood HBA1C [facility] Start: 06-06-2022 Influenza vaccination INFLUENZ A (Season Ended) [facility] Start: 02-16-2022 End: 04-18-2022 HYPERCOAG DIAG PNL HYPERCOAG DIAG PNL Lab Routine Other acute pulmonary embolism with acute cor pulmonale (HCC) Expected: 02/16/2022, Expires: 04/18/2022 [facility] Work Phone: Comment on above: Expected: 02/16/2022 , Expires: 04/18/2022 Start: 02-16-2022 Shingrix Vaccine (1 of 2) Shingrix Vaccine (1 of 2) [facility] Start: 01-11-2022 Hepatitis B screening URINE ALBUMIN:CREATININE RATIO [facility] Start: 08-29-2021 3 comp foot exam completed DIABETIC FOOT EXAM [facility] Start: 02-16-2017 COLOGUARD (FIT-DNA) COLOGUARD (FIT-D NA) [facility] Start: 02-16-2017 Colonoscopy COLONOSCOPY [facility] Start: 02-16-2017 COLORECTAL CANCER SCREENING COLORECTAL CANCER SCREENING [facility] Start: 02-16-[address] COLONOGRAPHY [facility] Start: 02-16-2017 FECAL OCCULT BLOOD FECAL OCCULT BLOO D [facility] Start: 02-16-2017 Screening for malign ant neoplasm of colon [facility] Start: 02-16-2017 SIGMOIDOSCOPY SIGMOIDOSCOPY [facility] Start: 02-16-1990 BP CONTROLLED (<130/80) BP CON TROLLED (<130/80) [facility] Start: 02-16-1990 HEPATITIS C SCREENING HEPATITIS C SC REENING [facility] Start: 02-16-1990 HIV SCREENING HIV SCREENING [facility] Start: 02-16-1977 COVID-19 VACCINE (1) COVID-19 VACCIN E (1) [facility] End: 10-18-2025 Screening colonoscopy COLONOSCOPY SCREENING Endoscopy Routine Screening for colon cancer 1 Occurrences starting 10/18/2024 until 10/18/2025 [facility] Work Phone: Comment on above: 1 Occurrences starti ng 10/18/2024 until 10/18/2025 [facility] Immunizations Immunization Date Immunization Notes Care Provider Praful esparza 09-23-2022 influenza, injectabl e, quadrivalent, contains preservative Palmer Casillas MD Work Phone: [facility] 09-23-2022 pneumococcal (PCV20) vaccine, 20 valent (PREVNAR 20) Palmer Casillas MD Work Phone: [facility] 09-23-2022 pneumococcal Conjuga te, unspecified formulation Palmer Casillas MD Work Phone: [facility] Work Phone: 09-23-2022 influenza virus vacc ine, unspecified formulation Palmer Casillas MD Work Phone: [facility] 08-29-2020 influenza, injectabl e, quadrivalent, contains preservative Cristian Patten MD Work Phone: [facility] 08-29-2020 pneumococcal polysaccharide vaccine, 23 valent Cristian Patten MD Work Phone: [facility] 09-23-2019 tetanus toxoid, redu tulio diphtheria toxoid, and acellular pertussis vaccine, adsorbed Cristian Patten MD Work Phone: [facility] 08-16-2019 influenza, seasonal, injectable Cristian Patten MD Work Phone: [facility] Payers Date Payer Category Payer Private Health Insurance [id number] 2024 Private Health Insurance [id number] 2023 Self-pay 2023 Unknown [id number] 2019 Unknown YENNI OATES PPO [id number] 2019-Present [phone] [facility] [id number] [place] [address] PPO [id number] 2019 Unknown YENNI OATES PPO [id number] 2019-Present [phone] [address] [place] [address] PPO [id number] 1972 Unknown [id number] Unknown [id number] Unknown [id number] 62 Unknown [id number] Social History Date Type Detail Facility Start: 08-23-2019 End: 03-31-2023 Tobacco smoking status NHIS Never smoked tobacco [facility] Start: 08-23-2019 End: 03-31-2023 Tobacco use and exposure Smokeless tobacco non-user [facility] Start: 01-17-2022 End: 03-31-2023 Alcohol intake Lifetime non-drinker (finding) [facility] Start: 09-23-2019 End: 10-17-2021 History SDOH Alcohol Frequency 1 [facility] Start: 10-17-2021 History SDOH Physica l Activity MPS 3 [facility] Start: 10-17-2021 History SDOH Financial 5 [facility] Start: 10-17-2021 History SDOH Transport Med 2 [facility] Start: 1970 Sex Assigned At Not on file C [facility] Start: 01-07-2022 End: 01-17-2022 Exposure to SARS-CoV-2 (event) Not sure [facility] Start: 09-23-2019 End: 03-24-2023 History of Social function [facility] Work Phone: Start: 09-23-2019 End: 03-24-2023 Alcohol Use Disorder Identification Test - Consumption [AUDIT-C] [facility] Work Phone: How often to you hav e a drink containing alcohol? Never [facility] Work Phone: Average Number of Drinks Not on file [facility] (I/We) worried wheth er (my/our) food would run out before (I/we) got money to buy more. Never true [facility] In the past 12 month s, was there a time when you were not able to pay the mortgage or rent on time? No [facility] Start: 01-16-2024 End: 03-03-2025 Alcohol intake Current drinker of alcohol (finding) [facility] Start: 01-16-2024 Alcohol Comment rare [facility] Medical Equipment Procedure Code Equipment Code Equipment Origin al Text Equipment Identifier Dates 1 Each once peace y. Use daily with Victoza pen. [id number] Start: 10-01-2022 Comment on above: 1 Each once daily. U se daily with Victoza pen. Clinical Notes 08-23-2019 to 03-03-2025 Patient InstructionsTammy Paz APRN.[facility] - 03/03/2025 10:37 AM EDTTelephone Encounter - Sheron Aceves RN - 03/01/2025 1:30 PM Medina Ashby APRN.[facility] - 10/18/2024 10:00 AM EST Note Date & Type Note Facility 03-03-2025 Instructions Tammy Paz APRN.[facility] - 03/03/2025 10:38 AM EDT 1. Viral [...] or any mild pain, you may take [id number] Tylenol or ibuprofen as needed. - Expect your cold symptoms (cough, congestion, runny nose) to last about one week as the virus runs its course. documented in this encounter [facility] 03-03-2025 Note HNO ID: [id number] Author: TAMMY PAZ APRN.DUMP OPERATOR Service: ? Author Type: Nurse Practitioner Type: [...] Patient understands and (more content not included)... [facility] 03-03-2025 History of Present illness Narrative [place] [...] Discussed expected course of illness Tammy Paz APRN.DUMP OPERATOR and Recording using [employer] software for draft documentation of the visit was discussed with the patient/authorized technical sales representatives; all questions welcomed and answered. Patient/authorized technical sales representatives agreed to proceed History and Record Review Clinical information obtained from an independent historian. History obtained from or confirmed by: spouse. Disposition The patient was discharged. OTC Medications were advised: Procedures documented in this encounter [facility] 03-01-2025 Telephone encounter Note Patient returned call and given provider's message below and patient verbalized understanding. Chidi Aceves RN [facility] 03-01-2025 Miscellaneous Notes Patient returned call [...] Laura Nash PA-C documented in this encounter [facility] 03-01-2025 Telephone encounter Note Left message to return call Teodora Guerrero MA [facility] 03-01-2025 Telephone encounter Note Let patient [...] are all normal/stable. Thanks. Laura Nash PA-C [facility] 02-25-2025 Note HNO ID: [id number] Author: LAURA NASH PA-C Service: ? Author Type: Physician Medical Care Evaluation Specialist Type: Progress Notes Filed: 02/25/2025 11:21 Note [...] mg subcutaneously one time a week. Insulin [place], Disposable, (NOVOFINE 32) 32 gauge x 1/4 [...] Diabetic Foot Exam (more content not included)... [facility] 02-18-2025 Telephone encounter Note Images from the original note were not included. Ronen Neff appointment was cancelled and called left message for patient to call back and reschedule. Ronen Neff Routed to specialty pool so that they may reach out to patient to reschedule. Sonido Cardoza MA [facility] 02-18-2025 Miscellaneous Notes Images from the [...] Sonido Cardoza MA documented in this encounter [facility] 01-17-2025 Telephone encounter Note Pt is unable to come for colonoscopy Friday. Please contact him to reschedule. Sonido Cardoza MA [facility] 10-18-2024 History of Present illness Narrative HISTORY AND PHYSICAL Poppy Neff : 1970 REFERRING PHYSICIAN: Laura Nash [address] [facility] [address] CHIEF COMPLAINT: Patient presents with: Consult: Colonoscopy, [...] mg subcutaneously one time a week. Insulin [place], Disposable, (NOVOFINE 32) 32 gauge x 1/4 [...] 12/12/2021 Type 2 diabetes mellitus without complication ([facility]) 08/23/2019 Well adult exam 09/23/2019 Last [...] Val Asencio LPN documented in this encounter [facility] 10-18-2024 Note HNO ID: [id number] Author: MEDINA TSANG APRN.DUMP OPERATOR Service: ? Author Type: Nurse Practitioner Type: Progress Notes Filed: 10/18/2024 10:23 Note Text: HISTORY AND PHYSICAL Poppy Neff : 1970 REFERRING PHYSICIAN: Laura Nash [address] [facility] [address] CHIEF COMPLAINT: Patient presents with: Consult: Colonoscopy, [...] mg subcutaneously one time a week. Insulin [place], Disposable, (NOVOFINE 32) 32 gauge x 1/4 [...] Obesity, Class III, BMI 40-49.9 (morbid obesity) ([facility]) 12/12/2021 Pulmonary arterial hypertension ([facility]) 08/15/2019 Pulmonary embolus ([facility]) 08/23/2019 Right ventricular enlargement 08/23/2019 Right ventricular systolic dysfunction 12/12/2021 Sinus tachycardia by electrocardiography 12/12/2021 Type 2 diabetes mellitus without complication ([facility]) 08/23/2019 Well adult exam 09/23/2019 Last [...] consents to surgery. (more content not included)... [facility] 10-18-2024 Note HNO ID: [id number] Author: VAL ASENCIO LPN Service: ? Author [...] N/A Last Colonoscopy: none Val Asencio LPN [facility] 09-24-2024 Note HNO ID: [id number] Author: ROCKY RODRIGUEZ MA Service: ? Author Type: Public Speaking Coach Type: Progress Notes Filed: 09/24/2024 15:27 Note Text: Faxed. Rocky Rodriguez MA [facility] 09-24-2024 Note HNO ID: [id number] Author: PALMER CASILLAS MD Service: ? Author Type: Physician Type: Progress Notes Filed: 09/24/2024 08:38 Note Text: Fax copy of most recent lipid panel from 01/16/2024 to [facility] 09-24-2024 History of Present illness Narrative Fax copy of most recent lipid panel from 01/16/2024 to [facility] Scan on 09/23/2024 9:33 AM by Provider, Kailash, NAE: Consultation - Cardiology documented in this encounter [facility] 09-24-2024 Note HNO ID: [id number] Author: DARIUS GARCIA LPN Service: ? Author Type: LICENSED NURSE Type: Progress Notes Filed: 09/24/2024 08:04 Note Text: Scan on 09/23/2024 9:33 AM by Provider, NAE Linder: Consultation - Cardiology [facility] 08-03-2024 Telephone encounter Note No response from insurance. Called the pharmacy and the rx was filled and picked up 07/28/24 with a co pay of 24.99. Called [employer] to request the approval letter to be faxed. They report they do not handle these appeals for pt. The appeals are handles with [facility]. Can call [phone]. [facility] 08-03-2024 Miscellaneous Notes No response from insurance. Called the pharmacy and the rx was filled and picked up 07/28/24 with a co pay of 24.99. Called [employer] to request the approval letter to be faxed. They report they do not handle these appeals for pt. The appeals are handles with [facility]. Can call [phone]. Office notes was requested and faxed for expided review. Covermymeds PA rec'd and completed. Unable to complete this electronically. Poppy Neff (Palmer: [id number]) - JOHNATHAN-[id number] Ozempic (0.25 or 0.5 MG/DOSE) 2MG/3ML pen-injectors status: PA Request Created: July 22, 2024 [id number] Sent: July 23, 2024 documented in this encounter [facility] 07-30-2024 Telephone encounter Note 1st attempt to contact patient. LVM to return call to schedule consult [facility] Work Phone: 07-30-2024 Miscellaneous Notes 1st attempt to contact patient. LVM to return call to schedule consult Pt was seen in office today and needs to be scheduled for a surgical consult for a colonoscopy. Pt was not able to schedule after his visit and would like scheduling to contact him. Thank you. Darius Garcia LPN documented in this encounter [facility] 07-30-2024 Telephone encounter Note Pt was seen in office today and needs to be scheduled for a surgical consult for a colonoscopy. Pt was not able to schedule after his visit and would like scheduling to contact him. Thank you. Darius Garcia LPN [facility] 07-30-2024 Note HNO ID: [id number] Author: LAURA NASH PA-C Service: ? Author Type: Physician Medical Care Evaluation Specialist Type: Progress Notes Filed: 07/30/2024 11:39 Note [...] Pulmonary arterial hypertension (HCC) 08/15/2019 Pulmonary embolus ([facility]) 08/23/2019 Right ventricular enlargement 08/23/2019 Right ventricular systolic dysfunction 12/12/2021 Sinus tachycardia by electrocardiography 12/12/2021 Type 2 diabetes mellitus without complication ([facility]) 08/23/2019 Well adult exam 09/23/2019 Last [...] mg subcutaneously one time a week. Insulin [place], Disposable, (NOVOFINE 32) 32 gauge x 1/4 [...] 2 diabetes mellitus without complication, unspecified whether group home insulin use (HCC) - ICD9: 250.00, ICD10: E11.9 (primary diagnosis) - Control undetermined, due for labs - Continue current medications - Counseled on healthy diet and re (more content not included)... [facility] 07-30-2024 History of Present illness Narrative Chief [...] mg subcutaneously one time a week. Insulin [place], Disposable, (NOVOFINE 32) 32 gauge x 1/4 [...] 2 diabetes mellitus without complication, unspecified whether group home insulin use (HCC) - ICD9: 250.00, ICD10: [...] Laura Nash PA-C documented in this encounter [facility] 07-26-2024 Instructions Angelica Maher LPN - [...] usual activities immediately. documented in this encounter [facility] 07-23-2024 Telephone encounter Note Office notes was requested and faxed for expided review. [facility] 07-23-2024 Telephone encounter Note Covermymeds PA rec'd and completed. Unable to complete this electronically. Poppy Neff (Palmer: [id number]) - JOHNATHAN-[id number] Ozempic (0.25 or 0.5 MG/DOSE) 2MG/3ML pen-injectors status: JOHNATHAN Request Created: July 22, 2024 [id number] Sent: July 23, 2024 [facility] 07-22-2024 Telephone encounter Note Pt called and is notified of providers results and instructions. Pt voices understanding. Charu Alvarez RN [facility] 07-22-2024 Miscellaneous Notes Pt called and [...] Ozempic. He would like them sent to [facility] in [place]. documented in this encounter [facility] 07-22-2024 Telephone encounter Note Let patient [...] time a week. Authorizing Provider: PALMER CASILLAS [facility] 07-22-2024 Telephone encounter Note Please see message below regarding covered medications for pt. Darius Garcia LPN [facility] 07-22-2024 Telephone encounter Note Patient stated has new insurance and they will not cover some of his prescriptions. He stated they will not cover Farxiga but they will cover Jardiance. He stated they will not cover Victoxza but they will cover Ozempic. He would like them sent to [facility] in [place]. [facility] 07-16-2024 Telephone encounter Note The following [...] the morning Authorizing Provider: PALMER CASILLAS MD [facility] 07-16-2024 Miscellaneous Notes The following approved [...] 2024 10:47 AM documented in this encounter [facility] 07-16-2024 Telephone encounter Note Prescription Refill [...] Pastrana LPN July 16, 2024 10:47 AM [facility] 02-02-2024 Telephone encounter Note Pt notified he has a valid prescription at the pharmacy. He will contact them for a refill. Stephany Johnston LPN [facility] 02-02-2024 Miscellaneous Notes Pt notified he [...] you. Milena Neri. documented in this encounter [facility] 02-02-2024 Telephone encounter Note Patient has [...] 07/20/2024 Please advise. Thank you. Milena Neri. [facility] 01-23-2024 History of Present illness Narrative Assessment and Plan: 1. Type 2 diabetes mellitus without retinopathy (HCC) -Patient education on the importance of strict blood sugar control in order to minimize the risk of vision loss from Diabetes Mellitus. -Advised close follow-up with primary care physician / hvac r tech. -Advised keeping scheduled eye examinations with sooner [...] and treatment options. documented in this encounter [facility] 01-23-2024 Instructions Sony Govea OD - 01/23/2024 8:56 AM EDT Patient education on the importance of strict blood sugar control in order to minimize the risk of vision loss from Diabetes Mellitus. Advised close follow-up with primary care physician / hvac r tech. Advised keeping scheduled eye examinations with sooner follow-up if any new symptoms develop. Refresh Artificial tears, 1 drop, two times a day, Both eyes. Please call the office with decreased vision or increased eye pain. documented in this encounter [facility] 01-19-2024 Miscellaneous Notes The following approved medication requests have been transmitted electronically. Requested Prescriptions Signed Prescriptions Disp Refills liraglutide (VICTOZA) 0.6 mg/ 0.1 ml subcutaneous pen injector 3 Each 5 Sig: Inject 1.8 mg subcutaneously once daily. Authorizing Provider: LAURA NASH PA-C Pt notified of results, pt states he is willing to increase victoza to 1.8mg. pt uses [facility] in [place]. Stephany Johnston LPN A1c is at 7.1. see if patient would be willing to increase victoza from 1.2 to 1.8mg? Cholesterol normal. Blood counts are okay/stable Urine okay. Thanks. Laura Nash PA-C documented in this encounter [facility] 01-16-2024 History of Present illness Narrative [...] 1 tablet by mouth once daily. Insulin [place], Disposable, (NOVOFINE 32) 32 gauge x 1/4 [...] 2 diabetes mellitus without complication, unspecified whether intermediate project manager insulin use (HCC) - ICD9: 250.00, ICD10: [...] Laura Nash PA-C documented in this encounter [facility] 06-19-2023 Miscellaneous Notes Last refill 09/24/22 [...] Fawn Pham Pss documented in this encounter [facility] 04-17-2023 Miscellaneous Notes Pt returned call [...] get hematology input on these findings. Our raise drill operator is currently out of the office this week so I will contact him next week and let him no further recommendations once I get a response. Thanks. Laura Nash PA-C documented in this encounter [facility] 04-15-2023 Instructions Vilma Nguyen APRN.YO - 04/15/2023 8:35 AM EDT Continue current medications Complete labwork Follow up in 6 months documented in this encounter [facility] 04-15-2023 History of Present illness Narrative [...] Obesity, Class III, BMI 40-49.9 (morbid obesity) ([facility]) 12/12/2021 Pulmonary arterial hypertension ([facility]) 08/15/2019 Pulmonary embolus ([facility]) 08/23/2019 Right ventricular enlargement 08/23/2019 Right ventricular systolic dysfunction 12/12/2021 Sinus tachycardia by electrocardiography 12/12/2021 Type 2 diabetes mellitus without complication ([facility]) 08/23/2019 Well adult exam 09/23/2019 Last [...] 100 mg by mouth twice daily. Insulin [place], Disposable, (NOVOFINE 32) 32 gauge x 1/4 [...] 2 diabetes mellitus without complication, unspecified whether intermediate project manager insulin use (HCC) - ICD9: 250.00, ICD10: [...] - ICD9: 278.01, ICD10: E66.01 Morenita Nguyen APRN.DUMP OPERATOR documented in this encounter [facility] 03-31-2023 Miscellaneous Notes Pt advised of [...] Laura Nash PA-C documented in this encounter [facility] 03-31-2023 History of Present illness Narrative [...] but patient is concerned for any potential group home consequences. Plan I reviewed patient chart in [...] TIME: 12:28 PM documented in this encounter [facility] 11-06-2022 History of Present illness Narrative [...] with Dr. Casillas in primary care and [facility] for cardiology. He notes updated cardiac testing is planned in the near future. PAST MEDICAL HISTORY Diagnosis Date Dry eye syndrome 12/12/2021 History of non-ST elevation myocardial infarction (NSTEMI) 08/15/2019 History of pulmonary embolism 08/29/2020 Saw Hematology- was taken off Eliquis. Hyperlipidemia, mixed 01/11/2021 Hypertension, essential 01/13/2020 Obesity, Class III, BMI 40-49.9 (morbid obesity) ([facility]) 12/12/2021 Pulmonary arterial hypertension ([facility]) 08/15/2019 Pulmonary embolus ([facility]) 08/23/2019 Right ventricular enlargement 08/23/2019 Right ventricular systolic dysfunction 12/12/2021 Sinus tachycardia by electrocardiography 12/12/2021 Type 2 diabetes mellitus without complication ([facility]) 08/23/2019 Well adult exam 09/23/2019 Last done 09/23/19 Wrist fracture 2014 left PAST SURGICAL HISTORY Procedure Laterality Date TONSILLECTOMY HX 1979 Current Outpatient Medications Medication Sig Insulin [place], Disposable, (NOVOFINE 32) 32 gauge x 1/4 [...] entered by the nurse and reviewed by ia Nursing Notes: Estrella Vieira RN 11/06/2022 9:39 [...] patient was offered a surgery/procedure at a [facility] facility. I have counseled the patient [...] Charu Luong PA-C documented in this encounter [facility] 11-06-2022 Nurse Note REVIEW OF SYSTEMS: [...] Estrella Vieira RN documented in this encounter [facility] 10-01-2022 Miscellaneous Notes The following approved medication requests have been transmitted electronically. Requested Prescriptions Signed Prescriptions Disp Refills Insulin [place], Disposable, (NOVOFINE 32) 32 gauge x 1/4 100 Each 0 Si Each once daily. Use daily with Victoza pen. Authorizing Provider: LAURA NASH PA-C Patient needs order for pen needles to use with his Victoza injections. Please send order to pharmacy at this time. Misty Henderson LPN documented in this encounter [facility] 10-01-2022 History of Present illness Narrative [...] Misty Henderson LPN documented in this encounter [facility] 09-24-2022 Miscellaneous Notes Patient has been [...] some heart protection. documented in this encounter [facility] 09-23-2022 History of Present illness Narrative [...] BMI 39.06 kg/(m^2) - Patient was counseled [id number] by myself (the billing provider) for the following immunizations and vaccine components, including side effects: Influenza and Pneumococcal . Patient consents for immunization and understands risks and benefits. A VIS sheet on each immunization was given to the patient. - Follow up for annual exam in one year - PSA/PROSTSPECAG DIAG 2. Type 2 diabetes mellitus without complication, unspecified whether intermediate project manager insulin use (HCC) - ICD9: 250.00, ICD10: [...] Palmer Casillas MD documented in this encounter [facility] 01-17-2022 History and physical note STAFF [...] with more than 50% of the total [id number] time of the visit in counseling / coordination of care. SIGNATURE: Cristian Patten MD DATE of SERVICE: January 17, 2022 Cc; Dr. Palmer Lee documented in this encounter [facility] 01-17-2022 History of Present illness Narrative Hematology and Medical Oncology /R35 PATIENT NAME: Poppy Neff. CLINIC NO: [id number]. ATTENDING PHYSICIAN: Dr. Cristian Patten DATE OF [...] 2022 3:01 PM documented in this encounter [facility] 01-17-2022 Nurse Note New pat. Discuss recent lab results. DX: PE Devika Beckett LPN documented in this encounter [facility] 08-23-2019 History of Past i llness Narrative Problem Noted Date Resolved Date Right ventricular enlargement 08/23/2019 Overview: Suspected secondary to significant PE- aug 2019 Pulmonary HTN 08/23/2019 08/29/2020 Overview: Suspected secondary to significant PE- aug 2019 documented as of this encounter (statuses as of 01/18/2022) [facility] History of Past illness Narrative* Problem Noted Date Resolved Date Right ventricular enlargement 08/23/2019 Overview: Suspected secondary to significant PE- aug 2019 Pulmonary HTN 08/23/2019 08/29/2020 Overview: Suspected secondary to significant PE- aug 2019 Pulmonary arterial hypertension 08/15/2019 09/23/2022 Overview: Seeing Dr. Delaney documented as of this encounter (statuses as of 09/23/2022) [facility] History of Past illness Narrative* Problem Noted Date Resolved Date Right ventricular enlargement 08/23/2019 Overview: Suspected secondary to significant PE- aug 2019 Pulmonary HTN 08/23/2019 08/29/2020 Overview: Suspected secondary to significant PE- aug 2019 Pulmonary arterial hypertension 08/15/2019 09/23/2022 Overview: Seeing Dr. Delaney documented as of this encounter (statuses as of 09/24/2022) [facility] of Past illness Narrative* Problem Noted Date Resolved Date Right ventricular enlargement 08/23/2019 Overview: Suspected secondary to significant PE- aug 2019 Pulmonary HTN 08/23/2019 08/29/2020 Overview: Suspected secondary to significant PE- aug 2019 Pulmonary arterial hypertension 08/15/2019 09/23/2022 Overview: Seeing Dr. Delaney documented as of this encounter (statuses as of 10/06/2022) [facility] of Past illness Narrative* Problem Noted Date Resolved Date Right ventricular enlargement 08/23/2019 Overview: Suspected secondary to significant PE- aug 2019 Pulmonary HTN 08/23/2019 08/29/2020 Overview: Suspected secondary to significant PE- aug 2019 Pulmonary arterial hypertension 08/15/2019 09/23/2022 Overview: Seeing Dr. Delaney documented as of this encounter (statuses as of 10/07/2022) [facility] of Past illness Narrative* Problem Noted Date Resolved Date Right ventricular enlargement 08/23/2019 Overview: Suspected secondary to significant PE- aug 2019 Pulmonary HTN 08/23/2019 08/29/2020 Overview: Suspected secondary to significant PE- aug 2019 Pulmonary arterial hypertension 08/15/2019 09/23/2022 Overview: Seeing Dr. Delaney documented as of this encounter (statuses as of 11/12/2022) [facility] Narrative* Problem Noted Date Resolved Date Right ventricular enlargement 08/23/2019 Overview: Suspected secondary to significant PE- aug 2019 Pulmonary HTN 08/23/2019 08/29/2020 Overview: Suspected secondary to significant PE- aug 2019 Pulmonary arterial hypertension 08/15/2019 09/23/2022 Overview: Seeing Dr. Delaney documented as of this encounter (statuses as of 03/31/2023) [facility] Narrative* Problem Noted Date Resolved Date Right ventricular enlargement 08/23/2019 Overview: Suspected secondary to significant PE- aug 2019 Pulmonary HTN 08/23/2019 08/29/2020 Overview: Suspected secondary to significant PE- aug 2019 Pulmonary arterial hypertension 08/15/2019 09/23/2022 Overview: Seeing Dr. Delaney documented as of this encounter (statuses as of 03/31/2023) [facility] Narrative* Problem Noted Date Diagnosed Date Resolved Date Right ventricular enlargement 08/23/2019 08/29/2020 Overview: Suspected secondary to significant PE- aug 2019 Pulmonary HTN 08/23/2019 08/29/2020 Overview: Suspected secondary to significant PE- aug 2019 Pulmonary arterial hypertension 08/15/2019 09/23/2022 Overview: Seeing Dr. Delaney documented as of this encounter (statuses as of 04/15/2023) [facility] Past [facility] Narrative* Problem Noted Date Diagnosed Date Resolved Date Right ventricular enlargement 08/23/2019 08/29/2020 Overview: Suspected secondary to significant PE- aug 2019 Pulmonary HTN 08/23/2019 08/29/2020 Overview: Suspected secondary to significant PE- aug 2019 Pulmonary arterial hypertension 08/15/2019 09/23/2022 Overview: Seeing Dr. Delaney documented as of this encounter (statuses as of 04/17/2023) [facility] Narrative* Problem Noted Date Diagnosed Date Resolved Date Right ventricular enlargement 08/23/2019 08/29/2020 Overview: Suspected secondary to significant PE- aug 2019 Pulmonary HTN 08/23/2019 08/29/2020 Overview: Suspected secondary to significant PE- aug 2019 Pulmonary arterial hypertension 08/15/2019 09/23/2022 Overview: Seeing Dr. Delaney documented as of this encounter (statuses as of 06/19/2023) [facility] Narrative* Problem Noted Date Diagnosed Date Resolved Date Pulmonary embolus 08/23/2019 01/16/2024 Overview: Aug 2019. [facility]. Seeing Dr. Delaney Right ventricular enlargement 08/23/2019 08/29/2020 Overview: Suspected secondary to significant PE- aug 2019 Pulmonary HTN 08/23/2019 08/29/2020 Overview: Suspected secondary to significant PE- aug 2019 Pulmonary arterial hypertension 08/15/2019 09/23/2022 Overview: Seeing Dr. Delaney documented as of this encounter (statuses as of 01/16/2024) [facility] Past [facility] Narrative* Problem Noted Date Diagnosed Date Resolved Date Pulmonary embolus 08/23/2019 01/16/2024 Overview: Aug 2019. [facility]. Seeing Dr. Delaney Right ventricular enlargement 08/23/2019 08/29/2020 Overview: Suspected secondary to significant PE- aug 2019 Pulmonary HTN 08/23/2019 08/29/2020 Overview: Suspected secondary to significant PE- aug 2019 Pulmonary arterial hypertension 08/15/2019 09/23/2022 Overview: Seeing Dr. Delaney documented as of this encounter (statuses as of 01/19/2024) [facility] of Past illness Narrative* Problem Noted Date Diagnosed Date Resolved Date Pulmonary embolus 08/23/2019 01/16/2024 Overview: Aug 2019. 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 Seeing Dr. Delaney Right ventricular enlargement 08/23/2019 08/29/2020 Overview: Suspected secondary to significant PE- aug 2019 Pulmonary HTN 08/23/2019 08/29/2020 Overview: Suspected secondary to significant PE- aug 2019 Pulmonary arterial hypertension 08/15/2019 09/23/2022 Overview: Seeing Dr. Delaney documented as of this encounter (statuses as of 01/23/2024) [facility] note* Diagnosis Other acute pulmonary embolism with acute cor pulmonale (HCC) long term current use of anticoagulant therapy Long-term (current) use of anticoagulants documented in this encounter [facility] note* Diagnosis Well adult exam- Primary Routine general medical examination at a health care facility Type 2 diabetes mellitus without complication, unspecified whether intermediate project manager insulin use (HCC) Hypertension, essential Unspecified essential [...] neoplasm of prostate [facility] Diagnosis Type 2 diabetes mellitus without complication, unspecified whether group home insulin use (HCC)- Primary [facility] Diagnosis Type 2 diabetes mellitus without complication, unspecified whether group home insulin use (HCC)- Primary documented in this encounter [facility] note* Diagnosis Encounter for screening for malignant neoplasm of colon- Primary Special screening for malignant neoplasms, colon [facility] Diagnosis Lyme disease, unspecified [A69.20 (ICD-10-CM)]- Primary Encounter for screening examination for infectious disease [Z11.9 (ICD-10-CM)] [facility] Diagnosis Rash- Primary Rash and other nonspecific skin eruption Arthralgia, unspecified joint [facility] Diagnosis Hypertension, essential- Primary Unspecified essential hypertension Hyperlipidemia, mixed Mixed hyperlipidemia Type 2 diabetes mellitus without complication, unspecified whether intermediate project manager insulin use (HCC) Sinus tachycardia by electrocardiography Obesity, Class III, BMI 40-49.9 (morbid obesity) (HCC) Morbid obesity [facility] Diagnosis Elevated factor VIII level [facility] Diagnosis Well adult exam- Primary Routine general medical examination at a health care facility Type 2 diabetes mellitus without complication, unspecified whether intermediate project manager insulin use (HCC) Hypertension, essential Unspecified essential [...] malignant neoplasms, colon [facility]* Diagnosis Type 2 diabetes mellitus without retinopathy (HCC)- Primary Type II or unspecified type diabetes mellitus without mention of complication, not stated as uncontrolled Dry eye syndrome of both eyes documented in this encounter [facility] note* Diagnosis Hypertension, essential Unspecified essential hypertension documented in this encounter [facility] note* Diagnosis Type 2 diabetes mellitus without complication, unspecified whether group home insulin use (HCC)- Primary Type 2 diabetes mellitus without retinopathy (HCC) Type II or unspecified type diabetes mellitus without mention of complication, not stated as uncontrolled Hyperlipidemia, mixed Mixed hyperlipidemia Hypertension, essential Unspecified essential hypertension History of non-ST elevation myocardial infarction (NSTEMI) Old myocardial infarction Cardiomyopathy, unspecified type (HCC) Obesity, Class III, BMI 40-49.9 (morbid obesity) (HCC) Morbid obesity documented in this encounter [facility] note* Diagnosis Screening for colon cancer Special screening for malignant neoplasms, colon documented in this encounter [facility] note* Diagnosis Microalbuminuria- Primary Proteinuria Polycythemia Polycythemia vera documented in this encounter [facility] note* Diagnosis Viral URI with cough- Primary Acute upper respiratory infections of unspecified site Post-nasal drainage Unspecified sinusitis (chronic) documented in this encounter [facility] for referral (narrative)* Outpatient Procedure (Routine) - Pending Review Specialty Diagnoses / Procedures Referred By Rina t Referred To Contact [facility] Diagnoses Screening for colon cancer Procedures COLONOSCOPY SCREENING COLONOSCOPY FLX DX W/COLLJ SPEC WHEN Medina Lay APRN.CNP [address] [place] [address] [facility] [address] [place] [address] Referral ID Status Reason Start Date Expiration Date Visits Requested Visits Authorized [id number] Pending Review Auto-Generat ed Referral 10/18/2024 10/18/2025 1 1 [facility] Summary Purpose Family History No Family History [...] (HCC) Procedures CONSULT TO GENERAL SURGERY OFFICE/OUTPATIENT [facility] MDM 60-74 MINUTES Cristian Patten MD [address] [place] [address] [facility] [address] [place] [address] Referral ID Status Reason Start Date Expiration Date Visits Requested Visits Authorized [id number] Authorized PCP Requested Referral 01/17/2022 01/17/2023 1 1 Specialty Diagnoses / Procedures Referred By Contac t Referred To Contact General Surgery Diagnoses Screening for colon cancer Procedures CONSULT TO GENERAL SURGERY OFFICE/OUTPATIENT [facility] MDM 60-74 MINUTES Palmer Casillas MD [address] [place] [address] Referral ID Status Reason Start Date Expiration Date Visits Requested Visits Authorized [id number] Authorized PCP Requested Referral 09/23/2023 1 1 Specialty Diagnoses / Procedures Referred By Contac t Referred To Contact General Surgery Diagnoses Screening for colon cancer Procedures CONSULT TO GENERAL SURGERY OFFICE/OUTPATIENT [facility] 60 MINUTES Laura Nash PA-C [address] [place] [address] Referral ID Status Reason Start Date Expiration Date Visits Requested Visits Authorized [id number] Authorized PCP Requested Referral 01/16/2024 01/15/2025 1 1 Specialty Diagnoses / Procedures Referred By Contac t Referred To Contact Ophthalmology Diagnoses Type 2 diabetes mellitus without complication, unspecified whether intermediate project manager insulin use (HCC) Procedures CONSULT TO OPHTHALMOLOGY OFFICE/OUTPATIENT [facility] 60 MINUTES Laura Nash PA-C [address] [place] [address] Referral ID Status Reason Start Date Expiration Date Visits Requested Visits Authorized [id number] Authorized PCP Requested Referral 01/16/2024 01/15/2025 1 1 Additional Source Comments (unrecognized sect ion and content) No Status Records FoundNo Status Records FoundNo Status Records FoundNo Status Records Found INFORMATION SOURCE (unrecogn ized section and content) DATE CREATED AUTHOR 12/04/2018 [facility] DATE CREATED AUTHOR AUTHOR'S ORGANIZ ATION 04/02/2023 [facility] DATE CREATED AUTHOR AUTHOR'S ORGANIZ ATION 09/26/2024 [facility] DATE CREATED AUTHOR AUTHOR'S ORGANIZ ATION 03/03/2025 [facility] Source Comments (unrecognize d section and content) In the event this informatio n is protected by the Federal Confidentiality of Alcohol and Drug Abuse Patient Records regulations: The Federal rules restrict any use of the information to criminally investigate or prosecute any alcohol or drug abuse patient.[facility] the event this information is protected by the Federal Confidentiality of Alcohol and Drug Abuse Patient Records regulations: The Federal rules restrict any use of the information to criminally investigate or prosecute any alcohol or drug abuse patient.[facility] the event this information is protected by the Federal Confidentiality of Alcohol and Drug Abuse Patient Records regulations: The Federal rules restrict any use of the information to criminally investigate or prosecute any alcohol or drug abuse patient.[facility] the event this information is protected by the Federal Confidentiality of Alcohol and Drug Abuse Patient Records regulations: The Federal rules restrict any use of the information to criminally investigate or prosecute any alcohol or drug abuse patient.[facility] the event this information is protected by the Federal Confidentiality of Alcohol and Drug Abuse Patient Records regulations: The Federal rules restrict any use of the information to criminally investigate or prosecute any alcohol or drug abuse patient.[facility] HospitalIn the event this information is protected by the Federal Confidentiality of Alcohol and Drug Abuse Patient Records regulations: The Federal rules restrict any use of the information to criminally investigate or prosecute any alcohol or drug abuse patient.[facility] HospitalIn the event this information is protected by the Federal Confidentiality of Alcohol and Drug Abuse Patient Records regulations: The Federal rules restrict any use of the information to criminally investigate or prosecute any alcohol or drug abuse patient.[facility] HospitalIn the event this information is protected by the Federal Confidentiality of Alcohol and Drug Abuse Patient Records regulations: The Federal rules restrict any use of the information to criminally investigate or prosecute any alcohol or drug abuse patient.[facility] HospitalIn the event this information is protected by the Federal Confidentiality of Alcohol and Drug Abuse Patient Records regulations: The Federal rules restrict any use of the information to criminally investigate or prosecute any alcohol or drug abuse patient.[facility] HospitalIn the event this information is protected by the Federal Confidentiality of Alcohol and Drug Abuse Patient Records regulations: The Federal rules restrict any use of the information to criminally investigate or prosecute any alcohol or drug abuse patient.[facility] HospitalIn the event this information is protected by the Federal Confidentiality of Alcohol and Drug Abuse Patient Records regulations: The Federal rules restrict any use of the information to criminally investigate or prosecute any alcohol or drug abuse patient.[facility] HospitalIn the event this information is protected by the Federal Confidentiality of Alcohol and Drug Abuse Patient Records regulations: The Federal rules restrict any use of the information to criminally investigate or prosecute any alcohol or drug abuse patient.[facility] HospitalIn the event this information is protected by the Federal Confidentiality of Alcohol and Drug Abuse Patient Records regulations: The Federal rules restrict any use of the information to criminally investigate or prosecute any alcohol or drug abuse patient.[facility] HospitalIn the event this information is protected by the Federal Confidentiality of Alcohol and Drug Abuse Patient Records regulations: The Federal rules restrict any use of the information to criminally investigate or prosecute any alcohol or drug abuse patient.[facility] HospitalIn the event this information is protected by the Federal Confidentiality of Alcohol and Drug Abuse Patient Records regulations: The Federal rules restrict any use of the information to criminally investigate or prosecute any alcohol or drug abuse patient.[facility] HospitalIn the event this information is protected by the Federal Confidentiality of Alcohol and Drug Abuse Patient Records regulations: The Federal rules restrict any use of the information to criminally investigate or prosecute any alcohol or drug abuse patient.[facility] HospitalIn the event this information is protected by the Federal Confidentiality of Alcohol and Drug Abuse Patient Records regulations: The Federal rules restrict any use of the information to criminally investigate or prosecute any alcohol or drug abuse patient.[facility] HospitalIn the event this information is protected by the Federal Confidentiality of Alcohol and Drug Abuse Patient Records regulations: The Federal rules restrict any use of the information to criminally investigate or prosecute any alcohol or drug abuse patient.[facility] HospitalIn the event this information is protected by the Federal Confidentiality of Alcohol and Drug Abuse Patient Records regulations: The Federal rules restrict any use of the information to criminally investigate or prosecute any alcohol or drug abuse patient.[facility] HospitalIn the event this information is protected by the Federal Confidentiality of Alcohol and Drug Abuse Patient Records regulations: The Federal rules restrict any use of the information to criminally investigate or prosecute any alcohol or drug abuse patient.[facility] HospitalIn the event this information is protected by the Federal Confidentiality of Alcohol and Drug Abuse Patient Records regulations: The Federal rules restrict any use of the information to criminally investigate or prosecute any alcohol or drug abuse patient.[facility] HospitalIn the event this information is protected by the Federal Confidentiality of Alcohol and Drug Abuse Patient Records regulations: The Federal rules restrict any use of the information to criminally investigate or prosecute any alcohol or drug abuse patient.[facility] HospitalIn the event this information is protected by the Federal Confidentiality of Alcohol and Drug Abuse Patient Records regulations: The Federal rules restrict any use of the information to criminally investigate or prosecute any alcohol or drug abuse patient.[facility] HospitalIn the event this information is protected by the Federal Confidentiality of Alcohol and Drug Abuse Patient Records regulations: The Federal rules restrict any use of the information to criminally investigate or prosecute any alcohol or drug abuse patient.[facility] HospitalIn the event this information is protected by the Federal Confidentiality of Alcohol and Drug Abuse Patient Records regulations: The Federal rules restrict any use of the information to criminally investigate or prosecute any alcohol or drug abuse patient.[facility] Reason for Visit (unrecogniz ed section and content) Reason Comments New Patient Specialty Diagnoses / Procedures Referred By Contac t Referred To Contact Hematology Diagnoses Other acute pulmonary embolism with acute cor pulmonale (HCC) correction current use of anticoagulant therapy Procedures CONSULT TO HEMATOLOGY OFFICE/OUTPATIENT [facility] 60-74 MINUTES Laura Nash PA-C [address] [place] [address] Referral ID Status Reason Start Date Expiration Date V isits Requested Visits Authorized [id number] Closed PCP Requested Referral 12/24/2021 12/24/2022 1 1 Reason Comments Physical Reason Comments Results Reason Comments Education Of Patient/family Self-injecti on teaching; Victoza Reason Comments Orders Reason Comments Consult colonoscopy Specialty Diagnoses / Procedures Referred By Contac t Referred To Contact General Surgery Diagnoses Other acute pulmonary embolism with acute cor pulmonale (HCC) Procedures CONSULT TO GENERAL SURGERY OFFICE/OUTPATIENT [facility] 60-74 MINUTES Cristian Patten MD [address] [place] [address] [facility] [address] [place] [address] Referral ID Status Reason Start Date Expiration Date V isits Requested Visits Authorized [id number] Closed PCP Requested Referral 01/17/2022 01/17/2023 1 1 Reason Comments 6 Month Exam Reason Onset Date Comments Refill Request 06/19/2023 Reason Comments Yearly Exam Reason Comments Diabetes Specialty Diagnoses / Procedures Referred By Contac t Referred To Contact Ophthalmology Diagnoses Type 2 diabetes mellitus without complication, unspecified whether intermediate project manager insulin use (HCC) Procedures CONSULT TO OPHTHALMOLOGY OFFICE/OUTPATIENT [facility] MDM 60 MINUTES Laura Nash PA-C [address] [place] [address] Referral ID Status Reason Start Date Expiration Date V isits Requested Visits Authorized [id number] Closed PCP Requested Referral 01/16/2024 01/15/2025 1 [...] cancer Procedures CONSULT TO GENERAL SURGERY OFFICE/OUTPATIENT [facility] 60 MINUTES Laura Nash PA-C [address] [place] [address] Referral ID Status Reason Start Date Expiration Date V isits Requested Visits Authorized [id number] Closed PCP Requested Referral 01/16/2024 01/15/2025 1 1 Reason Comments Reschedule Colonoscopy Reason Comments Cough Chest congestion, ru nny nose, headache, sinus pressure and pain, SOB, x 2 days Care Teams (unrecognized sec tion and content) 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 Specialty Start Date End Date Palmer Casillas MD [address] [place], [place] [address] PCP - General Family Practice 09/23/19 Maynor Sánchez [facility] [address] [place], [place] [id number] Pharmacist Pharmacy 12/12/21 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 Specialty Start Date End Date Palmer Casillas MD [address] [place], [place] [id number] PCP - General Family Medicine 09/23/19 Maynor Sánchez [facility] [address] [place] [place] [address] Pharmacist Pharmacy 12/12/21 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 Specialty Start Date End Date Palmer Casillas MD [address] [place] [place] [address] PCP - General Family Medicine 09/23/19 Maynor Sánchez, [facility] [address] [place] [place] [address] Pharmacist Pharmacy 12/12/21 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 Specialty Start Date End Date Palmer Casillas MD [address] [place] [place] [address] PCP - General Family Medicine 09/23/19 Maynor Sánchez, [facility] [address] [place] [address] Pharmacist Pharmacy 12/12/21 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 Specialty Start Date End Date Palmer Casillas MD [address] [place] [address] PCP - General Family Medicine 09/23/19 Maynor Sánchez, [facility] [address] [place] [address] Pharmacist Pharmacy 12/12/21 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 Specialty Start Date End Date Palmer Casillas MD [address] [place] [place] [address] PCP - General Family Medicine 09/23/19 Maynor Sánchez, [facility] [address] [place] [address] Pharmacist Pharmacy 12/12/21 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 Specialty Start Date End Date Palmer Casillas MD [address] [place] [address] PCP - General Family Medicine 09/23/19 [facility] [address] [place] [address] Pharmacist Pharmacy 12/12/21 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 Specialty Start Date End Date Palmer Casillas MD [address] [place] [address] PCP - General Family Medicine 09/23/19 [facility] [address] [place] [address] Pharmacist Pharmacy 12/12/21 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 Specialty Start Date End Date Palmer Casillas MD [address] [place] [address] PCP - General Family Medicine 09/23/19 [facility] [address] [place] [address] Pharmacist Pharmacy 12/12/21 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 Specialty Start Date End Date Palmer Casillas MD [address] [place] [address] PCP - General Family Medicine 09/23/19 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 Specialty Start Date End Date Palmer Casillas MD [address] [place] [address] PCP - General Family Medicine 09/23/19 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 Specialty Start Date End Date Palmer Casillas MD [address] [place] [address] PCP - General Family Medicine 09/23/19 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 Specialty Start Date End Date Palmer Casillas MD [address] [place] [address] PCP - General Family Medicine 09/23/19 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 Specialty Start Date End Date Palmer Casillas MD [address] [place] [address] PCP - General Family Medicine 09/23/19 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 Specialty Start Date End Date Palmer Casillas MD [address] [place] [address] PCP - General Family Medicine 09/23/19 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 Specialty Start Date End Date Palmer Casillas MD [address] [place] [address] PCP - General Family Medicine 09/23/19 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 Specialty Start Date End Date Palmer Casillas MD [address] [place] [address] PCP - General Family Medicine 09/23/19 Vilma Nguyen APRN.DUMP OPERATOR [address] [place] [address] [employer] [facility] 09/11/24 Laura Nash PA-C [address] [place] [address] [employer] [facility] 09/11/24 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 Specialty Start Date End Date Palmer Casillas MD [address] [place] [address] PCP - General Family Medicine 09/23/19 Vilma Nguyen APRN.DUMP OPERATOR [address] [place] [address] [employer] [facility] 09/11/24 Laura Nash PA-C [address] [place] [address] [employer] [facility] 09/11/24 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 Specialty Start Date End Date Palmer Casillas MD [address] [place] [address] PCP - General Family Medicine 09/23/19 Vilma Nguyen APRN.DUMP OPERATOR [address] [place] [address] [employer] [facility] 09/11/24 Laura Nash PA-C [address] [place] [address] [employer] [facility] 09/11/24 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 Specialty Start Date End Date Palmer Casillas MD [address] [place] [address] PCP - General Family Medicine 09/23/19 Laura Nash PA-C [address] [place] [address] [employer] [facility] 09/11/24 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 Specialty Start Date End Date Palmer Casillas MD [address] [place] [address] PCP - General Family Medicine 09/23/19 Laura Nash PA-C [address] [place] [address] [employer] [facility] 09/11/24 Active Administered Medications - [...] BE BASED ON THE PRIMARY CLINICAL RECORDS. [employer] provides no warranty or guarantee of the accuracy or completeness of information in this document.
[2025-03-10 23:02] LABS: Bedside Glucose 199 mg/dL (74-106)
[2025-03-11 00:02] LABS: Partial Thromboplast Time 40.1 Seconds (24.1-36.2)
[2025-03-11] MEDS: Heparin Injection (Vial) 5,000 UNIT/ML VIAL IV (01:08)
[2025-03-11] MEDS: Furosemide 40 MG/4 ML Vial IV ×3 (01:09→18:15)
[2025-03-11 03:43] VITALS: BMI 34.4
[2025-03-11 05:00] VITALS: BP 117/90; PULSE 85; RESP 18; TEMP 36.9; O2SAT 93
[2025-03-11 07:06] LABS: Bedside Glucose 129 mg/dL (74-106)
[2025-03-11 07:37] LABS: Absolute Lymphocyte Count 1.55 X10^3/uL (0.83-4.51); Absolute Neutrophil Count 8.1 X10^3/uL (2.0-7.7); Basophil# 0.07 X10^3/uL; Basophil% 0.6 % (0-1); Eosinophil# 0.04 X10^3/uL; Eosinophils% 0.4 % (0-5); Hematocrit 43.8 % (40-54); Hemoglobin 15.3 g/dL (13.0-16.5); Lymphocyte # 1.55 X10^3/ul (0.83-4.51); Lymphocyte % 14.1 % (19-41); Mean Corp Hgb Conc 34.9 g/dL (32-36); Mean Corpuscular Hgb 29.2 pg (27.0-32.0); Mean Corpuscular Volume 83.6 fL (80-94); Mean Platelet Vol. 10.3 fl (6.2-12.0); Monocyte# 1.14 X10^3/uL; Monocyte% 10.4 % (0-10); NRBC Flagged by Analyzer 0 % (0-5); Neutrophil # 8.11 X10^3/uL (2.7-7.7); Platelet Count 294 K/mm3 (150-450); RBC Distribution Width SD 42.1 fl (35.1-43.9); Red Blood Count 5.24 M/mm3 (4.6-6.2)
[2025-03-11 07:53] LABS: Partial Thromboplast Time 43.1 Seconds (24.1-36.2)
[2025-03-11 08:35] LABS: ALB/GLOB Ratio 1.2 RATIO (0.9-2.4); AST(SGOT) 18 U/L (<=37); Alanine Aminotransfer ALT/SGPT 13 U/L (<=46); Albumin, Serum 3.2 g/dL (3.5-5.0); Alkaline Phosphatase 60 U/L (40-129); Anion Gap 14 (5-15); BUN 22 mg/dL (4-19); BUN/Creat Ratio 18.9 RATIO (10-20); Calcium,Total 8.3 mg/dL (7.6-11.0); Carbon Dioxide 20.1 mmol/L (21.0-32.0); Chloride 98 mmol/L (98-108); Creatinine, Serum 1.15 mg/dL (0.70-1.20); EST Glomerular Filtration Rate 76 (>60); Estimated Creatinine Clearance 100.09 ml/min (50-250); Globulin 2.6 g/dL (2.2-4.2); Glucose 124 mg/dL (70-99); Phosphorus 3.4 mg/dL (2.7-4.5); Potassium 3.3 mmol/L (3.3-5.1); Protein, Total 5.8 g/dL (5.9-8.4); Sodium Level 132 mmol/L (133-145); Total Bilirubin 0.69 mg/dL (0.00-1.30)
[2025-03-11] MEDS: APIXABAN 5 MG TABLET 10 MG PO ×2 (10:13→22:18)
[2025-03-11] MEDS: Losartan Potassium 100 MG Tablet PO (10:13)
[2025-03-11] MEDS: hydroCHLOROthiazide 25 MG Tablet PO (10:13)
[2025-03-11 10:26] VITALS: BP 120/88; PULSE 92; RESP 18; TEMP 37.1; O2SAT 89; O2SAT 93; O2SAT 94
--- NOTE | 2025-03-11 11:45 | ECHOD_ITS ---
Reason For Study Reason For Study: EMBOLI Procedure This was a 2D Doppler, Color Flow transthoracic echocardiogram. Exam performed portable in patient room. Left Ventricle Normal LV size. D shaped septum in systole and diastole. The estimated ejection fraction is 55 %. Right Ventricle Severely dilated right ventricle. Severe global right ventricular systolic dysfunction. Atria Normal left atrium. The right atrium is severely enlarged. Tricuspid Valve There is no tricuspid stenosis. Moderate (2+) tricuspid valve insufficiency. Pulmonary artery systolic pressure is 130 mmHg. Severe pulmonary hypertension. Aortic Valve Trisinus/trileaflet aortic valve. There is no aortic stenosis. No aortic valve insufficiency. Pulmonic Valve There is no pulmonic valvular stenosis. Trivial pulmonic valve insufficiency. Great Vessels Normal sized aortic root. Pericardium/Pleural No pericardial effusion. MMode/2D Measurements & Calculations LVIDd: 2.9 cm IVSd: 0.96 cm LVOT diam: 2.0 cm LVIDs: 1.6 cm LVPWd: 1.2 cm LVOT area: 3.1 cm2 RVDd: 4.1 cm FS: 44.2 % Ao root diam: 3.2 cm LAV(MOD-sp4): 22.5 ml LA A4 area: 11.4 cm2 LA dimension(2D): 3.0 cm RA A4 area: 31.6 cm2 Time Measurements MV dec time: 0.13 sec Doppler Measurements & Calculations MV E max cade: 29.9 cm/sec Lat Peak E' Cade: 12.3 cm/sec Med Peak E' Cade: 7.1 cm/sec MV A max cade: 55.6 cm/sec E/E' lat: 2.4 E/E' med: 4.2 MV E/A: 0.54 MV dec slope: 224.9 cm/sec2 Ao V2 max: 96.1 cm/sec LV V1 max: 89.2 cm/sec Ao max P.7 mmHg LV V1 max P.2 mmHg Ao V2 mean: 69.3 cm/sec LV V1 mean P.8 mmHg Ao mean P.2 mmHg LV V1 mean: 61.7 cm/sec Ao V2 VTI: 13.0 cm LV V1 VTI: 13.1 cm AV (velocity ratio): 1.0 JOSUE(I,D): 3.1 cm2 JOSUE(V,D): 2.9 cm2 SV(LVOT): 41.0 ml TR max cade: 558.9 cm/sec TR max P.0 mmHg ECHO/Echo Complete Interpretation Summary The estimated ejection fraction is 55 %. Severely dilated right ventricle. Severe global right ventricular systolic dysfunction. Severe pulmonary hypertension. The right atrium is severely enlarged. Ordering Physician: Sae Johnson Referring Physician: TRACE CASILLAS Performed By: Shanique Peña RCS
[2025-03-11 12:21] LABS: Bedside Glucose 151 mg/dL (74-106)
--- NOTE | 2025-03-11 14:18 | PCM.PN.HOSP ---
Subjective Subjective , No issues overnight. Ambulated on room air, denies any chest pain and he is not tachycardic Objective Data Objective Data Vital Signs: Vital Signs Temp Pulse Resp BP Pulse Ox O2 Del Method O2 Flow Rate 98.8 F 92 18 120/88 H 94 Room Air 2 03/11/25 10:26 03/11/25 10:26 03/11/25 10:26 03/11/25 10:26 03/11/25 10:26 03/11/25 14:00 03/11/25 10:26 Oxygen Flow Rate (L/min) 2 Oxygen Delivery Method Room Air Weight: 260 lb 12.909 oz Body Mass Index (BMI) 34.4 Intake & Output: Intake and Output for Last 24 Hours 03/10/25 03/11/25 03/12/25 03:59 03:59 03:59 Intake Total 2265.75 / 2265.75 1106.4 / 1106.4 Balance 2265.75 / 2265.75 1106.4 / 1106.4 Lab / Micro Data 03/11/25 07:08 03/11/25 07:08 Labs: Laboratory Results - last 24 hr 03/10/25 11:10: PT 15.4 H, INR 1.2, APTT 28.2 03/10/25 13:20: Troponin T High Sens 31 H 03/10/25 21:07: POC Glucose 199 H 03/10/25 23:35: APTT 40.1 H 03/11/25 06:34: POC Glucose 129 H 03/11/25 07:08: WBC 11.0, RBC 5.24, Hgb 15.3, Hct 43.8, MCV 83.6, MCH 29.2, MCHC 34.9, RDW Std Deviation 42.1, RDW Coeff of Yared 14.0, Plt Count 294, MPV 10.3, Immature Gran % (Auto) 0.500, Neut % (Auto) 74.0 H, Lymph % (Auto) 14.1 L, Hardy % (Auto) 10.4 H, Eos % (Auto) 0.4, Baso % (Auto) 0.6, Absolute Neuts (auto) 8.1 H, Absolute Lymphs (auto) 1.55, Nucleated RBC % 0, APTT 43.1 H, Sodium 132 L, Potassium 3.3, Chloride 98, Carbon Dioxide 20.1 L, Anion Gap 14, BUN 22 H, Creatinine 1.15, Estim Creat Clear Calc 100.09, Est GFR (MDRD) Non-Af 76, BUN/Creatinine Ratio 18.9, Glucose 124 H, Calcium 8.3, Phosphorus 3.4, Magnesium 2.0, Total Bilirubin 0.69, AST 18, ALT 13, Alkaline Phosphatase 60, Total Protein 5.8 L, Albumin 3.2 L, Globulin 2.6, Albumin/Globulin Ratio 1.2, TSH 1.170 03/11/25 11:44: POC Glucose 151 H ABG Data ABG results: ABG 03/10/25 17:42 Specimen Type ART Sample Site L Radial pH 7.50 H Bicarbonate Actual 20.9 L Total CO2 22 Base Excess -2 O2 Saturation 94 L O2 % 2.0 ABG pCO2 27.1 L ABG pO2 65 L Jose Juan Test Positive O2 Delivery Device Cannula Vent Mode Not entered Physical Exam Narrative General: Alert, Oriented x3, Cooperative, No apparent distress HEENT: Atraumatic, PERRLA, EOMI, Normocephalic Oral: Moist Mucosa Neck: Supple, No JVD Lungs: Diminished, Normal air movement, No rhonchi, No wheeze, No rales Cardiovascular: Regular rate, Regular Rhythm, Normal S1, Normal S2, No murmurs Abdomen: Soft, Non Tender, Non-Distended, No Hepato-splenomegaly Extremities: No edema, Capillary Refill Less than 3 Seconds Skin: No rashes, No breakdown Musculoskeletal: No Tenderness to Palpation of Joints or Extremities Neurological: No focal neurological deficits, Motor Exam 5/5 strength throughout, Sensory exam intact to light touch and pain Psych/Mental Status: Normal Affect, Appropriate Assessment & Plan Assessment/Plan (1) Bilateral pulmonary embolism: PLAN: Plan 1. Acute hypoxic respiratory insufficiency secondary to bilateral central pulmonary embolisms ? Unfortunately would have the capability to do an embolectomy today or this weekend ? Echocardiogram does show right ventricular strain and decreased function however patient does not want to be transferred to another hospital ? Will maintain overnight on Eliquis and monitor for any changes. He did have an ambulatory pulse ox today which did not demonstrate a need for oxygen and he is currently improved on room air after Lasix ? Continue with Eliquis 10 mg p.o. twice daily ? He has had a previous unprovoked pulmonary embolism. Will need to see hematology on discharge ? Leukocytosis was reactive and resolved ? BNP related to his PE, left ventricular function is normal on the echocardiogram. Will continue with temporary Lasix 2. Essential HTN/HLD/nonischemic cardiomyopathy ? He is on Jardiance for diabetes and his reduced EF on echo previously ? Repeat EF on his echocardiogram from today is normal per report ? Will continue with his home losartan and Lipitor 3. DM2/morbid obesity ? I will hold his Jardiance and his metformin ? Continue sliding scale insulin ? Accu-Cheks ACHS ? He is not in DKA, his anion gap acidosis resolved, I do not believe that he was in a euglycemic DKA either at this time ? BMI is 34.5, continue Ozempic as an outpatient DVT: Eliquis Charges/Coding Visit Charges Inpatient E&M: 50348 Subs Hosp L2
[2025-03-11 14:46] VITALS: BP 114/82; PULSE 98; RESP 18; TEMP 37.2; O2SAT 88
[2025-03-11 16:37] LABS: Bedside Glucose 146 mg/dL (74-106)
[2025-03-11 20:44] VITALS: BP 107/72; PULSE 88; RESP 18; TEMP 36.5; O2SAT 94
[2025-03-11] MEDS: Atorvastatin Calcium 80 MG Tablet PO (22:18)
[2025-03-12 02:44] VITALS: BP 107/76; PULSE 80; RESP 20; TEMP 36.8; O2SAT 92
[2025-03-12 05:32] VITALS: BMI 33.6
[2025-03-12 06:29] LABS: Absolute Lymphocyte Count 1.85 X10^3/uL (0.83-4.51); Absolute Neutrophil Count 8.7 X10^3/uL (2.0-7.7); Basophil# 0.06 X10^3/uL; Basophil% 0.5 % (0-1); Eosinophil# 0.04 X10^3/uL; Eosinophils% 0.3 % (0-5); Hematocrit 47.1 % (40-54); Hemoglobin 16.3 g/dL (13.0-16.5); Lymphocyte # 1.85 X10^3/ul (0.83-4.51); Lymphocyte % 15.7 % (19-41); Mean Corp Hgb Conc 34.6 g/dL (32-36); Mean Corpuscular Hgb 29.3 pg (27.0-32.0); Mean Corpuscular Volume 84.6 fL (80-94); Mean Platelet Vol. 9.9 fl (6.2-12.0); Monocyte# 1.08 X10^3/uL; Monocyte% 9.2 % (0-10); NRBC Flagged by Analyzer 0 % (0-5); Neutrophil % 73.7 % (47-70); Platelet Count 317 K/mm3 (150-450); RBC Distribution Width SD 42.6 fl (35.1-43.9); Red Blood Count 5.57 M/mm3 (4.6-6.2); White Blood Count 11.8 K/mm3 (4.4-11.0)
[2025-03-12 06:34] VITALS: BP 109/71; PULSE 90; RESP 18; TEMP 36.7; O2SAT 93
[2025-03-12 06:49] LABS: Anion Gap 14 (5-15); BUN 24 mg/dL (4-19); BUN/Creat Ratio 19.9 RATIO (10-20); Calcium,Total 8.3 mg/dL (7.6-11.0); Carbon Dioxide 23.8 mmol/L (21.0-32.0); Chloride 95 mmol/L (98-108); Creatinine, Serum 1.19 mg/dL (0.70-1.20); EST Glomerular Filtration Rate 73 (>60); Estimated Creatinine Clearance 95.67 ml/min (50-250); Glucose 108 mg/dL (70-99); Potassium 3.2 mmol/L (3.3-5.1); Sodium Level 132 mmol/L (133-145)
[2025-03-12 06:55] LABS: Bedside Glucose 123 mg/dL (74-106)
[2025-03-12 07:00] VITALS: PULSE 108
[2025-03-12] MEDS: APIXABAN 5 MG TABLET 10 MG PO (08:31)
[2025-03-12] MEDS: hydroCHLOROthiazide 25 MG Tablet PO (08:31)
[2025-03-12] MEDS: Furosemide 40 MG/4 ML Vial IV (08:31)
[2025-03-12] MEDS: Losartan Potassium 100 MG Tablet PO (08:32)
[2025-03-12 09:17] VITALS: BP 108/71; PULSE 89; RESP 16; TEMP 36.7; O2SAT 93
--- NOTE | 2025-03-12 09:47 | CASEMGMT ---
DAYA JENSEN NOTE: Pt to discharge home on Eliquis which has been e-scribed to [facility] pharmacy in [place]. DAYA JENSEN to room. Pt states he has been on Eliquis in the past and he is not sure if he has used the trial offer card or savings card or not. Call placed to [facility] pharmacy. Cost/co-pay is $50 for 30-day supply. Free 30-day trial offer card info provided to pharmacist and it went through. Cost will be $0 for 30-day supply. Pharmacist states pt may have used the $10 co-pay card in the past but she is not sure. Pt also provided w/ $10 co-pay card and instructed on use. Pt voices understanding. Pt denies having any discharge needs or concerns. Mattie HERNANDES RN CM
--- NOTE | 2025-03-12 09:49 | DCINST_ITS ---
Discharge Instructions Diet Discharge Diet: Low fat / Low cholesterol and Carb Control Diet DC O2, CPAP, BIPAP needs Home O2 Discharge instructions: No Dressing / Incision Discharge Activity: Return to Normal Activity Dressing / Incision Call your doctor if you observe: Fever of 101 or Higher, Shortness of breath, Dizziness, Fainting spells, Swelling in the ankles, Chest pain and Increased palpitations (irregular heartbeat) Follow Up Care Test Results: Test results from this visit will be discussed in further detail at your follow- up appointment, if applicable. Discharge Plan Admission Admit Date/Time: 03/10/25 16:02 Attending Provider: Sae Johnson Primary Care Provider: Palmer Ashton Consulting Providers: Belinda Parker Discharge Orders/Prescriptions Prescriptions: New Eliaugustusis DVT-PE Treat 30D Start 5 mg (74 tabs) tablets,dose pack 5 mg PO BID Qty: 74 0RF Continued metformin 1,000 mg tablet 1,000 mg PO BID hydrochlorothiazide 25 mg tablet 25 mg PO DAILY Qty: 90 3RF losartan 100 mg tablet 100 mg PO DAILY Qty: 90 3RF Jardiance 25 mg tablet 25 mg PO QDAY Ozempic 0.25 mg or 0.5 mg (2 mg/3 mL) pen injector 1 mg subcut QWEEK atorvastatin 80 MG tablet 80 mg PO QHS Qty: 30 0RF Referrals / Follow Up: Palmer Ashton MD [Primary Care Provider] - Within 1 Week Karis Avila MD [Med Staff - Active Staff] - Within 1 Month Disposition Disposition (needs filled in before D/C Order can be placed): Home, Self Care
--- NOTE | 2025-03-12 17:29 | DS.PCM_ITS ---
Providers Date of Admission: 03/10/25 Primary Care Physician: Dr. Palmer Ashton MD Reason For Visit: ACUTE BILATERAL PULMONARY EMBOLI Diagnosis Discharge Diagnosis (1) Bilateral pulmonary embolism: Status: Acute Code(s): I26.99 - Other pulmonary embolism without acute cor pulmonale Medications at Discharge Home Medications atorvastatin 80 mg tablet 80 mg PO QHS cholesterol #30 tabs 08/17/19 hydrochlorothiazide 25 mg tablet 25 mg PO DAILY diuretic #90 tabs 07/17/21 metformin 1,000 mg tablet 1,000 mg PO BID diabetes 07/17/21 losartan 100 mg tablet 100 mg PO DAILY blood pressure #90 tabs 12/25/23 empagliflozin 25 mg tablet (Jardiance) 25 mg PO QDAY diabetes 09/23/24 semaglutide 0.25 mg or 0.5 mg (2 mg/3 mL) subcutaneous pen injector (Ozempic) 1 mg subcut QWEEK diabetes 09/23/24 apixaban 5 mg (74 tabs) tablets in a dose pack (Eliquis DVT-PE Treat 30D Start) 5 mg PO BID #74 tabs 03/11/25 furosemide 40 mg tablet (Lasix) 40 mg PO DAILY #7 tabs 03/12/25 Hospital Course Operations None Procedures 2-D Echocardiogram Summary of Care Provided Minutes Spent on Discharge: 33 Hospital Course: Per HPI: POPPY NEFF, is a 55 M who presented to the emergency department at [facility] on 03/10/2025 with chief complaint of shortness of breath. Per discussion with the patient and family this has been ongoing for a week or so. He has had considerable fatigue especially with exertion and considerable exertional dyspnea. He has a known history of pulmonary embolism which was diagnosed in 2019. He was on anticoagulation for what he thinks was a year to 18 months and then it was discontinued. He did follow-up with hematology and they were unable to identify any reason for him to develop a PE. He has had no lower extremity swelling. He has been active without any recent travel or surgery. 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 He states he tolerated Eliquis well previously when he had PE identified in 2019. He has had a mild cough with some postnasal drip but denies any fever or chills and states his cough has been nonproductive. He also indicated his cough seems to be improving. Vital signs on presentation showed a temperature of 97.1, heart rate 95, respiratory rate was 20, blood pressure was 129/85 and pulse ox was initially 91% on room air however he did desat into the upper 80s and was placed on 2 L nasal cannula. CBC shows a mild leukocytosis with a white count of 13 with an 83.3% neutrophilia. Coags were unremarkable. A venous blood gas was obtained and showed a pH of 7.42. This was done due to an elevated anion gap and slightly low serum bicarb with an elevated beta hydroxybutyrate. This chemistry panel showed normal electrolytes other than his serum bicarb and chloride which was mildly low as well. BUN was 20 and serum creatinine is 1.32. Baseline is unknown but this seems to be slightly elevated from previous. His initial troponin was 30 with a delta of 31. His BNP was 5176. UA was unremarkable. CTA of the chest shows multiple bilateral pulmonary emboli with scattered areas of granulomatous attenuation and partial consolidation in the right upper lobe. Given elevated troponin and BNP, the case was discussed with Dr. Mendez. He indicated he was out of town but did note that there is RV strain which was not called initially by radiology on the CTA of his chest. He recommended that we discussed the case with [facility]. The emergency department did consult with [facility] and the images were pushed. This was reviewed and felt that he was stable for admission here with anticoagulation but if he decompensated at all to please call back and they would get him transferred. Hospital Course: 1. Acute hypoxic respiratory sufficiency secondary bilateral central pulmonary embolisms?55-year-old male who had a history of clots in the past presents to the hospital with recurrent bilateral PEs. He was well but hypoxic which resolved fairly quickly on admission, he was initially started on heparin drip and converted to Eliquis 10 mg p.o. twice daily followed by 5 mg p.o. twice daily. On admission it was discussed with vascular surgery potentially doing an embolectomy however we did not have coverage this weekend so the admitting hospitalist called [facility] who did not think he would qualify therefore he was admitted to this hospital. He was also placed on Lasix x 2 doses with improvement in his respiratory status. He did have an ambulatory pulse ox prior to discharge and he did not require any oxygen with ambulation or at rest. His creatinine was kind of borderline during his admission, on admission of 1.32 and on discharge was 1.19, will continue with Lasix on discharge for a few days though I do recommend that he follow-up with his PCP next week to monitor his renal function given that he is on losartan and metformin. If he is having continued shortness of breath may benefit from Lasix on an outpatient basis. I also recommend that he follow-up with hematology and will likely need to be on permanent anticoagulation. Echocardiogram was obtained which demonstrated EF of 55% with a severely dilated right ventricle and severe global right ventricular systolic dysfunction and pulmonary hypertension. He was not feeling any shortness of breath today on discharge or with ambulation. I discussed with him the plan for discharge today and he expressed understanding of the risk benefits of going home and would like to go home today. 2. Essential hypertension, hyperlipidemia, nonischemic cardiomyopathy, type 2 diabetes, morbid obesity are a chronic medical conditions which complicate his care. His home medications were continued where appropriate Physical Exam Narrative General: Alert, Oriented x3, Cooperative, No apparent distress HEENT: Atraumatic, PERRLA, EOMI, Normocephalic Oral: Moist Mucosa Neck: Supple, No JVD Lungs: Diminished, Normal air movement, No rhonchi, No wheeze, No rales Cardiovascular: Regular rate, Regular Rhythm, Normal S1, Normal S2, No murmurs Abdomen: Soft, Non Tender, Non-Distended, No Hepato-splenomegaly Extremities: No edema, Capillary Refill Less than 3 Seconds Skin: No rashes, No breakdown Musculoskeletal: No Tenderness to Palpation of Joints or Extremities Neurological: No focal neurological deficits, Motor Exam 5/5 strength throughout, Sensory exam intact to light touch and pain Psych/Mental Status: Normal Affect, Appropriate Weight / BMI Weight Weight: 255 lb 1.197 oz Body Mass Index (BMI) 33.6 ABG / Lab / Microbiology Data 03/12/25 05:40 03/12/25 05:40 Laboratory: Laboratory Results - last 24 hr 03/12/25 05:40: WBC 11.8 H, RBC 5.57, Hgb 16.3, Hct 47.1, MCV 84.6, MCH 29.3, MCHC 34.6, RDW Std Deviation 42.6, RDW Coeff of Yared 14.0, Plt Count 317, MPV 9.9, Immature Gran % (Auto) 0.600, Neut % (Auto) 73.7 H, Lymph % (Auto) 15.7 L, [place] % (Auto) 9.2, Eos % (Auto) 0.3, Baso % (Auto) 0.5, Absolute Neuts (auto) 8.7 H, Absolute Lymphs (auto) 1.85, Nucleated RBC % 0, Sodium 132 L, Potassium 3.2 L, Chloride 95 L, Carbon Dioxide 23.8, Anion Gap 14, BUN 24 H, Creatinine 1.19, Estim Creat Clear Calc 95.67, Est GFR (MDRD) Non-Af 73, BUN/Creatinine Ratio 19.9, Glucose 108 H, Calcium 8.3 03/12/25 06:31: POC Glucose 123 H D/C Instructions Discharge Diet: Low fat / Low cholesterol and Carb Control Diet Call your doctor if you observe: Fever of 101 or Higher, Shortness of breath, Dizziness, Fainting spells, Swelling in the ankles, Chest pain and Increased palpitations (irregular heartbeat) DC O2, CPAP, BIPAP Needs Home O2 Discharge instructions: No Meaningful Use Info Meaningful Use Meaningful Use Diagnoses (Choose all that apply): None applicable Ischemic Stroke Statin Dosing Therapy Reference: STATIN DOSE THERAPY REFERENCE: * Patients > 75 years receive moderate or high dose statin therapy. * Patients 75 years or YOUNGER should receive HIGH intensity statin dose unless contraindicated. You will be required to document reason for non-treatment if statin daily dose does not meet guidelines. HIGH DOSE STATIN THERAPY DAILY Atorvastatin > than or = to 40 mg Rosuvastatin > than or = to 20 mg Amlodipine + Atorvastatin > than or = to 2.5/40 mg Ezetimibe + Simvastatin 10/80 mg Simvastatin 80mg Discharge Plan Admission Admit Date/Time: 03/10/25 16:02 Attending Provider: Sae Johnson Primary Care Provider: Palmer Ashton Consulting Providers: Belinda Parker Discharge Orders/Prescriptions Prescriptions: New Eliquis DVT-PE Treat 30D Start 5 mg (74 tabs) tablets,dose pack 5 mg PO BID Qty: 74 0RF furosemide [Lasix] 40 mg tablet 40 mg PO DAILY Qty: 7 0RF Continued metformin 1,000 mg tablet 1,000 mg PO BID hydrochlorothiazide 25 mg tablet 25 mg PO DAILY Qty: 90 3RF losartan 100 mg tablet 100 mg PO DAILY Qty: 90 3RF Jardiance 25 mg tablet 25 mg PO QDAY Ozempic 0.25 mg or 0.5 mg (2 mg/3 mL) pen injector 1 mg subcut QWEEK atorvastatin 80 MG tablet 80 mg PO QHS Qty: 30 0RF Referrals / Follow Up: Palmer Ashton MD [Primary Care Provider] - Within 1 Week Karis Avila MD [Med Staff - Active Staff] - Within 1 Month Disposition Disposition (needs filled in before D/C Order can be placed): Home, Self Care Charges/Coding Visit Charges Inpatient E&M: 85353 Disch Hosp >30min
== END 2025-03-12 11:22 | disposition home or self-care (01) | DRG 176 ==
LOC: ED 11:24 → PCU 16:19
PROVIDERS: Physician Assistant; Admitting Provider Internal Medicine; Emergency Provider Surgery; PCP Family Medicine; Visit Provider Family Medicine
DX: I26.99 Other pulmonary embolism without acute cor pulmonale (principal); I42.8 Other cardiomyopathies; E11.65 Type 2 diabetes mellitus with hyperglycemia; I10 Essential (primary) hypertension; Z68.34 Body mass index [BMI] 34.0-34.9, adult; E66.01 Morbid (severe) obesity due to excess calories; E78.5 Hyperlipidemia, unspecified; Z79.01 Long term (current) use of anticoagulants; Z79.84 Long term (current) use of oral hypoglycemic drugs; Z79.85 Long-term (current) use of injectable non-insulin antidiabetic drugs; Z79.899 Other long term (current) drug therapy; Z86.711 Personal history of pulmonary embolism; Z86.718 Personal history of other venous thrombosis and embolism
CPT/HCPCS: 36415; 36600; 71275; 80048; 80053; 81001; 82010; 82803; 82962; 83735; 83880; 84100; 84443; 84484; 85025; 85610; 85730; 93005; 93306; 94668; 99252; 99285; Q9967; A4216; G0463; J1938